=== PATIENT | female | born 1975 | race Caucasian/White ===

== ENCOUNTER → 2019-08-23 06:24 | Outpatient (CLI) | payer OTHER, SELFPAY ==
[2019-08-23 07:40] LABS: Absolute Lymphocyte Count 2.27 X10^3/uL (0.83-4.51); Absolute Neutrophil Count 2.3 X10^3/uL (2.0-7.7); Basophil# 0.04 X10^3/uL; Basophil% 0.8 % (0-1); Eosinophil# 0.09 X10^3/uL; Eosinophils% 1.7 % (0-5); Hemoglobin 12.7 g/dL (12.0-15.0); Lymphocyte # 2.27 X10^3/ul (4.0); Lymphocyte % 43.4 % (19-41); Mean Corp Hgb Conc 32.6 g/dL (32-36); Mean Corpuscular Hgb 30.3 pg (27.0-32.0); Mean Corpuscular Volume 93.1 fL (81-99); Mean Platelet Vol. 10.5 fl (6.2-12.0); Monocyte# 0.53 X10^3/uL; Monocyte% 10.1 % (0-10); NRBC Flagged by Analyzer 0 % (0-5); Neutrophil # 2.28 X10^3/uL (2.7-7.7); Neutrophil % 43.6 % (47-70); Platelet Count 190 K/mm3 (150-450); RBC Distribution Width CV 12.6 % (11.6-14.6); RBC Distribution Width SD 43.4 fl (35.1-43.9); Red Blood Count 4.19 M/mm3 (4.2-5.4); White Blood Count 5.2 K/mm3 (4.4-11.0)
[2019-08-23 08:24] LABS: AST(SGOT) 10 U/L (15-37); Alanine Aminotransfer ALT/SGPT 18 U/L (13-56); Albumin, Serum 3.3 g/dL (3.2-5.0); Alkaline Phosphatase 58 U/L (45-117); Anion Gap 8 (5-15); BUN 19 mg/dL (7-18); BUN/Creat Ratio 25.4 RATIO (10-20); Calcium,Total 8.8 mg/dL (8.5-10.1); Chloride 106 mmol/L (98-107); Cholesterol 151 mg/dL (200); Creatinine, Serum 0.75 mg/dL (0.55-1.02); EST Glomerular Filtration Rate 90 mL/min (>60); Est Glom Filt Rate - Afr Amer 109 mL/min (>60); Ferritin 16 ng/mL (8-252); Globulin 3.4 g/dL (2.2-4.2); Glucose 86 mg/dL (74-106); High Density Lipoprotein 84 mg/dL; Iron 132 ug/dL (50-170); Iron Binding Capacity,Total 439 ug/dL (250-450); Potassium 3.7 mmol/L (3.5-5.1); Protein, Total 6.7 g/dL (6.4-8.2); Sodium Level 142 mmol/L (136-145); Triglycerides 85 mg/dL; Very Low Density Lipoprotein 17 mg/dL (5-40)
[2019-08-23 09:26] LABS: Vitamin B12 548 pg/mL (211-911); Vitamin D,25 Hydroxy 17.7 ng/mL (29.95-100.01)
== END ==
DX: E55.9 Vitamin D deficiency, unspecified (principal); E53.8 Deficiency of other specified B group vitamins; E78.2 Mixed hyperlipidemia; Z98.84 Bariatric surgery status
CPT/HCPCS: 36415; 80053; 80061; 82306; 82607; 82728; 82746; 83540; 83550; 85025

== ENCOUNTER 2019-09-20 00:33 | Observation (INO) | payer OTHER, SELFPAY ==
[2019-09-20] VITALS (16 sets, daily range): BP systolic 118–149; BP diastolic 67–92; PULSE 54–71; RESP 16–18; TEMP 36.5–37; O2SAT 95–98; BMI 37.8
--- NOTE | 2019-09-20 00:42 | EKG12_ITS ---
Test Reason : Blood Pressure : / mmHG Vent. Rate : 057 BPM Atrial Rate : 057 BPM P-R Int : 170 ms QRS Dur : 094 ms QT Int : 414 ms P-R-T Axes : 038 009 006 degrees QTc Int : 402 ms Sinus bradycardia Otherwise normal ECG When compared with ECG of 28-SEP-2005 16:10, No significant change was found Confirmed by DORON CHARLTON, BILL ([id number]), loan expeditor THERON PARDO ([id number]) on 09/22/2019 10:24:19 AM Referred By: Ted Patton Confirmed By:DUSTY SAL MD
--- NOTE | 2019-09-20 00:43 | HP.PCM_ITS ---
History of Present Illness Date of Admission: 09/20/19 Chief Complaint: Chest pain The patient is a 44 year old F with a PMH as below who presents with chest pain. It started approximately an hour prior to presentation to the outside hospital, while she was sitting in crocheting. She denies any chest pain with exertion and nothing made it better until she got to the hospital was given a dose of nitroglycerin. She still has a little bit of substernal chest pain but continues to have left arm pain. EKG at the outside hospital was unremarkable and a repeat EKG here was also nonischemic. She denies any shortness of breath, lightheadedness or dizziness. Initial troponin at the outside hospital was nor mal but her blood pressure was a little bit elevated. She does talk about how she has a significant stress at home and at work and that it has worsened over the last month or so. Past Medical History Home Medications: Ambulatory Orders Medication Instructions Recorded Cyanocobalamin (Vitamin B-12) 1,000 mcg IJ QMONTH 09/20/19 [Cyanocobalamin Injection] Surgical History: gastric bypass Lives: Spouse/ Significant Other Smoking Status: Current every day smoker Tobacco Use: Cigarettes Alcohol: Occasional Drugs: None - *Family History Maternal History Items: Heart Disease Paternal History Items: Heart Disease Review of Systems Constitutional: Denies: Chills, Fever, Weight Change HEENT: Denies: Head Aches, Sinus Congestion, Sinus Drainage Cardiovascular: Reports: Chest Pain. Denies: Palpitations Respiratory: Denies: Cough, Shortness of breath at rest, Sputum production Gastrointestinal: Denies: Abdominal Pain, Nausea, Vomiting Genitourinary: Denies: Dysuria Musculoskeletal: Denies: Joint Pain, Joint Tenderness Skin: Denies: Rash, Wounds Neurological: Denies: Numbness, Tingling, Focal weakness Psychiatric: Denies: Anxiety, Depression Hematologic/ Lymphatic: Denies: Easy Bruising, Easy Bleeding VTE Information - Inpt Only VTE Present on Admission: No - Physical Exam Vitals/I&O's: Weight: 227 lb 6.4 oz Body Mass Index (BMI) 37.8 General: Alert, Oriented x3, Cooperative, No apparent distress HEENT: Atraumatic, PERRLA, EOMI, Normocephalic Oral: Moist Mucosa Neck: Supple, No JVD Lungs: Clear to auscultation, Normal air movement, No rhonchi, No wheeze, No rales, Diminished Cardiovascular: Regular rate, Regular Rhythm, Normal S1, Normal S2, No murmurs Abdomen: Soft, Non Tender, Non-Distended, No Hepato-splenomegaly Extremities: No edema, Capillary Refill Less than 3 Seconds Skin: No rashes, No breakdown Neurological: Neuro grossly intact, Sensory exam intact to light touch and pain Psych/Mental Status: Normal Affect, Appropriate Current Medications Sodium Chloride () 250 mls @ 15 mls/hr IV .[id number] PRN PRN Reason: Saline Flush Nitroglycerin (Nitrostat) 0.4 mg SUBLINGUAL Q5M PRN PRN Reason: CARDIAC/CHEST PAIN Sodium Chloride () 10 - 40 ml IV UD PRN PRN Reason: SALINE FLUSH Assessment/Plan 1. Chest pain/hypertension -She received a loading dose of aspirin as well as a dose of nitroglycerin at the outside hospital -Troponin was negative, will obtain serial troponins -She states that her blood pressure was high at the outside hospital and on initial presentation here her systolic blood pressure was in the 140s, will continue to monitor and treat if necessary -We will plan for exercise nuclear stress in the morning -We will also obtain a lipid panel -Continue with nitroglycerin as needed 2. Gastric bypass -She is on vitamin B12 which we will continue DVT: Ambulation Code Visit OBSV E&M: 89210 Initial observation care L2
[2019-09-20] MEDS: Ibuprofen 400 MG Tablet PO ×2 (04:03→18:38)
[2019-09-20 04:46] LABS: Absolute Lymphocyte Count 2.54 X10^3/uL (0.83-4.51); Absolute Neutrophil Count 4.2 X10^3/uL (2.0-7.7); Basophil# 0.03 X10^3/uL; Basophil% 0.4 % (0-1); Hematocrit 34.7 % (37-47); Hemoglobin 11.8 g/dL (12.0-15.0); Lymphocyte # 2.54 X10^3/ul (4.0); Lymphocyte % 34.4 % (19-41); Mean Corpuscular Hgb 30.9 pg (27.0-32.0); Mean Corpuscular Volume 90.8 fL (81-99); Mean Platelet Vol. 10.3 fl (6.2-12.0); Monocyte# 0.66 X10^3/uL; Monocyte% 8.9 % (0-10); NRBC Flagged by Analyzer 0 % (0-5); Neutrophil # 4.15 X10^3/uL (2.7-7.7); Neutrophil % 56.2 % (47-70); Platelet Count 161 K/mm3 (150-450); RBC Distribution Width SD 42.5 fl (35.1-43.9); Red Blood Count 3.82 M/mm3 (4.2-5.4); White Blood Count 7.4 K/mm3 (4.4-11.0)
[2019-09-20 05:08] LABS: Anion Gap 5 (5-15); BUN 20 mg/dL (7-18); BUN/Creat Ratio 28.8 RATIO (10-20); Calcium,Total 8.8 mg/dL (8.5-10.1); Chloride 110 mmol/L (98-107); Creatinine, Serum 0.69 mg/dL (0.55-1.02); EST Glomerular Filtration Rate 98 mL/min (>60); Est Glom Filt Rate - Afr Amer 118 mL/min (>60); Glucose 92 mg/dL (74-106); Potassium 3.5 mmol/L (3.5-5.1); Sodium Level 140 mmol/L (136-145)
[2019-09-20] MEDS: 0.9% Saline Lock 10 ML Syringe IV ×2 (05:59→14:15)
[2019-09-20] MEDS: Clopidogrel Bisulfate 300 MG Tablet 600 MG PO (05:59)
[2019-09-20] MEDS: Heparin Injection (Vial) 5,000 UNIT/ML VIAL 4000 UNIT IV (06:04)
[2019-09-20] MEDS: HEPARIN/D5w 25,000 UNITS 25,000 UNITS/250 ML IV.SOLN. 10 UNITS IV (06:05)
[2019-09-20 06:12] LABS: Cholesterol 147 mg/dL (200); High Density Lipoprotein 88 mg/dL; Triglycerides 54 mg/dL; Very Low Density Lipoprotein 11 mg/dL (5-40)
[2019-09-20 12:47] LABS: Partial Thromboplast Time 60.4 Seconds (24.1-36.2)
[2019-09-20 13:58] LABS: Internal QC Validated? YES +Cl - CLEAR BKGD; Pregnancy, Serum, hCG Quali. NEGATIVE Negative
--- NOTE | 2019-09-20 14:10 | NURSING ---
Called report to Zunilda ARGUELLES in paint laboratory technician
--- NOTE | 2019-09-20 15:06 | CON.PCM_ITS ---
Problem List (1) Non-STEMI (non-ST elevated myocardial infarction) Status: Acute Reason for Consult Date of Consultation: 09/20/19 History of Present Illness: The patient is a 44 year old F with a PMH as below who presents with chest pain. It started approximately an hour prior to presentation to the outside hospital, while she was sitting in crocheting. She denies any chest pain with exertion and nothing made it better until she got to the hospital was given a dose of nitroglycerin. Her chest pain got better significantly with nitroglycerin. However she had left arm pain for about 8 hours. EKG at the outside hospital was unremarkable and a repeat EKG here was also nonischemic. She denies any shortness of breath, lightheadedness or dizziness. Initial troponin at the outside hospital was normal but her blood pressure was a little bit elevated. She does talk about how she has a significant stress at home and at work and that it has worsened over the last month or so. Patient's troponin was elevated and cardiology consult was requested. Review of systems: All systems reviewed. All else is negative except that in the HPI. Past Medical History Allergies/Adverse Reactions: Allergies No Known Allergies Allergy (Verified 09/20/19 01:02) Home Medications: Ambulatory Orders Medication Instructions Recorded Cyanocobalamin (Vitamin B-12) 1,000 mcg IJ QMONTH 09/20/19 [Cyanocobalamin Injection] Surgical History: gastric bypass - *Family History Maternal History Items: Heart Disease Paternal History Items: Heart Disease Lives: Spouse/ Significant Other Smoking Status: Current every day smoker Tobacco Use: Cigarettes Alcohol: Occasional Drugs: None Objective: Vital Signs Temp Pulse Resp BP Pulse Ox 98.5 F 61 18 137/87 H 95 09/20/19 14:15 09/20/19 14:15 09/20/19 14:15 09/20/19 14:15 09/20/19 14:15 Oxygen Delivery Method Room Air Weight: 227 lb 6.4 oz Body Mass Index (BMI) 37.8 Intake and Output for Last 24 Hours 09/18/19 09/19/19 09/20/19 23:59 23:59 23:59 Intake Total 681.67 / 681.67 Balance 681.67 / 681.67 General: Awake, Alert, Oriented x 3 HEENT: PERRL, EOMI, Sclera Non Icteric Neck: Supple, Good ROM, No Lymph Node Enlargement Lungs: Clear to auscultation Cardiovascular: Regular Rhythm, Normal S1, Normal S2, No Murmurs, No Rubs, No Gallops Abdomen: Soft Extremities: No edema Skin: No Rashes Psych/Mental Status: Appropriate 09/20/19 01:26: Troponin I 0.181 H 09/20/19 04:26: WBC 7.4, RBC 3.82 L, Hgb 11.8 L, Hct 34.7 L, MCV 90.8, MCH 30.9, MCHC 34.0, Plt Count 161, MPV 10.3, Immature Gran % (Auto) 0.100, Neut % (Auto) 56.2, Lymph % (Auto) 34.4, [place] % (Auto) 8.9, Eos % (Auto) 0.0, Baso % (Auto) 0.4, Absolute Neuts (auto) 4.2, Nucleated RBC % 0 09/20/19 04:26: Sodium 140, Potassium 3.5, Chloride 110 H, Carbon Dioxide 25.0, Anion Gap 5, BUN 20 H, Creatinine 0.69, Est GFR (MDRD) Af Amer 118, Est GFR (MDRD) Non-Af 98, BUN/Creatinine Ratio 28.8 H, Glucose 92, Calcium 8.8, Troponin I 1.070 H* 09/20/19 04:26: Triglycerides 54, Cholesterol 147, LDL Cholesterol 48, VLDL Cholesterol 11, HDL Cholesterol 88 09/20/19 05:35: APTT 29.0 09/20/19 07:20: Troponin I 2.620 H* 09/20/19 12:10: APTT 60.4 H Rhythm: EKG: ECHO: Stress Test: Cardiac Cath: PCI: CT Surgery: Holter monitor: EPS: PPM: CXR: Chest CT Scan: Assessment/Plan 1. Non-STEMI: Patient's troponin went up to 2.6. We will proceed with coronary angiography. Risks and benefits explained to the patient and family.
--- NOTE | 2019-09-20 15:27 | ECHOD_ITS ---
Reason For Study: CHEST PAIN Procedure This was a 2D Doppler, Color Flow transthoracic echocardiogram. Exam performed portable in patient room. Left Ventricle Normal size and thickness. The estimated ejection fraction is 55 %. No evidence for diastolic dysfunction. No regional wall motion abnormalities noted. Right Ventricle Normal RV size. Normal systolic function. Atria The left atrium is mildly enlarged. Normal right atrium. Aneurysmal atrial septum. Bubble contrast study negative for right to left interatrial shunt. Mitral Valve There is no mitral valve stenosis. Trivial mitral valve insufficiency. Tricuspid Valve There is no tricuspid stenosis. Unable to estimate RV systolic pressure due to insufficient tricuspid regurgitant envelope. Trivial tricuspid valve insufficiency. Aortic Valve Trisinus/trileaflet aortic valve. There is no aortic stenosis. No aortic valve insufficiency. Pulmonic Valve There is no pulmonic valvular stenosis. Trivial pulmonic valve insufficiency. Great Vessels Normal aortic root. Pericardium/Pleural No pericardial effusion. Medication Performed a rapid injection of agitated mix of 9 cc saline and 1cc air to assess for atrial septal defect. MMode/2D Measurements & Calculations LVIDd: 5.4 cm IVSd: 1.0 cm Ao root diam: 3.2 cm LVIDs: 3.8 cm LVPWd: 1.0 cm RVDd: 3.9 cm FS: 30.3 % LAV(MOD-bp): 99.7 ml LA A4 area: 25.8 cm2 LA dimension(2D): 4.5 cm LAV(MOD-bp) Indexed: 47.8 ml/m2 LAV(MOD-sp2): 113.1 ml LAV(MOD-sp4): 83.4 ml RA A4 area: 19.7 cm2 Time Measurements MV dec time: 0.24 sec Doppler Measurements & Calculations MV E max jaren: 81.2 cm/sec Lat Peak E' Jaren: 14.3 cm/sec Med Peak E' Jaren: 11.4 cm/sec MV A max jaren: 74.4 cm/sec E/E' lat: 5.7 E/E' med: 7.1 MV E/A: 1.1 Ao V2 max: 184.6 cm/sec LV V1 max: 149.6 cm/sec PA V2 max: 129.1 cm/sec Ao max P.6 mmHg LV V1 max P.0 mmHg TR max jaren: 219.2 cm/sec TR max P.2 mmHg Interpretation Summary No evidence for diastolic dysfunction. The estimated ejection fraction is 55 %. Bubble contrast study negative for right to left interatrial shunt. The left atrium is mildly enlarged. Trivial mitral valve insufficiency. Ordering Physician: Jesus Anderson Performed By: Felicia Lo, SHAY, RVT
--- NOTE | 2019-09-20 16:19 | PN_ITS ---
Patient Problems: Active and Suspected Problems Non-STEMI (non-ST elevated myocardial infarction) (Acute) Subjective: Patient seen and examined. Underwent cardiac catheterization which showed normal coronary arteries. Denies further chest discomfort. Plan for echo in a.m. - Physical Exam Vitals/I&O's: Vital Signs Temp Pulse Resp BP Pulse Ox 98.3 F 55 L 18 123/81 H 98 09/20/19 15:15 09/20/19 15:45 09/20/19 15:45 09/20/19 15:45 09/20/19 15:45 Oxygen Delivery Method Room Air Weight: 227 lb 6.4 oz Body Mass Index (BMI) 37.8 Intake and Output for Last 24 Hours 09/18/19 09/19/19 09/20/19 23:59 23:59 23:59 Intake Total 681.67 / 681.67 Balance 681.67 / 681.67 General: Alert, Oriented x3, Cooperative HEENT: Atraumatic, PERRLA, EOMI, Normocephalic Neck: Supple, No JVD, Negative Carotid Bruits Lungs: Clear to auscultation, Normal air movement Cardiovascular: Regular rate, Regular Rhythm, Normal S1, Normal S2, No murmurs Abdomen: Bowel Sounds Present, Soft, Non Tender, Non-Distended Extremities: No clubbing, No cyanosis, No edema, Capillary Refill Less than 3 Seconds Skin: No rashes, No breakdown Musculoskeletal: No Tenderness to Palpation of Joints or Extremities Neurological: Cranial nerves II-XII grossly intact, Neuro grossly intact Psych/Mental Status: Normal Affect, Appropriate Laboratory Results 09/20/19 01:26: Troponin I 0.181 H 09/20/19 04:26: WBC 7.4, RBC 3.82 L, Hgb 11.8 L, Hct 34.7 L, MCV 90.8, MCH 30.9, MCHC 34.0, RDW Std Deviation 42.5, RDW Coeff of Jennifer 13.0, Plt Count 161, MPV 10.3, Immature Gran % (Auto) 0.100, Neut % (Auto) 56.2, Lymph % (Auto) 34.4, [place] % (Auto) 8.9, Eos % (Auto) 0.0, Baso % (Auto) 0.4, Absolute Neuts (auto) 4.2, Absolute Lymphs (auto) 2.54, Nucleated RBC % 0 09/20/19 04:26: Sodium 140, Potassium 3.5, Chloride 110 H, Carbon Dioxide 25.0, Anion Gap 5, BUN 20 H, Creatinine 0.69, Estim Creat Clear Calc 94.60, Est GFR (MDRD) Af Amer 118, Est GFR (MDRD) Non-Af 98, BUN/Creatinine Ratio 28.8 H, Glucose 92, Calcium 8.8, Troponin I 1.070 H* 09/20/19 04:26: Triglycerides 54, Cholesterol 147, LDL Cholesterol 48, VLDL Cholesterol 11, HDL Cholesterol 88 09/20/19 05:35: APTT 29.0 09/20/19 07:20: Troponin I 2.620 H* 09/20/19 12:10: APTT 60.4 H 09/20/19 13:35: Serum , Qual NEGATIVE Current Medications Heparin Sodium (Porcine) (Heparin Na) 0 unit IV UD PRN; Protocol Sodium Chloride () 250 mls @ 15 mls/hr IV .[id number] PRN PRN Reason: Saline Flush Ibuprofen (Motrin) 400 mg PO Q8H PRN PRN PRN Reason: Pain Score 1-10/10 Last Admin: 09/20/19 04:03 Dose: 400 mg Documented by: Nitroglycerin (Nitrostat) 0.4 mg SUBLINGUAL Q5M PRN PRN Reason: CARDIAC/CHEST PAIN Sodium Chloride () 10 - 40 ml IV UD PRN PRN Reason: SALINE FLUSH Last Admin: 09/20/19 14:15 Dose: 10 ml Documented by: Medical Necessity - Tobacco Use Smoking Status: Current every day smoker Tobacco Use: Cigarettes Assessment/Plan All Active Problems Non-STEMI (non-ST elevated myocardial infarction) (Acute) 1. NSTEMI-unclear etiology. Cardiology consulted. Underwent cardiac catheterization which demonstrated normal coronary arteries. Possible coronary vasospasm? Obtain echo in a.m. Chest pain has resolved. Check ESR, CRP. 2. History of gastric bypass-on vitamin B12 supplementation. DVT prophylaxis-low risk This patient was seen by [facility] under the supervision of Dr. Weiner.
[2019-09-20 17:07] LABS: CRP < 2.90 mg/L (0.0-3.0)
[2019-09-20 17:08] LABS: Erythrocyte Sedimentation Rate 4 mm/hr (0-20)
--- NOTE | 2019-09-20 18:20 | CL.D_ITS ---
Patient Name: SHERLY KINSEY Study Date: 09/20/2019 Performing: Melonie Anderson MD Ht: 65 inches 165 cm : 1975 Wt: 227.4 lbs 103 kg Age: 44 Gender: female BSA: 2.09 PROCEDURE(S) PERFORMED [id number]/LV CLINICAL PROFILE AND INDICATIONS Indications: ACS <= 24 hrs Heart Failure: None Stress/Imaging Stress/Image Study Performed: No CAD Presentations: Non-STEMI. Symptom onset Date/Time: 09/19/19 Time Not Available CONCLUSIONS Angiographically no significant CAD. Preserved EF. No significant or MR RECOMMENDATIONS DESCRIPTION OF PROCEDURE The patient arrived to the procedure lab. The risks and benefits of the procedure as well as a full d escription of our services here and current unavailability of surgical backup were fully explained to the patient and/or their significant other prior to the catheterization. The Timeout was completed, verifying the correct patient and procedure. The patient's procedural site was prepped and draped in the usual fashion. Local anesthetic was given subcutaneously to right radial region with Lidocaine 2% . Using a modified Seldinger technique, arterial access was obtained via the right radial artery, a 6 Fr sheath was inserted. Left Coronary Artery selective angiography was performed in multiple views u sing a 5 Fr. JL3.5 catheter. Left Ventriculography was performed in FERNANDEZ projection using a 5 Fr. JR4. LV to AO pullback pressures were then recorded. Right Coronary Artery selective angiography was then performed in multiple views using a 5 Fr. JR 4 catheter.The arterial sheath was pulled and a TR Band was applied for hemostasis CORONARY ANGIOGRAPHY DOMINANCE: Right Dominant LEFT HEART ASSESSMENT Left Ventricular Ejection Fraction: by LV Gram 55 % Normal Left Ventricular systolic function LEFT MAIN: Angiographically normal LEFT ANTERIOR DESCENDING ARTERY: Angiographically normal CIRCUMFLEX ARTERY: Angiographically normal RIGHT CORONARY ARTERY: Angiographically normal VALVE FINDINGS: No Aortic Valve Stenosis No Mitral Insufficency COMPLICATIONS No Complications PROCEDURE MEDICATIONS Versed 1 mg IV Fentanyl 50 mcg IV Oxygen: 2 L/min via nasal cannula Heparin given IA 09/20/2019 14:44:52 Verapamil 2.5mg, Ntg 100mcgs, 3000 units of Heparin given IA 09/20/2019 14:44:52 SUMMARY OF HEMODYNAMIC DATA Time AIR REST ECG 14:27:51 AO 95/53 (71) SA 14:46:43 LV 122/-4, 11 14:51:24 LV 124/-4, 11 14:51:30 LV 124/-1, 13 14:52:05 LV 123/-1, 13 14:52:12 LVp 127/-2, 15 14:52:20 AOp 120/73 (95) 14:52:25 Signed By Melonie Anderson MD On 09/20/2019 18:19:59 Melonie Anderson MD
[2019-09-20] MEDS: Zolpidem Tartrate 5 MG Tablet PO (21:24)
[2019-09-21 03:02] VITALS: PULSE 53
[2019-09-21 03:30] VITALS: BP 106/65; PULSE 57; RESP 16; TEMP 36.6; O2SAT 100
[2019-09-21 06:58] VITALS: PULSE 58
[2019-09-21 09:30] VITALS: BP 117/69; PULSE 75; RESP 16; TEMP 36.6; O2SAT 92
[2019-09-21] MEDS: Ibuprofen 400 MG Tablet PO (09:49)
--- NOTE | 2019-09-21 11:54 | DCINST_ITS ---
- Discharge Diagnoses Current Active Problems: Current Active and Chronic Problems Non-STEMI (non-ST elevated myocardial infarction) (Acute) You will use the following diet at home:: No restrictions Discharge Activity: Return to Normal Activity Call your doctor if you observe: Shortness of breath, Dizziness, Fainting spells, Chest pain Allergies/Adverse Reactions: Allergies No Known Allergies Allergy (Verified 09/20/19 01:02) Medications to take at Discharge Cyanocobalamin (Vitamin B-12) [Cyanocobalamin Injection] 1,000 mcg IJ QMONTH 09/20/19 Aspirin E.C. [Ecotrin] 81 mg PO DAILY@0800 #30 tab 09/21/19 The following prescriptions were given: Aspirin E.C. [Ecotrin] 81 mg PO DAILY@0800 #30 tab Transmission Status: Pending to [facility] Primary Care Physician: JAZMINE GARCIA [Other] Please follow up with your Primary Care Physician in: 1 Week Test Results: Test results from this visit will be discussed in further detail at your follow- up appointment, if applicable. Please Follow Up With: Jesus Anderson MD When: 2 Weeks, may see [employer] SUPERVISOR/PA Proposed Discharge Date: 09/21/19
--- NOTE | 2019-09-21 12:06 | CT_ITS ---
STUDY: CTA CHEST REASON FOR EXAM: Female, 44 years old. Chest pain history of heart catheter 1 day ago, history of bypass gastric bypass surgery history of smoking RADIATION DOSAGE (If Supplied By Facility): CTDIvol = ( 7.65 ) mGy, DLP = ( 500.67 ) mGycm TECHNIQUE: The examination was performed with the intravenous administration of 100CC [id number]. Post-processing of the angiographic images was performed, with multiplanar reformation and 3D reconstruction. Individualized dose optimization techniques were used for this CT. COMPARISON: None. FINDINGS: There is limited enhancement of the main pulmonary artery and right and left pulmonary arteries. There is limited enhancement of the bilateral peripheral pulmonary arteries. There is no demonstrated pulmonary embolism. Normal thoracic aorta and visualized great vessels. There is no demonstrated aortic dissection. Normal heart and pericardium. There is calcification in the left hilum compatible with old granulomatous disease measuring 2.1 x 1.4 cm per Normal hilar regions. Normal visualized trachea and bronchi. There is a calcified granuloma and the superior aspect of the left lower lobe measuring 2.1 x 2.7 cm. Normal pulmonary parenchyma. Normal pleura. Normal chest wall structures. There are bilateral breast implants. There are degenerative changes of thoracic spine. Partially visualized postoperative change in the stomach status post gastric bypass. CT/CTA Chest W/WO Contrast IMPRESSION: Limited contrast bolus. Normal CTA chest examination, without a demonstrated pulmonary embolism or arterial dissection. There is evidence of old granulomatous disease. Electronically Signed: Rachel Unger MD at 13:52 EST Tel , Service support ,
--- NOTE | 2019-09-21 14:03 | PCM.DC.SUM ---
<Maxine De La O - Last Filed: 09/21/19 14:14> Discharge Date and Diagnosis Date of Admission: 09/20/19 Date of Discharge: 09/21/19 - Primary Discharge Diagnosis Active and Suspected Problems 1. NSTEMI, suspect coronary vasospasm 2. History of gastric bypass Hospital Course and Treatment Imaging Results: Diagnostic Data Chest CTA 09/21/19 12:06 IMPRESSION: Limited contrast bolus. Normal CTA chest examination, without a demonstrated pulmonary embolism or arterial dissection. There is evidence of old granulomatous disease. Electronically Signed: Rachel Unger MD at 13:52 EST Tel , Service support , Dr. Anderson- Cardiology Operations: None Procedures: 2-D Echocardiogram, Cardiac catheterization Summary of Care Provided: The patient is a 44 year old F admitted 09/20/2019 due to chest pain. 1. NSTEMI-Cardiology consulted during admission. Underwent cardiac catheterization which demonstrated normal coronary arteries. Suspect possible coronary vasospasm? Echocardiogram demonstrated an EF of 55%. Chest pain has resolved. ESR, CRP normal. Initiated on aspirin 81 mg daily. Beta-silvio deferred given heart rate in the 50s and borderline BP. Hold off on calcium channel silvio for possible vasospasm. Follow-up with cardiology in 2 weeks. Follow-up with primary care physician in 1 week. 2. History of gastric bypass-on vitamin B12 supplementation. General: Alert, Oriented x3, Cooperative HEENT: Atraumatic, PERRLA, EOMI, Normocephalic Neck: Supple, No JVD, Negative Carotid Bruits Lungs: Clear to auscultation, Normal air movement Cardiovascular: Regular rate, Regular Rhythm, Normal S1, Normal S2, No murmurs Abdomen: Bowel Sounds Present, Soft, Non Tender, Non-Distended Extremities: No clubbing, No cyanosis, No edema, Capillary Refill Less than 3 Seconds Skin: No rashes, No breakdown Musculoskeletal: No Tenderness to Palpation of Joints or Extremities Neurological: Cranial nerves II-XII grossly intact, Neuro grossly intact Psych/Mental Status: Normal Affect, Appropriate Patient seen and examined prior to discharge. Physical assessment as noted above. Patient is stable for discharge with follow up recommendations as noted above. This patient was seen by [facility] Kelly under the supervision of Dr. Miller. - Physical Exam Vitals/I&O's: Vital Signs Temp Pulse Resp BP Pulse Ox 97.8 F 75 16 117/69 92 09/21/19 09:30 09/21/19 09:30 09/21/19 09:30 09/21/19 09:30 09/21/19 09:30 Oxygen Delivery Method Room Air Weight: 227 lb 6.4 oz Body Mass Index (BMI) 37.8 Intake and Output for Last 24 Hours 09/19/19 09/20/19 09/21/19 23:59 23:59 23:59 Intake Total 1161.67 / 1401.67 720 / 720 Balance 1161.67 / 1401.67 720 / 720 Laboratory Results 09/20/19 04:26: ESR 4 09/20/19 07:20: C-React Prot Ext Range < 2.90 Current Medications Heparin Sodium (Porcine) (Heparin Na) 0 unit IV UD PRN; Protocol Sodium Chloride () 250 mls @ 15 mls/hr IV .[id number] PRN PRN Reason: Saline Flush Ibuprofen (Motrin) 400 mg PO Q8H PRN PRN PRN Reason: Pain Score 1-10/10 Last Admin: 09/21/19 09:49 Dose: 400 mg Documented by: Nitroglycerin (Nitrostat) 0.4 mg SUBLINGUAL Q5M PRN PRN Reason: CARDIAC/CHEST PAIN Sodium Chloride () 10 - 40 ml IV UD PRN PRN Reason: SALINE FLUSH Last Admin: 09/20/19 14:15 Dose: 10 ml Documented by: Discharge Diet: No Restrictions Discharge Activity: Return to Normal Activity Call your doctor if you observe: Shortness of breath, Dizziness, Fainting spells, Chest pain Home Medications: Medications to take at Discharge Cyanocobalamin (Vitamin B-12) [Cyanocobalamin Injection] 1,000 mcg IJ QMONTH 09/20/19 Aspirin E.C. [Ecotrin] 81 mg PO DAILY@0800 #30 tab 09/21/19 Following Prescrptions Were Given to Patient: Aspirin E.C. 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 I have independently interviewed and examined the patient and reviewed pertinent history, examination findings, laboratory and plan of management. I have reviewed the note and agree with the documented findings with the few additional points. In brief, patient is admitted for chest pain with elevated troponins consistent with non-STEMI. Patient had cardiac cath which showed normal coronary arteries. Echo reported as EF 55%. It is unclear reason for non-STEMI but possible myocarditis/pericarditis but patient did not had any fever or chills and history is of just 1 day. Patient started on beta-silvio. Follow-up cardiology in 2 weeks. Rest history of gastric bypass as mentioned above. I have discussed my assessment with Maxine MURO and orders have been reviewed. [] Discharge medication reconciliation done. Discharge follow-up instructions completed. Discharge process discussed with the patient and all questions were answered to patient's satisfaction.. Total time spent, exact 35 minutes on discharge meds reconciliation, examination, review of imaging and blood test and discussion with the patient on follow-up instructions. Objective: Seen and examined. Patient does not have chest pain. Cardiac cath findings explained to the patient. - Physical Exam Vitals/I&O's: Vital Signs Temp Pulse Resp BP Pulse Ox 97.8 F 75 16 117/69 92 09/21/19 09:30 09/21/19 09:30 09/21/19 09:30 09/21/19 09:30 09/21/19 09:30 Oxygen Delivery Method Room Air Weight: 227 lb 6.4 oz Body Mass Index (BMI) 37.8 Intake and Output for Last 24 Hours 09/20/19 09/21/19 09/22/19 23:59 23:59 23:59 Intake Total 1161.67 / 1401.67 720 / 720 Balance 1161.67 / 1401.67 720 / 720 General: Alert, Oriented x3, Cooperative HEENT: Atraumatic, PERRLA, EOMI, Normocephalic Neck: Supple, No JVD, Negative Carotid Bruits Lungs: Clear to auscultation, Normal air movement, No rhonchi, No wheeze, No rales Cardiovascular: Regular rate, Regular Rhythm, Normal S1, Normal S2, No murmurs Abdomen: Bowel Sounds Present, Soft, Non Tender, Non-Distended Extremities: No edema, Capillary Refill Less than 3 Seconds Skin: No rashes, No breakdown Musculoskeletal: No Tenderness to Palpation of Joints or Extremities, Arthritic Changes Neurological: Cranial nerves II-XII grossly intact, Deep Tendon Reflexes 2+/4 and Symmetrical, Neuro grossly intact Psych/Mental Status: Normal Affect, Appropriate Code Visit Inpatient E&M: 67586 Disch Hosp
== END 2019-09-21 11:54 | disposition home or self-care (01) ==
PROVIDERS: Nurse Practitioner Family; Specialist; Admitting Provider Family Medicine; Referring Provider Family Medicine; Visit Provider Internal Medicine
DX: I21.4 Non-ST elevation (NSTEMI) myocardial infarction (principal); Z98.84 Bariatric surgery status; Z23 Encounter for immunization; F17.210 Nicotine dependence, cigarettes, uncomplicated; I10 Essential (primary) hypertension
CPT/HCPCS: 36415; 71275; 80048; 80061; 84484; 84703; 85025; 85652; 85730; 86140; 93005; 93306; 93458; 96365; 96366; 96376; 99152; 99218; 99406; J7040; Q9957; Q9967; 90686; A4216; C1769; C1894; G0378; G0379

== ENCOUNTER → 2024-03-12 | Outpatient (CLI) | payer OTHER, SELFPAY ==
[2024-03-12 12:34] LABS: Absolute Lymphocyte Count 2.39 X10^3/uL (0.83-4.51); Absolute Neutrophil Count 3.1 X10^3/uL (2.0-7.7); Basophil# 0.03 X10^3/uL; Basophil% 0.5 % (0-1); Eosinophil# 0.15 X10^3/uL; Eosinophils% 2.4 % (0-5); Hematocrit 40.6 % (37-47); Hemoglobin 13.8 g/dL (12.0-15.0); Lymphocyte # 2.39 X10^3/ul (0.83-4.51); Lymphocyte % 38.5 % (19-41); Mean Corpuscular Hgb 30.5 pg (27.0-32.0); Mean Corpuscular Volume 89.8 fL (81-99); Mean Platelet Vol. 10.4 fl (6.2-12.0); Monocyte# 0.52 X10^3/uL; Monocyte% 8.4 % (0-10); NRBC Flagged by Analyzer 0 % (0-5); Neutrophil % 49.9 % (47-70); Platelet Count 261 K/mm3 (150-450); RBC Distribution Width CV 12.6 % (11.6-14.6); RBC Distribution Width SD 41.1 fl (35.1-43.9); Red Blood Count 4.52 M/mm3 (4.2-5.4); White Blood Count 6.2 K/mm3 (4.4-11.0)
[2024-03-12 13:09] LABS: Hemoglobin A1c 4.8 % (3.8-5.6)
[2024-03-12 13:25] LABS: ALB/GLOB Ratio 1.1 RATIO (0.9-2.4); AST(SGOT) 15 U/L (15-37); Alanine Aminotransfer ALT/SGPT 25 U/L (13-56); Albumin, Serum 3.9 g/dL (3.2-5.0); Alkaline Phosphatase 75 U/L (45-117); Anion Gap 9 (5-15); BUN 11 mg/dL (7-18); BUN/Creat Ratio 18.6 RATIO (10-20); Calcium,Total 10.5 mg/dL (8.5-10.1); Chloride 105 mmol/L (98-107); Cholesterol 160 mg/dL (200); Creatinine, Serum 0.59 mg/dL (0.55-1.02); EST Glomerular Filtration Rate 115 mL/min (>60); Est Glom Filt Rate - Afr Amer 140 mL/min (>60); Globulin 3.4 g/dL (2.2-4.2); Glucose 70 mg/dL (74-106); High Density Lipoprotein 83 mg/dL; Protein, Total 7.3 g/dL (6.4-8.2); Sodium Level 138 mmol/L (136-145); Thyroid Stim Hormone (TSH) 0.88 uIU/mL (0.358-3.74); Triglycerides 83 mg/dL; Very Low Density Lipoprotein 17 mg/dL (5-40)
== END | disposition home or self-care (01) ==
LOC: BIMLAB 10:29
PROVIDERS: PCP Internal Medicine; Visit Provider Internal Medicine
DX: I10 Essential (primary) hypertension (principal); I25.2 Old myocardial infarction; E66.9 Obesity, unspecified
CPT/HCPCS: 36415; 80053; 80061; 83036; 84443; 85025

== ENCOUNTER → 2024-06-11 | Outpatient (CLI) | payer OTHER, SELFPAY ==
[2024-06-11 14:30] LABS: Anion Gap 5 (5-15); BUN 11 mg/dL (7-18); BUN/Creat Ratio 16.3 RATIO (10-20); Calcium,Total 10.7 mg/dL (8.5-10.1); Chloride 106 mmol/L (98-107); Creatinine, Serum 0.67 mg/dL (0.55-1.02); EST Glomerular Filtration Rate 99 mL/min (>60); Est Glom Filt Rate - Afr Amer 120 mL/min (>60); Glucose 80 mg/dL (74-106); Potassium 4.5 mmol/L (3.5-5.1); Sodium Level 141 mmol/L (136-145)
== END | disposition home or self-care (01) ==
PROVIDERS: PCP Internal Medicine; Referring Provider Nurse Practitioner; Visit Provider Nurse Practitioner
DX: E83.52 Hypercalcemia (principal)
CPT/HCPCS: 36415; 80048

== ENCOUNTER → 2024-06-13 | Outpatient (CLI) | payer OTHER, SELFPAY ==
[2024-06-13 15:50] LABS: PTHIN 68.3 pg/mL (18.4-80.1)
== END | disposition home or self-care (01) ==
LOC: BIMLAB 13:01
PROVIDERS: PCP Internal Medicine; Referring Provider Nurse Practitioner; Visit Provider Nurse Practitioner
DX: E83.52 Hypercalcemia (principal)
CPT/HCPCS: 36415; 82306; 83970

== ENCOUNTER → 2024-06-25 | Outpatient (CLI) | payer OTHER, SELFPAY ==
--- NOTE | 2024-06-25 11:49 | BI_ITS ---
MAMMOGRAPHY - BILATERAL SCREENING REASON FOR EXAM: Female, 49 years old. Routine annual screening examination. PERTINENT HISTORY: Aunt with breast cancer. Bilateral breast implants. TECHNIQUE: Digital bilateral breast shannon (3D mammographic acquisition) in the CC and MLO projections. 2-D mediolateral oblique (MLO) and craniocaudad (CC) views of both breasts were obtained. CAD: Full Field Digital Mammography with Computer Added Detection was performed. COMPARISON: Comparison is made with prior outside examination dated January 22, 2021. FINDINGS: Breast Composition: The breasts are heterogeneously dense, which may obscure small masses. There are no dominant masses or suspicious calcifications. Stable appearance of the bilateral breast implants. No other significant abnormalities are identified. There has been no significant change since the prior study. BI/SCRN MAMM (CAD)W/SHANNON BILAT IMPRESSION: Stable bilateral screening mammogram. Yearly follow-up mammogram recommended. (A) ASSESSMENT CATEGORY: BIRADS Category 2: Benign. A letter regarding these results will be sent to the patient by the facility within 30 days. Approximately 10% of breast cancers are not detected by mammography. A normal mammogram should not delay biopsy of a clinically suspicious abnormality. [id number] Electronically Signed: Amandeep Montana MD at 13:19 EDT ,
== END | disposition home or self-care (01) ==
PROVIDERS: PCP Internal Medicine; Referring Provider Nurse Practitioner; Visit Provider Nurse Practitioner
DX: Z12.31 Encounter for screening mammogram for malignant neoplasm of breast (principal); Z80.3 Family history of malignant neoplasm of breast
CPT/HCPCS: 77063; 77067

== ENCOUNTER → 2024-07-16 | Outpatient (CLI) | payer OTHER, SELFPAY ==
[2024-07-16 11:38] LABS: Ionized Calcium Order ORDER TUBE
[2024-07-16 13:14] LABS: ALB/GLOB Ratio 1.3 RATIO (0.9-2.4); AST(SGOT) 9 U/L (15-37); Alanine Aminotransfer ALT/SGPT 15 U/L (13-56); Albumin, Serum 3.8 g/dL (3.2-5.0); Alkaline Phosphatase 75 U/L (45-117); Anion Gap 6 (5-15); BUN 8 mg/dL (7-18); BUN/Creat Ratio 11.6 RATIO (10-20); Calcium,Total 10.6 mg/dL (8.5-10.1); Chloride 108 mmol/L (98-107); Creatinine, Serum 0.69 mg/dL (0.55-1.02); EST Glomerular Filtration Rate 97 mL/min (>60); Est Glom Filt Rate - Afr Amer 117 mL/min (>60); Glucose 75 mg/dL (74-106); Potassium 4.3 mmol/L (3.5-5.1); Protein, Total 6.8 g/dL (6.4-8.2); Sodium Level 141 mmol/L (136-145)
== END | disposition home or self-care (01) ==
LOC: BIMLAB 10:36
PROVIDERS: PCP Internal Medicine; Referring Provider Nurse Practitioner; Visit Provider Nurse Practitioner
DX: E83.52 Hypercalcemia (principal)
CPT/HCPCS: 36415; 80053; 82330

== ENCOUNTER → 2024-07-18 | Outpatient (CLI) | payer OTHER, SELFPAY | END | disposition home or self-care (01) | LOC: LABSPEC 09:18 | PROVIDERS: PCP Internal Medicine; Referring Provider Nurse Practitioner; Visit Provider Nurse Practitioner | DX: E83.52 Hypercalcemia (principal) ==

== ENCOUNTER → 2024-07-23 | Outpatient (CLI) | payer OTHER, SELFPAY ==
[2024-07-23 20:01] LABS: 24HR UR TOTAL VOLUME 1000 ml; Calcium Urine pH Range 2; Urine Calcium (Random) 18.4 mg/dL (Not Estab.)
== END | disposition home or self-care (01) ==
LOC: LABSPEC 10:02
PROVIDERS: PCP Internal Medicine; Referring Provider Nurse Practitioner; Visit Provider Nurse Practitioner
DX: E83.52 Hypercalcemia (principal)
CPT/HCPCS: 81050; 82340

== ENCOUNTER → 2025-04-08 | Outpatient (CLI) | payer OTHER, SELFPAY ==
[2025-04-08 12:32] LABS: Absolute Lymphocyte Count 2.51 X10^3/uL (0.83-4.51); Absolute Neutrophil Count 2.5 X10^3/uL (2.0-7.7); Basophil# 0.02 X10^3/uL; Basophil% 0.4 % (0-1); Hematocrit 40.2 % (37-47); Hemoglobin 13.4 g/dL (12.0-15.0); Lymphocyte # 2.51 X10^3/ul (0.83-4.51); Lymphocyte % 45.7 % (19-41); Mean Corp Hgb Conc 33.3 g/dL (32-36); Mean Corpuscular Hgb 30.8 pg (27.0-32.0); Mean Corpuscular Volume 92.4 fL (81-99); Mean Platelet Vol. 10.5 fl (6.2-12.0); Monocyte# 0.47 X10^3/uL; Monocyte% 8.6 % (0-10); NRBC Flagged by Analyzer 0 % (0-5); Neutrophil # 2.48 X10^3/uL (2.7-7.7); Neutrophil % 45.1 % (47-70); Platelet Count 219 K/mm3 (150-450); RBC Distribution Width CV 12.3 % (11.6-14.6); RBC Distribution Width SD 41.9 fl (35.1-43.9); Red Blood Count 4.35 M/mm3 (4.2-5.4); White Blood Count 5.5 K/mm3 (4.4-11.0)
[2025-04-08 13:26] LABS: ALB/GLOB Ratio 1.8 RATIO (0.9-2.4); AST(SGOT) 15 U/L (<=31); Alanine Aminotransfer ALT/SGPT 12 U/L (<=34); Albumin, Serum 4.5 g/dL (3.5-5.0); Alkaline Phosphatase 71 U/L (35-104); Anion Gap 13 (5-15); BUN 16 mg/dL (4-19); BUN/Creat Ratio 22.3 RATIO (10-20); Calcium,Total 11.1 mg/dL (7.6-11.0); Carbon Dioxide 24.9 mmol/L (21.0-32.0); Chloride 104 mmol/L (98-108); Cholesterol 177 mg/dL (<=200); EST Glomerular Filtration Rate 105 (>60); Globulin 2.5 g/dL (2.2-4.2); Glucose 80 mg/dL (70-99); High Density Lipoprotein 100 mg/dL; Low Density Lipoprotein Calc. 64 mg/dL; Potassium 3.6 mmol/L (3.3-5.1); Sodium Level 142 mmol/L (133-145); Total Bilirubin 0.61 mg/dL (0.00-1.30); Triglycerides 64 mg/dL; Very Low Density Lipoprotein 13 mg/dL (5-40); Vitamin B12 353 pg/mL (180-914); Vitamin D,25 Hydroxy 33.1 ng/mL (30-100); cholesterol:hdl ratio screen 1.78
[2025-04-09 09:35] LABS: PTHIN 84 pg/mL (11-61)
== END | disposition home or self-care (01) ==
LOC: BIMLAB 08:20
PROVIDERS: PCP Internal Medicine; Referring Provider Internal Medicine; Visit Provider Internal Medicine
DX: I10 Essential (primary) hypertension (principal); F32.1 Major depressive disorder, single episode, moderate; I25.2 Old myocardial infarction; E55.9 Vitamin D deficiency, unspecified; E53.8 Deficiency of other specified B group vitamins
CPT/HCPCS: 36415; 80053; 80061; 82306; 82607; 83970; 85025

== ENCOUNTER 2025-04-10 11:33 | Observation (INO) | payer OTHER, SELFPAY ==
[2025-04-10] VITALS (7 sets, daily range): BP systolic 122–146; BP diastolic 56–126; PULSE 59–71; RESP 12–18; TEMP 36.4–37.1; O2SAT 90–100; BMI 28.3
[2025-04-10] MEDS: 0.9% Normal Saline (1000mL) 1,000 ML 999 ML IV (12:06)
--- NOTE | 2025-04-10 12:29 | RAD_ITS ---
PROCEDURE: CHEST PA AND LATERAL 04/10/2025 REASON FOR EXAM: CHEST PAIN TECHNIQUE: CHEST PA AND LATERAL COMPARISON: None FINDINGS: Hardware: EKG electrodes are seen. Heart: The heart size is normal. Mediastinum: The mediastinal contour is unremarkable. Lungs: Scattered calcified granulomas. There is a 2.6 cm by 2.8 cm calcific granuloma in the left lower lobe. Bones: Unremarkable RAD/Chest PA and Lateral IMPRESSION: No acute abnormality is seen. Reading Location: [id number]
--- NOTE | 2025-04-10 12:34 | EX.ED.DYSGE1 ---
HPI History of Present Illness Chief Complaint: Abd Pain Narrative Narrative: Patient is a 50-year-old female with past medical history of hypertension, NSTEMI in 2019, asthma who presented to the emergency department chief complaint of epigastric discomfort. States that she was sitting down watching TV when she noted that she developed discomfort in her epigastric region. States that this lasted about 40 minutes and noted that after 20 minutes she tried to lay down and noted that she became very diaphoretic lightheaded and was not feeling well. Patient states that this lasted 20 minutes and became concerned therefore she came here to be further evaluated. Patient states that she was having a 24-hour urine test performed as her calcium level was noted to be high and her doctor is concerned that she has hyperparathyroidism. Patient has numerous travel history denies a history of blood clots. Patient in triage note stated that she was dizzy after further questioning about the dizziness she is not dizzy she was lightheaded. [facility] PFS Medical History Asthma Anemia History of non-ST elevation myocardial infarction (NSTEMI) (09/20/19) Essential (primary) hypertension Nicotine dependence Obesity Atherosclerosis of coronary artery of [place] heart without angina pectoris Home Medications ?Medication ?Instructions ?Recorded ?Last Taken ?Type cyanocobalamin (vitamin B-12) 1,000 mcg IM QMONTH 02/13/24 Unknown History 1,000 mcg/mL injection solution semaglutide 0.25 mg or 0.5 mg (2 0.25 mg subcut QWEEK 02/13/24 04/07/25 History mg/3 mL) subcutaneous pen injector bupropion HCl 150 mg 24 hr tablet, 150 mg PO QAM #90 tabs 04/08/25 04/10/25 Rx extended release (Wellbutrin XL) Allergy/AdvReac Type Severity Reaction Status Date / Time No Known Allergies Allergy Verified 04/08/25 07:21 Family History Mother Hyperlipidemia Father Alcoholism Grandfather Myocardial infarction Parkinson disease Grandmother COPD (chronic obstructive pulmonary disease) Uncle Cancer Aunt Brain aneurysm Aunt Brain aneurysm Aunt Brain aneurysm Other CVA (cerebral vascular accident) Hypertension Surgical History History of breast augmentation History of tonsillectomy History of gastric bypass History of left heart catheterization (09/20/19) Social History adopted: No household members: spouse number of children: 3 current occupational status: employed current occupation: [employer] - pets and animals: Yes (1) pets and animals: dog(s) Smoking Status: Former smoker quit date: 10/16/19 pack-years: 8 Tobacco: How many years used: 31 Electronic Cigarette Use: not used alcohol intake: current alcohol intake frequency: a few times a week Alcohol type: beer substance use type: does not use diet: ideal protein caffeine: Yes (5) Type: carbonated beverages frequency: 3-4 times per week seatbelt use: always do you feel safe at home: Yes ROS ROS ED ROS Narrative Constitutional: Complains of lightheadedness as noted above denies any fevers, chills, headaches denies dizziness Eyes: Denies change in vision double vision blurry vision Cardiovascular: Denies chest pain Respiratory: Denies cough wheezing shortness of breath Abdomen: Complaint of epigastric discomfort as noted above denies nausea vomit diarrhea : Denies urinary symptoms Neurological: Denies numbness, weakness, tingling Musculoskeletal: Denies back pain Skin: Denies rashes or lesions EXAM Physical Exam Narrative Exam Narrative: General: Patient is lying in bed rest comfortably did not appear to be in acute distress Head: Atraumatic, normocephalic Eyes: PERRL bilaterally, EOMI blood, no conjunctival injection noted Neck: Soft, supple, trachea midline Cardiovascular: Regular rate and rhythm no murmurs gallops rubs noted Respiratory: Clear to auscultation bilaterally no rales rhonchi or wheezes noted Abdomen: Soft, nondistended, no tenderness palpation Extremities: +5/5 strength noted in the bilateral upper and lower extremities, radial pulse +2/4 in the bilateral extremities, no pedal edema no exam Neurological: Patient follow commands knew that she was at [facility] year is 2024 Skin: Warm, dry, tact no rashes or lesions noted Const Vital Signs: 04/10/25 11:33 04/10/25 12:23 04/10/25 13:33 Temperature 97.6 F L Temperature Source Temporal Pulse Rate 71 67 Respiratory Rate 16 13 Blood Pressure 135/85 H 140/126 H Blood Pressure Mean 101 130 Pulse Ox 98 100 Oxygen Delivery Method Room Air Room Air Room Air 04/10/25 15:00 Temperature Temperature Source Pulse Rate 59 L Respiratory Rate 12 Blood Pressure 146/83 H Blood Pressure Mean 104 Pulse Ox 97 Oxygen Delivery Method Room Air MDM MDM MDM Narrative Medical decision making narrative: Patient is a 50-year-old female who presented to the emergency department the chief complaint of epigastric discomfort lightheadedness diaphoresis and not feeling well. On the differential diagnose includes but not limited to ACS, pneumonia, pneumothorax, cardiac arrhythmia, pancreatitis. Once workup is obtained and reviewed she will be reevaluated. Patient's CBC reviewed and showed no evidence leukocytosis white blood count normal at 6.3, he was 13.3, platelet count was 189. Patient sodium was 139, potassium normal 4.3, creatinine was 0.64. Patient's AST and ALT were 20 and 10 respectively, troponin was less than 6 with a delta troponin less than 6 as well. Patient's EKG reviewed and showed sinus bradycardia with rate of 57 bpm. Patient's lipase was 25. Patient's chest x-ray reviewed by myself by radiology showed no acute cardiopulmonary processes. Patient was having repeat episode of this severe of substernal pain therefore repeat EKG was performed which showed sinus bradycardia with a rate of 54 bpm. Patient was given a GI cocktail. Patient was reevaluated and states that the GI cocktail is not helping her symptoms therefore she was given morphine Zofran. Given the patient's symptoms we will add on further workup with CTA chest and a CT abdomen pelvis IV contrast. Patient CTA chest reviewed showed no evidence of pulmonary embolism no acute abnormalities noted. Patient CT ab pelvis with IV contrast reviewed and showed a slightly distended gallbladder with mild thickening of the gallbladder wall minimal intrahepatic biliary ductal dilation. Correlation with ultrasound recommended. She also had a 9.6 x 6.2 x 8.6 cm heterogeneous mass in the pelvis could represent a pedunculated uterine fibroid although she states that she has no history of this they are recommending ultrasound for further clinical correlation. I discussed the results with her I gave her a hard copy of these results and told her that she needs to follow-up with her FLASH WELDING MACHINE OPERATOR on this. Patient was reevaluated repeat abdominal exam was performed she has no right upper quadrant tenderness negative Vanegas sign. I reached out to on-call tourism radio presenter Dr. Salguero and he is recommending admission for stress test. Patient's case will be discussed with hospitalist for admission. Discussed case with hospitalist Dr. Miller who accept patient for admission. Discussed this with the patient and she is agreeable this plan. Patient given 325 mg aspirin. Lab Data Labs: Laboratory Results - last 24 hr 04/10/25 04/10/25 04/10/25 12:19 13:51 14:19 WBC 6.3 RBC 4.38 Hgb 13.3 Hct 40.8 MCV 93.2 MCH 30.4 MCHC 32.6 RDW Std Deviation 42.3 RDW Coeff of Jennifer 12.2 Plt Count 189 MPV 10.2 Immature Gran % (Auto) 0.200 Neut % (Auto) 62.1 Lymph % (Auto) 26.9 Banner % (Auto) 10.3 H Eos % (Auto) 0.0 Baso % (Auto) 0.5 Absolute Neuts (auto) 3.9 Absolute Lymphs (auto) 1.70 Nucleated RBC % 0 Sodium 139 Potassium 4.3 Chloride 107 Carbon Dioxide 20.9 L Anion Gap 10 BUN 16 Creatinine 0.64 L Estim Creat Clear Calc 109.37 Est GFR (MDRD) Non-Af 108 BUN/Creatinine Ratio 25.1 H Glucose 83 Calcium 10.3 Total Bilirubin 0.47 Direct Bilirubin 0.16 AST 20 ALT 10 Alkaline Phosphatase 70 Troponin T High Sens < 6 Troponin T Hi Sens 2 Hr < 6 Total Protein 6.5 Albumin 4.1 Globulin 2.4 Lipase 25 Urine pH Cancelled Urine Collection Time Cancelled Urine Total Volume Cancelled Urine Calcium Cancelled Ur Calcium 24 Hr Cancelled Radiography Diagnostic Testing: Clinical Impression(s) from Imaging Studies Chest X-Ray 04/10/25 12:29 IMPRESSION: No acute abnormality is seen. Reading Location: [id number] Abdomen/Pelvis CT 04/10/25 14:52 IMPRESSION: Slightly distended gallbladder with mild thickening of the gallbladder wall. Minimal intrahepatic biliary ductal dilatation. Correlation with ultrasound recommended. 9.6 cm 6.2 cm 8.6 cm heterogeneous mass in the pelvis as described. This may represent a pedunculated uterine fibroid although a suprapubic pelvic mass can not be excluded. Correlation with ultrasound recommended. Reading Location: [id number] Chest CTA 04/10/25 14:52 IMPRESSION: No evidence of pulmonary embolism. No acute abnormality is seen. Reading Location: [facility] Discharge Plan Triage Chief Complaint: Abd Pain ED Provider: Chele Bonner Dx/Rx/DC Orders Clinical Impression: Chest pain, Diaphoresis, Lightheaded, Uterine mass Prescriptions: No Action cyanocobalamin (vitamin B-12) 1,000 mcg/mL solution 1,000 mcg IM QMONTH semaglutide 0.25 mg or 0.5 mg (2 mg/3 mL) pen injector 0.25 mg subcut QWEEK Patient Comments: PT INJECTS 20 UNITS Rx Instructions: for 4 weeks bupropion HCl [Wellbutrin XL] 150 mg tablet extended release 24 hr 150 mg PO QAM Qty: 90 0RF Primary Care Provider: Yoana Alvarez Referrals: Yoana Alvarez MD [Primary Care Provider] - Print Language: Malay Disposition Disposition: Acute Care [facility]
[2025-04-10 12:42] LABS: Absolute Neutrophil Count 3.9 X10^3/uL (2.0-7.7); Basophil# 0.03 X10^3/uL; Basophil% 0.5 % (0-1); Hematocrit 40.8 % (37-47); Hemoglobin 13.3 g/dL (12.0-15.0); Lymphocyte % 26.9 % (19-41); Mean Corp Hgb Conc 32.6 g/dL (32-36); Mean Corpuscular Hgb 30.4 pg (27.0-32.0); Mean Corpuscular Volume 93.2 fL (81-99); Mean Platelet Vol. 10.2 fl (6.2-12.0); Monocyte# 0.65 X10^3/uL; Monocyte% 10.3 % (0-10); NRBC Flagged by Analyzer 0 % (0-5); Neutrophil # 3.93 X10^3/uL (2.7-7.7); Neutrophil % 62.1 % (47-70); Platelet Count 189 K/mm3 (150-450); RBC Distribution Width CV 12.2 % (11.6-14.6); RBC Distribution Width SD 42.3 fl (35.1-43.9); Red Blood Count 4.38 M/mm3 (4.2-5.4); White Blood Count 6.3 K/mm3 (4.4-11.0)
[2025-04-10 13:02] LABS: Lipase 25 U/L (13-75)
[2025-04-10 13:05] LABS: AST(SGOT) 20 U/L (<=31); Alanine Aminotransfer ALT/SGPT 10 U/L (<=34); Albumin, Serum 4.1 g/dL (3.5-5.0); Alkaline Phosphatase 70 U/L (35-104); Anion Gap 10 (5-15); BUN 16 mg/dL (4-19); BUN/Creat Ratio 25.1 RATIO (10-20); Bilirubin, Direct 0.16 mg/dL (0.00-0.30); Calcium,Total 10.3 mg/dL (7.6-11.0); Carbon Dioxide 20.9 mmol/L (21.0-32.0); Chloride 107 mmol/L (98-108); Creatinine, Serum 0.64 mg/dL (0.70-1.20); EST Glomerular Filtration Rate 108 (>60); Estimated Creatinine Clearance 109.37 ml/min (50-250); Globulin 2.4 g/dL (2.2-4.2); Glucose 83 mg/dL (70-99); Potassium 4.3 mmol/L (3.3-5.1); Protein, Total 6.5 g/dL (5.9-8.4); Sodium Level 139 mmol/L (133-145); Total Bilirubin 0.47 mg/dL (0.00-1.30)
[2025-04-10] MEDS: Mag Hydrox/Al Hydrox/Simeth 30 ML UDC PO (13:37)
[2025-04-10] MEDS: Lidocaine 2% Viscous15 ML UDC 15 ML PO (13:37)
[2025-04-10 14:37] LABS: Troponin T High Sensitivity < 6 ng/L (<=14)
--- NOTE | 2025-04-10 14:37 | ED.RN ---
1219: lab called for delay in initial troponin results
--- NOTE | 2025-04-10 14:52 | CT_ITS ---
PROCEDURE: CTA CHEST W/WO CONTRAST 04/10/2025 REASON FOR EXAM: CHEST PAIN, SOB TECHNIQUE: CTA CHEST W/WO CONTRAST Multiplanar Sagittal and Coronal images were obtained. One or more dose reduction techniques were used (e.g., Automated exposure control, adjustment of the mA and/or kV according to patient size, use of iterative reconstruction technique). CONTRAST: Isovue 370 VOLUME: 100 mL RADIATION DOSE SUMMARY: CTDlvol: 15 mGy DLP: 1588.85 mGycm COMPARISON: Prior study dated September 21, 2019. FINDINGS: Hardware: Bilateral breast implants. Lymph nodes: Calcified left hilar lymph nodes. Heart: Unremarkable RV/LV Diameter Ratio: Unremarkable Thoracic Aorta: Unremarkable Pulmonary Vessels: No evidence of pulmonary embolism. Lungs and Airways: There is a calcified 2.1 cm granuloma in the left lower lobe. Pleura: Unremarkable Upper Abdomen: Subtotal gastrectomy. Anastomosis in the proximal small bowel loops. Bones: Unremarkable CT/CTA Chest W/WO Contrast IMPRESSION: No evidence of pulmonary embolism. No acute abnormality is seen. Reading Location: [id number]
--- NOTE | 2025-04-10 14:52 | CT_ITS ---
PROCEDURE: ABDOMEN/PELVIS W IV CONT ONLY 04/10/2025 REASON FOR EXAM: EPIGASTRIC PAIN TECHNIQUE: ABDOMEN/PELVIS W IV CONT ONLY Coronal and Sagittal reconstruction series were provided. CONTRAST: Isovue-300 VOLUME: 100 mL One or more dose reduction techniques were used (e.g., Automated exposure control, adjustment of the mA and/or kV according to patient size, use of iterative reconstruction technique. RADIATION DOSE SUMMARY: CTDlvol: 15 mGy DLP: 1588.85 mGycm COMPARISON: None FINDINGS: Lung bases: Lung bases are clear. No coronary calcification. Bilateral breast implants. Liver: Minimal dilatation of the central intrahepatic biliary ducts. Gallbladder: Slightly distended. Mild thickening of the gallbladder wall. Correlation with ultrasound recommended. Spleen: Normal size. Pancreas: Normal size without evidence of mass surrounding inflammation or ductal dilation. Adrenals: Unremarkable Kidneys: Unremarkable Bladder: Unremarkable Reproductive Organs: There is a 9.6 cm by 6.2 cm by 8.6 cm heterogeneous mass in the pelvis. This may represent a large pedunculated uterine fibroid. Correlation with ultrasound recommended. Bowel: Prior subtotal gastrectomy. Surgical anastomosis seen in the proximal small bowel loops. Appendix: Unremarkable Lymph nodes: Unremarkable Vasculature: Unremarkable Peritoneum / Retroperitoneum: Unremarkable Bones: Unremarkable CT/Abdomen/Pelvis W IV Cont ONLY IMPRESSION: Slightly distended gallbladder with mild thickening of the gallbladder wall. M inimal intrahepatic biliary ductal dilatation. Correlation with ultrasound recommended. 9.6 cm 6.2 cm 8.6 cm heterogeneous mass in the pelvis as described. This may r epresent a pedunculated uterine fibroid although a suprapubic pelvic mass can not be excluded. Correlation with ultrasound recomm ended. Reading Location: [id number]
[2025-04-10] MEDS: Ondansetron 4 MG/2 ML Vial IV (15:03)
[2025-04-10] MEDS: Morphine 4 MG/ML Syringe IV (15:03)
[2025-04-10 15:06] LABS: Troponin T High Sens 2 HR < 6 ng/L (<=14)
--- NOTE | 2025-04-10 17:04 | PCM.HP.STD ---
[facility] - General General Date of Admission: 04/10/25 Date of Service: 04/10/25 Chief Complaint: Epigastric abdominal pain, 40 minutes experienced dizziness sweating and at times nausea. HPI Narrative SHERLY KINSEY, is a 50 F with history of PR with elevated troponin at the age of 44 came to ED with epigastric abdominal pain with nausea dizziness and sweating. She is not short of breath. She described her epigastric pain localized without radiation. Denies GERD like symptoms/regurg or heartburn. She further said she had non-STEMI in 2019 with elevated troponins with chest pain and at that time cardiac catheter showed normal coronary arteries and thought a possible coronary vasospasm. Echo showed EF 55%. ESR and CRP were normal patient was started on 81 mg aspirin daily. In ED, twelve-lead EKG was done which shows sinus bradycardia 57 bpm, no significant ST-T changes. 2 serial troponins are normal. ED physician talked to glass glazier and advised a stress test tomorrow. She has history of hypertension and overweight BMI 28.4 kg/m?. History of smoking at the age of 17 with 1 pack lasting 3 days quit at the age of 44. Her grandparent had bypass surgery but denies coronary artery disease in her parents. Her father had no hypertension. CRUZ risk score 1. Patient had CT abdomen and chest were discussed in assessment and plan. [facility] Medical History Asthma Anemia History of non-ST elevation myocardial infarction (NSTEMI) (09/20/19) Essential (primary) hypertension Nicotine dependence Obesity Atherosclerosis of coronary artery of [place] heart without angina pectoris Home Medications ?Medication ?Instructions ?Recorded ?Last Taken ?Type cyanocobalamin (vitamin B-12) 1,000 mcg IM QMONTH 02/13/24 Unknown History 1,000 mcg/mL injection solution semaglutide 0.25 mg or 0.5 mg (2 0.25 mg subcut QWEEK 02/13/24 04/07/25 History mg/3 mL) subcutaneous pen injector bupropion HCl 150 mg 24 hr tablet, 150 mg PO QAM #90 tabs 04/08/25 04/10/25 Rx extended release (Wellbutrin XL) Allergy/AdvReac Type Severity Reaction Status Date / Time No Known Allergies Allergy Verified 04/08/25 07:21 Family History Mother Hyperlipidemia Father Alcoholism Grandfather Myocardial infarction Parkinson disease Grandmother COPD (chronic obstructive pulmonary disease) Uncle Cancer Aunt Brain aneurysm Aunt Brain aneurysm Aunt Brain aneurysm Other CVA (cerebral vascular accident) Hypertension Surgical History History of breast augmentation History of tonsillectomy History of gastric bypass History of left heart catheterization (09/20/19) Social History adopted: No household members: spouse number of children: 3 current occupational status: employed current occupation: [employer] pets and animals: Yes (1) pets and animals: dog(s) Smoking Status: Former smoker quit date: 10/16/19 pack-years: 8 Tobacco: How many years used: 31 Electronic Cigarette Use: not used alcohol intake: current alcohol intake frequency: a few times a week Alcohol type: beer substance use type: does not use diet: ideal protein caffeine: Yes (5) Type: carbonated beverages frequency: 3-4 times per week seatbelt use: always do you feel safe at home: Yes ROS ROS Narrative Constitutional: Reports fatigue and weakness. No fever. HEENT: Reports systems reviewed and no addt'l complaints, except as documented Respiratory/Chest: No acute shortness of breath or respiratory distress or wheezing. CVS: Atypical epigastric/abdominal pain Gastrointestinal: Denies coffee ground emesis, hematemesis or vomiting. Mild nausea. Genitourinary: Denies burning urination or new urinary tract symptoms. Denies recent vaginal bleeding. Had endometrial ablation in 2000. Medicinal/chemical menopause since then Musculoskeletal: Denies acute joint pain or limited range of motion. No acute injury Neurologic: Denies seizure-like symptoms. No strokelike symptoms skin: No ulcer. No rash Endocrinology: Reports systems reviewed and no addt'l complaints, except as documented Hematologic/Lymphatic: Reports systems reviewed and no addt'l complaints, except as documented Rest 14 ROS are negative except as mentioned in HPI Vital Signs Vital Signs Vital Signs: 04/10/25 11:33 04/10/25 12:23 04/10/25 13:33 Temperature 97.6 F L Temperature Source Temporal Pulse Rate 71 67 Respiratory Rate 16 13 Blood Pressure 135/85 H 140/126 H Blood Pressure Mean 101 130 Pulse Ox 98 100 Oxygen Delivery Method Room Air Room Air Room Air 04/10/25 15:00 Temperature Temperature Source Pulse Rate 59 L Respiratory Rate 12 Blood Pressure 146/83 H Blood Pressure Mean 104 Pulse Ox 97 Oxygen Delivery Method Room Air Weight Weight: 170 lb 9.6 oz Body Mass Index (BMI) 28.3 Physical Exam Narrative General: Alert, Oriented x3, Cooperative. BMI 28.4 kg/m? HEENT: Atraumatic, PERRLA, EOMI, Normocephalic. Oral: No Gingival or Mucosal Lesions/ Ulcerations Neck: Supple, No JVD, Negative Carotid Bruits Chest wall/Lungs: Air entry equal in bilateral lung bases. No crepitation/rhonchi Cardiovascular: Regular rate and rhythm, Normal S1,S2, No M/G/R Abdomen: Bowel Sounds Present, Soft, Non Tender, Non-Distended : No dysuria. No renal angle tenderness. No suprapubic tenderness. Extremities: No edema, Capillary Refill Less than 3 Seconds Skin: No rashes, No breakdown Musculoskeletal: No Tenderness to Palpation of Joints or Extremities Neurological: Cranial nerves II-XII grossly intact, DTR 2+/4. No acute focal neurological deficit. Psych/Mental Status: Normal Affect, Appropriate. Results Lab / Micro Data 04/10/25 12:19 04/10/25 12:19 Labs: Laboratory Results - last 24 hr 04/10/25 12:19: WBC 6.3, RBC 4.38, Hgb 13.3, Hct 40.8, MCV 93.2, MCH 30.4, MCHC 32.6, RDW Std Deviation 42.3, RDW Coeff of Jennifer 12.2, Plt Count 189, MPV 10.2, Immature Gran % (Auto) 0.200, Neut % (Auto) 62.1, Lymph % (Auto) 26.9, [place] % (Auto) 10.3 H, Eos % (Auto) 0.0, Baso % (Auto) 0.5, Absolute Neuts (auto) 3.9, Absolute Lymphs (auto) 1.70, Nucleated RBC % 0, Sodium 139, Potassium 4.3, Chloride 107, Carbon Dioxide 20.9 L, Anion Gap 10, BUN 16, Creatinine 0.64 L, Estim Creat Clear Calc 109.37, Est GFR (MDRD) Non-Af 108, BUN/Creatinine Ratio 25.1 H, Glucose 83, Calcium 10.3, Total Bilirubin 0.47, Direct Bilirubin 0.16, AST 20, ALT 10, Alkaline Phosphatase 70, Troponin T High Sens < 6, Total Protein 6.5, Albumin 4.1, Globulin 2.4, Lipase 04/10/25 13:51: Urine pH Cancelled, Urine Collection Time Cancelled, Urine Total Volume Cancelled, Urine Calcium Cancelled, Ur Calcium 24 Hr Cancelled 04/10/25 14:19: Troponin T Hi Sens 2 Hr < 6 Imaging Radiology Impression Chest X-Ray 04/10/25 12:29 IMPRESSION: No acute abnormality is seen. Reading Location: [facility] Abdomen/Pelvis CT 04/10/25 14:52 IMPRESSION: Slightly distended gallbladder with mild thickening of the gallbladder wall. Minimal intrahepatic biliary ductal dilatation. Correlation with ultrasound recommended. 9.6 cm 6.2 cm 8.6 cm heterogeneous mass in the pelvis as described. This may represent a pedunculated uterine fibroid although a suprapubic pelvic mass can not be excluded. Correlation with ultrasound recommended. Reading Location: [id number] Chest CTA 04/10/25 14:52 IMPRESSION: No evidence of pulmonary embolism. No acute abnormality is seen. Reading Location: [facility] Assessment & Plan Assessment/Plan (1) Chest pain: PLAN: Plan This 50-year-old female came to ED with epigastric pain lasting for about 40 minutes mild nausea and sweating. 1. Epigastric pain/atypical angina equivalent: Patient is being admitted in PCU. 2 serial troponins are negative. EKG shows nonspecific ST-T changes, sinus bradycardia 57 beats minute. Exercise nuclear stress test tomorrow morning. CTPA was negative for PE. No acute abnormality. CRUZ risk score 1. Right upper quadrant sonogram also ordered. 2. Abnormal CT abdomen pelvis: CT shows slightly distended GB with mild wall thickening. Minimal intrahepatic biliary ductal dilatation. Spleen normal pancreas normal. It also shows 9.6 x 6.2 x 8.6 heterogeneous mass in the pelvis may represent large pedunculated uterine fibroid. Images reviewed and agreed with the findings I advised her to follow up with her established [employer]IAN in about [address] findings. This is not her primary complaint what she came to ED but needs to be taken care of as an outpatient soon. This was explained to the patient. 3. Hypertension: Blood pressure is controlled. Continue home medication 4. History of gastric bypass surgery: Patient on B12 monthly injection. DVT prophylaxis: Lovenox 40 mL subcu daily. Living will/advanced directive/end of life care: Patient does not have living will or advanced directive. Her is next of kin. After discussion of benefits/risks procedures involved with full code, DNR CC arrest and DNR CC, the patient opted for full code. Patient does want artificial life support including intubation, tube feed, ventilator and/chest compression, central venous catheter, vasopressor and DC shock if needed Total time spent in [id number] encounter in discussion of advanced directive 17 minutes. Laboratory Results 04/10/25 12:19: WBC 6.3, RBC 4.38, Hgb 13.3, Hct 40.8, MCV 93.2, MCH 30.4, MCHC 32.6, RDW Std Deviation 42.3, RDW Coeff of Jennifer 12.2, Plt Count 189, MPV 10.2, Immature Gran % (Auto) 0.200, Neut % (Auto) 62.1, Lymph % (Auto) 26.9, [place] % (Auto) 10.3 H, Eos % (Auto) 0.0, Baso % (Auto) 0.5, Absolute Neuts (auto) 3.9, Absolute Lymphs (auto) 1.70, Nucleated RBC % 0, Sodium 139, Potassium 4.3, Chloride 107, Carbon Dioxide 20.9 L, Anion Gap 10, BUN 16, Creatinine 0.64 L, Estim Creat Clear Calc 109.37, Est GFR (MDRD) Non-Af 108, BUN/Creatinine Ratio 25.1 H, Glucose 83, Calcium 10.3, Total Bilirubin 0.47, Direct Bilirubin 0.16, AST 20, ALT 10, Alkaline Phosphatase 70, Troponin T High Sens < 6, Total Protein 6.5, Albumin 4.1, Globulin 2.4, Lipase 25 04/10/25 13:51: Urine pH Cancelled, Urine Collection Time Cancelled, Urine Total Volume Cancelled, Urine Calcium Cancelled, Ur Calcium 24 Hr Cancelled 04/10/25 14:19: Troponin T Hi Sens 2 Hr < 6 04/10/25 : Ur Random Calcium Pending Clinical Impression(s) from Imaging Studies Chest X-Ray 04/10/25 12:29 IMPRESSION: No acute abnormality is seen. Abdomen/Pelvis CT 04/10/25 14:52 IMPRESSION: Slightly distended gallbladder with mild thickening of the gallbladder wall. Minimal intrahepatic biliary ductal dilatation. Correlation with ultrasound recommended. 9.6 cm 6.2 cm 8.6 cm heterogeneous mass in the pelvis as described. This may represent a pedunculated uterine fibroid although a suprapubic pelvic mass can not be excluded. Correlation with ultrasound recommended. Reading Location: [facility] Chest CTA 04/10/25 14:52 IMPRESSION: No evidence of pulmonary embolism. No acute abnormality is seen. Reading Location: [facility] Charges/Coding Visit Charges Inpatient E&M: 43379 Init Hosp L3 Procedures Hospitalists Procedures: 82574 Advncd Care Plan 30 Min
[2025-04-10 18:07] LABS: Magnesium 1.9 mg/dL (1.5-2.2)
[2025-04-10] MEDS: Acetaminophen 325 MG Tablet 650 MG PO (18:43)
[2025-04-10] MEDS: Pantoprazole Sodium 40 MG Tablet PO (18:44)
[2025-04-10] MEDS: Aspirin E.C. 81 MG Tablet PO (18:44)
[2025-04-10] MEDS: Enoxaparin 40 MG/0.4 ML Syringe SC (18:44)
[2025-04-10] MEDS: Lactated Ringers 1,000 ML 100 ML IV (18:53)
[2025-04-10 19:39] LABS: Troponin T High Sens 4 HR < 6 ng/L (<=14)
[2025-04-10] MEDS: oxyCODONE 5 MG Tablet PO (20:19)
--- OUTSIDE RECORDS SUMMARY | 2025-04-10 22:09 | XMS RPT_ITS | CCD ---
Author Organization [facility] Care Team Providers [place]ing Support Specialist Name Role Phone PROVIDER, UNKNOWN Unavailable Unavailable PROVIDER, UNKNOWN Unavailable Unavailable No, PCP Unavailable Unavailable MIMI DAVIS Attending Unavailable RADHA CHARLTON, JAZMINE Primary Care Unavailable NAMRATA HENRY CNP Attending Unavailable RADHA CHARLTON, JAZMINE Primary Care Unavailable Kim CHARLTON, Dr. Lees Primary Care Provider [phone] Kim CHARLTON, Dr. Lees Attending Provider Kim CHARLTON, Dr. Lees Referring Provider Bianca Duran Attending Unavailable Ferullo, Bianca Referring Unavailable [place], Yoana Primary Care Unavailable [place], Yoana Referring Unavailable Kim, Yoana Primary Care Unavailable [place], Yoana Attending Unavailable Kim, Yoana Referring Unavailable [place], Yoana Attending Unavailable Kim, Yoana Primary Care Unavailable Chele Bonner Attending Unavailable [place], Yoana Primary Care Unavailable FerulloMarlenyBianca Attending Unavailable Ferullo, Bianca Referring Unavailable [place], Yoana Primary Care Unavailable [place], Yoana Referring Unavailable Kim, Yoana Primary Care Unavailable [place], Yoana Attending Unavailable Ferullo Bianca Attending Unavailable [place], Yoana Primary Care Unavailable [place], Yoana Referring Unavailable [place], Yoana Referring Unavailable Ferullo, Bianca Attending Unavailable [place], Yoana Primary Care Unavailable [place], Yoana Referring Unavailable [place], Yoana Primary Care Unavailable Rashaun Godoy Attending Unavailable Kim, Yoana Referring Unavailable [place], Yoana Primary Care Unavailable Kim, Yoana Attending Unavailable Srinivasaullellie Bianca Attending Unavailable Ferullo, Bianca Referring Unavailable [place], Yoana Primary Care Unavailable Bianca Duran Attending Unavailable SuzetteoMarlenyBianca Referring Unavailable Kim, Yoana Primary Care Unavailable Bianca Duran Attending Unavailable SuzetteoMarlenyBianca Referring Unavailable [place], Yoana Primary Care Unavailable Bianca Duran Attending Unavailable Marleny Duranily Referring Unavailable Kim, Yoana Primary Care Unavailable Dr. Chele Bonner DO Referring Provider [phone] [address]. Chele Bonner DO Emergency Provider Paul CHARLTON, Dr. Khalil Admit Provider Paul CHARLTON, Dr. Khalil Attending Provider Medications Current Medications Medication Drug Class(es) Dates Sig (Normalized) Sig (Original) 24 hr buPROPion hydrochloride 150 mg extended release oral tablet (12 sources) Aminoketone Start: 04-08-2025 take 1 tablet by mouth once daily in the morning Bupropion Hcl (Wellbutrin Xl) 150 mg tablet extended release 24 hr Active 150 mg PO EVERY MORNING April 08, 2025 8:15am Start: 06-11-2024 End: 12-03-2024 take 1 tablet by mouth once daily in the morning Bupropion Hcl (Wellbutrin Xl) 150 mg tablet extended release 24 hr Discontinued 150 mg PO EVERY MORNING September 03, 2024 12:33pm December 03, 2024 2:54pm Start: 02-13-2024 End: 07-16-2024 take 1 tablet by mouth once daily Bupropion Hcl 300 mg tablet extended release 24 hr Discontinued 300 mg PO DAILY February 13, 2024 2:51pm July 16, 2024 9:55am Start: 10-18-2023 End: 02-13-2024 take 1 tablet by mouth every twenty-four hours Bupropion Hcl 300 mg tablet extended release 24 hr Discontinued mg PO October 18, 2023 1:00am February 13, 2024 2:51pm Cyanocobalamin (Vitamin B-12) 1,000 mcg/mL solution (1 source) Start: 02-13-2024 Cyanocobalamin (Vitamin B-12) 1,000 mcg/mL solution Active ug IM February 13, 2024 12:00am Semaglutide (2 sources) Start: 02-13-2024 Semaglutide 0.25 mg or 0.5 mg (2 mg/3 mL) pen injector Active 0.25 mg SC EVERY WEEK February 13, 2024 12:00am for 4 weeks vitamin b12 1 mg/ml injectable solution (3 sources) Vitamin B12 Start: 02-13-2024 inject 1000 ug by intramuscular injection every month Cyanocobalamin (Vitamin B-12) 1,000 mcg/mL solution Active 1000 ug IM EVERY MONTH February 13, 2024 12:00am Start: 09-20-2019 End: 10-23-2019 Cyanocobalamin (Vitamin B-12 ) 1,000 MCG/ML solution Discontinued 1000 ug IJ EVERY MONTH September 20, 2019 1:00am October 23, 2019 2:58pm Completed/Discontinued Medications Medication Drug Class(es) Dates Sig (Normalized) Sig (Original) amLODIPine 5 mg oral tablet (10 sources) Dihydropyridine Calcium Channel Rohith Start: 10-23-2019 End: 07-16-2024 take 1 tablet by mouth once daily Amlodipine 5 mg tablet Discontinued 5 mg PO DAILY July 12, 2024 4:21pm July 16, 2024 9:55am aspirin 81 mg delayed release oral tablet (2 sources) Platelet Aggregation Inhibitor, Nonsteroidal Anti-inflammatory Drug Start: 09-21-2019 End: 05-29-2020 take 1 tablet by mouth once daily Aspirin 81 MG tablet Discontinued 81 mg PO DAILY@0800 30 September 21, 2019 1:00am May 29, 2020 1:35pm benzonatate 200 mg oral capsule (4 sources) Non-narcotic Antitussive Start: 10-21-2024 End: 12-03-2024 take 1 capsule by mouth three times daily as needed for cough Benzonatate 200 mg capsule Discontinued 200 mg PO THREE TIMES A DAY as needed for cough October 21, 2024 1:00am December 03, 2024 2:54pm Start: 10-18-2023 End: 02-13-2024 take 1 capsule by mouth three times daily as needed for cough Benzonatate 200 mg capsule Discontinued 200 mg PO THREE TIMES A DAY as needed for cough October 18, 2023 1:00am February 13, 2024 1:56pm dexamethasone 6 mg oral tablet (2 sources) Corticosteroid Start: 10-21-2024 End: 12-03-2024 take 1 tablet by mouth once daily Dexamethasone 6 mg tablet Discontinued 6 mg PO DAILY October 21, 2024 1:00am December 03, 2024 2:55pm hydroCHLOROthiazide 25 mg oral tablet (8 sources) Thiazide Diuretic Start: 05-29-2020 End: 07-16-2024 take 1 tablet by mouth once daily Hydrochlorothiazide 25 mg tablet Discontinued 25 mg PO DAILY July 12, 2024 4:20pm July 16, 2024 9:55am methylPREDNISolone 4 mg oral tablet (2 sources) Corticosteroid Start: 10-18-2023 End: 02-13-2024 take 1 tablet by mouth once Methylprednisolone (Medrol (Glen)) 4 mg tablets,dose pack Discontinued 0 PO per package directions October 18, 2023 1:00am February 13, 2024 1:55pm PO PER PKG DIR nitroglycerin 0.4 mg sublingual tablet (2 sources) Nitrate Vasodilator Start: 10-23-2019 End: 12-03-2024 Nitroglycerin 0.4 mg tablet, sublingual Discontinued mg SL every 5 to 15 minutes October 23, 2019 1:00am December 03, 2024 2:55pm phentermine hydrochloride 37.5 mg oral tablet (2 sources) Sympathomimetic Amine Anorectic Start: 02-13-2024 End: 02-13-2024 take 1 tablet by mouth once daily Phentermine 37.5 mg tablet Discontinued 37.5 mg PO daily February 13, 2024 12:00am February 13, 2024 2:51pm 24 hr verapamil hydrochloride 120 mg extended release oral capsule (2 sources) Calcium Channel Rohith Start: 10-23-2019 End: 10-23-2019 take 1 capsule by mouth once daily Verapamil 120 mg capsule,ext rel. pellets 24 hr Discontinued 120 mg PO DAILY October 23, 2019 1:00am October 23, 2019 3:24pm Problems Active Problems Problem Classification Problem Date Documented Da te Episodic/Chronic Anxiety disorders (3 sources) Anxiety; Translations: [Anxiety disorder, unspecified] 06-11-2024 Chronic Asthma (4 sources) Unspecified asthma, uncomplicated; Translations: [Asthma] Onset: 04-02-2018 10-18-2023 Chronic Conditions associated with dizziness or vertigo (2 sources) Lightheadedness; Translations: [Dizziness and giddiness] 04-10-2025 Episodic Coronary atherosclerosis and other heart disease (6 sources) History of non-ST segment elevation myocardial infarction; Translations: [Old myocardial infarction] Onset: 09-20-2019 06-03-2021 Chronic Deficiency and other anemia (2 sources) Anemia; Translations: [Anemia, unspecified] 10-18-2023 Episodic Essential hypertension (6 sources) Essential hypertension; Translations: [Essential (primary) hypertension] Onset: 04-08-2025 10-19-2019 Chronic External Injury - Cut / [place] (2 sources) Contact with contaminated hypodermic needle, initial encounter; Translations: [Contact with contaminated hypodermic needle, init encntr] Onset: 04-02-2018 Mood disorders (3 sources) Major depressive disorder, single episode, moderate; Translations: [Moderate major depression ] Onset: 04-08-2025 04-08-2025 Chronic Nonspecific chest pain (2 sources) Chest pain; Translations: [Chest pain, unspecified] 04-10-2025 Episodic Nutritional deficiencies (4 sources) Vitamin D deficiency; Translations: [Vitamin D deficiency, unspecified] Onset: 04-08-2025 04-08-2025 Chronic Nutritional deficiencies (4 sources) Cobalamin deficiency; Translations: [Deficiency of other specified B group vitamins] Onset: 04-08-2025 04-08-2025 Episodic Open wounds of extremities (2 sources) Puncture wound without foreign body of left index finger without damage to nail, initial encounter; Translations: [Pnctr w/o fb of l idx fngr w/o damage to nail, init] Onset: 04-02-2018 Episodic Other endocrine disorders (1 source) Hyperparathyroidism, unspecified; Translations: [Hyperparathyroidism, unspecified] Onset: 04-09-2025 Chronic Other female genital disorders (2 sources) Mass of uterus; Translations: [Other specified noninflammatory disorders of uterus] 04-10-2025 Episodic Other gastrointestinal disorders (2 sources) Bariatric surgery status; Translations: [Bariatric surgery status] Onset: 04-02-2018 Episodic Other nutritional; endocrine; and metabolic disorders (2 sources) Obesity; Translations: [Obesity, unspecified] 06-11-2024 Chronic Other nutritional; endocrine; and metabolic disorders (2 sources) Hypercalcemia; Translations: [Hypercalcemia] 06-11-2024 Chronic Other nutritional; endocrine; and metabolic disorders (2 sources) Body mass index 30+ - obesity; Translations: [Obesity, unspecified] 04-08-2025 Chronic Other nutritional; endocrine; and metabolic disorders (1 source) Hypercalcemia; Translations: [Hypercalcemia] Onset: 08-13-2024 Chronic Other screening for suspected conditions (not mental disorders or infectious disease) (3 sources) Patient encounter status; Translations: [Encounter for other screening for malignant neoplasm of breast] Onset: 07-15-2024 04-08-2025 Episodic Other skin disorders (2 sources) Excessive sweating; Translations: [Generalized hyperhidrosis] 04-10-2025 Episodic Substance-related disorders (4 sources) Nicotine dependence, cigarettes, uncomplicated; Translations: [Nicotine dependence] Onset: 04-02-2018 09-27-2019 Chronic Unclassified (2 sources) Contact with and (suspected) exposure to potentially hazardous body fluids; Translations: [Contact w and exposure to potentially hazardous body fluids] Onset: 04-02-2018 Episodic Unclassified (1 source) Cough, unspecified; Translations: [Cough, unspecified] Onset: 10-21-2024 Past or Other Problems Problem Classification Problem Date Documented Da te Episodic/Chronic Immunizations and screening for infectious disease (1 source) Encounter for immunization; Translations: [Encounter for immunization] Onset: 12-03-2024 Episodic Results Test Name Value Interpretation Reference Range Facility Absolute lymphocyte countOrd ered By: Chele Bonner on 04-10-2025 Lymphocytes Auto (Unsp spec) [#/Vol] 1.70 10*3/uL 0.83-4.51 [facility] Absolute neutrophil countOrd ered By: Chele Bonner on 04-10-2025 Neutrophils (Bld) [#/Vol] 3.9 10*3/uL 2.0-7.7 [facility] Anion gap in Serum or Plasma Ordered By: Chele Bonner on 04-10-2025 Anion gap [Moles/Vol] 10 mmol/L 5-15 [facility] Automated lymphocyte count a s percentage of total leukocytesOrdered By: Chele Bonner on 04-10-2025 Lymphocytes/100 WBC Auto (Unsp spec) 26.9 % 19-41 [facility] BUN/creatinine ratioOrdered By: Chele Bonner on 04-10-2025 Urea nitrogen/Creatinine [Mass ratio] 25.1 mg/mg High 10-20 [facility] Basophil percentageOrdered B y: Chele Bonner on 04-10-2025 Basophils/100 WBC (Bld) 0.5 % 0-1 [facility] Bilirubin directOrdered By: Chele Bonner on 04-10-2025 Bilirubin.direct [Mass/Vol] 0.16 mg/dL 0.00-0.30 [facility] Comment on above: Hemolysis present, R esults could be affected. Bilirubin, totalOrdered By: Chele Bonner on 04-10-2025 Bilirubin [Mass/Vol] 0.47 mg/dL 0.00-1.30 [facility] Carbon dioxide, total [Moles /volume] in Central venous bloodOrdered By: Chele Bonner on 04-10-2025 CO2 [Moles/Vol] 20.9 mmol/L Low 21.0-32.0 [facility] Chloride assayOrdered By: Joey Bonner on 04-10-2025 Chloride [Moles/Vol] 107 mmol/L 98-108 [facility] Eosinophil percentageOrdered By: Chele Bonner on 04-10-2025 Eosinophils/100 WBC (Bld) 0.0 % 0-5 [facility] Erythrocyte distribution wid th ratioOrdered By: Chele Bonner on 04-10-2025 Erythrocyte distribution width (RBC) [Ratio] 12.2 % 11.6-14.6 [facility] Erythrocyte distribution wid th standard deviationOrdered By: Chele Bonner on 04-10-2025 Erythrocyte distribution width (RBC) [Ratio] 42.3 fl 35.1-43.9 [facility] Glomerular filtration rate ( GFR) estimation/1.73 sq m using serum, plasma, or whole bOrdered By: Chele Bonner on 04-10-2025 GFR/1.73 sq M.predicted among non-blacks MDRD (S/P/Bld) [Vol rate/Area] 108 mL/min/{1.73_m2} >60 [facility] Comment on above: mL/min/1.73m2 CKD-EP I Creatinine Equation (2020) Hematocrit Auto (Bld) [Volum e fraction]Ordered By: Chele Bonner on 04-10-2025 Hematocrit (Bld) [Volume fraction] 40.8 % 37-47 [facility] Hemoglobin measurementOrdere d By: Chele Bonner on 04-10-2025 Hemoglobin (Bld) [Mass/Vol] 13.3 g/dL 12.0-15.0 [facility] Immature granulocytes/100 WB C Auto (Bld)Ordered By: Chele Bonner on 04-10-2025 Immature granulocytes/100 WBC (Bld) 0.200 % 0.0-0.9 [facility] Comment on above: IG% - Immature Granu locytes (promyelocytes, myelocytes and metamyelocytes) > 1% indicates that a LEFT SHIFT is Present. Laboratory - Chemistry and C hemistry - challengeOrdered By: Chele Bonner on 04-10-2025 AST [Catalytic activity/Vol] 20 U/L <32 [facility] Comment on above: Hemolysis present, R esults could be affected. Lipase measurementOrdered By : Chele Bonner on 04-10-2025 Lipase [Catalytic activity/Vol] 25 U/L 13-75 [facility] Comment on above: Please note:LIPASE r evised reference range effective 23. New Lipase methodology. Expected to produce lower values than the previous assay method. NEW Reference Range: 13 - 75 U/L MCV (mean corpuscular volume ) determinationOrdered By: Chele Bonner on 04-10-2025 MCV (RBC) [Entitic vol] 93.2 fL 81-99 [facility] Mean corpuscular hemoglobin (MCH) determinationOrdered By: Chele Bonner on 04-10-2025 MCH (RBC) [Entitic mass] 30.4 pg 27.0-32.0 [facility] Mean corpuscular hemoglobin concentration (MCHC) determinationOrdered By: Chele Bonner on 04-10-2025 MCHC (RBC) [Mass/Vol] 32.6 g/dL 32-36 [facility] Mean platelet volume determi nationOrdered By: Chele Bonner on 04-10-2025 Platelet mean volume (Bld) [Entitic vol] 10.2 fL 6.2-12.0 [facility] Monocyte percentageOrdered B y: Chele Bonner on 04-10-2025 Monocytes/100 WBC (Bld) 10.3 % High 0-10 [facility] Neutrophil percentageOrdered By: Chele Bonner on 04-10-2025 Neutrophils/100 WBC (Bld) 62.1 % 47-70 [facility] Nucleated red blood cell per centageOrdered By: Chele Bonner on 04-10-2025 Nucleated RBC/100 WBC (Bld) [Ratio] 0 % 0-5 [facility] Platelet countOrdered By: Joey Bonner on 04-10-2025 Platelets (Bld) [#/Vol] 189 10*3/uL 150-450 [facility] Potassium measurement (mass/ volume)Ordered By: Chele Bonner on 04-10-2025 Potassium (Unsp spec) [Mass/Vol] 4.3 mmol/L 3.3-5.1 [facility] Comment on above: Hemolysis present, R esults could be affected. RBC Auto (Bld) [#/Vol]Ordere d By: Chele Bonner on 04-10-2025 RBC (Bld) [#/Vol] 4.38 10*6/uL 4.2-5.4 [facility] Serum creatinine measurement (mass/volume)Ordered By: Chele Bonner on 04-10-2025 Creatinine [Mass/Vol] 0.64 mg/dL Low 0.70-1.20 [facility] Serum globulin measurementOr dered By: Chele Bonner on 04-10-2025 Globulin (S) [Mass/Vol] 2.4 g/dL 2.2-4.2 [facility] Serum glucose measurement (m ass/volume)Ordered By: Chele Bonner on 04-10-2025 Glucose [Mass/Vol] 83 mg/dL 70-99 [facility] Serum or plasma alanine roy otransferase (ALT) measurementOrdered By: Chele Bonner on 04-10-2025 ALT [Catalytic activity/Vol] 10 U/L <35 [facility] Serum or plasma albumin erick urement (mass/volume)Ordered By: Chele Bonner on 04-10-2025 Albumin [Mass/Vol] 4.1 g/dL 3.5-5.0 [facility] Serum or plasma alkaline yolie sphatase measurementOrdered By: Chele Bonner on 04-10-2025 ALP [Catalytic activity/Vol] 70 U/L 35-104 [facility] Serum or plasma calcium erick urement (mass/volume)Ordered By: Chele Bonner on 04-10-2025 Calcium [Mass/Vol] 10.3 mg/dL 7.6-11.0 [facility] Serum or plasma urea nitroge n measurement (mass/volume)Ordered By: Chele Bonner on 04-10-2025 Urea nitrogen [Mass/Vol] 16 mg/dL 4-19 [facility] Sodium levelOrdered By: Hortencia Bonner on 04-10-2025 Sodium [Moles/Vol] 139 mmol/L 133-145 [facility] Total proteinOrdered By: Daisy Bonner on 04-10-2025 Protein [Mass/Vol] 6.5 g/dL 5.9-8.4 [facility] Troponin T.cardiac [Mass/vol ume] in Serum or Plasma by High sensitivity methodOrdered By: Chele Bonner on 04-10-2025 Troponin T.cardiac High sensitivity method [Mass/Vol] < 6 ng/L <14 [facility] Troponin T.cardiac High sensitivity method [Mass/Vol] < 6 ng/L <14 [facility] White blood cell (WBC) count Ordered By: Chele Bonner on 04-10-2025 WBC (Bld) [#/Vol] 6.3 10*3/uL 4.4-11.0 [facility] PTHINon 04-09-2025 PTH 84 pg/mL High 11-61 [facility] Comment on above: Order Comment: CAM Epperson ADD PTH TO H129 FROM 04-08-25 Performed By: #### L [id number], [id number], [id number], L509.1000, L100.0100, [id number] #### [facility] [address] [place], [address] Absolute lymphocyte countOrd ered By: Yoana Alvarez on 04-08-2025 Lymphocytes Auto (Unsp spec) [#/Vol] 2.51 10*3/uL 0.83-4.51 [facility] Absolute neutrophil countOrd ered By: Yoana Alvarez on 04-08-2025 Neutrophils (Bld) [#/Vol] 2.5 10*3/uL 2.0-7.7 [facility] Anion gap in Serum or Plasma Ordered By: Yoana Alvarez on 04-08-2025 Anion gap [Moles/Vol] 13 mmol/L 5-15 [facility] Automated lymphocyte count a s percentage of total leukocytesOrdered By: Yoana Alvarez on 04-08-2025 Lymphocytes/100 WBC Auto (Unsp spec) 45.7 % High 19-41 [facility] BUN/creatinine ratioOrdered By: Yoana Alvarez on 04-08-2025 Urea nitrogen/Creatinine [Mass ratio] 22.3 mg/mg High 10-20 [facility] Basophil percentageOrdered B y: Yoana Alvarez on 04-08-2025 Basophils/100 WBC (Bld) 0.4 % 0-1 [facility] Bilirubin, totalOrdered By: Yoana Alvarez on 04-08-2025 Bilirubin [Mass/Vol] 0.61 mg/dL 0.00-1.30 [facility] CBC W/Diff, Automatedon 03-17 Absolute Lymph 2.51 X10 3/uL Normal 0.83-4.51 [facility] Comment on above: Performed By: #### L [id number], [id number], [id number], L509.1000, L100.0100, [id number] #### [facility] [address] [place], [address] Absolute Neut 2.5 X10 3/uL Normal 2.0-7.7 [facility] Comment on above: Performed By: #### L [id number], [id number], [id number], L509.1000, L100.0100, [id number] #### [facility] [address] [place], [address] Basophils/100 WBC (Bld) 0.4 % Normal 0-1 [facility] Comment on above: Performed By: #### L [id number], [id number], [id number], L509.1000, L100.0100, [id number] #### [facility] [address] [place], [address] Eosinophils/100 WBC (Bld) 0.0 % Normal 0-5 [facility] Comment on above: Performed By: #### L [id number], [id number], [id number], L509.1000, L100.0100, [id number] #### [facility] [address] [place], [address] Erythrocyte distribution width (RBC) [Ratio] 12.3 % Normal 11.6-14.6 [facility] Comment on above: Performed By: #### L [id number], [id number], [id number], L509.1000, L100.0100, [id number] #### [facility] [address] [place], [address] Hematocrit (Bld) [Volume fraction] 40.2 % Normal 37-47 [facility] Comment on above: Performed By: #### L [id number], [id number], [id number], L509.1000, L100.0100, [id number] #### [facility] [address] [place], [address] Hemoglobin (Bld) [Mass/Vol] 13.4 g/dL Normal 12.0-15.0 [facility] Comment on above: Performed By: #### L [id number], [id number], [id number], L509.1000, L100.0100, [id number] #### [facility] [address] [place], [address] IG% 0.200 Normal 0.0-0.9 [facility] Comment on above: Result Comment: IG% - Immature Granulocytes (promyelocytes, myelocytes and metamyelocytes) > 1% indicates that a LEFT SHIFT is Present. Performed By: #### L [id number], [id number], [id number], L509.1000, L100.0100, [id number] #### [facility] [address] [place], [address] Lymphocytes/100 WBC (Bld) 45.7 % High 19-41 [facility] Comment on above: Performed By: #### L [id number], [id number], [id number], L509.1000, L100.0100, [id number] #### [facility] [address] [place], [address] MCH (RBC) [Entitic mass] 30.8 pg Normal 27.0-32.0 [facility] Comment on above: Performed By: #### L [id number], [id number], [id number], L509.1000, L100.0100, [id number] #### [facility] [address] [place], [address] MCHC (RBC) [Mass/Vol] 33.3 g/dL Normal 32-36 [facility] Comment on above: Performed By: #### L [id number], [id number], [id number], L509.1000, L100.0100, [id number] #### [facility] [address] [place], [address] MCV (RBC) [Entitic vol] 92.4 fL Normal 81-99 [facility] Comment on above: Performed By: #### L [id number], [id number], [id number], L509.1000, L100.0100, [id number] #### [facility] [address] [place], [address] Monocytes/100 WBC (Bld) 8.6 % Normal 0-10 [facility] Comment on above: Performed By: #### L [id number], [id number], [id number], L509.1000, L100.0100, [id number] #### [facility] [address] [place], [address] Neutrophils/100 WBC (Bld) 45.1 % Low 47-70 [facility] Comment on above: Performed By: #### L [id number], [id number], [id number], L509.1000, L100.0100, L503.0106 #### [facility] [address] [place], [address] Nucleated RBC (Bld) [#/Vol] 0 10*3/uL Normal 0-5 [facility] Comment on above: Performed By: #### L 500.4100, L506.1001, L500.4050, L509.1000, L100.0100, L503.0106 #### [facility] [address] [place], [address] Platelet mean volume (Bld) [Entitic vol] 10.5 fL Normal 6.2-12.0 [facility] Comment on above: Performed By: #### L 500.4100, L506.1001, L500.4050, L509.1000, L100.0100, L503.0106 #### [facility] [address] [place], [address] Platelets (Bld) [#/Vol] 219 10*3/uL Normal 150-450 [facility] Comment on above: Performed By: #### L 500.4100, L506.1001, L500.4050, L509.1000, L100.0100, L503.0106 #### [facility] [address] [place], [address] RBC (Bld) [#/Vol] 4.35 10*6/uL Normal 4.2-5.4 [facility] Comment on above: Performed By: #### L 500.4100, L506.1001, L500.4050, L509.1000, L100.0100, L503.0106 #### [facility] [address] [place], [place], [phone] (648) RDW SD 41.9 fl Normal 35.1-43.9 [facility] Comment on above: Performed By: #### L 500.4100, L506.1001, L500.4050, L509.1000, L100.0100, L503.0106 #### [facility] [address] [place], [address] WBC (Bld) [#/Vol] 5.5 10*3/uL Normal 4.4-11.0 [facility] Comment on above: Performed By: #### L 500.4100, L506.1001, L500.4050, L509.1000, L100.0100, L503.0106 #### [facility] [address] [facility] [place], [place], [id number] Calculated very low density lipoprotein (VLDL) cholesterol measurementOrdered By: Yoana Alvarez on 04-08-2025 Calculated very low density lipoprotein (VLDL) cholesterol measurement 13 mg/dL 5-40 [facility] Carbon dioxide, total [Moles /volume] in Central venous bloodOrdered By: Yoana Alvarez on 04-08-2025 CO2 [Moles/Vol] 24.9 mmol/L 21.0-32.0 [facility] Chloride assayOrdered By: Connor yclove Alvarez on 04-08-2025 Chloride [Moles/Vol] 104 mmol/L 98-108 [facility] Metabolic Prof ilon 04-08-2025 Albumin [Mass/Vol] 4.5 g/dL Normal 3.5-5.0 [facility] Comment on above: Performed By: #### L 500.4100, L506.1001, L500.4050, L509.1000, L100.0100, L503.0106 #### [facility] [address] [place], [address] Albumin/Globulin [Mass ratio] 1.8 {ratio} Normal 0.9-2.4 [facility] Comment on above: Performed By: #### L 500.4100, L506.1001, L500.4050, L509.1000, L100.0100, L503.0106 #### [facility] [address] [place], [address] ALK PHOS 71 U/L Normal 35-104 [facility] Comment on above: Performed By: #### L 500.4100, L506.1001, L500.4050, L509.1000, L100.0100, L503.0106 #### [facility] [address] [place], [address] ALT [Catalytic activity/Vol] 12 U/L Normal <=34 [facility] Comment on above: Performed By: #### L 500.4100, L506.1001, L500.4050, L509.1000, L100.0100, L503.0106 #### [facility] [address] [place], [address] AST [Catalytic activity/Vol] 15 U/L Normal <=31 [facility] Comment on above: Performed By: #### L 500.4100, L506.1001, L500.4050, L509.1000, L100.0100, L503.0106 #### [facility] [address] [place], [address] Bilirubin [Mass/Vol] 0.61 mg/dL Normal 0.00-1.30 [facility] Comment on above: Performed By: #### L 500.4100, L506.1001, L500.4050, L509.1000, L100.0100, L503.0106 #### [facility] [address] [place], [address] BUN/CRE 22.3 RATIO High 10-20 [facility] Comment on above: Performed By: #### L 500.4100, L506.1001, L500.4050, L509.1000, L100.0100, L503.0106 #### [facility] [address] [place], [address] Calcium [Mass/Vol] 11.1 mg/dL High 7.6-11.0 [facility] Comment on above: Performed By: #### L 500.4100, L506.1001, L500.4050, L509.1000, L100.0100, L503.0106 #### [facility] [address] [place], [address] Chloride [Moles/Vol] 104 mmol/L Normal 98-108 [facility] Comment on above: Performed By: #### L 500.4100, L506.1001, L500.4050, L509.1000, L100.0100, L503.0106 #### [facility] [address] [place], [address] CO2 [Moles/Vol] 24.9 mmol/L Normal 21.0-32.0 [facility] Comment on above: Performed By: #### L 500.4100, L506.1001, L500.4050, L509.1000, L100.0100, L503.0106 #### [facility] [address] [place], [address] Creatinine [Mass/Vol] 0.70 mg/dL Normal 0.70-1.20 [facility] Comment on above: Performed By: #### L 500.4100, L506.1001, L500.4050, L509.1000, L100.0100, L503.0106 #### [facility] [address] [place], [address] GAP 13 Normal 5-15 [facility] Comment on above: Performed By: #### L 500.4100, L506.1001, L500.4050, L509.1000, L100.0100, L503.0106 #### [facility] [address] [place], [address] GFR/1.73 sq M.predicted among non-blacks MDRD (S/P/Bld) [Vol rate/Area] 105 mL/min/{1.73_m2} Normal >60 [facility] Comment on above: Result Comment: mL/m in/1.73m2 CKD-EPI Creatinine Equation (2020) Performed By: #### L 500.4100, L506.1001, L500.4050, L509.1000, L100.0100, L503.0106 #### [facility] [address] [place], [address] Globulin (S) [Mass/Vol] 2.5 g/dL Normal 2.2-4.2 [facility] Comment on above: Performed By: #### L 500.4100, L506.1001, L500.4050, L509.1000, L100.0100, L503.0106 #### [facility] [address] [place], [address] Glucose [Mass/Vol] 80 mg/dL Normal 70-99 [facility] Comment on above: Performed By: #### L 500.4100, L506.1001, L500.4050, L509.1000, L100.0100, L503.0106 #### [facility] [address] [place], [address] Potassium [Moles/Vol] 3.6 mmol/L Normal 3.3-5.1 [facility] Comment on above: Performed By: #### L 500.4100, L506.1001, L500.4050, L509.1000, L100.0100, L503.0106 #### [facility] [address] [place], [address] Sodium [Moles/Vol] 142 mmol/L Normal 133-145 [facility] Comment on above: Performed By: #### L 500.4100, L506.1001, L500.4050, L509.1000, L100.0100, L503.0106 #### [facility] [address] [place], [address] T PROT 7.0 g/dL Normal 5.9-8.4 [facility] Comment on above: Performed By: #### L 500.4100, L506.1001, L500.4050, L509.1000, L100.0100, L503.0106 #### [facility] [address] [place], [address] Urea nitrogen [Mass/Vol] 16 mg/dL Normal 4-19 [facility] Comment on above: Performed By: #### L 500.4100, L506.1001, L500.4050, L509.1000, L100.0100, L503.0106 #### [facility] [address] [place], [address] Eosinophil percentageOrdered By: Yoana Alvarez on 04-08-2025 Eosinophils/100 WBC (Bld) 0.0 % 0-5 [facility] Erythrocyte distribution wid th ratioOrdered By: Yoana Alvarez on 04-08-2025 Erythrocyte distribution width (RBC) [Ratio] 12.3 % 11.6-14.6 [facility] Erythrocyte distribution wid th standard deviationOrdered By: Yoana Alvarez on 04-08-2025 Erythrocyte distribution width (RBC) [Ratio] 41.9 fl 35.1-43.9 [facility] Glomerular filtration rate ( GFR) estimation/1.73 sq m using serum, plasma, or whole bOrdered By: Yoana Alvarez on 04-08-2025 GFR/1.73 sq M.predicted among non-blacks MDRD (S/P/Bld) [Vol rate/Area] 105 mL/min/{1.73_m2} >60 [facility] Comment on above: mL/min/1.73m2 CKD-EP I Creatinine Equation (2020) Hematocrit Auto (Bld) [Volum e fraction]Ordered By: Yoana Alvarez on 04-08-2025 Hematocrit (Bld) [Volume fraction] 40.2 % 37-47 [facility] Hemoglobin measurementOrdere d By: Yoana Alvarez on 04-08-2025 Hemoglobin (Bld) [Mass/Vol] 13.4 g/dL 12.0-15.0 [facility] Immature granulocytes/100 WB C Auto (Bld)Ordered By: Yoana Alvarez on 04-08-2025 Immature granulocytes/100 WBC (Bld) 0.200 % 0.0-0.9 [facility] Comment on above: IG% - Immature Granu locytes (promyelocytes, myelocytes and metamyelocytes) > 1% indicates that a LEFT SHIFT is Present. LDL calc ser/plasOrdered By: Yoana Alvarez on 04-08-2025 Cholesterol in LDL [Mass/Vol] 64 mg/dL [facility] Comment on above: Lptthengxu=992-606 m g/dL & Higher Xzoe=504 mg/dL or greater Laboratory - Chemistry and C hemistry - challengeOrdered By: Yoana Alvarez on 04-08-2025 AST [Catalytic activity/Vol] 15 U/L <32 [facility] Lipid Profileon 04-08-2025 CHOL:HDL 1.78 Normal [facility] Comment on above: Performed By: #### L 500.4100, L506.1001, L500.4050, L509.1000, L100.0100, L503.0106 #### [facility] [address] [place], [place], [id number] Cholesterol [Mass/Vol] 177 mg/dL Normal <=200 [facility] Comment on above: Result Comment: Chol esterol level, Desirable <200 mg/dL Borderline high cholesterol 200-239 mg/dL High cholesterol >=240 mg/dL Recommendations of the NCEP Adult Treatment Panel for the following risk-cutoff thresholds for the [place] population. Performed By: #### L 500.4100, L506.1001, L500.4050, L509.1000, L100.0100, L503.0106 #### [facility] [address] [place], [address] Cholesterol in HDL [Mass/Vol] 100 mg/dL Normal [facility] Comment on above: Result Comment: Myrna onal Cholesterol Education Program (NCEP) guidelines: <40 mg/dL: Low HDL-cholesterol (major risk factor for CHD) >= 60 mg/dL: High HDL-cholesterol (negative risk factor for CHD) HDL-cholesterol is affected by a number of factors, e.g. smoking, exercise, hormones, sex and age. Performed By: #### L 500.4100, L506.1001, L500.4050, L509.1000, L100.0100, L503.0106 #### [facility] [address] [place], [address] Cholesterol in LDL [Mass/Vol] 64 mg/dL Normal [facility] Comment on above: Result Comment: Bord acozep=810-675 mg/dL Higher Guyz=734 mg/dL or greater Performed By: #### L 500.4100, L506.1001, L500.4050, L509.1000, L100.0100, L503.0106 #### [facility] [address] [place], [address] Cholesterol in VLDL [Mass/Vol] 13 mg/dL Normal 5-40 [facility] Comment on above: Performed By: #### L 500.4100, L506.1001, L500.4050, L509.1000, L100.0100, L503.0106 #### [facility] [address] [place], [address] Triglyceride [Mass/Vol] 64 mg/dL Normal [facility] Comment on above: Result Comment: The drugs N-Acetylcysteine and Metamizole may falsely depress this assay. Normal range: <150 mg/dL Borderline High: 150-199 mg/dL High: 200-499 mg/dL Very High: >500 mg/dL Performed By: #### L 500.4100, L506.1001, L500.4050, L509.1000, L100.0100, L503.0106 #### [facility] [address] [place], [address] MCV (mean corpuscular volume ) determinationOrdered By: Yoana Alvarez on 04-08-2025 MCV (RBC) [Entitic vol] 92.4 fL 81-99 [facility] Mean corpuscular hemoglobin (MCH) determinationOrdered By: Yoana [place] on 04-08-2025 MCH (RBC) [Entitic mass] 30.8 pg 27.0-32.0 [facility] Mean corpuscular hemoglobin concentration (MCHC) determinationOrdered By: Yoanamari Alvarez on 04-08-2025 MCHC (RBC) [Mass/Vol] 33.3 g/dL 32-36 [facility] Mean platelet volume determi nationOrdered By: Yoana Kim on 04-08-2025 Platelet mean volume (Bld) [Entitic vol] 10.5 fL 6.2-12.0 [facility] Monocyte percentageOrdered B y: Yoana Kim on 04-08-2025 Monocytes/100 WBC (Bld) 8.6 % 0-10 [facility] Neutrophil percentageOrdered By: Yoana Kim on 04-08-2025 Neutrophils/100 WBC (Bld) 45.1 % Low 47-70 [facility] Nucleated red blood cell per centageOrdered By: Yoana Kim on 04-08-2025 Nucleated RBC/100 WBC (Bld) [Ratio] 0 % 0-5 [facility] Platelet countOrdered By: Al yclove Alvarez on 04-08-2025 Platelets (Bld) [#/Vol] 219 10*3/uL 150-450 [facility] Potassium measurement (mass/ volume)Ordered By: Yoana Alvarez on 04-08-2025 Potassium (Unsp spec) [Mass/Vol] 3.6 mmol/L 3.3-5.1 [facility] RBC Auto (Bld) [#/Vol]Ordere d By: Yoana Alvarez on 04-08-2025 RBC (Bld) [#/Vol] 4.35 10*6/uL 4.2-5.4 [facility] Screening total cholesterol/ high density lipoprotein (HDL) cholesterol ratioOrdered By: Yoana Alvarez on 04-08-2025 Cholesterol.total/Shazia sterol in HDL [Mass ratio] 1.78 {ratio} [facility] Serum creatinine measurement (mass/volume)Ordered By: Yoana Alvarez on 04-08-2025 Creatinine [Mass/Vol] 0.70 mg/dL 0.70-1.20 [facility] Serum globulin measurementOr dered By: Yoana Alvarez on 04-08-2025 Globulin (S) [Mass/Vol] 2.5 g/dL 2.2-4.2 [facility] Serum glucose measurement (m ass/volume)Ordered By: Yoana Alvarez on 04-08-2025 Glucose [Mass/Vol] 80 mg/dL 70-99 [facility] Serum or plasma alanine roy otransferase (ALT) measurementOrdered By: Yoana Alvarez on 04-08-2025 ALT [Catalytic activity/Vol] 12 U/L <35 [facility] Serum or plasma albumin erick urement (mass/volume)Ordered By: Yoana Alvarez on 04-08-2025 Albumin [Mass/Vol] 4.5 g/dL 3.5-5.0 [facility] Serum or plasma albumin/glob ulin mass ratioOrdered By: Yoana Alvarez on 04-08-2025 Albumin/Globulin [Mass ratio] 1.8 {ratio} 0.9-2.4 [facility] Serum or plasma alkaline yolie sphatase measurementOrdered By: Yoana Alvarez on 04-08-2025 ALP [Catalytic activity/Vol] 71 U/L 35-104 [facility] Serum or plasma calcium erick urement (mass/volume)Ordered By: Yoana Alvarez on 04-08-2025 Calcium [Mass/Vol] 11.1 mg/dL High 7.6-11.0 [facility] Serum or plasma cholesterol in HDL measurement (mass/volume)Ordered By: Yoana Alvarez on 04-08-2025 Cholesterol in HDL [Mass/Vol] 100 mg/dL >40 [facility] Comment on above: National Cholesterol Education Program (NCEP) guidelines:<40 mg/dL: Low HDL-cholesterol (major risk factor for CHD)>= 60 mg/dL: High HDL-cholesterol (negative risk factor for CHD)HDL-cholesterol is affected by a number of factors, e.g. smoking, exercise, hormones, sex and age. Serum or plasma cholesterol measurement (mass/volume)Ordered By: Yoana Alvarez on 04-08-2025 Cholesterol [Mass/Vol] 177 mg/dL <201 [facility] Comment on above: Cholesterol level, D esirable <200 mg/dLBorderline high cholesterol 200-239 mg/dLHigh cholesterol >=240 mg/dLRecommendations of the NCEP Adult Treatment Panel for the following risk-cutoff thresholds for the [place] population. Serum or plasma urea nitroge n measurement (mass/volume)Ordered By: Yoana Alvarez on 04-08-2025 Urea nitrogen [Mass/Vol] 16 mg/dL 4-19 [facility] Sodium levelOrdered By: Linwood Alvarez on 04-08-2025 Sodium [Moles/Vol] 142 mmol/L 133-145 [facility] Total proteinOrdered By: Sherman Alvarez on 04-08-2025 Protein [Mass/Vol] 7.0 g/dL 5.9-8.4 [facility] Triglycerides measurementOrd ered By: Yoana Alvarez on 04-08-2025 Triglyceride [Mass/Vol] 64 mg/dL <199 [facility] Comment on above: The drugs N-Acetylcy steine and Metamizole may falsely depress this assay. Normal range: <150 mg/dLBorderline High: 150-199 mg/dLHigh: 200-499 mg/dLVery High: >500 mg/dL Vitamin B12on 06-24-2025 Cobalamin (Vitamin B12) [Mass/Vol] 353 pg/mL Normal 180-914 [facility] Comment on above: Performed By: #### L 500.4100, L506.1001, L500.4050, L509.1000, L100.0100, L503.0106 #### [facility] [address] [place], [place], [id number] Vitamin B12 ser/plasOrdered By: Yoana Alvarez on 04-08-2025 Cobalamin (Vitamin B12) [Mass/Vol] 353 pg/mL 180-914 [facility] Vitamin D,25 Hydroxyon 04-08 Vitamin D 25-OH 33.1 ng/mL Normal 30-100 [facility] Comment on above: Result Comment: Stephanie min D Status Deficiency: <20 ng/mL (50nmol/L) Insufficiency: 20-30 ng/mL (50-75 nmol/L) Sufficiency: 30-100 ng/mL (75-250 nmol/L) Toxicity: >100 ng/mL (>250 nmol/L) Performed By: #### L 500.4100, L506.1001, L500.4050, L509.1000, L100.0100, L503.0106 #### [facility] [address] [place], [place], [id number] White blood cell (WBC) count Ordered By: Yoana Alvarez on 04-08-2025 WBC (Bld) [#/Vol] 5.5 10*3/uL 4.4-11.0 [facility] Office Vis iton 04-07-2025 Internal Medicine Office Visit [facility] [address] [place], [place] [address] OFFICE VISIT Date of Service: 04/08/25 MR#: [id number] Acct: [id number] Name: MAHNAZ KINSEY Rep #: [id number] : 1975 Provider: Dr. Yoana brady MD Age/Sex: 50/F Location: [facility] Status: Signed Intake Vital Signs 12/03/24 13:51 04/08/25 07:34 Height 5 ft 5 in 5 ft 5 in Weight: 181 lb BMI 30.1 BP 124/80 H Blood Pressure Location Lt brachial Position Sitting Respiration 16 Pulse 70 Pulse Source Monitor Temp 97.9 F Temp Source Temporal Pulse Oximetry (%) 98 Oxygen Delivery Method room air Intake Visit Reasons: 4 M FU Wildlife Photographer Required: No Is patient in pain?: No Allergies No Known Allergies Allergy (Verified 04/08/25 07:21) Medications ???Medication ???Instructions ???Recorded ???Confirmed ???Type cyanocobalamin (vitamin B-12) mcg IM 02/13/24 04/08/25 History 1,000 mcg/mL injection solution semaglutide 0.25 mg or 0.5 mg (2 0.25 mg subcut QWEEK 02/13/2403/17 History mg/3 mL) subcutaneous pen injector bupropion HCl 150 mg 24 hr tablet, 150 mg PO QAM #90 tabs 04/08/25 04/08/25 Rx extended release (Wellbutrin XL) Nurse's Note: Pt has, physical form for insurance that needs filled out. Pt is fasting for labs. Pt states she has been feeling very sluggish which is ongoing, Pt states she works nights 2x a week and doesn't get off until 8am on S,SUN. She states throughout the week she feels like she's trying to play catch up and not sleep during the day. Pt states she gets to bed about 2-3am then doesn't get up until 11am she does lay down at 9pm but doesn't sleep. Pt states she sleeps through the night. Pt states she feels not very rested weak and blah upon awakening. She sits on couch and lays around during the day she doesn't have enough oomph unless she has to. [facility] Medical History Asthma Anemia History of non-ST elevation myocardial infarction (NSTEMI) (09/20/19) Essential (primary) hypertension Nicotine dependence Obesity Atherosclerosis of coronary artery of [place] heart without angina pectoris Surgical History History of breast augmentation History of tonsillectomy History of gastric bypass History of left heart catheterization (09/20/19) Family History Mother Hyperlipidemia Father Alcoholism Grandfather Myocardial infarction Parkinson disease Grandmother COPD (chronic obstructive pulmonary disease) Uncle Cancer Aunt Brain aneurysm Aunt Brain aneurysm Aunt Brain aneurysm Other CVA (cerebral vascular accident) Hypertension Social History adopted: No household members: spouse number of children: 3 current occupational status: employed current occupation: [employer] pets and animals: Yes (1) pets and animals: dog(s) Smoking Status: Former smoker quit date: 10/16/19 pack-years: 8 Tobacco: How many years used: 31 Electronic Cigarette Use: not used alcohol intake: current alcohol intake frequency: a few times a week Alcohol type: beer substance use type: does not use diet: ideal protein caffeine: Yes (5) Type: carbonated beverages frequency: 3-4 times per week seatbelt use: always do you feel safe at home: Yes Questionnaire [facility] Over the last 2 weeks, how often have you been bothered by any of the following problems? 1. Little interest or pleasure in doing things: nearly every day 2. Feeling down, depressed, or hopeless: more than half the days 3. Trouble falling or staying asleep, or sleeping too much: not at all 4. Feeling tired or having little energy: more than half the days 5. Poor appetite or overeating: more than half the days 6. Feeling bad about yourself - or that you are a failure or have let yourself and your family down: not at all 7. Trouble concentrating on things, such as reading the newspaper or watching television: more than half the days 8. Moving or speaking so slowly that other people could have noticed? - Or the opposite - being so fidgety or restless that you have been moving around a lot more than usual: not at all 9. Thoughts that you would be better off or of hurting yourself in some way: not at all Total score: 11 If you checked off any problems, how difficult have these problems made it for you to do your work, take care of things at home, or get along with other people?: somewhat difficult Source: Developed by Drs. Mingo Houston, Chanel Nair, Naga English and colleagues, with an educational kori from [employer]. DONALD-7 BMS DONALD-7 Feeling nerv (more content not included)... Normal [facility] Internal Medicine Office Vis iton 12-02-2024 Internal Medicine Office Visit [facility] [address] [place] [address] [place] [address] OFFICE VISIT Date of Service: 12/03/24 MR#: [id number] Acct: [id number] Name: MAHNAZ KINSEY Rep #: [id number] : 1975 Provider: Dr. Yoana brady MD Age/Sex: 49/F Location: [facility] Status: Signed Intake Vital Signs 10/20/24 13:25 12/03/24 13:51 Height 5 ft 5 in 5 ft 5 in Weight: 187 lb 2 oz BMI 31.1 BP 122/72 H Blood Pressure Location Lt brachial Position Sitting Respiration 16 Pulse 79 Pulse Source Monitor Temp 97.1 F L Temp Source Temporal Pulse Oximetry (%) 99 Oxygen Delivery Method room air Intake Visit Reasons: FU ON SEMAGLUTIDE Chief Complaint: fu on semaglutide Wildlife Photographer Required: No Accompanied by: Self Is patient in pain?: No Allergies No Known Allergies Allergy (Verified 12/03/24 13:52) Medications ???Medication ???Instructions ???Recorded ???Confirmed ???Type cyanocobalamin (vitamin B-12) mcg IM 02/13/24 12/03/24 History 1,000 mcg/mL injection solution semaglutide 0.25 mg or 0.5 mg (2 0.25 mg subcut QWEEK 02/13/2411/16 History mg/3 mL) subcutaneous pen injector Have you fallen in the past year?: No (needs refill on b-12) PFSH Medical History Asthma Anemia History of non-ST elevation myocardial infarction (NSTEMI) (09/20/19) Essential (primary) hypertension Nicotine dependence Obesity Atherosclerosis of coronary artery of [place] heart without angina pectoris Surgical History History of breast augmentation History of tonsillectomy History of gastric bypass History of left heart catheterization (09/20/19) Family History (Updated 12/03/24 @ 14:[address] Yoana Alvarez MD) Mother Hyperlipidemia Father Alcoholism Grandfather Myocardial infarction Parkinson disease Grandmother COPD (chronic obstructive pulmonary disease) Uncle Cancer Aunt Brain aneurysm Aunt Brain aneurysm Aunt Brain aneurysm Other CVA (cerebral vascular accident) Hypertension Social History (Updated 12/03/24 @ 14:[address] Yoana Alvarez MD) adopted: No household members: spouse number of children: 3 current occupational status: employed current occupation: [employer] pets and animals: Yes (1) pets and animals: dog(s) Smoking Status: Former smoker quit date: 10/16/19 pack-years: 8 Tobacco: How many years used: 31 Electronic Cigarette Use: not used alcohol intake: current alcohol intake frequency: a few times a week Alcohol type: beer substance use type: does not use diet: ideal protein caffeine: Yes (5) Type: carbonated beverages frequency: 3-4 times per week seatbelt use: always do you feel safe at home: Yes HPI HPI Chief Complaint: fu on semaglutide Details: MAHNAZ KINSEY, is a 49 F who presents to the office today for a follow up. She is up to date on her routine blood work and is due for a pap smear. She sees OBGYN and will call and schedule. She would like her flu shot. She doesn't smoke and does need refills. She reports she is eating healthy and staying active. She does check her blood pressure at home and reports it has been well controlled. She is no longer taking any medications. She does try to monitor her salt intake. The patient has a history of CAD. She is no longer seeing cardiology. She is taking her medication as prescribed without problems. She denies any current symptoms of chest pain, palpitations or shortness of breath. The patient stopped taking her wellbutrin about 4-5 months ago. She states she weaned herself off of it. She denies any current concerns about her mental health. She denies any thoughts of suicide. The patient reports her weight loss has been slowing down. She is doing her injections on Mondays and had her last injection yesterday. She is interested in increasing her dose since she hasn't noticed any significant changes. She reports she is still eating healthy. She continues to use her treadmill for exercise. She is down 4 pounds since being seen last. She has no other questions or concerns at this time. ROS Const Constitutional: No fever(s), frequent falls, headache(s), weakness or weight change Eyes Eyes: No blurry vision, change in vision or visual disturbances ENT ENT: No abnormal hearing, hearing loss, nasal congestion, headache(s) or sore throat Resp Respiratory: No cough or shortness of breath Cardio Cardiology: No chest pain at rest, chest pain with exertion, shortness of breath, lightheadedness or palpitations Gastro GI: No abdominal pain, change in bowel habits, constipation, diarrhea, nausea/dyspepsia or vomiting Genitourinary-Female: No difficulty urinating, burning urination or pa (more content not included)... Normal [facility] Urgent Care Visit Reporton 0 10-21-2024 Urgent Care Visit Report [facility] [address], [address] [place] [address] OFFICE VISIT Date of Service: 10/21/24 MR#: [id number] Acct: [id number] Name: MAHNAZ KINSEY Rep #: [id number] : 1975 Provider: OSBALDO Huntley Age/Sex: 49/F Location: [facility] Status: Signed Intake Vital Signs 07/16/24 09:53 10/20/24 13:25 Height 5 ft 5 in 5 ft 5 in Weight: 190 lb 2 oz BMI 31.6 BP 118/72 120/70 Blood Pressure Location Lt brachial Lt brachial Position Sitting Sitting Respiration 16 12 Pulse 82 84 Pulse Source Monitor NIBP Temp 98.9 F 99.0 F Temp Source Temporal Oral Pulse Oximetry (%) 98 98 Oxygen Delivery Method room air room air Intake Visit Reasons: SORE THROAT/SINUS/COUGH/FEV ER/CHILLS Chief Complaint: sore throat/sinus/cough/fev er/chills Wildlife Photographer Required: No Is patient in pain?: No Allergies No Known Allergies Allergy (Verified 10/21/24 07:10) Medications ???Medication ???Instructions ???Recorded ???Confirmed ???Type nitroglycerin 0.4 mg sublingual mg sublingual Q5-15M 10/23/19 10/21/24 History tablet cyanocobalamin (vitamin B-12) mcg IM 02/13/24 10/21/24 History 1,000 mcg/mL injection solution semaglutide 0.25 mg or 0.5 mg (2 0.25 mg subcut QWEEK 02/13/24 10/21/24 History mg/3 mL) subcutaneous pen injector bupropion HCl 150 mg 24 hr tablet, 150 mg PO QAM #90 tabs 09/03/24 10/21/24 Rx extended release (Wellbutrin XL) benzonatate 200 mg capsule 200 mg PO TID PRN cough #20 caps 10/21/24 10/21/24 Rx dexamethasone 6 mg tablet 6 mg PO DAILY #5 tabs 10/21/24 10/21/24 Rx Is last menstrual period known: No Post menopausal: No Patient : No Have you fallen in the past year?: No Nurse's Note: patient here for sore throat, sinus, cough, fever, chills x3 days. Ran mally covid/flu test. [facility] Medical History Asthma Anemia History of non-ST elevation myocardial infarction (NSTEMI) (09/20/19) Essential (primary) hypertension Nicotine dependence Obesity Atherosclerosis of coronary artery of [place] heart without angina pectoris Surgical History History of breast augmentation History of tonsillectomy History of gastric bypass History of left heart catheterization (09/20/19) Family History Mother Hyperlipidemia Father Alcoholism Grandfather Myocardial infarction Parkinson disease Grandmother COPD (chronic obstructive pulmonary disease) Uncle Cancer Other CVA (cerebral vascular accident) Hypertension Social History adopted: No household members: spouse number of children: 3 current occupational status: employed current occupation: [employer] - pets and animals: Yes (1) pets and animals: dog(s) Smoking Status: Former smoker quit date: 10/16/19 pack-years: 8 Tobacco: How many years used: 31 Electronic Cigarette Use: not used alcohol intake: current alcohol intake frequency: a few times a week Alcohol type: beer substance use type: does not use diet: ideal protein caffeine: Yes (5) Type: carbonated beverages frequency: 3-4 times per week seatbelt use: always do you feel safe at home: Yes HPI HPI Chief Complaint: sore throat/sinus/cough/fev er/chills Details: MAHNAZ KINSEY, is a 49 F who presents to the office today for [facility] evaluation at [facility] for approximately 72-hour history of fever (Tmax 107.0 Fahrenheit 3 days ago), sore throat, sinus, cough, chills. No complaints of chest pain or shortness of breath or dyspnea on exertion. Tlzk-mrn-puvpdmd Mucinex and Tylenol taken to assist. Several close contacts with similar URI complaints, including had similar symptoms beginning approximately a week ago as well as recently returned home from cruise with several passengers were known to be sick on there as well. No other associated symptoms and no alleviating/aggravatin g factors. ROS Const Constitutional: No other (as above) Exam Const General: cooperative, healthy appearing and no acute distress Nutritional Appearance: average body habitus Orientation: alert, awake and oriented x3 HENMT Head: normal to inspection Ears: hearing grossly normal bilaterally, external ears normal, TM's normal bilaterally and EAC's normal Nose: external nose normal, nares normal, septum normal and nasal discharge clear Face and sinus: normal facial exam, sinuses nontender and face symmetric Mouth: oral mucosae normal, lip normal, tongue normal and oropharynx normal Throat: posterior oropharynx normal, tonsils normal, uvula midline and no postnasal drainage Eyes General: appearance normal, both ey (more content not included)... Normal [facility] Calcium, Urine 24HRon 2023 24HR UR Calcium 184.0 mg/24 HR Normal 42.0-353.0 [facility] Comment on above: Performed By: #### L 500.7000 ####[facility] [address] [place], [address] Calcium UR pH 2 Normal [facility] Comment on above: Performed By: #### L 500.7000 ####[facility] [address] [place], [address] UR Collect Time 24.0 HR Normal 24.0-24.0 [facility] Comment on above: Performed By: #### L 500.7000 ####[facility] [address] [place], [address] UR Total Volume 1000 ml Normal [facility] Comment on above: Performed By: #### L 500.7000 ####[facility] [address] [place], [address] Urine Calcium 18.4 mg/dL Normal Not Estab. [facility] Comment on above: Performed By: #### L 500.0 ####[facility] [address] [place], [address] Calcium, Urine 24HRon 2023 24HR UR Calcium Normal 42.0-353.0 [facility] Comment on above: Order Comment: 1700 ML TOTAL VOLUME FOR 24HOURS-SWRIGHT Result Comment: BOBY LLECTED. DROPPED OFF ON 07-23-24 Performed By: #### L 500.7000 ####[facility] [address] [place], [address] Calcium UR pH Normal [facility] Comment on above: Order Comment: 1700 ML TOTAL VOLUME FOR 24HOURS-SWRIGHT Result Comment: BOBY LLECTED. DROPPED OFF ON 07-23-24 Performed By: #### L 500.7000 ####[facility] [address] [place], [address] UR Collect Time Normal 24.0-24.0 [facility] Comment on above: Order Comment: 1700 ML TOTAL VOLUME FOR 24HOURS-SWRIGHT Result Comment: BOBY LLECTED. DROPPED OFF ON 07-23-24 Performed By: #### L 500.7000 ####[facility] [address] [place], [address] UR Total Volume Normal [facility] Comment on above: Order Comment: 1700 ML TOTAL VOLUME FOR 24HOURS-SWRIGHT Result Comment: BOBY LLECTED. DROPPED OFF ON 07-23-24 Performed By: #### L 500.7000 ####[facility] [address] [place], [address] Urine Calcium Normal Not Estab. [facility] Comment on above: Order Comment: 1700 ML TOTAL VOLUME FOR 24HOURS-SWRIGHT Result Comment: BOBY LLECTED. DROPPED OFF ON 07-23-24 Performed By: #### L 500.7000 ####[facility] [address] [place], [address] Comprehensive Metabolic Prof [facility] 07-16-2024 Albumin [Mass/Vol] 3.8 g/dL Normal 3.2-5.0 [facility] Comment on above: Performed By: #### L 500.4050 ####[facility] [address] [place], [address] Albumin/Globulin [Mass ratio] 1.3 {ratio} Normal 0.9-2.4 [facility] Comment on above: Performed By: #### L 500.4050 ####[facility] [address] [place], [address] ALK P 75 U/L Normal 45-117 [facility] Comment on above: Performed By: #### L 500.4050 ####[facility] [address] [place], [address] ALT [Catalytic activity/Vol] 15 U/L Normal 13-56 [facility] Comment on above: Performed By: #### L 500.4050 ####[facility] [address] [place], [address] AST [Catalytic activity/Vol] 9 U/L Low 15-37 [facility] Comment on above: Performed By: #### L 500.4050 ####[facility] [address] [place], [address] Bilirubin [Mass/Vol] 0.40 mg/dL Normal 0.20-1.00 [facility] Comment on above: Result Comment: For patients on eltrombopag therapy, use of Dimension [place] TBIL is not recommended. Performed By: #### L 500.4050 ####[facility] [address] [place], [address] BUN/CRE 11.6 RATIO Normal 10-20 [facility] Comment on above: Performed By: #### L 500.4050 ####[facility] [address] [place], [address] CA,Total 10.6 mg/dL High 8.5-10.1 [facility] Comment on above: Performed By: #### L 500.4050 ####[facility] [address] [place], [address] Chloride [Moles/Vol] 108 mmol/L High 98-107 [facility] Comment on above: Performed By: #### L 500.4050 ####[facility] [address] [place], [address] CO2 [Moles/Vol] 26.0 mmol/L Normal 21.0-32.0 [facility] Comment on above: Performed By: #### L 500.4050 ####[facility] [address] [place], [address] Creatinine [Mass/Vol] 0.69 mg/dL Normal 0.55-1.02 [facility] Comment on above: Result Comment: The validity of the calculated GFR GFRAA in patients over 70 years has not been determined. Clinical correlation is essential. Performed By: #### L 500.4050 ####[facility] [address] [place], [address] EST GFR - AA 117 mL/min Normal >60 [facility] Comment on above: Result Comment: Afri can [place] GFR Calc Performed By: #### L 500.4050 ####[facility] [address] [place], [address] GAP 6 Normal 5-15 [facility] Comment on above: Performed By: #### L 500.4050 ####[facility] [address] [place], [address] GFR/1.73 sq M.predicted among non-blacks MDRD (S/P/Bld) [Vol rate/Area] 97 mL/min/{1.73_m2} Normal >60 [facility] Comment on above: Result Comment: Non- GFR Calc Performed By: #### L 500.4050 ####[facility] [address] [place], [address] Globulin (S) [Mass/Vol] 3.0 g/dL Normal 2.2-4.2 [facility] Comment on above: Performed By: #### L 500.4050 ####[facility] [address] [place], [address] Glucose [Mass/Vol] 75 mg/dL Normal 74-106 [facility] Comment on above: Performed By: #### L 500.4050 ####[facility] [address] [place], [address] Potassium [Moles/Vol] 4.3 mmol/L Normal 3.5-5.1 [facility] Comment on above: Performed By: #### L 500.4050 ####[facility] [address] [place], [address] Sodium [Moles/Vol] 141 mmol/L Normal 136-145 [facility] Comment on above: Performed By: #### L 500.4050 ####[facility] [address] [place], [address] T PROT 6.8 g/dL Normal 6.4-8.2 [facility] Comment on above: Performed By: #### L 500.4050 ####[facility] [address] [place], [place], [address] Urea nitrogen [Mass/Vol] 8 mg/dL Normal 7-18 [facility] Comment on above: Performed By: #### L 500.4050 ####[facility] [address] [place], [place], [address] Internal Medicine Office Vis jose 07-16-2024 Internal Medicine Office Visit [facility] [address] [place], [place] [address] OFFICE VISIT Date of Service: 07/16/24 MR#: [id number] Acct: [id number] Name: MAHNAZ KINSEY Rep #: [id number] : 1975 Provider: UMU sexton Age/Sex: 49/F Location: [facility] Status: Signed Intake Vital Signs 06/11/24 09:50 07/16/24 09:53 Height 5 ft 5 in 5 ft 5 in Weight: 190 lb 2 oz BMI 31.6 BP 118/72 Blood Pressure Location Lt brachial Position Sitting Respiration 16 Pulse 82 Pulse Source Monitor Temp 98.9 F Temp Source Temporal Pulse Oximetry (%) 98 Oxygen Delivery Method room air Intake Visit Reasons: ACUTE FU FROM LABS Chief Complaint: follow up Wildlife Photographer Required: No Accompanied by: Self Is patient in pain?: No Allergies No Known Allergies Allergy (Verified 07/16/24 09:49) Medications ???Medication ???Instructions ???Recorded ???Confirmed ???Type nitroglycerin 0.4 mg sublingual mg sublingual Q5-15M 10/23/19 07/16/24 History tablet cyanocobalamin (vitamin B-12) mcg IM 02/13/24 07/16/24 History 1,000 mcg/mL injection solution semaglutide 0.25 mg or 0.5 mg (2 0.25 mg subcut QWEEK 02/13/24 07/16/24 History mg/3 mL) subcutaneous pen injector bupropion HCl 150 mg 24 hr tablet, 150 mg PO QAM #60 tabs 07/12/24 07/16/24 Rx extended release (Wellbutrin XL) [facility] Medical History Asthma Anemia History of non-ST elevation myocardial infarction (NSTEMI) (09/20/19) Essential (primary) hypertension Nicotine dependence Obesity Atherosclerosis of coronary artery of [place] heart without angina pectoris Surgical History History of breast augmentation History of tonsillectomy History of gastric bypass History of left heart catheterization (09/20/19) Family History Mother Hyperlipidemia Father Alcoholism Grandfather Myocardial infarction Parkinson disease Grandmother COPD (chronic obstructive pulmonary disease) Uncle Cancer Other CVA (cerebral vascular accident) Hypertension Social History adopted: No household members: spouse number of children: 3 current occupational status: employed current occupation: [employer] pets and animals: Yes (1) pets and animals: dog(s) Smoking Status: Former smoker quit date: 10/16/19 pack-years: 8 Tobacco: How many years used: 31 Electronic Cigarette Use: not used alcohol intake: current alcohol intake frequency: a few times a week Alcohol type: beer substance use type: does not use diet: ideal protein caffeine: Yes (5) Type: carbonated beverages frequency: 3-4 times per week seatbelt use: always do you feel safe at home: Yes HPI HPI Chief Complaint: follow up Details: MAHNAZ KINSEY, is a 49 F who presents to the office today for a follow-up appointment to discuss recent labs. Patient has had 2 serum elevations of calcium since February 2024. Second lab was performed while patient was off of HCTZ and remained elevated (10.7). She is concerned of the etiology of this. PTH and vitamin D levels were stable. She does not take any gant-akj-sqwdxhy calcium or vitamin D supplements. She denies muscle cramping or spasming. She remains off of amlodipine and hydrochlorothiazide and reports blood pressure has been stable averaging 120s over 80s. She continues to utilize semaglutide for weight management. At her last visit on 06/11/2024, semaglutide was increased to 1.7 mg dosing the patient has lost 5 pounds. She remains active through her work. She feels the medication is working well for her at this current dose as she continues to lose weight. She is tolerating the medication well without adverse effects. She continues to tolerate Wellbutrin and has decreased dose to 150 mg daily. No additional concerns. ROS Const Constitutional: No body ache, chills, excessive sweating, fatigue, fever(s), frequent falls, headache(s), snoring, weakness or change in appetite Eyes Eyes: No blurry vision, change in vision, eye pain or Light sensitivity ENT ENT: No abnormal hearing, ear or mastoid pain, tinnitus, nasal congestion, headache(s), neck pain or sore throat Resp Respiratory: No cough, shortness of breath, snoring or wheezing Cardio Cardiology: No chest pain at rest, chest pain with exertion, excessive sweating, dyspnea on exertion, lightheadedness, orthopnea or palpitations Gastro GI: No abdominal pain, change in bowel habits, constipation, cramping, diarrhea, nausea/dyspepsia or vomiting Genitourinary-Female: No burning urination, painful urination, urinary incontinence or urinary frequency Musc Musculoskeletal (more content not included)... Normal [facility] L501.2276on 07-16-2024 Ionized Calcium 5.50 mg/dL High 4.36-5.20 [facility] Comment on above: Performed By: #### L 501.2276 ####[facility] [address] [place], [place], [id number] SCRN MAMM (CAD)W/SHANNON Natanael n 06-25-2024 SCRN MAMM (CAD)W/SHANNON BILAT [facility] Imaging Services [address] [place], [place] [id number] SCRN MAMM (CAD)W/SHANNON BILAT MR#: [id number] Acct: [id number] Name: MAHNAZ KINSEY Rep #: [id number] : 1975 F 49 From: Amandeep morris MD PCP: Dr. Yoana Alvarez MD Status: [facility] Study: SCRN MAMM (CAD)W/SHANNON BILAT Date of Exam: 06/16 Exam# [id number] Ordering Dr: Bianca Duran [facility] FLOOR-C [id number] MAMMOGRAPHY - BILATERAL SCREENING REASON FOR EXAM: Female, 49 years old. Routine annual screening examination. PERTINENT HISTORY: Aunt with breast cancer. Bilateral breast implants. TECHNIQUE: Digital bilateral breast shannon (3D mammographic acquisition) in the CC and MLO projections. 2-D mediolateral oblique (MLO) and craniocaudad (CC) views of both breasts were obtained. CAD: Full Field Digital Mammography with Computer Added Detection was performed. COMPARISON: Comparison is made with prior outside examination dated January 22, 2021. FINDINGS: Breast Composition: The breasts are heterogeneously dense, which may obscure small masses. There are no dominant masses or suspicious calcifications. Stable appearance of the bilateral breast implants. No other significant abnormalities are identified. There has been no significant change since the prior study. BI/SCRN MAMM (CAD)W/SHANNON BILAT IMPRESSION: Stable bilateral screening mammogram. Yearly follow-up mammogram recommended. (A) ASSESSMENT CATEGORY: BIRADS Category 2: Benign. A letter regarding these results will be sent to the patient by the facility within 30 days. Approximately 10% of breast cancers are not detected by mammography. A normal mammogram should not delay biopsy of a clinically suspicious abnormality. [id number] Electronically Signed: Amandeep Montana MD at 13:19 EDT , CC: [facility] Duran; Dr. Yoana Alvarez MD Retail Interior Designer: Signed Normal [facility] PTHINon 06-13-2024 PTH 68.3 pg/mL Normal 18.4-80.1 [facility] Comment on above: Performed By: #### L 509.1000, L506.1000 #### [facility] [address] [place], [address] Vitamin D,25 Hydroxyon 06-13 Vitamin D 25-OH 32.0 ng/mL Normal [facility] Comment on above: Result Comment: Stephanie min D 25(OH) Status Range Deficiency <20 ng/mL (50nmol/L) Insufficiency 20 - 30 ng/mL (50 - 75 nmol/L) Sufficiency 30 - 100 ng/mL (75 - 250 nmol/L) Toxicity >100 ng/mL (>250 nmol/L) Performed By: #### L 509.1000, L506.1000 ####[facility] [address] [place], [address] Basic Metabolic Profile (BMP )on 06-11-2024 BUN/CRE 16.3 RATIO Normal 10-20 [facility] Comment on above: Performed By: #### L 500.2500 #### [facility] [address] [place], [address] CA,Total 10.7 mg/dL High 8.5-10.1 [facility] Comment on above: Performed By: #### L 500.2500 #### [facility] [address] [place], [address] Chloride [Moles/Vol] 106 mmol/L Normal 98-107 [facility] Comment on above: Performed By: #### L 500.2500 #### [facility] [address] [place], [address] CO2 [Moles/Vol] 30.0 mmol/L Normal 21.0-32.0 [facility] Comment on above: Performed By: #### L 500.2500 #### [facility] [address] [place], [address] Creatinine [Mass/Vol] 0.67 mg/dL Normal 0.55-1.02 [facility] Comment on above: Result Comment: The validity of the calculated GFR GFRAA in patients over 70 years has not been determined. Clinical correlation is essential. Performed By: #### L 500.2500 #### [facility] [address] [place], [address] EST GFR - AA 120 mL/min Normal >60 [facility] Comment on above: Result Comment: Afri can [place] GFR Calc Performed By: #### L 500.2500 #### [facility] [address] [place], [address] GAP 5 Normal 5-15 [facility] Comment on above: Performed By: #### L 500.2500 #### [facility] [address] [place], [address] GFR/1.73 sq M.predicted among non-blacks MDRD (S/P/Bld) [Vol rate/Area] 99 mL/min/{1.73_m2} Normal >60 [facility] Comment on above: Result Comment: Non- GFR Calc Performed By: #### L 500.2500 #### [facility] [address] [place], [address] Glucose [Mass/Vol] 80 mg/dL Normal 74-106 [facility] Comment on above: Performed By: #### L 500.2500 #### [facility] [address] [place], [address] Potassium [Moles/Vol] 4.5 mmol/L Normal 3.5-5.1 [facility] Comment on above: Performed By: #### L 500.2500 #### [facility] [address] [place], [address] Sodium [Moles/Vol] 141 mmol/L Normal 136-145 [facility] Comment on above: Performed By: #### L 500.2500 #### [facility] [address] [place], [place], [address] Urea nitrogen [Mass/Vol] 11 mg/dL Normal 7-18 [facility] Comment on above: Performed By: #### L 500.2500 #### [facility] [address] [place], [place], [address] Internal Medicine Office Vis ito 06-11-2024 Internal Medicine Office Visit [facility] [address] [place], [place] [address] OFFICE VISIT Date of Service: 06/11/24 MR#: [id number] Acct: [id number] Name: MAHNAZ KINSEY Rep #: [id number] : 1975 Provider: UMU sexton Age/Sex: 49/F Location: [facility] Status: Signed Intake Vital Signs 03/12/24 09:57 06/11/24 09:50 Height 5 ft 5 in 5 ft 5 in Weight: 207 lb 195 lb 6 oz BMI 34.4 32.5 BP 120/80 118/82 H Blood Pressure Location Lt brachial Lt brachial Position Sitting Sitting Respiration 16 16 Pulse 76 64 Pulse Source Monitor Monitor Temp 97.3 F L 98.2 F Temp Source Temporal Temporal Pulse Oximetry (%) 97 99 Oxygen Delivery Method room air room air Intake Visit Reasons: 3 M FU Chief Complaint: follow up Wildlife Photographer Required: No Accompanied by: Self Is patient in pain?: No Allergies No Known Allergies Allergy (Verified 06/11/24 09:45) Medications ???Medication ???Instructions ???Recorded ???Confirmed ???Type nitroglycerin 0.4 mg sublingual mg sublingual Q5-15M 10/23/19 06/11/24 History tablet amlodipine 5 mg tablet (Norvasc) 5 mg PO DAILY #90 tabs 02/13/24 06/11/24 Rx bupropion HCl 300 mg 24 hr tablet, 300 mg PO DAILY #90 tabs 02/13/24 06/11/24 Rx extended release cyanocobalamin (vitamin B-12) mcg IM 02/13/24 06/11/24 History 1,000 mcg/mL injection solution hydrochlorothiazide 25 mg tablet 25 mg PO DAILY #90 tabs 02/13/24 06/11/24 Rx semaglutide 0.25 mg or 0.5 mg (2 0.25 mg subcut QWEEK 02/13/24 06/11/24 History mg/3 mL) subcutaneous pen injector bupropion HCl 150 mg 24 hr tablet, 150 mg PO QAM #60 tabs 06/11/24 06/11/24 Rx extended release (Wellbutrin XL) [facility] Medical History (Updated 06/11/24 @ 16:27 by Bianca Duran NP-C) Asthma Anemia History of non-ST elevation myocardial infarction (NSTEMI) (09/20/19) Essential (primary) hypertension Nicotine dependence Obesity Atherosclerosis of coronary artery of [place] heart without angina pectoris Surgical History History of breast augmentation History of tonsillectomy History of gastric bypass History of left heart catheterization (09/20/19) Family History Mother Hyperlipidemia Father Alcoholism Grandfather Myocardial infarction Parkinson disease Grandmother COPD (chronic obstructive pulmonary disease) Uncle Cancer Other CVA (cerebral vascular accident) Hypertension Social History adopted: No household members: spouse number of children: 3 current occupational status: employed current occupation: [employer] pets and animals: Yes (1) pets and animals: dog(s) Smoking Status: Former smoker quit date: 10/16/19 pack-years: 8 Tobacco: How many years used: 31 Electronic Cigarette Use: not used alcohol intake: current alcohol intake frequency: a few times a week Alcohol type: beer substance use type: does not use diet: ideal protein caffeine: Yes (5) Type: carbonated beverages frequency: 3-4 times per week seatbelt use: always do you feel safe at home: Yes HPI HPI Chief Complaint: follow up Details: MAHNAZ KINSEY, is a 49 F who presents to the office today for follow-up appointment. She is a patient of Dr. De Guzman. She was last evaluated in office on 03/12/2024. She is up-to-date on routine blood work. She is due for mammogram, reports that she did not schedule previous mammogram. She believes she is up-to-date on immunizations. She is a former smoker. She reports she is eating healthy and prioritizing protein. 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 She has a history of hypertension. She reports that since losing weight she was monitoring her blood pressure and it has been well-controlled with systolic less than 120 and diastolic less than 70s therefore she stopped her medications. She has been off of her medications for several weeks and her blood pressure has remained stable. She has a history of anxiety. She is currently on Wellbutrin. She is not sure if Wellbutrin is helping or not but feels that she is doing well in regards to her mental health. She is interested in titrating/tapering Wellbutrin. She denies any thoughts of suicide. Patient remains on semaglutide for weight management. She has a history of bariatric surgery. As noted above she does walk multiple times per week and is active at her job as a nurse. She is currently on 1 mg of semaglutide. She reports initially 1 mg dosing which was changed at her last appointment was helpful however her weight has now plateaued. Her weight is (more content not included)... Normal [facility] Basic Panelon 09-20-2019 Calcium [Mass/Vol] 9.0 mg/dL Normal 8.5-10.1 [facility] Comment on above: Performed By: #### L P8 #### [place] [address] CO2 Blood 22 mEq/L Normal 21-32 [facility] Comment on above: Performed By: #### L P8 #### [facility] [address] [place], [place] [address] Creatinine [Mass/Vol] 0.83 mg/dL Normal 0.51-0.95 [facility] Comment on above: Performed By: #### L P8 #### [facility] [address] [place], [place] [address] Glucose [Mass/Vol] 97 mg/dL Normal 70-99 [facility] Comment on above: Performed By: #### L P8 #### [facility] [address] [place], [place] [address] Urea nitrogen [Mass/Vol] 27 mg/dL High 7-18 [facility] Comment on above: Performed By: #### L P8 #### [facility] [address] [place], [place] [address] Chloride [Moles/Vol] 109 mmol/L Normal 98-109 [facility] Comment on above: Result Comment: Test ing performed on an Matute i-STAT. Performed By: #### L P8 #### [facility] [address] [place], [place] [address] Potassium [Moles/Vol] 4.1 mmol/L Normal 3.5-4.9 [facility] Comment on above: Result Comment: Test ing performed on an Matute i-STAT. Performed By: #### L P8 #### [address] [address] Sodium [Moles/Vol] 140 mmol/L Normal 138-146 [facility] Comment on above: Result Comment: Test ing performed on an Matute i-STAT. Performed By: #### L P8 #### [address] [address] ECG COMPLETEon 09-20-2019 ECG COMPLETE NAME : OSMAN KINSEY PID : [id number] : 1975 Gender : Female Race : ORD : [id number] Procedure Date : Sep 19 2019 22:53:28 Edit Date : Sep 21 2019 17:15:50 Diagnosis:NORMAL SINUS RHYTHM NORMAL ECG WHEN COMPARED WITH ECG OF 19-SEP-2019 21:55, NO SIGNIFICANT CHANGE WAS FOUND Confirmed by MD DASHA, CADEN ([id number]) on 09/21/2019 5:15:46 PM Ventricular Rate : 64 BPM Atrial Rate : 64 BPM P-R Interval : 158 ms QRS Duration : 94 ms Q-T Interval : 396 ms QTC Calculation(Bazett) : 408 ms P Minot : 34 degrees R Minot : 5 degrees T Minot : 9 degrees Test Reason : Other - Specify Location : 150 : [place] Overread By : MD LOU VINAYAK Edited By : MD LOU VINAYAK Referred By : , Acquired by : Kel Chavira [facility] ED NOTEon 09-20-2019 ED NOTE HNO ID: [id number] Author: Skuh Lyle RN Service: Emergency Medicine Author Type: Registered Nurse Type: ED Notes Filed: 09/19/2019 11:49 PM Note Text: [facility] present at bedside for patient transfer. [facility] ED NOTE HNO ID: [id number] Author: Sukh Lyle RN Service: Emergency Medicine Author Type: Registered Nurse Type: ED Notes Filed: 09/19/2019 11:48 PM Note Text: Clean catch urine specimen obtained and sent. [facility] ED NOTE HNO ID: [id number] Author: Sukh Lyle RN Service: Emergency Medicine Author Type: Registered Nurse Type: ED Notes Filed: 09/19/2019 11:19 PM Note Text: Physician in at bedside at this time with patient. [facility] ED NOTE HNO ID: [id number] Author: Sukh Lyle RN Service: Emergency Medicine Author Type: Registered Nurse Type: ED Notes Filed: 09/19/2019 10:51 PM Note Text: Talked to [facility] Document Specialist, Nuvia @ phone number [phone]. Nuvia stated she will be contacting the hospitalist and give us a call back. [facility] ED NOTE HNO ID: [id number] Author: Sukh Lyle RN Service: Emergency Medicine Author Type: Registered Nurse Type: ED Notes Filed: 09/19/2019 10:58 PM Note Text: Respiratory in at bedside at this time performing an EKG. [facility] ED NOTE HNO ID: [id number] Author: Sukh Lyle RN Service: Emergency Medicine Author Type: Registered Nurse Type: ED Notes Filed: 09/19/2019 10:21 PM Note Text: Radiology at bedside for xray. Normal [facility] ED NOTE HNO ID: [id number] Author: Sukh (Rn) KINDRA Lyle Service: Emergency Medicine Author Type: Registered Nurse Type: ED Notes Filed: 09/19/2019 10:11 PM Note Text: Patient informed about the name of the medication(s), what the medication(s) is(are) for, and what to expect with/from med administration. Patient given opportunity to ask questions. If patient is a minor, parent/guardian informed about medication name, use, and what to expect from administration. If patient is a minor, parent/guardian was given opportunity to ask questions. Medication(s) include: Aspirin, Nitroquick. Normal [facility] Hemogramon 09-20-2019 Erythrocyte distribution width (RBC) [Ratio] 13.1 % Normal 11.5-15.9 [facility] Comment on above: Performed By: #### L CBC #### [place] [address] Hematocrit (Bld) [Volume fraction] 39.1 % Normal 37.0-47.0 [facility] Comment on above: Performed By: #### L CBC #### [place] [address] Hemoglobin (Bld) [Mass/Vol] 12.7 g/dL Normal 12.0-16.0 [facility] Comment on above: Performed By: #### L CBC #### [address] [address] MCH (RBC) [Entitic mass] 29.7 pg Normal 27.0-31.0 [facility] Comment on above: Performed By: #### L CBC #### [place] [address] MCHC (RBC) [Mass/Vol] 32.5 % Normal 32.0-36.0 [facility] Comment on above: Performed By: #### L CBC #### [place] [address] MCV (RBC) [Entitic vol] 91.4 fL Normal 81.0-99.0 [facility] Comment on above: Performed By: #### L CBC #### [facility] [address] [place] [address] Platelet mean volume (Bld) [Entitic vol] 9.9 fL Normal 7.1-10.5 [facility] Comment on above: Performed By: #### L CBC #### [facility] [address] [place] [address] Platelets (Bld) [#/Vol] 192 thou/cmm Normal 150-400 [facility] Comment on above: Performed By: #### L CBC #### [place] [address] RBC (Bld) [#/Vol] 4.28 mil/cmm Normal 4.20-5.40 [facility] Comment on above: Performed By: #### L CBC #### [place] [address] WBC (Bld) [#/Vol] 8.6 thou/cmm Normal 4.8-10.5 [facility] Comment on above: Performed By: #### L CBC #### [place] [address] MDRD eGFRon 09-20-2019 GFR/1.73 sq M predicted among non-blacks MDRD (S/P/Bld) [Vol rate/Area] mL/min/{1.73_m2} Normal >60mL/min/1.[address] [facility] Comment on above: Result Comment: If t he patient is , multiply the result by 1.210. Performed By: #### L GFR #### [facility] [address] [place] [address] N-terminal Pro-BNPon 019 Natriuretic peptide B (Bld) [Mass/Vol] 56.9 pg/mL Normal [facility] Comment on above: Result Comment: Norm al Reference Range: Patients <75 yrs old <125pg/ml Patients >=75 yrs old <450 pg/ml Performed By: #### L PBNP #### [facility] [address] [place], [place] [address] Troponin Ion 09-20-2019 Troponin I.cardiac [Mass/Vol] ng/mL Normal <=0.07 [facility] Comment on above: Performed By: #### L TRP #### [facility] [address] [place], [place] [address] Urine HCG, Qual.on 9 Beta HCG ( test) Ql (U) Negative Normal Negative [facility] Comment on above: Performed By: #### L HCG2 #### [facility] [address] [place], [place] [address] Specific [place], Ur 1.020 Normal 1.005-1.030 [facility] Comment on above: Performed By: #### L HCG2 #### [facility] [address] [place], [place] [address] XR CHEST 1V FRONTALon 2018 XR CHEST 1V FRONTAL * * *Final Report* * * DATE OF EXAM: Sep 19 2019 10:27PM LDX 5290 - XR CHEST 1V FRONTAL / PROCEDURE REASON: Chest pain * * * * Physician Interpretation * * * * EXAMINATION: CHEST RADIOGRAPH (SINGLE VIEW AP OR PA) CLINICAL HISTORY: Chest pain MQ: XC1_5 Comparison: None RESULT: Lines, tubes, and devices: None. Lungs and pleura: 2.9 x 2.7 cm pulmonary nodule in the left lung. No focal consolidation. No pleural effusion. No pneumothorax. Cardiomediastinal silhouette: Normal cardiomediastinal silhouette. Other: No acute osseous abnormality. IMPRESSION: 1. No focal consolidation. 2. 2.9 cm left pulmonary nodule. Incidental Finding: Follow-up for this incidentally detected nodular lung density with a chest CT exam is recommended within 4 weeks, suspicious appearance. Retail Interior Designer: PSCB Transcribe Date/Time: Sep 19 2019 10:29P Dictated by : ANGELA JOHNS MD This examination was interpreted and the report reviewed and electronically signed by: ANGELA JOHNS MD on Sep 19 2019 10:30PM EST ACTIONABLE Normal [facility] ECG COMPLETEon 09-19-2019 ECG COMPLETE NAME : OSMAN KINSEY PID : [id number] : 1975 Gender : Female Race : ORD : [id number] Procedure Date : Sep 19 2019 21:55:58 Edit Date : Sep 21 2019 17:15:44 Diagnosis:NORMAL SINUS RHYTHM NONSPECIFIC ST-T WAVE CHANGES CANNOT RULE OUT ANTERIOR INFARCT , AGE UNDETERMINED ABNORMAL ECG WHEN COMPARED WITH ECG OF 13-MAR-2018 23:15, INVERTED T WAVES HAVE REPLACED NONSPECIFIC T WAVE ABNORMALITY IN INFERIOR LEADS Confirmed by MD LOU VINAYAK ([id number]) on 09/21/2019 5:15:43 PM Ventricular Rate : 66 BPM Atrial Rate : 66 BPM P-R Interval : 144 ms QRS Duration : 92 ms Q-T Interval : 396 ms QTC Calculation(Bazett) : 415 ms P Minot : 23 degrees R Minot : -1 degrees T Minot : 6 degrees Test Reason : Chest Pain Location : 150 : [place] Overread By : MD LOU VINAYAK Edited By : MD LOU VINAYAK Referred By : , Acquired by : Kel Chavira Normal [facility] ED NOTEon 09-19-2019 ED NOTE HNO ID: [id number] Author: Madeleine (Rn) KINDRA Singh Service: Emergency Medicine Author Type: Registered Nurse Type: ED Notes Filed: 09/19/2019 9:45 PM Note Text: Left side chest burning, left arm aching sensation onset approx 1 hour prior to arrival while watching TV. Pt reports feeling hot and sweaty at onset of symptoms. some intermittent nausea. Normal [facility] ED PROV NOTEon 09-19-2019 ED PROV NOTE HNO ID: [id number] Author: Maxine Silverio DO Service: Emergency Medicine Author Type: Physician Type: ED Provider Notes Filed: 09/19/2019 11:34 PM Note Text: ED Provider Note Patient Name: Mahnaz Kinsey SERVICE DATE: 09/19/19 History Patient presents with: Arm Pain Chest Pain Mahnaz Kinsey is a 44 year old female with history of gastric bypass who presents with left sided chest pain. - Symptoms began 1 hours prior to arrival. Onset was gradual and symptoms are constant. - Severity: moderate - Timing: constant - Quality: burning - Pain is exacerbated by nothing. - Pain is not exacerbated by anything. - Symptoms are associated with left arm pain and feeling hot/sweaty, nausea. - Symptoms are not associated with abdominal pain, jaw pain, right arm pain, numbness, paresthesia, vomiting, back pain, neck pain, headache, weakness, numbness, hemoptysis, syncope, palpitations. - Improved by nothing. - Not improved by anything. Patient presents with left sided chest burning pain with aching in her left arm that started one hour ago while watching tv. She feels diaphoretic, nausea. She does not feel short of breath. She denies any recent URI symptoms or fever. No abdominal pain. No back pain, no neck pain. No weakness, numbness. She denies any family history of CAD. She states she does smoke. PAST MEDICAL HISTORY Diagnosis Date - Gastric bypass status for obesity PAST SURGICAL HISTORY Procedure Laterality Date - GASTRIC BYPASS 2003 No family history on file. Social History Tobacco Use - Smoking status: Current Every Day Smoker Packs/day: 0.50 Years: 15.00 Pack years: 7.50 Types: Cigarettes - Smokeless tobacco: Never Used Substance and Sexual Activity - Alcohol use: Yes Alcohol/week: 3.0 standard drinks Types: 3 Cans of beer per week - Drug use: No - Sexual activity: Yes Partners: Male control/protection: Vasectomy ALLERGIES No Known Allergies Review of Systems Constitutional: Positive for diaphoresis. Negative for chills and fever. HENT: Negative for sore throat and trouble swallowing. Eyes: Negative for photophobia and visual disturbance. Respiratory: Negative for cough and shortness of breath. Cardiovascular: Positive for chest pain. Negative for palpitations and leg swelling. Gastrointestinal: Positive for nausea. Negative for abdominal pain and vomiting. Genitourinary: Negative for flank pain. Musculoskeletal: Positive for arthralgias (achy in left arm). Negative for neck pain and neck stiffness. Skin: Negative for rash. Neurological: Negative for dizziness, syncope, weakness, numbness and headaches. Psychiatric/Behavioral : Negative for agitation and confusion. Physical Exam BP 130/79 Pulse 66 Temp (Src) 98.6 (Temporal) Resp 16 Ht 5' 5 (1.65m) Wt 215 lb (97.5kg) SpO2 98% BMI 35.78 kg/(m2). O2 Therapy: Room Air Physical Exam Vitals signs and nursing note reviewed. Constitutional: General: She is not in acute distress. Appearance: She is well-developed. She is diaphoretic. She is not ill-appearing or toxic-appearing. HENT: Head: Normocephalic and atraumatic. Mouth/Throat: Mouth: Mucous membranes are moist. Pharynx: Oropharynx is clear. Eyes: General: No scleral icterus. Conjunctiva/sclera: Conjunctivae normal. Neck: Musculoskeletal: Normal range of motion and neck supple. Vascular: No JVD. Cardiovascular: Rate and Rhythm: Normal rate. Pulses: Normal pulses. Heart sounds: Normal heart sounds. Pulmonary: Effort: Pulmonary effort is normal. No tachypnea, accessory muscle usage or respiratory distress. Breath sounds: No stridor. Abdominal: General: Bowel sounds are normal. Palpations: Abdomen is soft. Tenderness: There is no tenderness. There is no guarding or rebound. Musculoskeletal: Right lower leg: She exhibits no tenderness. No edema. Left lower leg: She exhibits no tenderness. No edema. Skin: General: Skin is warm. Capillary Refill: Capillary refill takes less than 2 seconds. Coloration: Skin is not cyanotic or pale. Findings: No ecchymosis, erythema or rash. Neurological: General: No focal deficit present. Mental Status: She is alert and oriented to person, place, and time. GCS: GCS eye subscore is 4. GCS verbal subscore is 5. GCS motor subscore is 6. Cranial Nerves: Cranial nerves are intact. Sensory: Sensation is intact. Motor: Motor function is intact. Psychiatric: Mood and Affect: Mood normal. Behavior: Behavior normal. Diagnostic Testing ED Labs Ordered and Reviewed BASIC METABOLIC PANEL (AK,AV,EU,FV,HL,JOSE,MM, SP) - Abnormal; Notable for the following components: Result Value Ref Range BUN 27 (*) 7 - 18 mg/dL All other components within normal limits CBC + PLT (AK,AV,EU,FV,HL,JOSE,MM, SP) TROPONIN I (AK) PROBNP N-TERMINAL (AK,AV,EU,FV,HL,JOSE,MM, SP) MDRD GFR Procedures ED Course / Clinical Impression Clinical Impressions as of Sep 192 Chest pain, unspecified type Pulmonary nodule, 2.9 cm left lung MDM / Disposition / Plan Labs, EKG, imaging ordered. EKG shows non-specific changes. HEART score = 2 Aspirin and nitro ordered. 1042 pm Re-evaluation: Patient states chest pain is gone after aspirin, nitro. Still has an achy feeling in her left arm. She is resting comfortably in bed, no distress. I discussed all results including incidental pulmonary nodule that needs followed up as outpatient. With her symptoms, non-specific EKG changes, I discussed observation in the hospital for chest pain. Patient is agreeable and she is requesting [place] hospital. Repeat EKG ordered showing NSR at rate of 64 stable from initial EKG, non-specific ST changes, no ST elevation. Time: 1115 pm I spoke with Dr. Patton, hospitalist at [place], I discussed case and results. He is accepting for observation. I discussed observation status and acceptance to [place] with the patient. I again discussed her pulmonary nodule and the need to have that followed up as outpatient closely. She will follow up with her doctor for this as she had something in her chest when she was 31 years old that was found to be scar tissue. I discussed I can not say that is the same thing and to make sure she gets the pulmonary nodule checked further. Additional Tests or Interventions: ECG EKG INTERPRETATION: Ordered and Reviewed Rhythm: Normal sinus rhythm Rate: Minot: Normal axis Intervals: Normal RI interval QRS Complex: Normal ST Segment: Nonspecific ST-T changes QT Interval: Normal Compared with Prior: Changed (comment) (nonspecific changes leads III, avF, V3 compared to EKG from March 13, 2018) Interpretation performed by Maxine Silverio DO Disposition The patient was transferred. Transferred to [place]. Condition at disposition is stable. SIGNATURE: DO Maxine Power DO 09/19/19 2334 Normal [facility] [facility] HIV 1,2 Ab; p24 Agon 018 HIV 1,2 Ab; p24 Ag NONREACTIVE Normal Nonreactive [facility] Comment on above: Result Comment: Resu lts obtained using the FDA cleared 4th generation HIVtest. This test detects antibodies to HIV1, HIV2, HIV Group O,and the presence of the HIV-1 p24 antigen. A Non-Reactive re-sult indicates the patient is negative for both HIV antibodyand HIV p24 antigen. All reactive results will undergo reflexconfirmation testing at an additional charge. Performed By: #### H IV4, HEPC, HBSAG, HBSA ####[facility] [place] [address] Hep B Surface Abon 8 Hep B Surface Ab 89.0 m[IU]/mL Normal [facility] Comment on above: Result Comment: Inte rpretation:<8.0 Non-Reactive8.0-11.9 Equivocal>= 12.0 Ab Detected Performed By: #### H IV4, HEPC, HBSAG, HBSA ####[facility] [place] [address] Hep B Surface Agon 8 Hep B Surface Ag NOT DETECTED Normal Not-Detected [facility] Comment on above: Performed By: #### H IV4, HEPC, HBSAG, HBSA ####[facility] [employer] [place] [address] Hep C Antibodyon 04-03-2018 Hep C Antibody NOT DETECTED Normal Not-Detected [facility] Comment on above: Result Comment: Ronel ents with DETECTED Hepatitis C Ab results should have a new specimensubmitted for supplemental testing with a Hepatitis C Quantitative RNA assay(viral load), if clinically indicated. Performed By: #### H IV4, HEPC, HBSAG, HBSA ####[facility] [employer] [place] [address] Vital Signs Date Time Vital Sign Value Performing Clinician Anne holden 04-10-2025 18:00-0400 Diastolic blood pressure 56 mm[Hg] Dr. Yoana Alvarez MD Work Phone: [facility] 04-10-2025 18:00-0400 Heart rate 61 /min Dr. Yoana Alvarez MD Work Phone: [facility] 04-10-2025 18:00-0400 Respiratory rate 12 /min Dr. Yoana Alvarez MD Work Phone: [facility] 04-10-2025 18:00-0400 SaO2% (BldA) [Mass fraction] 98 % Dr. Yoana Alvarez MD Work Phone: [facility] 04-10-2025 18:00-0400 Systolic blood pressure 122 mm[Hg] Dr. Yoana Alvarez MD Work Phone: [facility] 04-10-2025 17:00-0400 Body temperature 98.8 [degF] Dr. Yoana Alvarez MD Work Phone: [facility] 04-10-2025 11:33-0400 Body height 165.[address] Yoana Alvarez MD Work Phone: [facility] 04-10-2025 11:33-0400 Body mass index (BMI) [Ratio] 28.3 kg/m2 Dr. Yoana Alvarez MD Work Phone: [facility] 04-10-2025 11:33-0400 Body weight 77.[address] Yoana Alvarez MD Work Phone: [facility] 04-08-2025 07:34-0400 Body height 165.[address] Yoana Alvarez MD Work Phone: [facility] 04-08-2025 07:34-0400 Body mass index (BMI) [Ratio] 30.1 kg/m2 Dr. Yoana Alvarez MD Work Phone: [facility] 04-08-2025 07:34-0400 Body temperature 97.9 [degF] Dr. Yoana Alvarez MD Work Phone: [facility] 04-08-2025 07:34-0400 Body weight 82.[address] Yoana Alvarez MD Work Phone: [facility] 04-08-2025 07:34-0400 Diastolic blood pressure 80 mm[Hg] Dr. Yoana Alvarez MD Work Phone: [facility] 04-08-2025 07:34-0400 Heart rate 70 /min Dr. Yoana Alvarez MD Work Phone: [facility] 04-08-2025 07:34-0400 Respiratory rate 16 /min Dr. Yoana Alvarez MD Work Phone: [facility] 04-08-2025 07:34-0400 SaO2% (BldA) [Mass fraction] 98 % Dr. Yoana Alvarez MD Work Phone: [facility] 04-08-2025 07:34-0400 Systolic blood pressure 124 mm[Hg] Dr. Yoana Alvarez MD Work Phone: [facility] Encounters Encounter Date Encounter Type Care Provider Facility Start: 04-29-2025 ambulatory Yoana Lulay Facility :[facility] Start: 04-10-2025 Evaluation and management of inpatient Dr. Remi Miller MD -Pro[facility] Care Unit Work Phone: Start: 04-10-[address] Linwood Alvarez MD Work Phone: [facility] Work Phone: Start: 04-10-2025 ambulatory [facility] Facility:[facility] Start: 04-08-2025 End: 04-08-[address] Yoana Alvarez MD -[facility] Work Phone: Start: 04-08-2025 End: 04-08-[address] Yoana Alvarez MD Work Phone: [facility] Work Phone: Start: 03-14-2025 ambulatory JAZMINE GARCIA MD [facility] ity:[facility] Start: 12-03-2024 End: 12-03-2024 ambulatory Yoana Alvarez Facility:[facility] Start: 10-21-2024 End: 10-21-2024 ambulatory Yoana Alvarez Facility:[facility] Start: 07-23-2024 End: 07-23-2024 ambulatory [facility] Facility:[facility] Start: 07-18-2024 End: 07-18-2024 [facility] Facility[facility] Start: 07-16-2024 End: 07-16-2024 ambulatory Yoana Alvarez Facility:[facility] Start: 07-16-2024 End: 07-16-2024 ambulatory Bianca Ferullo Facility:[facility] Start: 06-25-2024 End: 06-25-2024 ambulatory [facility] Facility:[facility] Start: 06-13-2024 End: 06-13-2024 [facility] Start: 06-11-2024 End: 06-11-2024 [facility] Start: 06-11-2024 End: 06-11[facility] Start: 04-11-2024 End: 04-11-2024 ambulatory JAZMINE GARCIA MD Facility:[facility] Start: 01-28-2019 Patient encounter procedure MIMI DAVIS Facility:[facility] Start: 04-02-2018 Emergency department patient visit UNKNOWN PROVIDER [facility] Procedures Date Procedure Procedure Detail Performing Clinician Start: 04-10-2025 Computed tomography of abdomen and pelvis with intravenous contrast Dr. Yoana Alvarez MD Work Phone: Start: 04-10-2025 CT angiography of ch est with contrast Dr. Yoana Alvarez MD Work Phone: Start: 04-10-2025 X-ray of chest, PA a nd lateral views Dr. Yoana Alvarez MD Work Phone: Start: 04-10-[address] Yoana Alvarez MD Work Phone: Start: 04-08-[address] Yoana Alvarez MD Work Phone: Start: 04-08-2025 Vitamin D, 25-hydrox y measurement Dr. Yoana Alvarez MD Work Phone: Comment on above: Vitamin D StatusDefi ciency: <20 ng/mL (50nmol/L)Insufficiency: 20-30 ng/mL (50-75 nmol/L)Sufficiency: 30-100 ng/mL (75-250 nmol/L)Toxicity: >100 ng/mL (>250 nmol/L) Plan of Treatment Date Care Activity Detail Author Start: 04-10-2025 [facility] Start: 04-10-2025 Verification routine [facility] Start: 04-10-2025 Admission procedure [facility] Start: 04-10-2025 Hospital admission, emergency, from emergency room, medical nature [facility] Start: 04-10-2025 [facility] Start: 04-10-2025 [facility] Start: 04-10-2025 [facility] Start: 04-08-2025 CBC W Auto Different ial panel - Blood [facility] Start: 04-08-2025 Cobalamin (Vitamin B 12) [Mass/volume] in Serum [facility] Start: 04-08-2025 Comprehensive metabo lic 2000 panel - Serum or Plasma [facility] Start: 04-08-2025 Lipid 1996 panel - Serum or Plasma [facility] Start: 04-08-2025 Vitamin D, 25-hydroxy measurement [facility] Alanine aminotransfe rase [Enzymatic activity/volume] in Serum or Plasma [facility] Albumin [Mass/volume ] in Serum or Plasma [facility] Alkaline phosphatase [Enzymatic activity/volume] in Serum or Plasma [facility] Anion gap in Serum or Plasma [facility] Bilirubin, total measurement [facility] BUN/Creatinine ratio [facility] Calcium [Mass/volume ] in 24 hour Urine [facility] Calcium [Mass/volume ] in Serum or Plasma [facility] Carbon dioxide, tota l [Moles/volume] in Central venous blood [facility] Cholesterol [Mass/vo lume] in Serum or Plasma [facility] Cholesterol in HDL [ Mass/volume] in Serum or Plasma [facility] Creatinine [Mass/vol ume] in Serum or Plasma [facility] Erythrocyte mean cor puscular volume determination [facility] Glucose [Mass/volume ] in Serum or Plasma [facility] Hematocrit [Volume F raction] of Blood [facility] Hemoglobin [Mass/volume] in Blood [facility] Leukocytes [#/volume] in Blood [facility] Low density lipoprot ein cholesterol measurement [facility] Magnesium measurement [facility] Mean corpuscular hem oglobin concentration determination [facility] Mean corpuscular hem oglobin determination [facility] Measurement of renal function [facility] Neutrophil count [facility] Neutrophil percent d ifferential count [facility] Patient referral [facility] Work Phone: Platelets [#/volume] in Blood [facility] Potassium measurement [facility] Red blood cell count [facility] Red cell distributio n width determination [facility] Serum chloride measurement [facility] Sodium measurement [facility] Total cholesterol:HD L ratio measurement [facility] Total protein measurement [facility] Triglycerides measurement [facility] Urea nitrogen [Mass/ volume] in Serum or Plasma [facility] VLDL cholesterol measurement [facility] Immunizations Immunization Date Immunization Notes [facility] Provider [facility] influenza, injectabl e, madin lani canine kidney, preservative free Dr. Yoana Alvarez MD Work Phone: [facility] 06-30-2021 Covid (Pfizer) Dr. Yoana saunders MD Work Phone: [facility] 06-08-2021 Covid (Pfizer) Dr. Yoana saunders MD Work Phone: [facility] 09-20-2019 influenza, injectabl e, quadrivalent, preservative free Dr. Yoana Alvarez MD Work Phone: [facility] 09-20-2019 Seasonal, quadrivale nt, recombinant, injectable influenza vaccine, preservative free Dr. Yoana Alvarez MD Work Phone: [facility] 09-15-2019 influenza, injectabl e, quadrivalent, preservative free Dr. Yoana Alvarez MD Work Phone: [facility] 07-16-2017 influenza, injectabl e, quadrivalent, preservative free Dr. Yoana Alvarez MD Work Phone: [facility] 02-23-2017 measles, mumps and rubella virus vaccine Dr. Yoana Alvarez MD Work Phone: [facility] 10-01-2014 influenza, injectabl e, quadrivalent, preservative free Dr. Yoana Alvarez MD Work Phone: [facility] 04-10-2013 measles, mumps and rubella virus vaccine Dr. Yoana Alvarez MD Work Phone: [facility] 04-03-2013 tetanus toxoid, redu earl diphtheria toxoid, and acellular pertussis vaccine, adsorbed Dr. Yoana Alvarez MD Work Phone: [facility] Payers Date Payer Category Payer Unknown [id number] 2024 Private Health Insurance [id number] 2008 Self-pay 1975 Unknown [id number] 59 1976 Unknown [id number] 59 1976 Unknown [id number] 59 Private Health Insurance [id number] Unknown Unknown BENEFIT SERV [facility] [id number] Unknown [id number] 62 Unknown [id number] 62 Unknown [id number] [id number] 62 Unknown [id number] [id number] 62 Unknown [id number] [id number] 62 Unknown [id number] 2.840.1.844929.3.579.2.4 62 Unknown [id number] 2.16.840.1.001031.3.579.2.4 62 Unknown [id number] 2.16.840.1.960246.3.579.2.4 62 Unknown [id number] 2.16.840.1.914131.3.579.2.4 62 Unknown [id number] 2.16.840.1.279821.3.579.2.4 62 Unknown [id number] 2.16.840.1.479682.3.579.2.4 62 Unknown [id number] 2.16.840.1.873881.3.579.2.4 62 Unknown [id number] 2.16.840.1.918976.3.579.2.4 62 Unknown [id number] 62 Worker's Compensation Social History Date Type Detail Facility Start: 12-03-2024 Tobacco smoking status NHIS Ex-smoker (finding) [facility] Start: 09-20-2019 Alcohol Alcohol [facility] Start: 09-20-2019 Drugs Drugs [facility] Start: 09-20-2019 Lives Lives [facility] Start: 09-20-2019 Tobacco Use Tobacco Use [facility] Start: 1975 Sex Assigned At Female [facility] Start: 04-10-2025 Tobacco smoking status WAIS Tobacco smoking consumption unknown (finding) [facility] History and physical note 04-10-2025 Note Date & Type Note Facility 04-10-2025 History and physi thais note [facility] Discharge summary 04-10-2025 Note Date & Type Note Facility 04-10-2025 Discharge summary [facility] Radiology Diagnostic study note 04-10-2025 Note Date & Type Note Facility 04-10-2025 Radiology Diagnostic study note [facility] Imaging Services [address] [place], [place] [address] Abdomen/Pelvis W IV Cont ONLY MR#: [id number] Acct: [id number] Name: TIOMAHNAZ Rep #: [id number] : 1975 F 50 From: Irvin Montana MD PCP: Dr. Yoana Alvarez MD Status: REG ER Study:Abdomen/Pelvis W IV Cont ONLY Date of E xam: 04/10/25 Exam# [id number] Ordering Dr: Johnnie Bonner DO PROCEDURE: ABDOMEN/PELVIS W IV CONT ONLY 04/10/2025 REASON FOR EXAM: EPIGASTRIC PAIN TECHNIQUE: ABDOMEN/PELVIS W IV CONT ONLY Coronal and Sagittal reconstruction series were provided. CONTRAST: Isovue-300 VOLUME: 100 mL One or more dose reduction techniques were used (e.g., Automated exposure control, adjustment of the mA and/or kV according to patient size, use of iterative reconstruction technique. RADIATION DOSE SUMMARY: CTDlvol: 15 mGy DLP: 1588.85 mGycm COMPARISON: None FINDINGS: Lung bases: Lung bases are clear. No coronary calcification. Bilateral breast implants. Liver: Minimal dilatation of the central intrahepatic biliary ducts. Gallbladder: Slightly distended. Mild thickening of the gallbladder wall. Correlation with ultrasound recommended. Spleen: Normal size. Pancreas: Normal size without evidence of mass surrounding inflammation or ductal dilation. Adrenals: Unremarkable Kidneys: Unremarkable Bladder: Unremarkable Reproductive Organs: There is a 9.6 cm by 6.2 cm by 8.6 cm heterogeneous mass inthe pelvis. This may represent a large pedunculated uterine fibroid. Correlation with ultrasound recommended. Bowel: Prior subtotal gastrectomy. Surgical anastomosis seen in the proximal small bowel loops. Appendix: Unremarkable Lymph nodes: Unremarkable Vasculature: Unremarkable Peritoneum / Retroperitoneum: Unremarkable Bones: Unremarkable CT/Abdomen/Pelvis W IV Cont ONLY IMPRESSION: Slightly distended gallbladder with mild thickening of the gallbladder wall. Minimal intrahepatic biliary ductal dilatation. Correlation with ultrasound recommended. 9.6 cm 6.2 cm 8.6 cm heterogeneous mass in the pelvis as described. This may represent a pedunculated uterine fibroid although a suprapubic pelvic mass can not be excluded. Correlation with ultrasound recommended. Reading Location: [facility] CC: Dr. Yoana Alvarez MD; Dr. Chele Bonner DO ~ Retail Interior Designer: Signed [facility] Radiology Diagnostic study note 04-10-2025 Note Date & Type Note Facility 04-10-2025 Radiology Diagnostic study note [facility] Imaging Services [address] [place], [place] [address] CTA Chest W/WO Contrast MR#: [id number] Acct: [id number] Name: MAHNAZ KINSEY Rep #: [id number] : 1975 F 50 From: Irvin Montana MD PCP: Dr. Yoana Alvarez MD Status: REG ER Study:CTA Chest W/WO Contrast Date of Exam: 04/10/25 Exam# [id number] Ordering Dr: Johnnie Bonner DO PROCEDURE: CTA CHEST W/WO CONTRAST 04/10/2025 REASON FOR EXAM: CHEST PAIN, SOB TECHNIQUE: CTA CHEST W/WO CONTRAST Multiplanar Sagittal and Coronal images were obtained. One or more dose reduction techniques were used (e.g., Automated exposure control, adjustment of the mA and/or kV according to patient size, use of iterative reconstruction technique). CONTRAST: Isovue 370 VOLUME: 100 mL RADIATION DOSE SUMMARY: CTDlvol: 15 mGy DLP: 1588.85 mGycm COMPARISON: Prior study dated September 21, 2019. FINDINGS: Hardware: Bilateral breast implants. Lymph nodes: Calcified left hilar lymph nodes. Heart: Unremarkable RV/LV Diameter Ratio: Unremarkable Thoracic Aorta: Unremarkable Pulmonary Vessels: No evidence of pulmonary embolism. Lungs and Airways: There is a calcified 2.1 cm granuloma in the left lower lobe. Pleura: Unremarkable Upper Abdomen: Subtotal gastrectomy. Anastomosis in the proximal small bowel loops. Bones: Unremarkable CT/CTA Chest W/WO Contrast IMPRESSION: No evidence of pulmonary embolism. No acute abnormality is seen. Reading Location: [id number] CC: Dr. Yoana Alvarez MD; Dr. Chele Bonner DO ~ Retail Interior Designer: Signed [facility] Discharge summary 04-10-2025 Note Date & Type Note Facility 04-10-2025 Discharge summary Note Date/Time April 10, 2025 4:54pm [facility] Medical Records Department [address] [place] [address] Emergency Department Summary 04/10/25 MR#: [id number] Acct: [id number] Name: MAHNAZ KINSEY Rep #:[id number] : 1975 50 From: Chele Bonner DO PCP: Dr. Yoana Alvarez MD Status:REG ER Location: ED HPI History of Present Illness Chief Complaint: Abd Pain Narrative Narrative: Patient is a 50-year-old female with past medical history of hypertension, NSTEMI in 2019, asthma who presented to the emergency department chief complaintof epigastric discomfort. States that she was sitting down watching TV when shenoted that she developed discomfort in her epigastric region. States that this lasted about 40 minutes and noted that after 20 minutes she tried to lay down and noted that she became very diaphoretic lightheaded and was not feeling well. Patient states that this lasted 20 minutes and became concerned therefore she came here to be further evaluated. Patient states that she was having a 24-hoururine test performed as her calcium level was noted to be high and her doctor isconcerned that she has hyperparathyroidism. Patient has numerous travel historydenies a history of blood clots. Patient in triage note stated that she was dizzy after further questioning about the dizziness she is not dizzy she was lightheaded. [facility] Medical History Asthma Anemia History of non-ST elevation myocardial infarction (NSTEMI) (09/20/19) Essential (primary) hypertension Nicotine dependence Obesity Atherosclerosis of coronary artery of [place] heart without angina pectoris Home Medications ?Medication ?Instructions ?Recorded ?Last Taken ?Type cyanocobalamin (vitamin B-12) 1,000 mcg IM QMONTH 01/16 0 Unknown History 1,000 mcg/mL injection solution semaglutide 0.25 mg or 0.5 mg (2 0.25 mg subcut QWEEK 02/13/24 04/07/25 History mg/3 mL) subcutaneous pen injector bupropion HCl 150 mg 24 hr tablet, 150 mg PO QAM #90 t abs 04/08/25 04/10/25 Rx extended release (Wellbutrin XL) Allergy/AdvReac Type Severity Reaction Status Date / Time No Known Allergies Allergy Verified 04/08/25 07:21 Family History Mother Hyperlipidemia Father Alcoholism Grandfather Myocardial infarction Parkinson disease Grandmother COPD (chronic obstructive pulmonary disease) Uncle Cancer Aunt Brain aneurysm Aunt Brain aneurysm Aunt Brain aneurysm Other CVA (cerebral vascular accident) Hypertension Surgical History History of breast augmentation History of tonsillectomy History of gastric bypass History of left heart catheterization (09/20/19) Social History adopted: No household members: spouse number of children: 3 current occupational status: employed current occupation: [employer] - pets and animals: Yes (1) pets and animals: dog(s) Smoking Status: Former smoker quit date: 10/16/19 pack-years: 8 Tobacco: How many years used: 31 Electronic Cigarette Use: not used alcohol intake: current alcohol intake frequency: a few times a week Alcohol type: beer substance use type: does not use diet: ideal protein caffeine: Yes (5) Type: carbonated beverages frequency: 3-4 times per week seatbelt use: always do you feel safe at home: Yes ROS ROS ED ROS Narrative Constitutional: Complains of lightheadedness as noted above denies any fevers, chills, headaches denies dizziness Eyes: Denies change in vision double vision blurry vision Cardiovascular: Denies chest pain Respiratory: Denies cough wheezing shortness of breath Abdomen: Complaint of epigastric discomfort as noted above denies nausea vomit diarrhea : Denies urinary symptoms Neurological: Denies numbness, weakness, tingling Musculoskeletal: Denies back pain Skin: Denies rashes or lesions EXAM Physical Exam Narrative Exam Narrative: General: Patient is lying in bed rest comfortably did not appear to be in acute distress Head: Atraumatic, normocephalic Eyes: PERRL bilaterally, EOMI blood, no conjunctival injection noted Neck: Soft, supple, trachea midline Cardiovascular: Regular rate and rhythm no murmurs gallops rubs noted Respiratory: Clear to auscultation bilaterally no rales rhonchi or wheezes noted Abdomen: Soft, nondistended, no tenderness palpation Extremities: +5/5 strength noted in the bilateral upper and lower extremities, radial pulse +2/4 in the bilateral extremities, no pedal edema no exam Neurological: Patient follow commands knew that she was at [facility] 2024 Skin: Warm, dry, tact no rashes or lesions noted Const Vital Signs: 04/10/25 11:33 04/10/25 12:23 04/10/25 13:33 Temperature 97.6 F L Temperature Source Temporal Pulse Rate 71 67 Respiratory Rate 16 13 Blood Pressure 135/85 H 140/126 H Blood Pressure Mean 101 130 Pulse Ox 98 100 Oxygen Delivery Method Room Air Room Air Room Air 04/10/25 15:00 Temperature Temperature Source Pulse Rate 59 L Respiratory Rate 12 Blood Pressure 146/83 H Blood Pressure Mean 104 Pulse Ox 97 Oxygen Delivery Method Room Air MDM MDM MDM Narrative Medical decision making narrative: Patient is a 50-year-old female who presented to the emergency department the chief complaint of epigastric discomfort lightheadedness diaphoresis and not feeling well. On the differential diagnose includes but not limited to ACS, pneumonia, pneumothorax, cardiac arrhythmia, pancreatitis. Once workup is obtained and reviewed she will be reevaluated. Patient's CBC reviewed and showed no evidence leukocytosis white blood count normal at 6.3, he was 13.3, platelet count was 189. Patient sodium was 139, potassium normal 4.3, creatinine was 0.64. Patient's AST and ALT were 20 and 10respectively, troponin was less than 6 with a delta troponin less than 6 as well. Patient's EKG reviewed and showed sinus bradycardia with rate of 57 bpm. Patient's lipase was 25. Patient's chest x-ray reviewed by myself by radiology showed no acute cardiopulmonary processes. Patient was having repeat episode of this severe of substernal pain therefore repeat EKG was performed which showed sinus bradycardia with a rate of 54 bpm. Patient was given a GI cocktail. Patient was reevaluated and states that the GI cocktail is not helping her symptoms therefore she was given morphine Zofran. Given the patient's symptoms we will add on further workup with CTA chest and a CT abdomen pelvis IV contrast. Patient CTA chest reviewed showed no evidence ofpulmonary embolism no acute abnormalities noted. Patient CT ab pelvis with IV contrast reviewed and showed a slightly distended gallbladder with mild thickening of the gallbladder wall minimal intrahepatic biliary ductal dilation. Correlation with ultrasound recommended. She also had a 9.6 x 6.2 x 8.6 cm heterogeneous mass in the pelvis could represent a pedunculated uterine fibroid although she states that she has no history of this they are recommending ultrasound for further clinical correlation. I discussed the results with her Igave her a hard copy of these results and told her that she needs to follow-up with her BULKER on this. Patient was reevaluated repeat abdominal exam was performed she has no right upper quadrant tenderness negative Vanegas sign. I reached out to on-call skip tender Dr. Salguero and he is recommending admissionfor stress test. Patient's case will be discussed with hospitalist for admission. Discussed case with hospitalist Dr. Miller who accept patient for admission. Discussed this with the patient and she is agreeable this plan. Patient given 325 mg aspirin. Lab Data Labs: Laboratory Results - last 24 hr 04/10/25 04/10/25 04/10/25 12:19 13:51 14:19 WBC 6.3 RBC 4.38 Hgb 13.3 Hct 40.8 MCV 93.2 MCH 30.4 MCHC 32.6 RDW Std Deviation 42.3 RDW Coeff of Jennifer 12.2 Plt Count 189 MPV 10.2 Immature Gran % (Auto) 0.200 Neut % (Auto) 62.1 Lymph % (Auto) 26.9 Cowley % (Auto) 10.3 H Eos % (Auto) 0.0 Baso % (Auto) 0.5 Absolute Neuts (auto) 3.9 Absolute Lymphs (auto) 1.70 Nucleated RBC % 0 Sodium 139 Potassium 4.3 Chloride 107 Carbon Dioxide 20.9 L Anion Gap 10 BUN 16 Creatinine 0.64 L Estim Creat Clear Calc 109.37 Est GFR (MDRD) Non-Af 108 BUN/Creatinine Ratio 25.1 H Glucose 83 Calcium 10.3 Total Bilirubin 0.47 Direct Bilirubin 0.16 AST 20 ALT 10 Alkaline Phosphatase 70 Troponin T High Sens < 6 Troponin T Hi Sens 2 Hr < 6 Total Protein 6.5 Albumin 4.1 Globulin 2.4 Lipase 25 Urine pH Cancelled Urine Collection Time Cancelled Urine Total Volume Cancelled Urine Calcium Cancelled Ur Calcium 24 Hr Cancelled Radiography Diagnostic Testing: Clinical Impression(s) from Imaging Studies Chest X-Ray 04/10/25 12:29 IMPRESSION: No acute abnormality is seen. Reading Location: [id number] Abdomen/Pelvis CT 04/10/25 14:52 IMPRESSION: Slightly distended gallbladder with mild thickening of the gallbladder wall. Minimal intrahepatic biliary ductal dilatation. Correlation with ultrasound recommended. 9.6 cm 6.2 cm 8.6 cm heterogeneous mass in the pelvis as described. This may represent a pedunculated uterine fibroid although a suprapubic pelvic mass can not be excluded. Correlation with ultrasound recommended. Reading Location: [id number] Chest CTA 04/10/25 14:52 IMPRESSION: No evidence of pulmonary embolism. No acute abnormality is seen. Reading Location: [id number] Discharge Plan Triage Chief Complaint: Abd Pain ED Provider: Chele Bonner Dx/Rx/DC Orders Clinical Impression: Chest pain, Diaphoresis, Lightheaded, Uterine mass Prescriptions: No Action cyanocobalamin (vitamin B-12) 1,000 mcg/mL solution 1,000 mcg IM QMONTH semaglutide 0.25 mg or 0.5 mg (2 mg/3 mL) pen injector 0.25 mg subcut QWEEK Patient Comments: PT INJECTS 20 UNITS Rx Instructions: for 4 weeks bupropion HCl [Wellbutrin XL] 150 mg tablet extended release 24 hr 150 mg PO QAM Qty: 90 0RF Primary Care Provider: Yoana Alvarez Referrals: Yoana Alvarez MD [Primary Care Provider] - Print Language: Brazilian Disposition Disposition: Acute Care Hospital [facility] What to do if you have Problems For any increased pain, shortness of breath, bleeding, nausea or vomiting, chestpain, or any unexpected problems, contact your Primary Care Provider. Call [employer] ([phone]) or report to the closest Emergency Room. Call 911 if necessary. 04/10/25 5156 <Electronically signed by Chele Bonner DO> Cosigner Signature (if applicable): CC: Dr. Yoana Alvarez MD ~ Signed [facility] Work Phone: Radiology Diagnostic study note 04-10-2025 Note Date & Type Note Facility 04-10-2025 Radiology Diagnostic study note [facility] Imaging Services [address] [place] [address] Chest PA and Lateral MR#: [id number] Acct: [id number] Name: MAHNAZ KINSEY Rep #: [id number] : 1975 F 50 From: Irvin Montana MD PCP: Dr. Yoana Alvarez MD Status: REG ER Study:Chest PA and Lateral Date of Exam: 04/10/25 Exam# [id number] Ordering Dr: Johnnie Bonner DO PROCEDURE: CHEST PA AND LATERAL 04/10/2025 REASON FOR EXAM: CHEST PAIN TECHNIQUE: CHEST PA AND LATERAL COMPARISON: None FINDINGS: Hardware: EKG electrodes are seen. Heart: The heart size is normal. Mediastinum: The mediastinal contour is unremarkable. Lungs: Scattered calcified granulomas. There is a 2.6 cm by 2.8 cm calcific granuloma in the left lower lobe. Bones: Unremarkable RAD/Chest PA and Lateral IMPRESSION: No acute abnormality is seen. Reading Location: [id number] CC: Dr. Yoana Alvarez MD; Dr. Chele Bonner DO ~ Retail Interior Designer: Signed [facility] Evaluation note 04-08-2025 Note Date & Type Note Facility 04-08-2025 Evaluation note Diagnosis Onset Date Resolution Essential (primary) hypertension chronic April 08, 2025 7:21am History of non-ST elevation myocardial infarction (NSTEMI) September 20, 2019 resolved April 08, 2025 7:21am Moderate major depression noneactive April 08, 2025 7:21am Cobalamin deficiency noneactive April 08, 2025 7:21am Vitamin d deficiency noneactive April 08, 2025 7:21am Obesity (BMI 30-39.9) noneactive April 08, 2025 7:21am Chest pain acute April 10 5:20pm Diaphoresis acute April 10 5:20pm Lightheaded acute April 10 5:20pm Uterine mass acute April 10 025 5:20pm [facility] Work Phone: Evaluation note 09-20-2019 Note Date & Type Note Facility 09-20-2019 Evaluation note Diagnosis Onset Date Resolution Essential (primary) hypertension chronic April 08, 2025 7:21am History of non-ST elevation myocardial infarction (NSTEMI) September 20, 2019 resolved April 08, 2025 7:21am Cobalamin deficiency noneactive April 08, 2025 7:21am Anxiety noneactive April 08 7:21am Vitamin d deficiency noneactive April 08, 2025 7:21am Obesity (BMI 30-39.9) noneactive April 08, 2025 7:21am [facility] Work Phone: History and physical note Note Date & Type Note Facility History and physical note Note Date/Time April 10, 2025 5:29pm [facility] Medical Records Department [address] [place] [address] H&P Exam - Hospitalist 04/10/25 1704 MR#: [id number] Acct: [id number] Name: MAHNAZ KINSEY Rep #:[id number] : 1975 50 From: Remi Sun PCP: Dr. Yoana Alvarez MD Status:ADM VALERIE Location: [place] [address] HPI - General General Date of Admission: 04/10/25 Date of Service: 04/10/25 Chief Complaint: Epigastric abdominal pain, 40 minutes experienced dizziness sweating and at times nausea. HPI Narrative MAHNAZ KINSEY, is a 50 F with history of SC with elevated troponin at the age of 44 came to ED with epigastric abdominal pain with nausea dizziness and sweating. She is not short of breath. She described her epigastric pain localized without radiation. Denies GERD like symptoms/regurg or heartburn. She further said she had non-STEMI in 2019 with elevated troponins with chest pain and at that time cardiac catheter showed normal coronary arteries and thought a possible coronary vasospasm. Echo showed EF 55%. ESR and CRP were normal patient was started on 81 mg aspirin daily. In ED, twelve-lead EKG was done which shows sinus bradycardia 57 bpm, no significant ST-T changes. 2 serial troponins are normal. ED physician talked to skip tender and advised a stress test tomorrow. She has history of hypertension and overweight BMI 28.4 kg/m?. History of smoking at the age of 17 with 1 pack lasting 3 days quit at the age of 44. Her grandparent had bypass surgery but denies coronary artery disease in her parents. Her father had no hypertension. CRUZ risk score 1. Patient had CT abdomen and chest were discussed in assessment and plan. [facility] Medical History Asthma Anemia History of non-ST elevation myocardial infarction (NSTEMI) (09/20/19) Essential (primary) hypertension Nicotine dependence Obesity Atherosclerosis of coronary artery of [place] heart without angina pectoris Home Medications ?Medication ?Instructions ?Recorded ?Last Taken ?Type cyanocobalamin (vitamin B-12) 1,000 mcg IM QMONTH 01/16 Unknown History 1,000 mcg/mL injection solution semaglutide 0.25 mg or 0.5 mg (2 0.25 mg subcut QWEEK 02/13/24 04/07/25 History mg/3 mL) subcutaneous pen injector bupropion HCl 150 mg 24 hr tablet, 150 mg PO QAM #90 t abs 04/08/25 04/10/25 Rx extended release (Wellbutrin XL) Allergy/AdvReac Type Severity Reaction Status Date / Time No Known Allergies Allergy Verified 04/08/25 07:21 Family History Mother Hyperlipidemia Father Alcoholism Grandfather Myocardial infarction Parkinson disease Grandmother COPD (chronic obstructive pulmonary disease) Uncle Cancer Aunt Brain aneurysm Aunt Brain aneurysm Aunt Brain aneurysm Other CVA (cerebral vascular accident) Hypertension Surgical History History of breast augmentation History of tonsillectomy History of gastric bypass History of left heart catheterization (09/20/19) Social History adopted: No household members: spouse number of children: 3 current occupational status: employed 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 No fever. HEENT: Reports systems reviewed and no addt'l complaints, except as documented Respiratory/Chest: No acute shortness of breath or respiratory distress or wheezing. CVS: Atypical epigastric/abdominal pain Gastrointestinal: Denies coffee ground emesis, hematemesis or vomiting. Mild nausea. Genitourinary: Denies burning urination or new urinary tract symptoms. Denies recent vaginal bleeding. Had endometrial ablation in 2000. Medicinal/chemical menopause since then Musculoskeletal: Denies acute joint pain or limited range of motion. No acute injury Neurologic: Denies seizure-like symptoms. No strokelike symptoms skin: No ulcer. No rash Endocrinology: Reports systems reviewed and no addt'l complaints, except as documented Hematologic/Lymphatic: Reports systems reviewed and no addt'l complaints, exceptas documented Rest 14 ROS are negative except as mentioned in HPI Vital Signs Vital Signs Vital Signs: 04/10/25 11:33 04/10/25 12:23 04/10/25 13:33 Temperature 97.6 F L Temperature Source Temporal Pulse Rate 71 67 Respiratory Rate 16 13 Blood Pressure 135/85 H 140/126 H Blood Pressure Mean 101 130 Pulse Ox 98 100 Oxygen Delivery Method Room Air Room Air Room Air 04/10/25 15:00 Temperature Temperature Source Pulse Rate 59 L Respiratory Rate 12 Blood Pressure 146/83 H Blood Pressure Mean 104 Pulse Ox 97 Oxygen Delivery Method Room Air Weight Weight: 170 lb 9.6 oz Body Mass Index (BMI) 28.3 Physical Exam Narrative General: Alert, Oriented x3, Cooperative. BMI 28.4 kg/m? HEENT: Atraumatic, PERRLA, EOMI, Normocephalic. Oral: No Gingival or Mucosal Lesions/ Ulcerations Neck: Supple, No JVD, Negative Carotid Bruits Chest wall/Lungs: Air entry equal in bilateral lung bases. No crepitation/rhonchi Cardiovascular: Regular rate and rhythm, Normal S1,S2, No M/G/R Abdomen: Bowel Sounds Present, Soft, Non Tender, Non-Distended : No dysuria. No renal angle tenderness. No suprapubic tenderness. Extremities: No edema, Capillary Refill Less than 3 Seconds Skin: No rashes, No breakdown Musculoskeletal: No Tenderness to Palpation of Joints or Extremities Neurological: Cranial nerves II-XII grossly intact, DTR 2+/4. No acute focal neurological deficit. Psych/Mental Status: Normal Affect, Appropriate. Results Lab / Micro Data 04/10/25 12:19 04/10/25 12:19 Labs: Laboratory Results - last 24 hr 04/10/25 12:19: WBC 6.3, RBC 4.38, Hgb 13.3, Hct 40.8, MCV 93.2, MCH 30.4, MCHC 32.6, RDW Std Deviation 42.3, RDW Coeff of Jennifer 12.2, Plt Count 189, MPV 10.2, Immature Gran % (Auto) 0.200, Neut % (Auto) 62.1, Lymph % (Auto) 26.9, Cowley % (Auto) 10.3 H, Eos % (Auto) 0.0, Baso % (Auto) 0.5, Absolute Neuts (auto) 3.9, Absolute Lymphs (auto) 1.70, Nucleated RBC % 0, Sodium 139, Potassium 4.3, Chloride 107, Carbon Dioxide 20.9 L, Anion Gap 10, BUN 16, Creatinine 0.64 L, Estim Creat Clear Calc 109.37, Est GFR (MDRD) Non-Af 108, BUN/Creatinine Ratio 25.1 H, Glucose 83, Calcium 10.3, Total Bilirubin 0.47, Direct Bilirubin 0.16, AST 20, ALT 10, Alkaline Phosphatase 70, Troponin T High Sens < 6, Total Protein6.5, Albumin 4.1, Globulin 2.4, Lipase 04/10/25 13:51: Urine pH Cancelled, Urine Collection Time Cancelled, Urine TotalVolume Cancelled, Urine Calcium Cancelled, Ur Calcium 24 Hr Cancelled 04/10/25 14:19: Troponin T Hi Sens 2 Hr < 6 Imaging Radiology Impression Chest X-Ray 04/10/25 12:29 IMPRESSION: No acute abnormality is seen. Reading Location: [id number] Abdomen/Pelvis CT 04/10/25 14:52 IMPRESSION: Slightly distended gallbladder with mild thickening of the gallbladder wall. Minimal intrahepatic biliary ductal dilatation. Correlation with ultrasound recommended. 9.6 cm 6.2 cm 8.6 cm heterogeneous mass in the pelvis as described. This may represent a pedunculated uterine fibroid although a suprapubic pelvic mass can not be excluded. Correlation with ultrasound recommended. Reading Location: [id number] Chest CTA 04/10/25 14:52 IMPRESSION: No evidence of pulmonary embolism. No acute abnormality is seen. Reading Location: [id number] Assessment & Plan Assessment/Plan (1) Chest pain: PLAN: Plan This 50-year-old female came to ED with epigastric pain lasting for about 40 minutes mild nausea and sweating. 1. Epigastric pain/atypical angina equivalent: Patient is being admitted in PCU. 2 serial troponins are negative. EKG shows nonspecific ST-T changes, sinus bradycardia 57 beats minute. Exercise nuclear stress test tomorrow morning. CTPA was negative for PE. No acute abnormality. CRUZ risk score 1. Right upper quadrant sonogram also ordered. 2. Abnormal CT abdomen pelvis: CT shows slightly distended GB with mild wall thickening. Minimal intrahepatic biliary ductal dilatation. Spleen normal pancreas normal. It also shows 9.6 x 6.2 x 8.6 heterogeneous mass in the pelvismay represent large pedunculated uterine fibroid. Images reviewed and agreed with the findings I advised her to follow up with her established BULKER in about [address] findings. This is not her primary complaint whatshe came to ED but needs to be taken care of as an outpatient soon. This was explained to the patient. 3. Hypertension: Blood pressure is controlled. Continue home medication 4. History of gastric bypass surgery: Patient on B12 monthly injection. DVT prophylaxis: Lovenox 40 mL subcu daily. Living will/advanced directive/end of life care: Patient does not have living will or advanced directive. Her is next of kin. After discussion of benefits/risks procedures involved with full code, DNR CC arrest and DNR CC, the patient opted for full code. Patient does want artificial life support including intubation, tube feed, ventilator and/chest compression, central venous catheter, vasopressor and DC shock if needed Total time spent in [id number] encounter in discussion of advanced directive 17 minutes. Laboratory Results 04/10/25 12:19: WBC 6.3, RBC 4.38, Hgb 13.3, Hct 40.8, MCV 93.2, MCH 30.4, MCHC 32.6, RDW Std Deviation 42.3, RDW Coeff of Jennifer 12.2, Plt Count 189, MPV 10.2, Immature Gran % (Auto) 0.200, Neut % (Auto) 62.1, Lymph % (Auto) 26.9, Cowley % (Auto) 10.3 H, Eos % (Auto) 0.0, Baso % (Auto) 0.5, Absolute Neuts (auto) 3.9, Absolute Lymphs (auto) 1.70, Nucleated RBC % 0, Sodium 139, Potassium 4.3, Chloride 107, Carbon Dioxide 20.9 L, Anion Gap 10, BUN 16, Creatinine 0.64 L, Estim Creat Clear Calc 109.37, Est GFR (MDRD) Non-Af 108, BUN/Creatinine Ratio 25.1 H, Glucose 83, Calcium 10.3, Total Bilirubin 0.47, Direct Bilirubin 0.16, AST 20, ALT 10, Alkaline Phosphatase 70, Troponin THigh Sens < 6, Total Protein 6.5, Albumin 4.1, Globulin 2.4, Lipase 25 04/10/25 13:51: Urine pH Cancelled, Urine Collection Time Cancelled, Urine TotalVolume Cancelled, Urine Calcium Cancelled, Ur Calcium 24 Hr Cancelled 04/10/25 14:19: Troponin T Hi Sens 2 Hr < 6 04/10/25 : Ur Random Calcium Pending Clinical Impression(s) from Imaging Studies Chest X-Ray 04/10/25 12:29 IMPRESSION: No acute abnormality is seen. Abdomen/Pelvis CT 04/10/25 14:52 IMPRESSION: Slightly distended gallbladder with mild thickening of the gallbladder wall. Minimal intrahepatic biliary ductal dilatation. Correlation with ultrasound recommended. 9.6 cm 6.2 cm 8.6 cm heterogeneous mass in the pelvis as described. This may represent a pedunculated uterine fibroid although a suprapubic pelvic mass can not be excluded. Correlation with ultrasound recommended. Reading Location: ROB Chest CTA 04/10/25 14:52 IMPRESSION: No evidence of pulmonary embolism. No acute abnormality is seen. Reading Location: ROB Charges/Coding Visit Charges Inpatient E&M: 87812 Init Hosp L3 Procedures Hospitalists Procedures: 42349 Advncd Care Plan 30 Min 04/10/25 1729 <Electronically signed by Remi Miller MD> Cosigner Signature (if applicable): CC: Dr. Yoana Alvarez MD; Dr. Remi Miller MD~ Signed [facility] Work Phone: Reason for referral (narrative) Note Date & Type Note Facility Reason for referral (narrative) No reason for referral information available [facility] Work Phone: Summary Purpose Family History Relationship Condition Age at Onset Recorded Date/T nancy Not Specified Hypertension Unknown Cerebrovascular accident (CVA) Unknown mother Hyperlipidemia Unknown father Alcoholism Unknown grandfather Myocardial infarction Unknown Parkinson's disease Unknown grandmother Chronic obstructive pulmonary disease Unk nown uncle Malignant neoplasm Unknown aunt Cerebral aneurysm Unknown Advance Directives Advance Directive Response Recorded Date/ Time 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 April 10, 2025 1:00pm Chief Complaint and Reason for Visit Chief Complaint Admit Date 4 M FU April 08, 2025 7:21 am Reason for Visit Admit Date Essential (primary) hypertension April 082024 7:21am History of non-ST elevation myocardial i nfarction (NSTEMI) April 08, 2025 7:21am Cobalamin deficiency April 08, 2025 7:2 1am Anxiety April 08, 2025 7:21 am Vitamin d deficiency April 08, 2025 7:2 1am Obesity (BMI 30-39.9) April 08, 2025 7: 21am Chief Complaint Admit Date 4 M FU April 08, 2025 7:21 am CHEST PAIN, DIAPHORESIS, LIGHTHEADED Ronan e 2024 5:20pm Reason for Visit Admit Date Essential (primary) hypertension April 082024 7:21am History of non-ST elevation myocardial i nfarction (NSTEMI) April 08, 2025 7:21am Moderate major depression April 08 7:21am Cobalamin deficiency April 08, 2025 7:2 1am Vitamin d deficiency April 08, 2025 7:2 1am Obesity (BMI 30-39.9) April 08, 2025 7: 21am Chest pain April 10, 2025 5:20 pm Diaphoresis April 10, 2025 5:20 pm Lightheaded April 10, 2025 5:20 pm Uterine mass April 10, 2025 5:20 pm Additional Source Comments INFORMATION SOURCE (unrecogn ized section and content) DATE CREATED AUTHOR 04/05/2018 [facility] DATE CREATED AUTHOR AUTHOR'S ORGANIZ ATION 01/28/2019 [facility] DATE CREATED AUTHOR AUTHOR'S ORGANIZ ATION 09/20/2019 [facility] DATE CREATED AUTHOR AUTHOR'S ORGANIZ ATION 09/20/2019 [facility] DATE CREATED AUTHOR AUTHOR'S ORGANIZ ATION 09/21/2019 [facility] DATE CREATED AUTHOR AUTHOR'S ORGANIZ ATION 03/16/2025 [facility] DATE CREATED AUTHOR AUTHOR'S ORGANIZ ATION [facility] Care Teams (unrecognized sec tion and content) Team Status: Active Member Role Status Dates Dr. Yoana Alvarez MD Primary Care Provider Active Team Status: Inactive Member Role Status Dates Dr. Yoana Alvarez MD Primary Care Provider Active Start: April 08, 2025 End: April 08, 2025 Dr. Yoana Alvarez MD Attending Provider Active Start: April 08, 2025 End: April 08, 2025 Dr. Yoana Alvarez MD Referring Provider Active Start: April 08, 2025 End: April 08, 2025 Team Status: Active Member Role Status Dates Dr. Yoana Alvarez MD Primary Care Provider Active Start: April 08, 2025 Dr. Yoana Alvarez MD Attending Provider Active Start: April 08, 2025 Dr. Yoana Alvarez MD Referring Provider Active Start: April 08, 2025 Team Status: Active Member Role Status Dates Dr. Yoana Alvarez MD Primary Care Provider Active Start: April 10, 2025 Dr. Chele Bonner DO Referring Provider Active Start: April 10, 2025 Dr. Chele Bonner DO Emergency Provider Active Start: April 10, 2025 Dr. Remi Miller MD Admit Provider Active Sta rt: April 10, 2025 Dr. Remi Miller MD Attending Provider Active Start: April 10, 2025 Dr. Remi Miller MD Other Provider Active Sta rt: April 10, 2025 Team Status: Active Member Role Status Dates JAZMINE GARCIA Family Provider Active Dr. Yoana Alvarez MD Primary Care Provider Active Team Status: Inactive Member Role Status Dates Dr. Yoana Alvarez MD Primary Care Provider Active Start: April 08, 2025 End: April 08, 2025 Dr. Yoana Alvarez MD Attending Provider Active Start: April 08, 2025 End: April 08, 2025 Dr. Yoana Alvarez MD Referring Provider Active Start: April 08, 2025 End: April 08, 2025 Team Status: Active Member Role Status Dates Dr. Yoana Alvarez MD Primary Care Provider Active Start: April 08, 2025 Dr. Yoana Alvarez MD Attending Provider Active Start: April 08, 2025 Dr. Yoana Alvarez MD Referring Provider Active Start: April 08, 2025 Team Status: Active Member Role Status Dates Dr. Yoana Alvarez MD Primary Care Provider Active Team Status: Active Member Role Status Dates Dr. Yoana Alvarez MD Primary Care Provider Active Start: April 10, 2025 Dr. Chele Bonner DO Referring Provider Active Start: April 10, 2025 Dr. Chele Bonner DO Emergency Provider Active Start: April 10, 2025 Dr. Remi Miller MD Admit Provider Active Sta rt: April 10, 2025 Dr. Remi Miller MD Attending Provider Active Start: April 10, 2025 Dr. Remi Miller MD Other Provider Active Sta rt: April 10, 2025 Goals (unrecognized section and content) Goals may be documented in a n alternate sectionGoals may be documented in an alternate section FOR RECORDS PERTAINING TO PATIENTS WHO ARE OR HAVE BEEN ENROLLED IN A CHEMICAL DEPENDENCY/SUBSTANCEABUSE PROGRAM, SOME INFORMATION MAY BE OMITTED. This clinical summary was aggregated from multiple sources. Caution should be exercised in using it in the provision of clinical care. This summary normalizes information from multiple sources, and as a consequence, information in this document may materially change the coding, format and clinical context of patient data. In addition, data may be omitted in some cases. CLINICAL DECISIONS SHOULD BE BASED ON THE PRIMARY CLINICAL RECORDS. [employer] [facility]. provides no warranty or guarantee of the accuracy or completeness of information in this document.
[2025-04-11 02:30] VITALS: BP 130/76; PULSE 60; RESP 18; TEMP 36.8; O2SAT 99
[2025-04-11] MEDS: Lactated Ringers 1,000 ML 100 ML IV (04:32)
[2025-04-11 05:28] LABS: Hematocrit 33.7 % (37-47); Hemoglobin 11.2 g/dL (12.0-15.0); Mean Corp Hgb Conc 33.2 g/dL (32-36); Mean Corpuscular Hgb 30.1 pg (27.0-32.0); Mean Corpuscular Volume 90.6 fL (81-99); Mean Platelet Vol. 10.4 fl (6.2-12.0); Platelet Count 154 K/mm3 (150-450); RBC Distribution Width CV 12.3 % (11.6-14.6); RBC Distribution Width SD 40.5 fl (35.1-43.9); Red Blood Count 3.72 M/mm3 (4.2-5.4); White Blood Count 4.7 K/mm3 (4.4-11.0)
[2025-04-11 05:39] LABS: Scan Indicated on CBC? Y/N NO
--- NOTE | 2025-04-11 05:55 | US_ITS ---
PROCEDURE: ABDOMEN LIMITED 04/11/2025 REASON FOR EXAM: EPIGASTRIC PAIN. COMPARISON: CT scan done earlier in the day. FINDINGS: Liver: Diffusely echogenic suggesting fatty infiltration. The liver measures 15.2 cm. Gallbladder: Sludge is seen within the gallbladder lumen. Irregular mixed hypoechoic soft tissue density within the gallbladder. This may represent tumefactive sludge. Common bile duct: Dilated measuring up to 8.5 mm. . Pancreas: Other: Visualized portions of the right kidney are unremarkable. No right upper quadrant ascites. US/Abdomen Limited IMPRESSION: Fatty infiltration of the liver. Soft tissue density seen within the gallbladder lumen as described. This may r epresent tumefactive sludge. Follow-up recommended. Reading Location: [facility]
[2025-04-11 06:08] LABS: Anion Gap 8 (5-15); BUN 11 mg/dL (4-19); BUN/Creat Ratio 17.4 RATIO (10-20); Calcium,Total 9.9 mg/dL (7.6-11.0); Carbon Dioxide 24.2 mmol/L (21.0-32.0); Chloride 108 mmol/L (98-108); Creatinine, Serum 0.62 mg/dL (0.70-1.20); EST Glomerular Filtration Rate 109 (>60); Estimated Creatinine Clearance 116.09 ml/min (50-250); Glucose 82 mg/dL (70-99); Potassium 3.9 mmol/L (3.3-5.1); Sodium Level 140 mmol/L (133-145)
[2025-04-11 06:31] VITALS: BP 130/66; PULSE 55; RESP 16; TEMP 36.7; O2SAT 99
[2025-04-11] MEDS: Aspirin E.C. 81 MG Tablet PO (06:35)
[2025-04-11 07:45] LABS: Cholesterol 131 mg/dL (<=200); High Density Lipoprotein 76 mg/dL; Low Density Lipoprotein Calc. 44 mg/dL; Triglycerides 57 mg/dL; Very Low Density Lipoprotein 11 mg/dL (5-40); cholesterol:hdl ratio screen 1.73
[2025-04-11 10:48] VITALS: BP 114/75; PULSE 92; RESP 16; TEMP 36.9; O2SAT 95
[2025-04-11] MEDS: Pantoprazole Sodium 40 MG Tablet PO (10:50)
[2025-04-11] MEDS: 0.9% Saline Lock 10 ML Syringe IV (10:50)
[2025-04-11] MEDS: buPROPion (XL) 150 MG TABLET.XL PO (10:50)
--- NOTE | 2025-04-11 13:04 | STRESSREP ---
Stress Test Report Date: 04/11/2025 Procedure: Exercise tolerance test/imaging study Indications: Chest pain Consent: Per the patient Procedure: The patient exercised on a Bernardo protocol for 8 minutes achieving a peak heart rate of 169 bpm (98% predicted maximal heart rate) with a peak blood pressure 170/68 mmHg and a peak MET capacity of 10.1 METs. The baseline ECG demonstrated sinus rhythm with nonspecific ST changes. The peak exercise ECG was nondiagnostic secondary to baseline abnormality. There were no cardiac dysrhythmias pretest, during exercise, or recovery. The functional capacity was considered very good. There was no complaint of chest discomfort during exercise or recovery. The examination was discontinued secondary to target heart rate being achieved. The patient was injected with 11.3 mCi of technetium 99m Cardiolite and subsequently rest SPECT Cardiolite nuclear imaging was obtained in the horizontal long, vertical long, and short axis views. Post-exercise, the patient was injected with 32.9 mCi of technetium 99m Cardiolite and subsequently stress SPECT Cardiolite nuclear imaging was obtained in the horizontal long, vertical long, and short axis views. A gated Cardiolite study at peak stress was obtained. Rest and stress SPECT Cardiolite nuclear imaging status post realignment, normalization, and attenuation correction, demonstrates the appearance of relative uniform tracer uptake and myocardial perfusion appearing within normal limits. There is end systolic thickening and brightening. The gated Cardiolite study demonstrates myocardial thickening and inward wall motion. The reported LVEF is 59%. Impression: 1. Technically adequate (percent predicted maximal heart rate greater than 85%) exercise tolerance test 2. Peak exercise ECG nondiagnostic secondary to baseline abnormality. No chest pain reported. Negative exercise stress for angina. 3. There were no cardiac dysrhythmias pretest, during exercise, or recovery 4. Rest and stress SPECT Cardiolite nuclear imaging demonstrate relative uniform tracer uptake and myocardial perfusion appearing within normal limits. 5. The gated Cardiolite study reports an LVEF of 59%. This note was generated with [employer] software. It may contain incorrect words, spelling, and punctuation that were not noted in checking the note before signing.
--- NOTE | 2025-04-11 15:11 | PCM.DC ---
Discharge Instructions DC O2, CPAP, BIPAP needs Home O2 Discharge instructions: No Follow Up Care Test Results: Test results from this visit will be discussed in further detail at your follow-up appointment, if applicable. Discharge Plan Admission Admit Date/Time: 04/10/25 17:20 Primary Reason for Your Visit: Atypical epigastric pain Attending Provider: Remi Miller Primary Care Provider: Yoana Alvarez Instructions Additional Instructions / Restrictions: Appointment with Dr. Claire [facility] On April 17 for uterine mass Discharge Orders/Prescriptions Prescriptions: Continued cyanocobalamin (vitamin B-12) 1,000 mcg/mL solution 1,000 mcg IM QMONTH semaglutide 0.25 mg or 0.5 mg (2 mg/3 mL) pen injector 0.25 mg subcut QWEEK Patient Comments: PT INJECTS 20 UNITS Rx Instructions: for 4 weeks bupropion HCl [Wellbutrin XL] 150 mg tablet extended release 24 hr 150 mg PO QAM Qty: 90 0RF Referrals / Follow Up: Jed Nuñez MD [Med Staff - Active Staff] - Within 1 Month (abnormal US RUQ, GB slude, soft tissue density. CBD 8.5MM) Yoana Alvarez MD [Primary Care Provider] - Disposition Disposition (needs filled in before D/C Order can be placed): Home, Self Care
--- NOTE | 2025-04-11 15:16 | PCM.DC.SUM ---
Providers Date of Admission: 04/10/25 Date of Discharge: 04/11/25 Primary Care Physician: Dr. Yoana Alvarez MD Reason For Visit: CHEST PAIN, DIAPHORESIS, LIGHTHEADED Diagnosis Discharge Diagnosis (1) Chest pain: Status: Acute Code(s): R07.9 - Chest pain, unspecified Plan This 50-year-old female came to ED with epigastric pain lasting for about 40 minutes mild nausea and sweating. 1. Epigastric pain/atypical angina equivalent: Patient is being admitted in PCU. 2 serial troponins are negative. EKG shows nonspecific ST-T changes, sinus bradycardia 57 beats minute. Exercise nuclear stress test tomorrow morning. CTPA was negative for PE. No acute abnormality. CRUZ risk score 1. Right upper quadrant sonogram also ordered. 04/11: She had treadmill nuclear stress test done which was negative for ischemia. Serial troponins are normal. Right upper quadrant shows fatty liver. Irregular mixed hypoechoic soft tissue density within the gallbladder, radiologist impression possible tumefactive sludge. CBD measuring 8.5 mm. She does not have right upper quadrant tenderness or referred pain to right shoulder. Liver chemistry normal limit, TB 0.47, DB 0.16. Transaminases normal. ALP normal. One explanation might be epigastric pain dyspepsia as she is on semaglutide which slows down gastric emptying and absorption. I advised to follow with [place] surgical associate, Dr. Nuñez for further opinion regarding the abnormal soft tissue mass in the gallbladder CBD dilatation. Lipid profile in normal limit. TSH normal 2. Abnormal CT abdomen pelvis: CT shows slightly distended GB with mild wall thickening. Minimal intrahepatic biliary ductal dilatation. Spleen normal pancreas normal. It also shows 9.6 x 6.2 x 8.6 heterogeneous mass in the pelvis may represent large pedunculated uterine fibroid. Images reviewed and agreed with the findings I advised her to follow up with her established [facility] in about [address] findings. This is not her primary complaint what she came to ED but needs to be taken care of as an outpatient soon. This was explained to the patient. 04/11: Patient made an appointment with Dr. Camarena [facility] on 05/05 for abnormal heterogeneous mass in the uterus. 3. Hypertension: Blood pressure is controlled. Continue home medication 4. History of gastric bypass surgery: Patient on B12 monthly injection. DVT prophylaxis: Lovenox 40 mL subcu daily. Living will/advanced directive/end of life care: Patient does not have living will or advanced directive. Her is next of kin. After discussion of benefits/risks procedures involved with full code, DNR CC arrest and DNR CC, the patient opted for full code. Patient does want artificial life support including intubation, tube feed, ventilator and/chest compression, central venous catheter, vasopressor and DC shock if needed Discharge medication reconciliation done. Discharge follow-up instructions completed. Discharge process discussed with the patient and all questions were answered to patient's satisfaction. Follow with PCP in 1 to 2 weeks Total time spent, exact 35 minutes on discharge meds reconciliation, examination, coordination of care with nurses and ancillary staff, review of imaging and blood test and discussion with the patient on follow-up instructions. Laboratory Results 04/10/25 12:19: WBC 6.3, RBC 4.38, Hgb 13.3, Hct 40.8, MCV 93.2, MCH 30.4, MCHC 32.6, RDW Std Deviation 42.3, RDW Coeff of Jennifer 12.2, Plt Count 189, MPV 10.2, Immature Gran % (Auto) 0.200, Neut % (Auto) 62.1, Lymph % (Auto) 26.9, [place] % (Auto) 10.3 H, Eos % (Auto) 0.0, Baso % (Auto) 0.5, Absolute Neuts (auto) 3.9, Absolute Lymphs (auto) 1.70, Nucleated RBC % 0, Sodium 139, Potassium 4.3, Chloride 107, Carbon Dioxide 20.9 L, Anion Gap 10, BUN 16, Creatinine 0.64 L, Estim Creat Clear Calc 109.37, Est GFR (MDRD) Non-Af 108, BUN/Creatinine Ratio 25.1 H, Glucose 83, Calcium 10.3, Total Bilirubin 0.47, Direct Bilirubin 0.16, AST 20, ALT 10, Alkaline Phosphatase 70, Troponin T High Sens < 6, Total Protein 6.5, Albumin 4.1, Globulin 2.4, Lipase 04/10/25 13:51: Urine pH Cancelled, Urine Collection Time Cancelled, Urine Total Volume Cancelled, Urine Calcium Cancelled, Ur Calcium 24 Hr Cancelled 04/10/25 14:19: Troponin T Hi Sens 2 Hr < 6 04/10/25 : Ur Random Calcium Pending Clinical Impression(s) from Imaging Studies Chest X-Ray 04/10/25 12:29 IMPRESSION: No acute abnormality is seen. Abdomen/Pelvis CT 04/10/25 14:52 IMPRESSION: Slightly distended gallbladder with mild thickening of the gallbladder wall. Minimal intrahepatic biliary ductal dilatation. Correlation with ultrasound recommended. 9.6 cm 6.2 cm 8.6 cm heterogeneous mass in the pelvis as described. This may represent a pedunculated uterine fibroid although a suprapubic pelvic mass can not be excluded. Correlation with ultrasound recommended. Reading Location: [id number] Chest CTA 04/10/25 14:52 IMPRESSION: No evidence of pulmonary embolism. No acute abnormality is seen. Reading Location: [facility] Medications at Discharge Home Medications cyanocobalamin (vitamin B-12) 1,000 mcg/mL injection solution 1,000 mcg IM QMONTH 02/13/24 semaglutide 0.25 mg or 0.5 mg (2 mg/3 mL) subcutaneous pen injector 0.25 mg subcut QWEEK 02/13/24 bupropion HCl 150 mg 24 hr tablet, extended release (Wellbutrin XL) 150 mg PO QAM #90 tabs 04/08/25 Physical Exam Narrative Seen and examined. Abdominal/epigastric pain has resolved. No acute issues. General: Alert, Oriented x3, Cooperative. BMI 28.4 kg/m? HEENT: Atraumatic, PERRLA, EOMI, Normocephalic. Oral: No Gingival or Mucosal Lesions/ Ulcerations Neck: Supple, No JVD, Negative Carotid Bruits Chest wall/Lungs: Air entry equal in bilateral lung bases. No crepitation/rhonchi Cardiovascular: Regular rate and rhythm, Normal S1,S2, No M/G/R Abdomen: Bowel Sounds Present, Soft, Non Tender, Non-Distended : No dysuria. No renal angle tenderness. No suprapubic tenderness. Extremities: No edema, Capillary Refill Less than 3 Seconds Skin: No rashes, No breakdown Musculoskeletal: No Tenderness to Palpation of Joints or Extremities Neurological: Cranial nerves II-XII grossly intact, DTR 2+/4. No acute focal neurological deficit. Psych/Mental Status: Normal Affect, Appropriate. Weight / BMI Weight Weight: 180 lb 12.465 oz Body Mass Index (BMI) 30.0 ABG / Lab / Microbiology Data 04/11/25 04:17 04/11/25 04:17 Laboratory: Laboratory Results - last 24 hr 04/10/25 13:51: Urine pH Cancelled, Urine Collection Time Cancelled, Urine Total Volume Cancelled, Urine Calcium Cancelled, Ur Calcium 24 Hr Cancelled 04/10/25 14:19: Magnesium 1.9 04/10/25 18:54: Troponin T Hi Sens 4Hr < 6 04/11/25 04:17: WBC 4.7, RBC 3.72 L, Hgb 11.2 L, Hct 33.7 L, MCV 90.6, MCH 30.1, MCHC 33.2, RDW Std Deviation 40.5, RDW Coeff of Jennifer 12.3, Plt Count 154, MPV 10.4, Sodium 140, Potassium 3.9, Chloride 108, Carbon Dioxide 24.2, Anion Gap 8, BUN 11, Creatinine 0.62 L, Estim Creat Clear Calc 116.09, Est GFR (MDRD) Non-Af 109, BUN/Creatinine Ratio 17.4, Glucose 82, Calcium 9.9, Triglycerides 57, Cholesterol 131, LDL Cholesterol, Calc 44, VLDL Cholesterol 11, HDL Cholesterol 76, Cholesterol/HDL Ratio 1.73, TSH 3.140 Radiography Diagnostic Testing: Radiology Impression Abdomen/Pelvis CT 04/10/25 14:52 IMPRESSION: Slightly distended gallbladder with mild thickening of the gallbladder wall. Minimal intrahepatic biliary ductal dilatation. Correlation with ultrasound recommended. 9.6 cm 6.2 cm 8.6 cm heterogeneous mass in the pelvis as described. This may represent a pedunculated uterine fibroid although a suprapubic pelvic mass can not be excluded. Correlation with ultrasound recommended. Reading Location: [id number] Chest CTA 04/10/25 14:52 IMPRESSION: No evidence of pulmonary embolism. No acute abnormality is seen. Reading Location: [id number] Abdomen Ultrasound 04/11/25 05:55 IMPRESSION: Fatty infiltration of the liver. Soft tissue density seen within the gallbladder lumen as described. This may represent tumefactive sludge. Follow-up recommended. Reading Location: [id number] D/C Instructions DC O2, CPAP, BIPAP Needs Home O2 Discharge instructions: No Meaningful Use Info Meaningful Use Meaningful Use Diagnoses (Choose all that apply): None applicable Ischemic Stroke Statin Dosing Therapy Reference: STATIN DOSE THERAPY REFERENCE: * Patients > 75 years receive moderate or high dose statin therapy. * Patients 75 years or YOUNGER should receive HIGH intensity statin dose unless contraindicated. You will be required to document reason for non-treatment if statin daily dose does not meet guidelines. HIGH DOSE STATIN THERAPY DAILY Atorvastatin > than or = to 40 mg Rosuvastatin > than or = to 20 mg Amlodipine + Atorvastatin > than or = to 2.5/40 mg Ezetimibe + Simvastatin 10/80 mg Simvastatin 80mg Discharge Plan Admission Admit Date/Time: 04/10/25 17:20 Primary Reason for Your Visit: Atypical epigastric pain Attending Provider: Remi Miller Primary Care Provider: Yoana Alvarez Instructions Additional Instructions / Restrictions: Appointment with Dr. Claire [facility] On April 17 for uterine mass Discharge Orders/Prescriptions Prescriptions: Continued cyanocobalamin (vitamin B-12) 1,000 mcg/mL solution 1,000 mcg IM QMONTH semaglutide 0.25 mg or 0.5 mg (2 mg/3 mL) pen injector 0.25 mg subcut QWEEK Patient Comments: PT INJECTS 20 UNITS Rx Instructions: for 4 weeks bupropion HCl [Wellbutrin XL] 150 mg tablet extended release 24 hr 150 mg PO QAM Qty: 90 0RF Referrals / Follow Up: Jed Nuñez MD [Med Staff - Active Staff] - Within 1 Month (abnormal US RUQ, GB slude, soft tissue density. CBD 8.5MM) Yoana Alvarez MD [Primary Care Provider] - Disposition Disposition (needs filled in before D/C Order can be placed): Home, Self Care Charges/Coding Visit Charges Inpatient E&M: 81944 Disch Hosp >30min
--- NOTE | 2025-04-11 16:12 | CASEMGMT ---
Patient has order for discharge. RN CM in to discuss needs at discharge. Patient denies needs or help at discharge. Patient had no further questions or concerns.
[2025-04-12 04:07] LABS: Calcium, Urine 16.3 mg/dL (Not Estab.)
== END 2025-04-11 15:16 | disposition home or self-care (01) ==
LOC: ED 16:54 → PCU 17:30
PROVIDERS: Admitting Provider Internal Medicine; Emergency Provider Emergency Medicine; PCP Internal Medicine; Referring Provider Emergency Medicine; Visit Provider Internal Medicine
DX: R07.89 Other chest pain (principal); R19.00 Intra-abdominal and pelvic swelling, mass and lump, unspecified site; R00.1 Bradycardia, unspecified; R42 Dizziness and giddiness; Z82.49 Family history of ischemic heart disease and other diseases of the circulatory system; Z87.891 Personal history of nicotine dependence; I10 Essential (primary) hypertension; I25.10 Atherosclerotic heart disease of native coronary artery without angina pectoris; I25.2 Old myocardial infarction; J45.909 Unspecified asthma, uncomplicated; Z79.899 Other long term (current) drug therapy; Z98.84 Bariatric surgery status
CPT/HCPCS: 36415; 71046; 71275; 74177; 76705; 78452; 80048; 80061; 80076; 82340; 83690; 83735; 84443; 84484; 85025; 85027; 93005; 93017; 96361; 96372; 96374; 96375; 99221; 99285; A9500; Q9967; A4216; G0378; J2405

== ENCOUNTER → 2025-04-29 | Outpatient (CLI) | payer OTHER, SELFPAY ==
--- NOTE | 2025-04-29 09:30 | BD_ITS ---
PROCEDURE: DEXA BONE DENSITY STUDY 04/29/2025 REASON FOR EXAM: HYPERPARATHYROIDISM F, age 50 y/o . Postmenopausal. TECHNIQUE: DEXA BONE DENSITY STUDY COMPARISON: None FINDINGS: BMD and T-SCORES Lumbar spine: 0.939 g/cm2, T-score -1.0 Levels: L1 through L4 Left femoral neck: 0.823 g/cm2, T-score -0.2 Femoral neck comparison data not recommended for monitoring change. Left total hip: 0.849 g/cm2, T-score Right femoral neck: 0.781 g/cm2, T-score -0.6 Femoral neck comparison data not recommended for monitoring change. Right total hip: 0.821 g/cm2, T-score -1.0 . The World Health Organization has defined the following categories based on bone density: Normal bone density: T-score equal to or greater than -1.0 Osteopenia: T-score between -1.0 and -2.5 Osteoporosis: T-score equal to or less than -2.5 The patient does meet the pharmacological treatment recommendations for prevention of osteoporosis. BD/Dexa Bone Density Study IMPRESSION: NORMAL T-SCORES. Recommend follow-up as clinically warranted. Reading Location: [facility]
--- NOTE | 2025-04-29 09:30 | BD_ITS ---
PROCEDURE: DEXA BONE DENSITY STUDY 04/29/2025 REASON FOR EXAM: HYPERPARATHYROIDISM F, age 50 y/o . Postmenopausal. TECHNIQUE: DEXA BONE DENSITY STUDY COMPARISON: None FINDINGS: BMD and T-SCORES Lumbar spine: 0.939 g/cm2, T-score -1.0 Levels: L1 through L4 Left femoral neck: 0.823 g/cm2, T-score -0.2 Femoral neck comparison data not recommended for monitoring change. Left total hip: 0.849 g/cm2, T-score Right femoral neck: 0.781 g/cm2, T-score -0.6 Femoral neck comparison data not recommended for monitoring change. Right total hip: 0.821 g/cm2, T-score -1.0 . The World Health Organization has defined the following categories based on bone density: Normal bone density: T-score equal to or greater than -1.0 Osteopenia: T-score between -1.0 and -2.5 Osteoporosis: T-score equal to or less than -2.5 The patient does meet the pharmacological treatment recommendations for prevention of osteoporosis. BD/Dexa Bone Density Study IMPRESSION: NORMAL T-SCORES. Recommend follow-up as clinically warranted. Reading Location: [facility]
--- OUTSIDE RECORDS SUMMARY | 2025-04-29 13:05 | XMS RPT_ITS | CCD ---
Author Organization [facility] Care Team Providers Care Appeals Court Associate Justice Name Role Phone PROVIDER, UNKNOWN Unavailable Unavailable PROVIDER, UNKNOWN Unavailable Unavailable No, PCP Unavailable Unavailable MIMI DAVIS Attending Unavailable Kim CHARLTON, Dr. Lees Primary Care Provider Kim CHARLTON, Dr. Lees Attending Provider Kim CHARLTON, Dr. Lees Referring Provider Dr. Chele Bonner DO Referring Provider [phone] Chele Bonner DO Emergency Provider Paul CHARLTON, Dr. Khalil Admit Provider Paul CHARLTON, Dr. Khalil Attending Provider Paul CHARLTON, Dr. Khalil Other Provider Jose M CHARLTON, Dr. Murray Attending Provider KIM, MANFRED Primary Care Unavailable KIM, MANFRED Primary Care Unavailable KIM, MANFRED Primary Care Unavailable MIMI DAVIS MD Referring Unavailable RADHA CHARLTON, [facility] Primary Care Unavailable Ferullo, Bianca Referring Unavailable Kim, Manfred Primary Care Unavailable Marleny Duranily Attending Unavailable Greenbush, Manfred Primary Care Unavailable Remi Miller Consulting Unavailable Chele Bonner Referring Unavailable Remi Miller Admitting Unavailable Remi Miller Attending Unavailable Greenbush, Manfred Attending Unavailable Greenbush, Manfred Primary Care Unavailable Greenbush, Manfred Referring Unavailable Greenbush, Manfred Attending Unavailable Greenbush, Manfred Primary Care Unavailable Kim, Manfred Referring Unavailable Greenbush, Manfred Primary Care Unavailable Kim, Manfred Referring Unavailable Rashaun Godoy Attending Unavailable FerulloBianca Attending Unavailable Kim, Manfred Primary Care Unavailable Kim, Manfred Referring Unavailable Greenbush, Manfred Primary Care Unavailable Greenbush, Manfred Referring Unavailable SuzetteoBianca Attending Unavailable Trevor Salguero Attending Unavailable Ferullo, Bianca Referring Unavailable Greenbush, Manfred Primary Care Unavailable SuzetteoBianca Attending Unavailable SrinivasaulloBianca Attending Unavailable Ferullo, Bianca Referring Unavailable Greenbush, Manfred Primary Care Unavailable Ferullo, Bianca Referring Unavailable Kim, Manfred Primary Care Unavailable SuzetteoBianca Attending Unavailable Ferullo, Bianca Referring Unavailable Greenbush, Manfred Primary Care Unavailable Bianca Duran Attending Unavailable Remi Miller Admitting Unavailable Chele Bonner Referring Unavailable Kim, Manfred Primary Care Unavailable Remi Miller Attending Unavailable Greenbush, Manfred Attending Unavailable Kim, Manfred Primary Care Unavailable Greenbush, Manfred Referring Unavailable Ferullo, Bianca Referring Unavailable Greenbush, Manfred Primary Care Unavailable SuzetteoMarlenyBianca Attending Unavailable Greenbush, Manfred Attending Unavailable Kim, Manfred Primary Care Unavailable Kim, Manfred Referring Unavailable Medications Current Medications Medication Drug Class(es) Dates Sig (Normalized) Sig (Original) 24 hr buPROPion hydrochloride 150 mg extended release oral tablet (20 sources) Aminoketone Start: 04-08-2025 take 1 tablet by mouth once daily in the morning Bupropion Hcl (Wellbutrin Xl) 150 mg tablet extended release 24 hr Active 150 mg PO EVERY MORNING 90 0 April 08, 2025 8:15am Start: 06-11-2024 End: 12-03-2024 take 1 tablet by mouth once daily in the morning Bupropion Hcl (Wellbutrin Xl) 150 mg tablet extended release 24 hr Discontinued 150 mg PO EVERY MORNING 90 0 September 03, 2024 12:33pm December 03, 2024 2:54pm Start: 02-13-2024 End: 07-16-2024 take 1 tablet by mouth once daily Bupropion Hcl 300 mg tablet extended release 24 hr Discontinued 300 mg PO DAILY 90 0 February 13, 2024 2:51pm July 16, 2024 [...] ug IM February 13, 2024 12:00am Semaglutide (4 sources) Start: 02-13-2024 Semaglutide 0.25 mg or 0.5 mg (2 mg/3 mL) pen injector Active 0.25 mg SC EVERY WEEK February 13, 2024 12:00am for 4 weeks vitamin b12 1 mg/ml injectable solution (7 sources) Vitamin B12 Start: 02-13-2024 inject 1000 ug by intramuscular injection every month Cyanocobalamin (Vitamin B-12) 1,000 mcg/mL solution Active 1000 ug IM EVERY MONTH February 13, 2024 12:00am Start: 09-20-2019 End: 10-23-2019 Cyanocobalamin (Vitamin B-12 ) 1,000 MCG/ML solution Discontinued 1000 ug IJ EVERY MONTH September 20, 2019 1:00am October 23, 2019 2:58pm vitamin Completed/Discontinued Medications Medication Drug Class(es) Dates Sig (Normalized) Sig (Original) amLODIPine 5 mg oral tablet (20 sources) Dihydropyridine Calcium Channel Rohith Start: 10-23-2019 End: 07-16-2024 take 1 tablet by mouth once daily Amlodipine 5 mg tablet Discontinued 5 mg PO DAILY 90 1 July 12, 2024 4:21pm July 16, 2024 9:55am aspirin 81 mg delayed release oral tablet (4 sources) Platelet Aggregation Inhibitor, Nonsteroidal Anti-inflammatory Drug Start: 09-21-2019 End: 05-29-2020 take 1 tablet by mouth once daily Aspirin 81 MG tablet Discontinued 81 mg PO DAILY@0800 30 0 September 21, 2019 1:00am May 29, 2020 1:35pm benzonatate 200 mg oral capsule (8 sources) Non-narcotic Antitussive Start: 10-21-2024 End: 12-03-2024 take 1 capsule by mouth three times daily as needed for cough Benzonatate 200 mg capsule Discontinued 200 mg PO THREE TIMES A DAY as needed for cough 20 0 October 21, 2024 1:00am December 03, 2024 2:54pm Start: 10-18-2023 End: 02-13-2024 take 1 capsule by mouth three times daily as needed for cough Benzonatate 200 mg capsule Discontinued 200 mg PO THREE TIMES A DAY as needed for cough 20 0 October 18, 2023 1:00am February 13, 2024 1:56pm dexamethasone 6 mg oral tablet (4 sources) Corticosteroid Start: 10-21-2024 End: 12-03-2024 take 1 tablet by mouth once daily Dexamethasone 6 mg tablet Discontinued 6 mg PO DAILY 5 October 21, 2024 1:00am December 03, 2024 2:55pm hydroCHLOROthiazide 25 mg oral tablet (16 sources) Thiazide Diuretic Start: 05-29-2020 End: 07-16-2024 take 1 tablet by mouth once daily Hydrochlorothiazide 25 mg tablet Discontinued 25 mg PO DAILY 90 1 July 12, 2024 4:20pm July 16, 2024 9:55am methylPREDNISolone 4 mg oral tablet (4 sources) Corticosteroid Start: 10-18-2023 End: 02-13-2024 take 1 tablet by mouth once Methylprednisolone (Medrol (Glen)) 4 mg tablets,dose pack Discontinued 0 PO per package directions 21 October 18, 2023 1:00am February 13, 2024 1:55pm PO PER PKG DIR nitroglycerin 0.4 mg sublingual tablet (4 sources) Nitrate Vasodilator Start: 10-23-2019 End: 12-03-2024 Nitroglycerin 0.4 mg tablet, sublingual Discontinued mg SL every 5 to 15 minutes October 23, 2019 1:00am December 03, 2024 2:55pm phentermine hydrochloride 37.5 mg oral tablet (4 sources) Sympathomimetic Amine Anorectic Start: 02-13-2024 End: 02-13-2024 take 1 tablet by mouth once daily Phentermine 37.5 mg tablet Discontinued 37.5 mg PO daily February 13, 2024 12:00am February 13, 2024 2:51pm 24 hr verapamil hydrochloride 120 mg extended release oral capsule (4 sources) Calcium Channel Rohith Start: 10-23-2019 End: 10-23-2019 take 1 capsule by mouth once daily Verapamil 120 mg capsule,ext rel. pellets 24 hr Discontinued 120 mg PO DAILY October 23, 2019 1:00am October 23, 2019 3:24pm Problems Active Problems Problem Classification Problem Date Documented Da te Episodic/Chronic Anxiety disorders (5 sources) Anxiety; Translations: [Anxiety disorder, unspecified] 06-11-2024 Chronic Asthma (6 sources) Unspecified asthma, uncomplicated; Translations: [Asthma] Onset: 04-02-2018 10-18-2023 Chronic Conditions associated with dizziness or vertigo (6 sources) Lightheadedness; Translations: [Dizziness and giddiness] 04-10-2025 Episodic Coronary atherosclerosis and other heart disease (9 sources) History of non-ST segment elevation myocardial infarction; Translations: [Old myocardial infarction] Onset: 09-20-2019 06-03-2021 Chronic Deficiency and other anemia (4 sources) Anemia; Translations: [Anemia, unspecified] 10-18-2023 Episodic Essential hypertension (9 sources) Essential hypertension; Translations: [Essential (primary) hypertension] Onset: 04-13-2025 10-19-2019 Chronic External Injury - Cut / Dimas (2 sources) Contact with contaminated hypodermic needle, initial encounter; Translations: [Contact with contaminated hypodermic needle, init encntr] Onset: 04-02-2018 Mood disorders (4 sources) Moderate major depression ; Translations: [Major depressive disorder, single episode, moderate] Onset: 04-08-2025 04-08-2025 Chronic Nonspecific chest pain (8 sources) Chest pain; Translations: [Chest pain, unspecified] Onset: 04-11-2025 04-10-2025 Episodic Nutritional deficiencies (5 sources) Vitamin D deficiency; Translations: [Vitamin D deficiency, unspecified] Onset: 04-08-2025 04-08-2025 Chronic Nutritional deficiencies (5 sources) Cobalamin deficiency; Translations: [Deficiency of other specified B group vitamins] Onset: 04-08-2025 04-08-2025 Episodic Open wounds of extremities (2 sources) Puncture wound without foreign body of left index finger without damage to nail, initial encounter; Translations: [Pnctr w/o fb of l idx fngr w/o damage to nail, init] Onset: 04-02-2018 Episodic Other endocrine disorders (1 source) Hyperparathyroidism, unspecified; Translations: [Hyperparathyroidism, unspecified] Onset: 04-15-2025 Chronic Other female genital disorders (6 sources) Mass of uterus; Translations: [Other specified noninflammatory disorders of uterus] 04-10-2025 Episodic Other gastrointestinal disorders (2 sources) Bariatric surgery status; Translations: [Bariatric surgery status] Onset: 04-02-2018 Episodic Other nutritional; endocrine; and metabolic disorders (4 sources) Obesity; Translations: [Obesity, unspecified] 06-11-2024 Chronic Other nutritional; endocrine; and metabolic disorders (4 sources) Hypercalcemia; Translations: [Hypercalcemia] 06-11-2024 Chronic Other nutritional; endocrine; and metabolic disorders (4 sources) Body mass index 30+ - obesity; Translations: [Obesity, unspecified] 04-08-2025 Chronic Other nutritional; endocrine; and metabolic disorders (1 source) Hypercalcemia; Translations: [Hypercalcemia] Onset: 08-13-2024 Chronic Other skin disorders (6 sources) Excessive sweating; Translations: [Generalized hyperhidrosis] 04-10-2025 Episodic Substance-related disorders (6 sources) Nicotine dependence, cigarettes, uncomplicated; Translations: [Nicotine dependence] Onset: 04-02-2018 09-27-2019 Chronic Unclassified (2 sources) Contact with and (suspected) exposure to potentially hazardous body fluids; Translations: [Contact w and exposure to potentially hazardous body fluids] Onset: 04-02-2018 Episodic Unclassified (2 sources) abnormal US RUQ, GB slude, soft tissue density. CBD 8.5MM Unclassified (1 source) Cough, unspecified; Translations: [Cough, unspecified] Onset: 10-21-2024 Past or Other Problems Problem Classification Problem Date Documented Da te Episodic/Chronic Immunizations and screening for infectious disease (1 source) Encounter for immunization; Translations: [Encounter for immunization] Onset: 12-03-2024 Episodic Other screening for suspected conditions (not mental disorders or infectious disease) (5 sources) Patient encounter status; Translations: [Encounter for other screening for malignant neoplasm of breast] Onset: 07-15-2024 04-08-2025 Episodic Results Test Name Value Interpretation Reference Range Facility THIN PREP IMAGE SEND OUTon 0 04-23-2025 THINPREP TIS PAP SEE COMMENT [facility] Comment on above: Order Comment: Pap c ollected at tiem of pelvic exam Ordered on Fin# [id number] Result Comment: THIN PREP TIS PAP Lab: [id number] CLINICAL INFORMATION: None given LMP: None given prev. Pap: None given prev. Bx: None given SOURCE: None given STATEMENT OF ADEQUACY: Satisfactory for evaluation. Endocervical/transformation zone component absent. INTERPRETATION/RESULT: Cytology Results: Negative for intraepithelial lesion or malignancy. COMMENT: This Pap test has been evaluated with computer assisted technology. GREENSKEEPER: NATANAEL MILLS(ASCP) CT Screening Location: [place] [address]. CLIA: [id number] For questions contact Anatomic Pathology Client Services at [phone] EXPLANATORY NOTE: The Pap is a screening test for cervical cancer. It is not a diagnostic test and is subject to false negative and false positive results. It is most reliable when a satisfactory sample, regularly obtained, is submitted with relevant clinical findings and history, and when the Pap result is evaluated along with historic and current clinical information. PERFORMING SITE: [facility] [address] [address] Cytologist: UMESH FLORES MD, CLIA: [id number] Performed By: #### [id number] #### [facility] [address] [place] [address] Rounder And Backer: Prieto Silverman MD GP HPVon 04-22-2025 GP HPV Negative [facility] Comment on above: Order Comment: Order ed on Fin# [id number] Result Comment: This HPV assay is being performed via a second generation NAAT that utilizes target capture, ornamental metal erector apprentice mediated amplification and dual kenetic assay technologies. Performed By: #### 1 [id number] #### [facility] [address] [place] [id number] Rounder And Backer: Prieto Silverman MD [facility] Physician Progress No jamie 04-17-2025 [facility] Physician Progress Note MAHNAZ KINSEY :1975 Registration Date:04/17/2025 Assessment/Plan This Visit Diagnosis 1. Leiomyoma D21.9 Plan ultrasound for better delineation of fibroid offered patient myomectomy versus definitive hysterectomy versus conservative management discussed with plan and definitive treatment with robotic hysterectomy bilateral salpingectomy possible morcellation. Discussed with patient risk and benefits of procedure which include bleeding, infection, injury to bowel bladder, chance of abdominal incision prolonged hospital stay. Risk of anesthesia also discussed. Recovery discussed with limited activity for 2 weeks no intercourse for 6 weeks. After risk benefits and alternatives were discussed and consent was obtained, the patient elected proceed with procedure conservative option of following fibroid ultrasound was discussed patient elects to proceed with surgery. Patient education given decision for surgery made today over 60 minutes spent with the patient and collecting data reviewing films history and physical setting up surgery informed consent and reviewing laboratory studies that were performed outside our facility Ordered: AMB Office/Outpt New Pt High MDM / 60 min [id number], 04/17/2025 10:27:00 EDT, Leiomyoma AMB Schedule Surgery, 04/17/2025 10:27:00 EDT GP HPV, ROUTINE, 04/17/2025, Specimen type: Cervical, Dx: Leiomyoma THIN PREP IMAGE SEND OUT, ROUTINE, 04/17/2025, Specimen type: EMBEDDED SOFTWARE PROGRAMMER Spec, collected by Dr Davis, Cervix, [id number], Dx: Leiomyoma US PELVIS TV ECHO, 04/28/2025, Routine, ENLARGED UTERUS, Ambulatory, Leiomyoma, [id number] 2. Asthma J45.909 3. Hypertension I10 4. Cervical cancer screening Z12.4 5. Screening for HPV (human papillomavirus) Z11.51 Medication Reconciliation What How Much When Why Instructions Unchanged amLODIPine (amLODIPine 5 mg oral tablet) Unchanged buPROPion (Wellbutrin XL 300 mg/ 24 hours oral tablet, extended release) 1 Tabs Oral DAILY Unchanged cholecalciferol (Vitamin D3 25 mcg (1000 intl units) oral tablet) 1 Tabs Oral DAILY Unchanged cyanocobalamin (cyanocobalamin 1000 mcg/ mL injectable solution) Unchanged hydrochlorothiazide = HydroDIURIL (hydroCHLOROthiazide 25 mg oral tablet) Unchanged Non-Formulary Med (Semaglutide 2mg/ 0.2mL- B12 1mg/ mL Injection) INJECT 20 UNITS SUBCUTANEOUSLY ONCE WEEKLY Unchanged phentermine (phentermine 37.5 mg oral tablet) 1 Tabs Oral DAILY BMI 36.0-36.9,adult Duration: 30 Days BMI 36.77 Chief Complaint Returning pt- Went to ER for upper GI pain and incidental finding of large fibroid uterus. No pain, no bleeding, no urinary issues. History of Present Illness 50-year-old status post uterine ablation presents today with a outside CT scan which I reviewed which revealed a 9 cm fibroid bilateral normal adnexa uterus is normal in size patient feels pressure more with the fibroid since it was diagnosed and has no abnormal bleeding Physical Exam Vitals & Measurements BP: 118/74 Depression Screening Scores Initial Depression Screen Score: 0 (04/17/25 10:07:00) Fall Risk Assessment Is the patient ambulatory (mobile): Yes (04/17/25 10:07:00) Have you had a fall within the past: No (04/17/25 10:07:00) Have you had 2 or more falls in the past: No (04/17/25 10:07:00) Pelvic normal digitated no vagina normal cervix uterus midplane not large right sided mobile nontender mass noted consistent with 9 cm fibroid EMBEDDED SOFTWARE PROGRAMMER Additional Details Menstrual History Menstrual StatusMenarcheal Regular Menstrual CyclesNo Menstrual Cycle Lengthh/o endometrial ablation EMBEDDED SOFTWARE PROGRAMMER Screening Date of Last Pap Smear05/10/2021 Last Pap Result, Pt StatedNegative Last Pap Result Commenthpv neg Date of Last Mammogram, Pt Weofur9206/25/2024 Last Mammography Result, Pt StatedBenign Contraception Contraception MethodSterilization for contraception Previous Contraceptive Method IssuesUterine ablation Sterilization TypePartner vasectomy OB History History (0,0,0,0) No previous pregnancies history have been recorded Problem List/Past Medical History Ongoing Anxiety Asthma Atherosclerosis of coronary artery of ute heart without angina pectoris BMI 36.0-36.9,adult Hx of non-ST elevation myocardial infarction (NSTEMI) Hypertension Obesity Procedure/Surgical History COLONOSCOPY: 11/20/23: JUSTIN CHARLTON, [facility] Left Heart Catheterization, left ventriculogram.: 09/20/19 Breast augmentation: 2016 In Office [facility]: 09/22/09 Gastric Bypass: 10/16/03 [facility] Uterine Ablation Tonsillectomy Medications amLODIPine(amLODIPine 5 mg oral tablet) buPROPion(Wellbutrin XL 300 mg/24 hours oral tablet, extended release), 300 mg= 1 tabs, ORAL, DAILY cholecalciferol(Vitami n D3 25 mcg (1000 intl units) oral tablet), 25 mcg= 1 tabs, ORAL, DAILY cyanocobalamin(cyanoco balamin 1000 mcg/mL injectable solution) hydrochlorothiazide = HydroDIURIL(hydroCHLOR Othiazide 25 mg oral t (more content not included)... [facility] Discharge Educationon 2024 Discharge Education associate professor of psychology Learning About Hysterectomy Surgery What is a hysterectomy? A hysterectomy is surgery to take out the uterus. Sometimes the ovaries and fallopian tubes also are removed at the same time. How is this surgery done? There are many ways to do the surgery. The type you have may depend on your medical condition and the size and position of your uterus. It also depends on your overall health. Talk with your doctor about which type is right for you. Abdominal surgery This is done through a cut that the doctor makes in the lower belly. The cut is called an incision. The doctor takes out the uterus through this cut in the belly. Vaginal surgery This is done through the vagina. The doctor makes a small cut in the vagina instead of the belly. The uterus is removed through this cut in the vagina. Laparoscopic surgery The doctor puts a lighted tube (laparoscope) through small cuts in the belly. The doctor can see your organs with the scope. The doctor can insert surgical tools to cut the tissue that holds your uterus in place. Then the uterus is removed. It may be removed through small cuts in the belly. (This is called laparoscopic abdominal hysterectomy.) Or it may be removed through the vagina. (This is called laparoscopically assisted vaginal hysterectomy.) What can you expect after your surgery? You might go home the day of your hysterectomy or stay in the hospital for several days. Recovery can take 4 to 6 weeks. It depends on which type of surgery you have and your overall health. You won't be able to do any heavy lifting. And you will have to take it easy for a few weeks. It's common to feel more tired than usual. After surgery, you will no longer have periods. You won't be able to get . If there's a chance that you will want to get in the future, talk to your doctor about other treatment options. Most people can have sex without problems after they recover from surgery. But if you have your ovaries removed, you may have vaginal dryness after the surgery. It can make sex less comfortable. A vaginal lubricant, such as Astroglide or K-Y Jelly, can help. You may need to take hormones after your surgery if your ovaries are removed and you haven't gone through menopause. Taking out the ovaries before menopause causes a sudden drop in the hormone estrogen. Talk with your doctor about the pros and cons of taking hormones if you have your ovaries removed. Follow-up care is a renae part of your treatment and safety. Be sure to make and go to all appointments, and call your doctor if you are having problems. It is also a good idea to know your test results and keep a list of the medicines you take. Where can you learn more? Go to https://www.[employer] .net/patientEd Enter H610 in the search box to learn more about Learning About Hysterectomy Surgery. Current as of: September 06, 2021 Content Version: 13.3 ? [employer]. Care instructions adapted under license by your healthcare professional. If you have questions about a medical condition or this instruction, always ask your healthcare professional. [employer] disclaims any warranty or liability for your use of this information. Laparoscopic Hysterectomy: Before Your Surgery What is a laparoscopic hysterectomy? A hysterectomy is surgery to take out the uterus. In some cases, the ovaries and fallopian tubes also are taken out at the same time. The doctor makes one or more small cuts in the belly. These cuts are called incisions. They let the doctor insert tools to do the surgery. One of these tools is a tube with a light on it. It's called a laparoscope, or scope. The scope and the other tools allow the doctor to free the uterus. The doctor then removes the uterus through the small cuts. You may go home the day of surgery or stay in the hospital 1 to 2 days after surgery. And you may need about 4 to 6 weeks to fully recover. The recovery time may be shorter for some people. After the surgery, you will not have periods or be able to get . Most people can have sex without problems after they recover. How do you prepare for surgery? Surgery can be stressful. This information will help you understand what you can expect. And it will help you safely prepare for surgery. Preparing for surgery ? Be sure you have someone to take you home. Anesthesia and pain medicine will make it unsafe for you to drive or get home on your own. ? Understand exactly what surgery is planned, along with the risks, benefits, and other options. ? If you take aspirin or some other blood thinner, ask your doctor if you should stop taking it before your surgery. Make sure that you understand exactly what your doctor wants you to do. These medicines increase the risk of bleeding. ? Tell your doctor ALL the medicines, vitamins, supplements, and herbal remedies you take. Some may increase the risk of problems during your surgery. Your doctor will tell you if you ryder (more content not included)... [facility] [id number] 04-12-2025 Calcium [Mass/Vol] 16.3 mg/dL Normal Not Estab. [facility] Comment on above: Result Comment: Perf ormed at: CB - [facility] [address] [id number] [employer]bearer Sewer Pipe: Juan Sanchez PhD, Phone: [phone] Performed By: #### L [id number], [id number] #### [facility] [address] [facility] [place], [address] Abdomen Limitedon 04-11-2025 Abdomen Limited [facility] Imaging Services [address] [place] [address] Abdomen Limited MR#: [id number] Acct: [id number] Name: MAHNAZ KINSEY Rep #: [id number] : 1975 F 50 From: Amandeep morris MD PCP: Dr. Manfred Alvarez MD Status: ADM VALERIE Study: Abdomen Limited Date of Exam: 04/11/25 Exam# [id number] Ordering Dr: Remi Miller MD PROCEDURE: ABDOMEN LIMITED 04/11/2025 REASON FOR EXAM: EPIGASTRIC PAIN. COMPARISON: CT scan done earlier in the day. FINDINGS: Liver: Diffusely echogenic suggesting fatty infiltration. The liver measures 15.2 cm. Gallbladder: Sludge is seen within the gallbladder lumen. Irregular mixed hypoechoic soft tissue density within the gallbladder. This may represent tumefactive sludge. Common bile duct: Dilated measuring up to 8.5 mm. . Pancreas: Other: Visualized portions of the right kidney are unremarkable. No right upper quadrant ascites. US/Abdomen Limited IMPRESSION: Fatty infiltration of the liver. Soft tissue density seen within the gallbladder lumen as described. This may represent tumefactive sludge. Follow-up recommended. Reading Location: [id number] CC: Dr. Manfred Alvarez MD; Dr. Remi Miller MD Maid Supervisor: Signed Normal [facility] Anion gap in Serum or Plasma Ordered By: Remi Miller on 04-11-2025 Anion gap [Moles/Vol] 8 mmol/L 5-15 [facility] BUN/creatinine ratioOrdered By: Remi Miller on 04-11-2025 Urea nitrogen/Creatinine [Mass ratio] 17.4 mg/mg - [facility] Basic Metabolic Profile (BMP )on 04-11-2025 BUN/CRE 17.4 RATIO Normal - [facility] Comment on above: Performed By: #### L 501.2276 #### [facility] Laboratory [address] [place], [address] Calcium [Mass/Vol] 9.9 mg/dL Normal 7.6-11.0 [facility] Comment on above: Performed By: #### L 501.2276 #### [facility] Laboratory [address] [place], [address] Chloride [Moles/Vol] 108 mmol/L Normal 98-108 [facility] Comment on above: Performed By: #### L 501.2276 #### [facility] [address] [place], [address] CO2 [Moles/Vol] 24.2 mmol/L Normal 21.0-32.0 [facility] Comment on above: Performed By: #### L 501.2276 #### [facility] [address] [place], [address] Creatinine [Mass/Vol] 0.62 mg/dL Low 0.70-1.20 [facility] Comment on above: Performed By: #### L 501.2276 #### [facility] Laboratory [address] [place], [address] ECRCL 116.09 ml/min Normal 50-250 [facility] Comment on above: Performed By: #### L 501.2276 #### [facility] Laboratory [address] [place], [address] GAP 8 Normal 5-15 [facility] Comment on above: Performed By: #### L 501.2276 #### [facility] [address] [place], [address] GFR/1.73 sq M.predicted among non-blacks MDRD (S/P/Bld) [Vol rate/Area] 109 mL/min/{1.73_m2} Normal >60 [facility] Comment on above: Result Comment: mL/m in/1.73m2 CKD-EPI Creatinine Equation (2020) Performed By: #### L 501.2276 #### [facility] [address] [place], [address] Glucose [Mass/Vol] 82 mg/dL Normal 70-99 [facility] Comment on above: Performed By: #### L 501.2276 #### [facility] [address] [place], [address] Potassium [Moles/Vol] 3.9 mmol/L Normal 3.3-5.1 [facility] Comment on above: Performed By: #### L 501.2276 #### [facility] [address] [place], [address] Sodium [Moles/Vol] 140 mmol/L Normal 133-145 [facility] Comment on above: Performed By: #### L 501.2276 #### [facility] [address] [place], [address] Urea nitrogen [Mass/Vol] 11 mg/dL Normal 4-19 [facility] Comment on above: Performed By: #### L 501.2276 #### [facility] [address] [place], [address] CBC-Complete Blood Cnt No Di ffon 04-11-2025 Erythrocyte distribution width (RBC) [Ratio] 12.3 % Normal 11.6-14.6 [facility] Comment on above: Performed By: #### L 100.0500 #### [facility] [address] [place], [address] Hematocrit (Bld) [Volume fraction] 33.7 % Low 37-47 [facility] Comment on above: Performed By: #### L 100.0500 #### [facility] [address] [place], [address] Hemoglobin (Bld) [Mass/Vol] 11.2 g/dL Low 12.0-15.0 [facility] Comment on above: Performed By: #### L 100.0500 #### [facility] [address] [place], [address] MCH (RBC) [Entitic mass] 30.1 pg Normal 27.0-32.0 [facility] Comment on above: Performed By: #### L 100.0500 #### [facility] [address] [place], [address] MCHC (RBC) [Mass/Vol] 33.2 g/dL Normal 32-36 [facility] Comment on above: Performed By: #### L 100.0500 #### [facility] [address] [place], [address] MCV (RBC) [Entitic vol] 90.6 fL Normal 81-99 [facility] Comment on above: Performed By: #### L 100.0500 #### [facility] [address] [place], [address] Platelet mean volume (Bld) [Entitic vol] 10.4 fL Normal 6.2-12.0 [facility] Comment on above: Performed By: #### L 100.0500 #### [facility] [address] [place], [address] Platelets (Bld) [#/Vol] 154 10*3/uL Normal 150-450 [facility] Comment on above: Performed By: #### L 100.0500 #### [facility] [address] [place], [address] RBC (Bld) [#/Vol] 3.72 10*6/uL Low 4.2-5.4 [facility] Comment on above: Performed By: #### L 100.0500 #### [facility] [address] [place], [address] RDW SD 40.5 fl Normal 35.1-43.9 [facility] Comment on above: Performed By: #### L 100.0500 #### [facility] [address] [place], [address] WBC (Bld) [#/Vol] 4.7 10*3/uL Normal 4.4-11.0 [facility] Comment on above: Performed By: #### L 100.0500 #### [facility] [address] [place], [address] Calculated very low density lipoprotein (VLDL) cholesterol measurementOrdered By: Remi Miller on 04-11-2025 Calculated very low density lipoprotein (VLDL) cholesterol measurement 11 mg/dL 5-40 [facility] Carbon dioxide, total [Moles /volume] in Central venous bloodOrdered By: Remi Miller on 04-11-2025 CO2 [Moles/Vol] 24.2 mmol/L 21.0-32.0 [facility] Cardiovascular stress test r eportOrdered By: Trevor Salguero on 04-11-2025 Study report [facility] [address] [place] [address] MR#: [id number] Acct: [id number] Name: MAHNAZ KINSEY Rep #: [id number] : 1975 50 From: Trevor Salguero MD Primary Care: Dr. Manfred Alvarez MD Stat us: ADM VALERIE Referring Dr: Chele Bonner DO Sex: F C Stress Test Report Date: 04/11/2025 Procedure: Exercise tolerance test/imaging study Indications: Chest pain Consent: Per the patient Procedure: The patient exercised on a Bernardo protocol for 8 minutes achieving a peak heart rate of 169 bpm (98% predicted maximal heart rate) with a peak blood pressure 170/68 mmHg and a peak MET capacity of 10.1 METs. The baseline ECG demonstrated sinus rhythm with nonspecific ST changes. The peak exercise ECG was nondiagnostic secondary to baseline abnormality. There were no cardiac dysrhythmias pretest, during exercise, or recovery. The functional capacity was considered very good. There was no complaint of chest discomfort during exercise or recovery. The examination was discontinued secondary to target heart rate being achieved. The patient was injected with 11.3 mCi of technetium 99m Cardiolite and subsequently rest SPECT Cardiolite nuclear imaging was obtained in the horizontal long, vertical long, and short axis views. Post-exercise, the patient was injected with 32.9 mCi of technetium 99m Cardiolite and subsequently stress SPECT Cardiolite nuclear imaging was obtained in the horizontal long, vertical long, and short axis views. A gated Cardiolite study at peak stress was obtained. Rest and stress SPECT Cardiolite nuclear imaging status post realignment, normalization, and attenuation correction, demonstrates the appearance of relative uniform tracer uptake and myocardial perfusion appearing within normal limits. There is end systolic thickening and brightening. The gated Cardiolite study demonstrates myocardial thickening and inward wall motion. The reported LVEF is59%. Impression: 1. Technically adequate (percent predicted maximal heart rate greater than 85%)exercise tolerance test 2. Peak exercise ECG nondiagnostic secondary to baseline abnormality. No chestpain reported. Negative exercise stress for angina. 3. There were no cardiac dysrhythmias pretest, during exercise, or recovery 4. Rest and stress SPECT Cardiolite nuclear imaging demonstrate relative uniform tracer uptake and myocardial perfusion appearing within normal limits. 5. The gated Cardiolite study reports an LVEF of 59%. This note was generated with ZangZingation software. It may contain incorrectwords, spelling, and punctuation that were not noted in checking the note beforesigning. 04/11/25 1306 Date _ Trevor Salguero MD CC: Dr. Manfred Alvarez MD; Dr. Remi Miller MD; Dr. Chele Bonner, DO ~ Date Dictated: 04/11/25 1304 Date Transcribed: 04/11/25 130 Maid Supervisor: RAYMOND Martinez [facility] Work Phone: Chloride assayOrdered By: Pooja Miller on 04-11-2025 Chloride [Moles/Vol] 108 mmol/L 98-108 [facility] Discharge Instructionon 03-17 Discharge Instruction [facility] Medical Records Department [address] [place] [address] Instructions for Home/Discharge Instructions 04/11/25 1511 MR#: [id number] Acct: [id number] Name: MAHNAZ KINSEY Rep #: [id number] : 1975 50 From: Remi Miller MD PCP: Dr. Manfred Alvarez MD Status:ADM VALERIE Discharge Instructions DC O2, CPAP, BIPAP needs Home O2 Discharge instructions: No Follow Up Care Test Results: Test results from this visit will be discussed in further detail at your follow-up appointment, if applicable. Discharge Plan Admission Admit Date/Time: 04/10/25 17:20 Primary Reason for Your Visit: Atypical epigastric pain Attending Provider: Remi Miller Primary Care Provider: Manfred Alvarez Instructions Additional Instructions / Restrictions: Appointment with Dr. Davis [facility] On April 17 for uterine mass Discharge Orders/Prescriptions Prescriptions: Continued cyanocobalamin (vitamin B-12) 1,000 mcg/mL solution 1,000 mcg IM QMONTH semaglutide 0.25 mg or 0.5 mg (2 mg/3 mL) pen injector 0.25 mg subcut QWEEK Patient Comments: PT INJECTS 20 UNITS Rx Instructions: for 4 weeks bupropion HCl [Wellbutrin XL] 150 mg tablet extended release 24 hr 150 mg PO QAM Qty: 90 0RF Referrals / Follow Up: Jed Nuñez MD [Med Staff - Active Staff] - Within 1 Month (abnormal US RUQ, GB slude, soft tissue density. CBD 8.5MM) aMnfred Alvarez MD [Primary Care Provider] - Disposition Disposition (needs filled in before D/C Order can be placed): Home, Self Care 04/11/25 1516 Remi Miller MD CC: Dr. Manfred Alvarez MD Signed Normal [facility] Erythrocyte distribution wid th ratioOrdered By: Remi Miller on 04-11-2025 Erythrocyte distribution width (RBC) [Ratio] 12.3 % 11.6-14.6 [facility] Erythrocyte distribution wid th standard deviationOrdered By: Remi Miller on 04-11-2025 Erythrocyte distribution width (RBC) [Ratio] 40.5 fl 35.1-43.9 [facility] Glomerular filtration rate ( GFR) estimation/1.73 sq m using serum, plasma, or whole bOrdered By: Remi Miller on 04-11-2025 GFR/1.73 sq M.predicted among non-blacks MDRD (S/P/Bld) [Vol rate/Area] 109 mL/min/{1.73_m2} >60 [facility] Comment on above: mL/min/1.73m2 CKD-EP I Creatinine Equation (2020) Hematocrit Auto (Bld) [Volum e fraction]Ordered By: Remi Miller on 04-11-2025 Hematocrit (Bld) [Volume fraction] 33.7 % Low 37-47 [facility] Hemoglobin measurementOrdere d By: Remi Miller on 04-11-2025 Hemoglobin (Bld) [Mass/Vol] 11.2 g/dL Low 12.0-15.0 [facility] LDL calc ser/plasOrdered By: Remi Miller on 04-11-2025 Cholesterol in LDL [Mass/Vol] 44 mg/dL [facility] Comment on above: Ezydxshzci=540-492 m g/dL & Higher Hnkc=670 mg/dL or greater Lipid Profileon 04-11-2025 CHOL:HDL 1.[address] [facility] Comment on above: Performed By: #### L 501.2276 #### [facility] Laboratory [address] [place], [place], [id number] (862) Cholesterol [Mass/Vol] 131 mg/dL Normal <=200 [facility] Comment on above: Result Comment: Chol esterol level, Desirable <200 mg/dL Borderline high cholesterol 200-239 mg/dL High cholesterol >=240 mg/dL Recommendations of the NCEP Adult Treatment Panel for the following risk-cutoff thresholds for the [place] population. Performed By: #### L 501.2276 #### [facility] Laboratory [address] [place], [place], [id number] (560) Cholesterol in HDL [Mass/Vol] 76 mg/dL Normal [facility] Comment on above: Result Comment: Myrna onal Cholesterol Education Program (NCEP) guidelines: <40 mg/dL: Low HDL-cholesterol (major risk factor for CHD) >= 60 mg/dL: High HDL-cholesterol (negative risk factor for CHD) HDL-cholesterol is affected by a number of factors, e.g. smoking, exercise, hormones, sex and age. Performed By: #### L 501.2276 #### [facility] Laboratory [address] [place], [address] Cholesterol in LDL [Mass/Vol] 44 mg/dL Normal [facility] Comment on above: Result Comment: Bord wjjfgp=598-006 mg/dL Higher Ghfs=216 mg/dL or greater Performed By: #### L 501.2276 #### [facility] Laboratory [address] [place], [address] Cholesterol in VLDL [Mass/Vol] 11 mg/dL Normal 5-40 [facility] Comment on above: Performed By: #### L 501.2276 #### [facility] Laboratory [address] [place], [place], [address] Triglyceride [Mass/Vol] 57 mg/dL Normal [facility] Comment on above: Result Comment: The drugs N-Acetylcysteine and Metamizole may falsely depress this assay. Normal range: <150 mg/dL Borderline High: 150-199 mg/dL High: 200-499 mg/dL Very High: >500 mg/dL Performed By: #### L 501.2276 #### [facility] Laboratory [address] [facility] [address] [place], [place], [address] MCV (mean corpuscular volume ) determinationOrdered By: Remi Miller on 04-11-2025 MCV (RBC) [Entitic vol] 90.6 fL 81-99 [facility] Mean corpuscular hemoglobin (MCH) determinationOrdered By: Remi Miller on 04-11-2025 MCH (RBC) [Entitic mass] 30.1 pg 27.0-32.0 [facility] Mean corpuscular hemoglobin concentration (MCHC) determinationOrdered By: Remi Miller on 04-11-2025 MCHC (RBC) [Mass/Vol] 33.2 g/dL 32-36 [facility] Mean platelet volume determi nationOrdered By: Remi Miller on 04-11-2025 Platelet mean volume (Bld) [Entitic vol] 10.4 fL 6.2-12.0 [facility] Platelet countOrdered By: Pooja Miller on 04-11-2025 Platelets (Bld) [#/Vol] 154 10*3/uL 150-450 [facility] Potassium measurement (mass/ volume)Ordered By: Remi Miller on 04-11-2025 Potassium (Unsp spec) [Mass/Vol] 3.9 mmol/L 3.3-5.1 [facility] RBC Auto (Bld) [#/Vol]Ordere d By: Remi Miller on 04-11-2025 RBC (Bld) [#/Vol] 3.72 10*6/uL Low 4.2-5.4 [facility] Screening total cholesterol/ high density lipoprotein (HDL) cholesterol ratioOrdered By: Remi Miller on 04-11-2025 Cholesterol.total/Shazia sterol in HDL [Mass ratio] 1.73 {ratio} [facility] Serum creatinine measurement (mass/volume)Ordered By: Remi Miller on 04-11-2025 Creatinine [Mass/Vol] 0.62 mg/dL Low 0.70-1.20 [facility] Serum glucose measurement (m ass/volume)Ordered By: Remi Miller on 04-11-2025 Glucose [Mass/Vol] 82 mg/dL 70-99 [facility] Serum or plasma calcium erick urement (mass/volume)Ordered By: Remi Miller on 04-11-2025 Calcium [Mass/Vol] 9.9 mg/dL 7.6-11.0 [facility] Serum or plasma cholesterol in HDL measurement (mass/volume)Ordered By: Remi Miller on 04-11-2025 Cholesterol in HDL [Mass/Vol] 76 mg/dL >40 [facility] Comment on above: National Cholesterol Education Program (NCEP) guidelines:<40 mg/dL: Low HDL-cholesterol (major risk factor for CHD)>= 60 mg/dL: High HDL-cholesterol (negative risk factor for CHD)HDL-cholesterol is affected by a number of factors, e.g. smoking, exercise, hormones, sex and age. Serum or plasma cholesterol measurement (mass/volume)Ordered By: Remi Miller on 04-11-2025 Cholesterol [Mass/Vol] 131 mg/dL <201 [facility] Comment on above: Cholesterol level, D esirable <200 mg/dLBorderline high cholesterol 200-239 mg/dLHigh cholesterol >=240 mg/dLRecommendations of the NCEP Adult Treatment Panel for the following risk-cutoff thresholds for the [place] population. Serum or plasma urea nitroge n measurement (mass/volume)Ordered By: Remi Miller on 04-11-2025 Urea nitrogen [Mass/Vol] 11 mg/dL 4-19 [facility] Sodium levelOrdered By: Neena Miller on 04-11-2025 Sodium [Moles/Vol] 140 mmol/L 133-145 [facility] Stress Reporton 04-11-2025 Stress Report [facility] [address] [place] [address] MR#: [id number] Acct: [id number] Name: MAHNAZ KINSEY Rep #: [id number] : 1975 50 From: Trevor Salguero MD Primary Care: Dr. Manfred Alvarez MD Status: ADM VALERIE Referring Dr: Chele Bonner DO Sex: F C Stress Test Report Date: 04/11/2025 Procedure: Exercise tolerance test/imaging study Indications: Chest pain Consent: Per the patient Procedure: The patient exercised on a Bernardo protocol for 8 minutes achieving a peak heart rate of 169 bpm (98% predicted maximal heart rate) with a peak blood pressure 170/68 mmHg and a peak MET capacity of 10.1 METs. The baseline ECG demonstrated sinus rhythm with nonspecific ST changes. The peak exercise ECG was nondiagnostic secondary to baseline abnormality. There were no cardiac dysrhythmias pretest, during exercise, or recovery. The functional capacity was considered very good. There was no complaint of chest discomfort during exercise or recovery. The examination was discontinued secondary to target heart rate being achieved. The patient was injected with 11.3 mCi of technetium 99m Cardiolite and subsequently rest SPECT Cardiolite nuclear imaging was obtained in the horizontal long, vertical long, and short axis views. Post-exercise, the patient was injected with 32.9 mCi of technetium 99m Cardiolite and subsequently stress SPECT Cardiolite nuclear imaging was obtained in the horizontal long, vertical long, and short axis views. A gated Cardiolite study at peak stress was obtained. Rest and stress SPECT Cardiolite nuclear imaging status post realignment, normalization, and attenuation correction, demonstrates the appearance of relative uniform tracer uptake and myocardial perfusion appearing within normal limits. There is end systolic thickening and brightening. The gated Cardiolite study demonstrates myocardial thickening and inward wall motion. The reported LVEF is 59%. Impression: 1. Technically adequate (percent predicted maximal heart rate greater than 85%) exercise tolerance test 2. Peak exercise ECG nondiagnostic secondary to baseline abnormality. No chest pain reported. Negative exercise stress for angina. 3. There were no cardiac dysrhythmias pretest, during exercise, or recovery 4. Rest and stress SPECT Cardiolite nuclear imaging demonstrate relative uniform tracer uptake and myocardial perfusion appearing within normal limits. 5. The gated Cardiolite study reports an LVEF of 59%. This note was generated with DigitalVision dictation software. It may contain incorrect words, spelling, and punctuation that were not noted in checking the note before signing. 04/11/251305 Date Trevor Salguero MD CC: Dr. Manfred Alvarez MD; Dr. Remi Miller MD; Dr. Chele Bonner, Date Dictated: 04/11/251303 Date Transcribed: 04/11/251303 Maid Supervisor: RAYMOND Signed Normal [facility] TSH DL <= 0.005 mIU/L QnOrde red By: Remi Miller on 04-11-2025 TSH Qn 3.140 uIU/mL 0.300-4.200 [facility] Thyroid Stim Hormone (TSH)on 04-11-2025 TSH 3.140 uIU/mL Normal 0.300-4.200 [facility] Comment on above: Performed By: #### L 501.2276 #### [facility] Laboratory [address] [place], [place] [address], [address] Triglycerides measurementOrd ered By: Remi Miller on 04-11-2025 Triglyceride [Mass/Vol] 57 mg/dL <199 [facility] Comment on above: The drugs N-Acetylcy steine and Metamizole may falsely depress this assay. Normal range: <150 mg/dLBorderline High: 150-199 mg/dLHigh: 200-499 mg/dLVery High: >500 mg/dL White blood cell (WBC) count Ordered By: Remi Miller on 04-11-2025 WBC (Bld) [#/Vol] 4.7 10*3/uL 4.4-11.0 [facility] 24 hour urine calcium measur ement (mass/volume)Ordered By: Manfred Alvarez on 04-10-2025 Calcium (24H U) [Mass/Vol] 16.3 mg/dL Not Estab. [facility] Comment on above: Performed at: - [facility] [address] [id number] Director: Juan Sanchez PhD, Phone: [phone] Abdomen/Pelvis W IV Cont ONL Yon 04-10-2025 Abdomen/Pelvis W IV Cont ONLY [facility] Imaging Services [address] [place] [address] Abdomen/Pelvis W IV Cont ONLY MR#: [id number] Acct: [id number] Name: MAHNAZ KINSEY Rep #: [id number] : 1975 F 50 From: Amandeep morris MD PCP: Dr. Manfred Alvarez MD Status: REG ER Study: Abdomen/Pelvis W IV Cont ONLY Date of Exam: Exam# [id number] Ordering Dr: Chele Bonner DO PROCEDURE: ABDOMEN/PELVIS W IV CONT [...] 6.2 cm by 8.6 cm heterogeneous mass in the pelvis. This may represent a large pedunculated [...] excluded. Correlation with ultrasound recommended. Reading Location: [id number] CC: Dr. Manfred Alvarez MD; Dr. Chele Bonner DO Maid Supervisor: Signed Normal [facility] Absolute lymphocyte countOrd ered By: Chele Bonner on 04-10-2025 Lymphocytes Auto (Unsp spec) [#/Vol] 1.70 10*3/uL 0.83-4.51 [facility] Absolute neutrophil countOrd ered By: Chele Bonner on 04-10-2025 Neutrophils (Bld) [#/Vol] 3.9 10*3/uL 2.0-7.7 [facility] Anion gap in Serum or Plasma Ordered By: Chele Bonner on 04-10-2025 Anion gap [Moles/Vol] 10 mmol/L 5-15 [facility] Automated lymphocyte count a s percentage of total leukocytesOrdered By: Chele Bonner on 04-10-2025 Lymphocytes/100 WBC Auto (Unsp spec) 26.9 % 19-41 [facility] BUN/creatinine ratioOrdered By: Chele Bonner on 04-10-2025 Urea nitrogen/Creatinine [Mass ratio] 25.1 mg/mg High 10-20 [facility] Basic Metabolic Profile (BMP )on 04-10-2025 BUN/CRE 25.1 RATIO High 10- [facility] Comment on above: Performed By: #### L 500.2500, L500.3400, L501.2450 #### [facility] [address] [place], [place], [address] Calcium [Mass/Vol] 10.3 mg/dL Normal 7.6-11.0 [facility] Comment on above: Performed By: #### L 500.2500, L500.3400, L501.2450 #### [facility] [address], [address] Chloride [Moles/Vol] 107 mmol/L Normal 98-108 [facility] Comment on above: Performed By: #### L 500.2500, L500.3400, L501.2450 #### [facility] [address] [place], [address] CO2 [Moles/Vol] 20.9 mmol/L Low 21.0-32.0 [facility] Comment on above: Performed By: #### L 500.2500, L500.3400, L501.2450 #### [facility] [address] [place], [address] Creatinine [Mass/Vol] 0.64 mg/dL Low 0.70-1.20 [facility] Comment on above: Performed By: #### L 500.2500, L500.3400, L501.2450 #### [facility] [address] [place], [address] ECRCL 109.37 ml/min Normal 50-250 [facility] Comment on above: Performed By: #### L 500.2500, L500.3400, L501.2450 #### [facility] [address] [place], [address] GAP 10 Normal 5-15 [facility] Comment on above: Performed By: #### L 500.2500, L500.3400, L501.2450 #### [facility] [address] [place], [address] GFR/1.73 sq M.predicted among non-blacks MDRD (S/P/Bld) [Vol rate/Area] 108 mL/min/{1.73_m2} Normal >60 [facility] Comment on above: Result Comment: mL/m in/1.73m2 CKD-EPI Creatinine Equation (2020) Performed By: #### L 500.2500, L500.3400, L501.2450 #### [facility] [address] [place], [address] Glucose [Mass/Vol] 83 mg/dL Normal 70-99 [facility] Comment on above: Performed By: #### L 500.2500, L500.3400, L501.2450 #### [facility] [address] [place], [address] Potassium [Moles/Vol] 4.3 mmol/L Normal 3.3-5.1 [facility] Comment on above: Result Comment: Hemo lysis present, Results??could be affected. ?? Performed By: #### L 500.2500, L500.3400, L501.2450 #### [facility] [address] [place], [address] Sodium [Moles/Vol] 139 mmol/L Normal 133-145 [facility] Comment on above: Performed By: #### L 500.2500, L500.3400, L501.2450 #### [facility] [address] [place], [address] Urea nitrogen [Mass/Vol] 16 mg/dL Normal 4-19 [facility] Comment on above: Performed By: #### L 500.2500, L500.3400, L501.2450 #### [facility] [address] [place], [address] Basophil percentageOrdered B y: Chele Bonner on 04-10-2025 Basophils/100 WBC (Bld) 0.5 % 0-1 [facility] Bilirubin directOrdered By: Chele Bonner on 04-10-2025 Bilirubin.direct [Mass/Vol] 0.16 mg/dL 0.00-0.30 [facility] Comment on above: Hemolysis present, R esults could be affected. Bilirubin, totalOrdered By: Chele Bonner on 04-10-2025 Bilirubin [Mass/Vol] 0.47 mg/dL 0.00-1.30 [facility] CBC W/Diff, Automatedon 06-2 -2024 Absolute Lymph 1.70 X10 3/uL Normal 0.83-4.51 [facility] Comment on above: Performed By: #### L 509.1000, L506.1000 #### [facility] [address] [place], [address] Absolute Neut 3.9 X10 3/uL Normal 2.0-7.7 [facility] Comment on above: Performed By: #### L 509.1000, L506.1000 #### [facility] [address] [place], [address] Basophils/100 WBC (Bld) 0.5 % Normal 0-1 [facility] Comment on above: Performed By: #### L 509.1000, L506.1000 #### [facility] [address] [place], [address] Eosinophils/100 WBC (Bld) 0.0 % Normal 0-5 [facility] Comment on above: Performed By: #### L 509.1000, L506.1000 #### [facility] [address] [place], [address] Erythrocyte distribution width (RBC) [Ratio] 12.2 % Normal 11.6-14.6 [facility] Comment on above: Performed By: #### L 509.1000, L506.1000 #### [facility] [address] [place], [address] Hematocrit (Bld) [Volume fraction] 40.8 % Normal 37-47 [facility] Comment on above: Performed By: #### L 509.1000, L506.1000 #### [facility] [address] [place], [address] Hemoglobin (Bld) [Mass/Vol] 13.3 g/dL Normal 12.0-15.0 [facility] Comment on above: Performed By: #### L 509.1000, L506.1000 #### [facility] [address] [place], [address] IG% 0.200 Normal 0.0-0.9 [facility] Comment on above: Result Comment: IG% - Immature Granulocytes (promyelocytes, myelocytes and metamyelocytes) > 1% indicates that a LEFT SHIFT is Present. Performed By: #### L 509.1000, L506.1000 #### [facility] [address] [place], [address] Lymphocytes/100 WBC (Bld) 26.9 % Normal 19-41 [facility] Comment on above: Performed By: #### L 509.1000, L506.1000 #### [facility] [address] [place], [address] MCH (RBC) [Entitic mass] 30.4 pg Normal 27.0-32.0 [facility] Comment on above: Performed By: #### L 509.1000, L506.1000 #### [facility] [address] [place], [address] MCHC (RBC) [Mass/Vol] 32.6 g/dL Normal 32-36 [facility] Comment on above: Performed By: #### L 509.1000, L506.1000 #### [facility] [address] [place], [address] MCV (RBC) [Entitic vol] 93.2 fL Normal 81-99 [facility] Comment on above: Performed By: #### L 509.1000, L506.1000 #### [facility] [address] [place], [address] Monocytes/100 WBC (Bld) 10.3 % High 0-10 [facility] Comment on above: Performed By: #### L 509.1000, L506.1000 #### [facility] [address] [place], [address] Neutrophils/100 WBC (Bld) 62.1 % Normal 47-70 [facility] Comment on above: Performed By: #### L 509.1000, L506.1000 #### [facility] [address] [place], [address] Nucleated RBC (Bld) [#/Vol] 0 10*3/uL Normal 0-5 [facility] Comment on above: Performed By: #### L 509.1000, L506.1000 #### [facility] [address] [place], [address] Platelet mean volume (Bld) [Entitic vol] 10.2 fL Normal 6.2-12.0 [facility] Comment on above: Performed By: #### L 509.1000, L506.1000 #### [facility] [address] [place], [address] Platelets (Bld) [#/Vol] 189 10*3/uL Normal 150-450 [facility] Comment on above: Performed By: #### L 509.1000, L506.1000 #### [facility] [address] [place], [address] RBC (Bld) [#/Vol] 4.38 10*6/uL Normal 4.2-5.4 [facility] Comment on above: Performed By: #### L 509.1000, L506.1000 #### [facility] [address] [place], [address] RDW SD 42.3 fl Normal 35.1-43.9 [facility] Comment on above: Performed By: #### L 509.1000, L506.1000 #### [facility] [address] [place], [address] WBC (Bld) [#/Vol] 6.3 10*3/uL Normal 4.4-11.0 [facility] Comment on above: Performed By: #### L 509.1000, L506.1000 #### [facility] [address] [place], [address] CTA Chest W/WO Contraston CTA Chest W/WO Contrast [facility] Imaging Services [address] [place] [address] CTA Chest W/WO Contrast MR#: [id number] Acct: [id number] Name: MAHNAZ KINSEY Rep #: [id number] : 1975 F 50 From: Amandeep morris MD PCP: Dr. Manfred Alvarez MD Status: REG ER Study: CTA Chest W/WO Contrast Date of Exam: 04/10/25 Exam# [id number] Ordering Dr: Chele Bonner DO PROCEDURE: CTA CHEST W/WO CONTRAST [...] No acute abnormality is seen. Reading Location: [id number] CC: Dr. Manfred Alvarez MD; Dr. Chele Bonner DO Maid Supervisor: Signed Normal [facility] Calcium, Urine 24HRon 2024 24HR UR Calcium Normal 42.0-353.0 [facility] Comment on above: Result Comment: ORDE RED 24 HOUR URINE. NO 24 HOUR URINE COLLECTED. CHANGED TO RANDOM URINE CA TEST Performed By: #### L 509.1000, L506.1000 #### [facility] [address] [place], [address] Calcium UR pH Normal [facility] Comment on above: Result Comment: ORDE RED 24 HOUR URINE. NO 24 HOUR URINE COLLECTED. CHANGED TO RANDOM URINE CA TEST Performed By: #### L 509.1000, L506.1000 #### [facility] [address] [place], [address] UR Collect Time Normal 24.0-24.0 [facility] Comment on above: Result Comment: ORDE RED 24 HOUR URINE. NO 24 HOUR URINE COLLECTED. CHANGED TO RANDOM URINE CA TEST Performed By: #### L 509.1000, L506.1000 #### [facility] [address] [place], [address] UR Total Volume Normal [facility] Comment on above: Result Comment: ORDE RED 24 HOUR URINE. NO 24 HOUR URINE COLLECTED. CHANGED TO RANDOM URINE CA TEST Performed By: #### L 509.1000, L506.1000 #### [facility] [address] [place], [address] Urine Calcium Normal Not Estab. [facility] Comment on above: Result Comment: ORDE RED 24 HOUR URINE. NO 24 HOUR URINE COLLECTED. CHANGED TO RANDOM URINE CA TEST Performed By: #### L 509.1000, L506.1000 #### [facility] [address] [place], [address] Carbon dioxide, total [Moles /volume] in Central venous bloodOrdered By: Chele Bonner on 04-10-2025 CO2 [Moles/Vol] 20.9 mmol/L Low 21.0-32.0 [facility] Chest PA and Lateralon 04-10 Chest PA and Lateral [facility] Imaging Services [address] [place] [address] Chest PA and Lateral MR#: [id number] Acct: [id number] Name: MAHNAZ KINSEY Rep #: [id number] : 1975 F 50 From: Amandeep morris MD PCP: Dr. Manfred lAvarez MD Status: REG ER Study: Chest PA and Lateral Date of Exam: 04/10/25 Exam# [id number] Ordering Dr: Chele Bonenr DO PROCEDURE: CHEST PA AND LATERAL 04/10/2025 [...] No acute abnormality is seen. Reading Location: [facility] CC: Dr. Manfred Alvarez MD; Dr. Chele Bonner DO Maid Supervisor: Signed Normal [facility] Chloride assayOrdered By: Joey Bonner on 04-10-2025 Chloride [Moles/Vol] 107 mmol/L 98-108 [facility] Emergency Department Summary on 04-10-2025 Emergency Department Summary [facility] Medical Records Department [address] [place] [address] Emergency Department Summary 04/10/25 MR#: [id number] Acct: [id number] Name: MAHNAZ KINSEY Rep #: [id number] : 1975 50 From: Chele Bonner DO PCP: Dr. Manfred Alvarez MD Status:REG ER Location: ED HPI History of Present Illness Chief Complaint: Abd Pain Narrative Narrative: Patient is a 50-year-old female with past medical history of hypertension, NSTEMI in 2019, asthma who presented to the emergency department chief complaint of epigastric discomfort. States that she was sitting down watching TV when she noted that she developed discomfort in her epigastric [...] Patient states that she was having a 24-hour urine test performed as her calcium level was noted to be high and her doctor is concerned that she has hyperparathyroidism. Patient has numerous travel history denies a history of blood clots. Patient in triage note stated that she was dizzy after further questioning about the dizziness she is not dizzy she was lightheaded. [facility] Medical History Asthma Anemia History of non-ST elevation myocardial infarction (NSTEMI) (09/20/19) Essential (primary) hypertension Nicotine dependence Obesity Atherosclerosis of coronary artery of ute heart without angina pectoris Home Medications ???Medication ???Instructions ???Recorded ???Last Taken ???Type cyanocobalamin (vitamin B-12) 1,000 mcg IM QMONTH 02/13/24 Unkno wn History 1,000 mcg/mL injection solution semaglutide 0.25 mg or 0.5 mg (2 0.25 mg subcut QWEEK 02/13/2403/17 History mg/3 mL) subcutaneous pen injector bupropion HCl 150 mg 24 hr tablet, 150 mg PO QAM #90 tabs 04/08/25 04/10/25 Rx extended release (Wellbutrin XL) [...] 3 current occupational status: employed 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 Normal [facility] Eosinophil percentageOrdered By: Chele Bonner on 04-10-2025 Eosinophils/100 WBC (Bld) 0.0 % 0-5 [facility] Erythrocyte distribution wid th ratioOrdered By: Chele Bonner on 04-10-2025 Erythrocyte distribution width (RBC) [Ratio] 12.2 % 11.6-14.6 [facility] Erythrocyte distribution wid th standard deviationOrdered By: Chele Bonner on 04-10-2025 Erythrocyte distribution width (RBC) [Ratio] 42.3 fl 35.1-43.9 [facility] Glomerular filtration rate ( GFR) estimation/1.73 sq m using serum, plasma, or whole bOrdered By: Chele Bonner on 04-10-2025 GFR/1.73 sq M.predicted among non-blacks MDRD (S/P/Bld) [Vol rate/Area] 108 mL/min/{1.73_m2} >60 [facility] Comment on above: mL/min/1.73m2 CKD-EP I Creatinine Equation (2020) H AND P Exam - [facility] 04-10-2025 H&P Exam - Hospitalist [facility] Medical Records Department [address] [place] [address] H P Exam - Hospitalist 04/10/25 1704 MR#: [id number] Acct: [id number] Name: MAHNAZ KINSEY Rep #: [id number] : 1975 50 From: Remi Miller MD PCP: Dr. Manfred Alvarez MD Status:ADM VALERIE Location: [address] - General General Date of Admission: 04/10/25 Date of Service: 04/10/25 Chief Complaint: Epigastric abdominal pain, 40 minutes experienced dizziness sweating and at times nausea. HPI Narrative MAHNAZ KINSEY, is a 50 F with history of MD with elevated troponin at the age of [...] troponins are normal. ED physician talked to nurses educator and advised a stress test tomorrow. She has history of hypertension and overweight BMI 28.4 kg/m???. History of smoking at the age of 17 with 1 pack lasting 3 days quit at the age of 44. Her grandparent had bypass surgery but denies coronary artery disease in her parents. Her father had no hypertension. CRUZ risk score 1. Patient had CT abdomen and chest were discussed in assessment and plan. [facility] Medical History Asthma Anemia History of non-ST elevation myocardial infarction (NSTEMI) (09/20/19) Essential (primary) hypertension Nicotine dependence Obesity Atherosclerosis of coronary artery of ute heart without angina pectoris Home Medications ???Medication ???Instructions ???Recorded ???Last Taken ???Type cyanocobalamin (vitamin B-12) 1,000 mcg IM QMONTH 02/13/24 Unkno wn History 1,000 mcg/mL injection solution semaglutide 0.25 mg or 0.5 mg (2 0.25 mg subcut QWEEK 02/13/24 0601/07 History mg/3 mL) subcutaneous pen injector bupropion HCl 150 mg 24 hr tablet, 150 mg PO QAM #90 tabs 04/08/25 04/10/25 Rx extended release (Wellbutrin XL) [...] 3 current occupational status: employed current occupation: [employer] pets and animals: Yes (1) pets and [...] and no addt'l complaints, except as documented Rest 14 ROS are negative except as mentioned in HPI Vital Signs Vital Signs Vital Signs: (more content not included)... Normal [facility] Hematocrit Auto (Bld) [Volum e fraction]Ordered By: Chele Bonner on 04-10-2025 Hematocrit (Bld) [Volume fraction] 40.8 % 37-47 [facility] Hemoglobin measurementOrdere d By: Chele Bonner on 04-10-2025 Hemoglobin (Bld) [Mass/Vol] 13.3 g/dL 12.0-15.0 [facility] Immature granulocytes/100 WB C Auto (Bld)Ordered By: Chele Bonner on 04-10-2025 Immature granulocytes/100 WBC (Bld) 0.200 % 0.0-0.9 [facility] Comment on above: IG% - Immature Granu locytes (promyelocytes, myelocytes and metamyelocytes) > 1% indicates that a LEFT SHIFT is Present. L499.0042on 04-10-2025 Trop T High Sen < 6 Normal <=14 [facility] Comment on above: Performed By: #### L 509.1000, L506.1000 #### [facility] Laboratory [address], [address] L499.0043on 04-10-2025 Trop T High Sen < 6 Normal <=14 [facility] Comment on above: Performed By: #### L 501.2276 #### [facility] [address] [place], [address] Trop T High Sen Normal <=14 [facility] Comment on above: Result Comment: Canjeff elluday via OM: Ordered Performed By: #### L 501.2276 #### [facility] [address] [place], [address] L501.4021on 04-10-2025 Trop T High Sen < 6 Normal <=14 [facility] Comment on above: Performed By: #### L 509.1000, L506.1000 #### [facility] [address] [place], [address] Laboratory - Chemistry and C hemistry - challengeOrdered By: Chele Bonner on 04-10-2025 AST [Catalytic activity/Vol] 20 U/L <32 [facility] Comment on above: Hemolysis present, R esults could be affected. Lipaseon 04-10-2025 Lipase [Catalytic activity/Vol] 25 U/L Normal 13-75 [facility] Comment on above: Result Comment: George vieyra note: LIPASE revised reference range effective 23. New Lipase methodology. Expected to produce lower values than the previous assay method. NEW Reference Range: 13 - 75 U/L Performed By: #### L 500.2500, L500.3400, L501.2450 #### [facility] [address] [place], [address] Lipase measurementOrdered By : Chele Bonner on 04-10-2025 Lipase [Catalytic activity/Vol] 25 U/L 13-75 [facility] Comment on above: Please note:LIPASE r evised reference range effective 23. New Lipase methodology. Expected to produce lower values than the previous assay method. NEW Reference Range: 13 - 75 U/L Liver Profileon 04-10-2025 Albumin [Mass/Vol] 4.1 g/dL Normal 3.5-5.0 [facility] Comment on above: Performed By: #### L 500.2500, L500.3400, L501.2450 #### [facility] [address] [place], [address] ALK PHOS 70 U/L Normal 35-104 [facility] Comment on above: Performed By: #### L 500.2500, L500.3400, L501.2450 #### [facility] [address] [place], [address] ALT [Catalytic activity/Vol] 10 U/L Normal <=34 [facility] Comment on above: Performed By: #### L 500.2500, L500.3400, L501.2450 #### [facility] [address] [place], [address] AST [Catalytic activity/Vol] 20 U/L Normal <=31 [facility] Comment on above: Result Comment: Hemo lysis present, Results??could be affected. ?? Performed By: #### L 500.2500, L500.3400, L501.2450 #### [facility] [address] [place], [address] Bilirubin [Mass/Vol] 0.47 mg/dL Normal 0.00-1.30 [facility] Comment on above: Performed By: #### L 500.2500, L500.3400, L501.2450 #### [facility] [address] [place], [address] Bilirubin.direct [Mass/Vol] 0.16 mg/dL Normal 0.00-0.30 [facility] Comment on above: Result Comment: Hemo lysis present, Results??could be affected. ?? Performed By: #### L 500.2500, L500.3400, L501.2450 #### [facility] [address] [place], [address] Globulin (S) [Mass/Vol] 2.4 g/dL Normal 2.2-4.2 [facility] Comment on above: Performed By: #### L 500.2500, L500.3400, L501.2450 #### [facility] [address] [place], [address] T PROT 6.5 g/dL Normal 5.9-8.4 [facility] Comment on above: Performed By: #### L 500.2500, L500.3400, L501.2450 #### [facility] [address] [place], [address] MCV (mean corpuscular volume ) determinationOrdered By: Chele Bonner on 04-10-2025 MCV (RBC) [Entitic vol] 93.2 fL 81-99 [facility] Magnesiumon 04-10-2025 Magnesium [Mass/Vol] 1.9 mg/dL Normal 1.5-2.2 [facility] Comment on above: Performed By: #### L 501.2276 #### [facility] [address] [place], [address] Magnesium measurement (mass/ volume)Ordered By: Remi Miller on 04-10-2025 Magnesium (Unsp spec) [Mass/Vol] 1.9 mg/dL 1.5-2.2 [facility] Mean corpuscular hemoglobin (MCH) determinationOrdered By: Chele Bonner on 04-10-2025 MCH (RBC) [Entitic mass] 30.4 pg 27.0-32.0 [facility] Mean corpuscular hemoglobin concentration (MCHC) determinationOrdered By: Chele Bonner on 04-10-2025 MCHC (RBC) [Mass/Vol] 32.6 g/dL 32-36 [facility] Mean platelet volume determi nationOrdered By: Chele Bonner on 04-10-2025 Platelet mean volume (Bld) [Entitic vol] 10.2 fL 6.2-12.0 [facility] Monocyte percentageOrdered B y: Chele Bonner on 04-10-2025 Monocytes/100 WBC (Bld) 10.3 % High 0-10 [facility] Neutrophil percentageOrdered By: Chele Bonner on 04-10-2025 Neutrophils/100 WBC (Bld) 62.1 % 47-70 [facility] Nucleated red blood cell per centageOrdered By: Chele Bonner on 04-10-2025 Nucleated RBC/100 WBC (Bld) [Ratio] 0 % 0-5 [facility] Platelet countOrdered By: Joey Bonner on 04-10-2025 Platelets (Bld) [#/Vol] 189 10*3/uL 150-450 [facility] Potassium measurement (mass/ volume)Ordered By: Chele Bonner on 04-10-2025 Potassium (Unsp spec) [Mass/Vol] 4.3 mmol/L 3.3-5.1 [facility] Comment on above: Hemolysis present, R esults could be affected. RBC Auto (Bld) [#/Vol]Ordere d By: Chele Bonner on 04-10-2025 RBC (Bld) [#/Vol] 4.38 10*6/uL 4.2-5.4 [facility] Serum creatinine measurement (mass/volume)Ordered By: Chele Bonner on 04-10-2025 Creatinine [Mass/Vol] 0.64 mg/dL Low 0.70-1.20 [facility] Serum globulin measurementOr dered By: Chele Bonner on 04-10-2025 Globulin (S) [Mass/Vol] 2.4 g/dL 2.2-4.2 [facility] Serum glucose measurement (m ass/volume)Ordered By: Chele Bonner on 04-10-2025 Glucose [Mass/Vol] 83 mg/dL 70-99 [facility] Serum or plasma alanine roy otransferase (ALT) measurementOrdered By: Chele Bonner on 04-10-2025 ALT [Catalytic activity/Vol] 10 U/L <35 [facility] Serum or plasma albumin erick urement (mass/volume)Ordered By: Chele Bonner on 04-10-2025 Albumin [Mass/Vol] 4.1 g/dL 3.5-5.0 [facility] Serum or plasma alkaline yolie sphatase measurementOrdered By: Chele Bonner on 04-10-2025 ALP [Catalytic activity/Vol] 70 U/L 35-104 [facility] Serum or plasma calcium erick urement (mass/volume)Ordered By: Chele Bonner on 04-10-2025 Calcium [Mass/Vol] 10.3 mg/dL 7.6-11.0 [facility] Serum or plasma urea nitroge n measurement (mass/volume)Ordered By: Chele Bonner on 04-10-2025 Urea nitrogen [Mass/Vol] 16 mg/dL 4-19 [facility] Sodium levelOrdered By: Hortencia Bonner on 04-10-2025 Sodium [Moles/Vol] 139 mmol/L 133-145 [facility] Total proteinOrdered By: Daisy Bonner on 04-10-2025 Protein [Mass/Vol] 6.5 g/dL 5.9-8.4 [facility] Troponin T.cardiac [Mass/vol ume] in Serum or Plasma by High sensitivity methodOrdered By: Remi Miller on 04-10-2025 Troponin T.cardiac High sensitivity method [Mass/Vol] < 6 ng/L <14 [facility] Troponin T.cardiac [Mass/vol ume] in Serum or Plasma by High sensitivity methodOrdered By: Chele Bonner on 04-10-2025 Troponin T.cardiac High sensitivity method [Mass/Vol] < 6 ng/L <14 [facility] Troponin T.cardiac High sensitivity method [Mass/Vol] < 6 ng/L <14 [facility] White blood cell (WBC) count Ordered By: Chele Bonner on 04-10-2025 WBC (Bld) [#/Vol] 6.3 10*3/uL 4.4-11.0 [facility] PTHINon 04-09-2025 PTH 84 pg/mL High 11-61 [facility] Comment on above: Order Comment: CAM Epperson ADD PTH TO H129 FROM 04-08-25 Performed By: #### L 500.2500 #### [facility] [address] [place], [address] Absolute lymphocyte countOrd ered By: Manfred Alvarez on 04-08-2025 Lymphocytes Auto (Unsp spec) [#/Vol] 2.51 10*3/uL 0.83-4.51 [facility] Absolute neutrophil countOrd ered By: Manfred Alvarez on 04-08-2025 Neutrophils (Bld) [#/Vol] 2.5 10*3/uL 2.0-7.7 [facility] Anion gap in Serum or Plasma Ordered By: Manfred Alvarez on 04-08-2025 Anion gap [Moles/Vol] 13 mmol/L 5-15 [facility] Automated lymphocyte count a s percentage of total leukocytesOrdered By: Manfred Alvarez on 04-08-2025 Lymphocytes/100 WBC Auto (Unsp spec) 45.7 % High 19-41 [facility] BUN/creatinine ratioOrdered By: Manfred Alvarez on 04-08-2025 Urea nitrogen/Creatinine [Mass ratio] 22.3 mg/mg High 10-20 [facility] Basophil percentageOrdered B y: Manfred Alvarez on 04-08-2025 Basophils/100 WBC (Bld) 0.4 % 0-1 [facility] Bilirubin, totalOrdered By: Manfred Alvarez on 04-08-2025 Bilirubin [Mass/Vol] 0.61 mg/dL 0.00-1.30 [facility] CBC W/Diff, Automatedon 03-17 Absolute Lymph 2.51 X10 3/uL Normal 0.83-4.51 [facility] Comment on above: Performed By: #### L 509.1000, L506.1000 #### [facility] [address] [place], [address] Absolute Neut 2.5 X10 3/uL Normal 2.0-7.7 [facility] Comment on above: Performed By: #### L 509.1000, L506.1000 #### [facility] [address] [place], [address] Basophils/100 WBC (Bld) 0.4 % Normal 0-1 [facility] Comment on above: Performed By: #### L 509.1000, L506.1000 #### [facility] [address] [place], [address] Eosinophils/100 WBC (Bld) 0.0 % Normal 0-5 [facility] Comment on above: Performed By: #### L 509.1000, L506.1000 #### [facility] [address] [place], [address] Erythrocyte distribution width (RBC) [Ratio] 12.3 % Normal 11.6-14.6 [facility] Comment on above: Performed By: #### L 509.1000, L506.1000 #### [facility] [address] [place], [address] Hematocrit (Bld) [Volume fraction] 40.2 % Normal 37-47 [facility] Comment on above: Performed By: #### L 509.1000, L506.1000 #### [facility] [address] [place], [address] Hemoglobin (Bld) [Mass/Vol] 13.4 g/dL Normal 12.0-15.0 [facility] Comment on above: Performed By: #### L 509.1000, L506.1000 #### [facility] [address] [place], [address] IG% 0.200 Normal 0.0-0.9 [facility] Comment on above: Result Comment: IG% - Immature Granulocytes (promyelocytes, myelocytes and metamyelocytes) > 1% indicates that a LEFT SHIFT is Present. Performed By: #### L 509.1000, L506.1000 #### [facility] [address] [place], [address] Lymphocytes/100 WBC (Bld) 45.7 % High 19-41 [facility] Comment on above: Performed By: #### L 509.1000, L506.1000 #### [facility] [address] [place], [address] MCH (RBC) [Entitic mass] 30.8 pg Normal 27.0-32.0 [facility] Comment on above: Performed By: #### L 509.1000, L506.1000 #### [facility] [address] [place], [address] MCHC (RBC) [Mass/Vol] 33.3 g/dL Normal 32-36 [facility] Comment on above: Performed By: #### L 509.1000, L506.1000 #### [facility] [address] [place], [address] MCV (RBC) [Entitic vol] 92.4 fL Normal 81-99 [facility] Comment on above: Performed By: #### L 509.1000, L506.1000 #### [facility] [address] [place], [address] Monocytes/100 WBC (Bld) 8.6 % Normal 0-10 [facility] Comment on above: Performed By: #### L 509.1000, L506.1000 #### [facility] [address] [place], [address] Neutrophils/100 WBC (Bld) 45.1 % Low 47-70 [facility] Comment on above: Performed By: #### L 509.1000, L506.1000 #### [facility] [address] [place], [address] Nucleated RBC (Bld) [#/Vol] 0 10*3/uL Normal 0-5 [facility] Comment on above: Performed By: #### L 509.1000, L506.1000 #### [facility] [address] [place], [address] Platelet mean volume (Bld) [Entitic vol] 10.5 fL Normal 6.2-12.0 [facility] Comment on above: Performed By: #### L 509.1000, L506.1000 #### [facility] [address] [place], [address] Platelets (Bld) [#/Vol] 219 10*3/uL Normal 150-450 [facility] Comment on above: Performed By: #### L 509.1000, L506.1000 #### [facility] [address] [place], [address] RBC (Bld) [#/Vol] 4.35 10*6/uL Normal 4.2-5.4 [facility] Comment on above: Performed By: #### L 509.1000, L506.1000 #### [facility] [address] [place], [address] RDW SD 41.9 fl Normal 35.1-43.9 [facility] Comment on above: Performed By: #### L 509.1000, L506.1000 #### [facility] [address] [place], [address] WBC (Bld) [#/Vol] 5.5 10*3/uL Normal 4.4-11.0 [facility] Comment on above: Performed By: #### L 509.1000, L506.1000 #### [facility] [address] [place], [address] Calculated very low density lipoprotein (VLDL) cholesterol measurementOrdered By: Manfred Alvarez on 04-08-2025 Calculated very low density lipoprotein (VLDL) cholesterol measurement 13 mg/dL 5-40 [facility] Carbon dioxide, total [Moles /volume] in Central venous bloodOrdered By: Manfred Alvarez on 04-08-2025 CO2 [Moles/Vol] 24.9 mmol/L 21.0-32.0 [facility] Chloride assayOrdered By: Connor Alvarez on 04-08-2025 Chloride [Moles/Vol] 104 mmol/L 98-108 [facility] Comprehensive Metabolic Prof ilon 04-08-2025 Albumin [Mass/Vol] 4.5 g/dL Normal 3.5-5.0 [facility] Comment on above: Performed By: #### L 509.1000, L506.1000 #### [facility] [address] [place], [address] Albumin/Globulin [Mass ratio] 1.8 {ratio} Normal 0.9-2.4 [facility] Comment on above: Performed By: #### L 509.1000, L506.1000 #### [facility] [address] [place], [address] ALK PHOS 71 U/L Normal 35-104 [facility] Comment on above: Performed By: #### L 509.1000, L506.1000 #### [facility] [address] [place], [address] ALT [Catalytic activity/Vol] 12 U/L Normal <=34 [facility] Comment on above: Performed By: #### L 509.1000, L506.1000 #### [facility] [address] [place], [address] AST [Catalytic activity/Vol] 15 U/L Normal <=31 [facility] Comment on above: Performed By: #### L 509.1000, L506.1000 #### [facility] [address] [place], [address] Bilirubin [Mass/Vol] 0.61 mg/dL Normal 0.00-1.30 [facility] Comment on above: Performed By: #### L 509.1000, L506.1000 #### [facility] [address] [place], [address] BUN/CRE 22.3 RATIO High 10-20 [facility] Comment on above: Performed By: #### L 509.1000, L506.1000 #### [facility] [address] [place], [address] Calcium [Mass/Vol] 11.1 mg/dL High 7.6-11.0 [facility] Comment on above: Performed By: #### L 509.1000, L506.1000 #### [facility] [address] [place], [address] Chloride [Moles/Vol] 104 mmol/L Normal 98-108 [facility] Comment on above: Performed By: #### L 509.1000, L506.1000 #### [facility] [address] [place], [address] CO2 [Moles/Vol] 24.9 mmol/L Normal 21.0-32.0 [facility] Comment on above: Performed By: #### L 509.1000, L506.1000 #### [facility] [address] [place], [address] Creatinine [Mass/Vol] 0.70 mg/dL Normal 0.70-1.20 [facility] Comment on above: Performed By: #### L 509.1000, L506.1000 #### [facility] [address] [place], [address] GAP 13 Normal 5-15 [facility] Comment on above: Performed By: #### L 509.1000, L506.1000 #### [facility] [address] [place], [address] GFR/1.73 sq M.predicted among non-blacks MDRD (S/P/Bld) [Vol rate/Area] 105 mL/min/{1.73_m2} Normal >60 [facility] Comment on above: Result Comment: mL/m in/1.73m2 CKD-EPI Creatinine Equation (2020) Performed By: #### L 509.1000, L506.1000 #### [facility] [address] [place], [address] Globulin (S) [Mass/Vol] 2.5 g/dL Normal 2.2-4.2 [facility] Comment on above: Performed By: #### L 509.1000, L506.1000 #### [facility] [address] [place], [address] Glucose [Mass/Vol] 80 mg/dL Normal 70-99 [facility] Comment on above: Performed By: #### L 509.1000, L506.1000 #### [facility] [address] [place], [address] Potassium [Moles/Vol] 3.6 mmol/L Normal 3.3-5.1 [facility] Comment on above: Performed By: #### L 509.1000, L506.1000 #### [facility] [address] [place], [address] Sodium [Moles/Vol] 142 mmol/L Normal 133-145 [facility] Comment on above: Performed By: #### L 509.1000, L506.1000 #### [facility] [address] [place], [address] T PROT 7.0 g/dL Normal 5.9-8.4 [facility] Comment on above: Performed By: #### L 509.1000, L506.1000 #### [facility] [address] [place], [address] Urea nitrogen [Mass/Vol] 16 mg/dL Normal 4-19 [facility] Comment on above: Performed By: #### L 509.1000, L506.1000 #### [facility] [address] [place], [address] Eosinophil percentageOrdered By: Manfred Alvarez on 04-08-2025 Eosinophils/100 WBC (Bld) 0.0 % 0-5 [facility] Erythrocyte distribution wid th ratioOrdered By: Manfred Alvarez on 04-08-2025 Erythrocyte distribution width (RBC) [Ratio] 12.3 % 11.6-14.6 [facility] Erythrocyte distribution wid th standard deviationOrdered By: Manfred Alvarez on 04-08-2025 Erythrocyte distribution width (RBC) [Ratio] 41.9 fl 35.1-43.9 [facility] Glomerular filtration rate ( GFR) estimation/1.73 sq m using serum, plasma, or whole bOrdered By: Manfred Alvarez on 04-08-2025 GFR/1.73 sq M.predicted among non-blacks MDRD (S/P/Bld) [Vol rate/Area] 105 mL/min/{1.73_m2} >60 [facility] Comment on above: mL/min/1.73m2 CKD-EP I Creatinine Equation (2020) Hematocrit Auto (Bld) [Volum e fraction]Ordered By: Manfred Alvarez on 04-08-2025 Hematocrit (Bld) [Volume fraction] 40.2 % 37-47 [facility] Hemoglobin measurementOrdere d By: Manfred Alvarez on 04-08-2025 Hemoglobin (Bld) [Mass/Vol] 13.4 g/dL 12.0-15.0 [facility] Immature granulocytes/100 WB C Auto (Bld)Ordered By: Manfred Alvarez on 04-08-2025 Immature granulocytes/100 WBC (Bld) 0.200 % 0.0-0.9 [facility] Comment on above: IG% - Immature Granu locytes (promyelocytes, myelocytes and metamyelocytes) > 1% indicates that a LEFT SHIFT is Present. LDL calc ser/plasOrdered By: Manfred Alvarez on 04-08-2025 Cholesterol in LDL [Mass/Vol] 64 mg/dL [facility] Comment on above: Jqqflhjtnk=044-006 m g/dL & Higher Lbep=756 mg/dL or greater Laboratory - Chemistry and C hemistry - challengeOrdered By: Manfred Alvarez on 04-08-2025 AST [Catalytic activity/Vol] 15 U/L <32 [facility] Lipid Profileon 04-08-2025 CHOL:HDL 1.[address] [facility] Comment on above: Performed By: #### L 509.1000, L506.1000 #### [facility] [address] [place], [address] Cholesterol [Mass/Vol] 177 mg/dL Normal <=200 [facility] Comment on above: Result Comment: Chol esterol level, Desirable <200 mg/dL Borderline high cholesterol 200-239 mg/dL High cholesterol >=240 mg/dL Recommendations of the NCEP Adult Treatment Panel for the following risk-cutoff thresholds for the [place] population. Performed By: #### L 509.1000, L506.1000 #### [facility] [address] [place], [address] Cholesterol in HDL [Mass/Vol] 100 mg/dL Normal [facility] Comment on above: Result Comment: Myrna onal Cholesterol Education Program (NCEP) guidelines: <40 mg/dL: Low HDL-cholesterol (major risk factor for CHD) >= 60 mg/dL: High HDL-cholesterol (negative risk factor for CHD) HDL-cholesterol is affected by a number of factors, e.g. smoking, exercise, hormones, sex and age. Performed By: #### L 509.1000, L506.1000 #### [facility] [address] [place], [address] Cholesterol in LDL [Mass/Vol] 64 mg/dL Normal [facility] Comment on above: Result Comment: Bord johgiv=408-021 mg/dL Higher Cuyx=209 mg/dL or greater Performed By: #### L 509.1000, L506.1000 #### [facility] [address] [place], [address] Cholesterol in VLDL [Mass/Vol] 13 mg/dL Normal 5-40 [facility] Comment on above: Performed By: #### L 509.1000, L506.1000 #### [facility] [address] [place], [address] Triglyceride [Mass/Vol] 64 mg/dL Normal [facility] Comment on above: Result Comment: The drugs N-Acetylcysteine and Metamizole may falsely depress this assay. Normal range: <150 mg/dL Borderline High: 150-199 mg/dL High: 200-499 mg/dL Very High: >500 mg/dL Performed By: #### L 509.1000, L506.1000 #### [facility] [address] [place], [address] MCV (mean corpuscular volume ) determinationOrdered By: Manfred Alvarez on 04-08-2025 MCV (RBC) [Entitic vol] 92.4 fL 81-99 [facility] Mean corpuscular hemoglobin (MCH) determinationOrdered By: Mafnred Alvarez on 04-08-2025 MCH (RBC) [Entitic mass] 30.8 pg 27.0-32.0 [facility] Mean corpuscular hemoglobin concentration (MCHC) determinationOrdered By: Manfred Alvarez on 04-08-2025 MCHC (RBC) [Mass/Vol] 33.3 g/dL 32-36 [facility] Mean platelet volume determi nationOrdered By: Manfred Alvarez on 04-08-2025 Platelet mean volume (Bld) [Entitic vol] 10.5 fL 6.2-12.0 [facility] Monocyte percentageOrdered B y: Manfred Alvarez on 04-08-2025 Monocytes/100 WBC (Bld) 8.6 % 0-10 [facility] Neutrophil percentageOrdered By: Manfred Alvarez on 04-08-2025 Neutrophils/100 WBC (Bld) 45.1 % Low 47-70 [facility] Nucleated red blood cell per centageOrdered By: Manfred Alvarez on 04-08-2025 Nucleated RBC/100 WBC (Bld) [Ratio] 0 % 0-5 [facility] Platelet countOrdered By: Connor Alvarez on 04-08-2025 Platelets (Bld) [#/Vol] 219 10*3/uL 150-450 [facility] Potassium measurement (mass/ volume)Ordered By: Manfred Alvarez on 04-08-2025 Potassium (Unsp spec) [Mass/Vol] 3.6 mmol/L 3.3-5.1 [facility] RBC Auto (Bld) [#/Vol]Ordere d By: Manfred Alvarez on 04-08-2025 RBC (Bld) [#/Vol] 4.35 10*6/uL 4.2-5.4 [facility] Screening total cholesterol/ high density lipoprotein (HDL) cholesterol ratioOrdered By: Manfred Alvarez on 04-08-2025 Cholesterol.total/Shazia sterol in HDL [Mass ratio] 1.78 {ratio} [facility] Serum creatinine measurement (mass/volume)Ordered By: Manfred Alvarez on 04-08-2025 Creatinine [Mass/Vol] 0.70 mg/dL 0.70-1.20 [facility] Serum globulin measurementOr dered By: Manfred Alvarez on 04-08-2025 Globulin (S) [Mass/Vol] 2.5 g/dL 2.2-4.2 [facility] Serum glucose measurement (m ass/volume)Ordered By: Manfred Alvarez on 04-08-2025 Glucose [Mass/Vol] 80 mg/dL 70-99 [facility] Serum or plasma alanine roy otransferase (ALT) measurementOrdered By: Manfred Alvarez on 04-08-2025 ALT [Catalytic activity/Vol] 12 U/L <35 [facility] Serum or plasma albumin erick urement (mass/volume)Ordered By: Manfred Alvarez on 04-08-2025 Albumin [Mass/Vol] 4.5 g/dL 3.5-5.0 [facility] Serum or plasma albumin/glob ulin mass ratioOrdered By: Manfred Alvarez on 04-08-2025 Albumin/Globulin [Mass ratio] 1.8 {ratio} 0.9-2.4 [facility] Serum or plasma alkaline yolie sphatase measurementOrdered By: Manfred Alvarez on 04-08-2025 ALP [Catalytic activity/Vol] 71 U/L 35-104 [facility] Serum or plasma calcium erick urement (mass/volume)Ordered By: Manfred Alvarez on 04-08-2025 Calcium [Mass/Vol] 11.1 mg/dL High 7.6-11.0 [facility] Serum or plasma cholesterol in HDL measurement (mass/volume)Ordered By: Manfred Alvarez on 04-08-2025 Cholesterol in HDL [Mass/Vol] 100 mg/dL >40 [facility] Comment on above: National Cholesterol Education Program (NCEP) guidelines:<40 mg/dL: Low HDL-cholesterol (major risk factor for CHD)>= 60 mg/dL: High HDL-cholesterol (negative risk factor for CHD)HDL-cholesterol is affected by a number of factors, e.g. smoking, exercise, hormones, sex and age. Serum or plasma cholesterol measurement (mass/volume)Ordered By: Manfred Alvarez on 04-08-2025 Cholesterol [Mass/Vol] 177 mg/dL <201 [facility] Comment on above: Cholesterol level, D esirable <200 mg/dLBorderline high cholesterol 200-239 mg/dLHigh cholesterol >=240 mg/dLRecommendations of the NCEP Adult Treatment Panel for the following risk-cutoff thresholds for the [place] population. Serum or plasma urea nitroge n measurement (mass/volume)Ordered By: Manfred Alvarez on 04-08-2025 Urea nitrogen [Mass/Vol] 16 mg/dL 4-19 [facility] Sodium levelOrdered By: Linwood Alvarez on 04-08-2025 Sodium [Moles/Vol] 142 mmol/L 133-145 [facility] Total proteinOrdered By: Sherman Alvarez on 04-08-2025 Protein [Mass/Vol] 7.0 g/dL 5.9-8.4 [facility] Triglycerides measurementOrd ered By: Manfred Alvarez on 04-08-2025 Triglyceride [Mass/Vol] 64 mg/dL <199 [facility] Comment on above: The drugs N-Acetylcy steine and Metamizole may falsely depress this assay. Normal range: <150 mg/dLBorderline High: 150-199 mg/dLHigh: 200-499 mg/dLVery High: >500 mg/dL Vitamin B12on 04-08-2025 Cobalamin (Vitamin B12) [Mass/Vol] 353 pg/mL Normal 180-914 [facility] Comment on above: Performed By: #### L 500.2500 #### [facility] [address] [place], [place], [address] Vitamin B12 ser/plasOrdered By: Manfred Alvarez on 04-08-2025 Cobalamin (Vitamin B12) [Mass/Vol] 353 pg/mL 180-914 [facility] Vitamin D,25 Hydroxyon 04-08 Vitamin D 25-OH 33.1 ng/mL Normal 30-100 [facility] Comment on above: Result Comment: Stephanie min D Status Deficiency: <20 ng/mL (50nmol/L) Insufficiency: 20-30 ng/mL (50-75 nmol/L) Sufficiency: 30-100 ng/mL (75-250 nmol/L) Toxicity: >100 ng/mL (>250 nmol/L) Performed By: #### L 500.2500 #### [facility] [address] [place], [place], [address] White blood cell (WBC) count Ordered By: Manfred Alvarez on 04-08-2025 WBC (Bld) [#/Vol] 5.5 10*3/uL 4.4-11.0 [facility] Internal Medicine Office Vis iton 04-07-2025 Internal Medicine Office Visit [facility] [address] [place], [place] [address] OFFICE VISIT Date of Service: 04/08/25 MR#: [id number] Acct: [id number] Name: MAHNAZ KINSEY Rep #: [id number] : 1975 Provider: Dr. Manfred brady MD Age/Sex: 50/F Location: [facility] Status: Signed Intake Vital Signs 12/03/24 13:51 04/08/25 07:34 Height 5 ft 5 in 5 ft 5 in Weight: 181 lb BMI 30.1 BP 124/80 H Blood Pressure Location Lt brachial Position Sitting Respiration 16 Pulse 70 Pulse Source Monitor Temp 97.9 F Temp Source Temporal Pulse Oximetry (%) 98 Oxygen Delivery Method room air Intake Visit Reasons: 4 M FU Workday Director Required: No Is patient in pain?: No [...] have enough oomph unless she has to. [facility] Medical History Asthma Anemia History of non-ST elevation myocardial infarction (NSTEMI) (09/20/19) Essential (primary) hypertension Nicotine dependence Obesity Atherosclerosis of coronary artery of ute heart without angina pectoris Surgical History History [...] 3 current occupational status: employed current occupation: [employer] - pets and animals: Yes (1) pets [...] you feel safe at home: Yes Questionnaire PQH-9 BMS Over the last 2 weeks, how [...] and colleagues, with an educational kori from [employer]. DONALD-7 BMS DONALD-7 Feeling nerv (more content not included)... Normal [facility] Internal Medicine Office Vis iton 12-02-2024 Internal Medicine Office Visit [facility] [address] [place] [address] [place] [address] OFFICE VISIT Date of Service: 12/03/24 MR#: [id number] Acct: [id number] Name: MAHNAZ KINSEY Rep #: [id number] : 1975 Provider: Dr. Manfred brady MD Age/Sex: 49/F Location: [facility] Status: Signed Intake Vital Signs 10/20/24 13:25 [...] ON SEMAGLUTIDE Chief Complaint: fu on semaglutide Workday Director Required: No Accompanied by: Self Is patient [...] past year?: No (needs refill on b-12) [facility] Medical History Asthma Anemia History of non-ST elevation myocardial infarction (NSTEMI) (09/20/19) Essential (primary) hypertension Nicotine dependence Obesity Atherosclerosis of coronary artery of ute heart without angina pectoris Surgical History History of breast augmentation History of tonsillectomy History of gastric bypass History of left heart catheterization (09/20/19) Family History (Updated 12/03/24 @ 14:[address] Manfred Alvarez MD) Mother Hyperlipidemia Father Alcoholism Grandfather Myocardial infarction Parkinson disease Grandmother COPD (chronic obstructive pulmonary disease) Uncle Cancer Aunt Brain aneurysm Aunt Brain aneurysm Aunt Brain aneurysm Other CVA (cerebral vascular accident) Hypertension Social History (Updated 12/03/24 @ 14:[address] Manfred Alvarez MD) adopted: No household members: spouse number of children: 3 current occupational status: employed current occupation: [employer] pets and animals: Yes (1) pets and [...] HPI Chief Complaint: fu on semaglutide Details: MHANAZ KINSEY, is a 49 F who presents [...] or pa (more content not included)... Normal [facility] Urgent Care Visit Reporton 0 10-21-2024 Urgent Care Visit Report [facility] [address], [address] [place] [address] OFFICE VISIT Date of Service: 10/21/24 MR#: [id number] Acct: [id number] Name: MAHNAZ KINSEY Rep #: [id number] : 1975 Provider: OSBALDO Huntley Age/Sex: 49/F Location: [facility] Status: Signed Intake Vital Signs 07/16/24 09:53 [...] THROAT/SINUS/COUGH/FEV ER/CHILLS Chief Complaint: sore throat/sinus/cough/fev er/chills Workday Director Required: No Is patient in pain?: No [...] chills x3 days. Ran mally covid/flu test. [facility] Medical History Asthma Anemia History of non-ST elevation myocardial infarction (NSTEMI) (09/20/19) Essential (primary) hypertension Nicotine dependence Obesity Atherosclerosis of coronary artery of ute heart without angina pectoris Surgical History History [...] 3 current occupational status: employed current occupation: [employer] - pets and animals: Yes (1) pets [...] shortness of breath or dyspnea on exertion. Biii-bdm-mrpwqys Mucinex and Tylenol taken to assist. Several [...] both ey (more content not included)... Normal [facility] Calcium, Urine 24HRon 2023 24HR UR Calcium 184.0 mg/24 HR Normal 42.0-353.0 [facility] Comment on above: Performed By: #### L 501.2276 #### [facility] Laboratory [address] [place], [place], [address] Calcium UR pH [address] [facility] Comment on above: Performed By: #### L 501.2276 #### [facility] [address] [place], [address] UR Collect Time 24.0 HR Normal 24.0-24.0 [facility] Comment on above: Performed By: #### L 501.2276 #### [facility] [address] [place], [address] UR Total Volume [address] [facility] Comment on above: Performed By: #### L 501.2276 #### [facility] [address] [place], [address] Urine Calcium 18.4 mg/dL Normal Not Estab. [facility] Comment on above: Performed By: #### L 501.2276 #### [facility] [address] [place], [address] Calcium, Urine 24HRon 2023 24HR UR Calcium Normal 42.0-353.0 [facility] Comment on above: Order Comment: 1700 ML TOTAL VOLUME FOR 24HOURS-SWRIGHT Result Comment: BOBY LLECTED. DROPPED OFF ON 07-23-24 Performed By: #### L 500.7000 #### [facility] [address] [place], [address] Calcium UR pH Normal [facility] Comment on above: Order Comment: 1700 ML TOTAL VOLUME FOR 24HOURS-SWRIGHT Result Comment: BOBY LLECTED. DROPPED OFF ON 07-23-24 Performed By: #### L 500.7000 #### [facility] [address] [place], [address] UR Collect Time Normal 24.0-24.0 [facility] Comment on above: Order Comment: 1700 ML TOTAL VOLUME FOR 24HOURS-SWRIGHT Result Comment: BOBY LLECTED. DROPPED OFF ON 07-23-24 Performed By: #### L 500.7000 #### [facility] [address] [place], [address] UR Total Volume Normal [facility] Comment on above: Order Comment: 1700 ML TOTAL VOLUME FOR 24HOURS-SWRIGHT Result Comment: BOBY LLECTED. DROPPED OFF ON 07-23-24 Performed By: #### L 500.7000 #### [facility] [address] [place], [address] Urine Calcium Normal Not Estab. [facility] Comment on above: Order Comment: 1700 ML TOTAL VOLUME FOR 24HOURS-SWRIGHT Result Comment: BOBY LLECTED. DROPPED OFF ON 07-23-24 Performed By: #### L 500.7000 #### [facility] [address] [place], [address] Comprehensive Metabolic Prof ilon 07-16-2024 Albumin [Mass/Vol] 3.8 g/dL Normal 3.2-5.0 [facility] Comment on above: Performed By: #### L 500.4050 #### [facility] [address] [place], [address] Albumin/Globulin [Mass ratio] 1.3 {ratio} Normal 0.9-2.4 [facility] Comment on above: Performed By: #### L 500.4050 #### [facility] [address] [place], [address] ALK P 75 U/L Normal 45-117 [facility] Comment on above: Performed By: #### L 500.4050 #### [facility] [address] [place], [address] ALT [Catalytic activity/Vol] 15 U/L Normal 13-56 [facility] Comment on above: Performed By: #### L 500.4050 #### [facility] [address] [place], [address] AST [Catalytic activity/Vol] 9 U/L Low 15-37 [facility] Comment on above: Performed By: #### L 500.4050 #### [facility] [address] [place], [address] Bilirubin [Mass/Vol] 0.40 mg/dL Normal 0.20-1.00 [facility] Comment on above: Result Comment: For patients on eltrombopag therapy, use of Dimension [place] TBIL is not recommended. Performed By: #### L 500.4050 #### [facility] [address] [place], [address] BUN/CRE 11.6 RATIO Normal 10-20 [facility] Comment on above: Performed By: #### L 500.4050 #### [facility] [address] [place], [address] CA,Total 10.6 mg/dL High 8.5-10.1 [facility] Comment on above: Performed By: #### L 500.4050 #### [facility] [address] [place], [address] Chloride [Moles/Vol] 108 mmol/L High 98-107 [facility] Comment on above: Performed By: #### L 500.4050 #### [facility] [address] [place], [address] CO2 [Moles/Vol] 26.0 mmol/L Normal 21.0-32.0 [facility] Comment on above: Performed By: #### L 500.4050 #### [facility] [address] [place], [address] Creatinine [Mass/Vol] 0.69 mg/dL Normal 0.55-1.02 [facility] Comment on above: Result Comment: The validity of the calculated GFR GFRAA in patients over 70 years has not been determined. Clinical correlation is essential. Performed By: #### L 500.4050 #### [facility] [address] [place], [address] EST GFR - AA 117 mL/min Normal >60 [facility] Comment on above: Result Comment: Afri can Ghanaian GFR Calc Performed By: #### L 500.4050 #### [facility] [address] [place], [address] GAP 6 Normal 5-15 [facility] Comment on above: Performed By: #### L 500.4050 #### [facility] [address] [place], [address] GFR/1.73 sq M.predicted among non-blacks MDRD (S/P/Bld) [Vol rate/Area] 97 mL/min/{1.73_m2} Normal >60 [facility] Comment on above: Result Comment: Non- GFR Calc Performed By: #### L 500.4050 #### [facility] [address] [place], [address] Globulin (S) [Mass/Vol] 3.0 g/dL Normal 2.2-4.2 [facility] Comment on above: Performed By: #### L 500.4050 #### [facility] [address] [place], [address] Glucose [Mass/Vol] 75 mg/dL Normal 74-106 [facility] Comment on above: Performed By: #### L 500.4050 #### [facility] [address] [place], [address] Potassium [Moles/Vol] 4.3 mmol/L Normal 3.5-5.1 [facility] Comment on above: Performed By: #### L 500.4050 #### [facility] [address] [place], [address] Sodium [Moles/Vol] 141 mmol/L Normal 136-145 [facility] Comment on above: Performed By: #### L 500.4050 #### [facility] [address] [place], [address] T PROT 6.8 g/dL Normal 6.4-8.2 [facility] Comment on above: Performed By: #### L 500.4050 #### [facility] [address] [place], [address] Urea nitrogen [Mass/Vol] 8 mg/dL Normal 7-18 [facility] Comment on above: Performed By: #### L 500.4050 #### [facility] [address] [place], [address] Internal Medicine Office Vis iton 07-16-2024 Internal Medicine Office Visit [facility] [address] [place] [address] [place] [address] OFFICE VISIT Date of Service: 07/16/24 MR#: [id number] Acct: [id number] Name: MAHNAZ KINSEY Rep #: [id number] : 1975 Provider: [facility]MU sexton Age/Sex: 49/F Location: [facility] Status: Signed Intake Vital Signs 06/11/24 09:50 [...] FU FROM LABS Chief Complaint: follow up Workday Director Required: No Accompanied by: Self Is patient [...] 07/12/24 07/16/24 Rx extended release (Wellbutrin XL) PFSH Medical History Asthma Anemia History of non-ST elevation myocardial infarction (NSTEMI) (09/20/19) Essential (primary) hypertension Nicotine dependence Obesity Atherosclerosis of coronary artery of ute heart without angina pectoris Surgical History History [...] 3 current occupational status: employed current occupation: [employer] pets and animals: Yes (1) pets and [...] were stable. She does not take any urmr-zpm-zaywuos calcium or vitamin D supplements. She denies [...] Musc Musculoskeletal (more content not included)... Normal [facility] L501.2276on 07-16-2024 Ionized Calcium 5.50 mg/dL High 4.36-5.20 [facility] Comment on above: Performed By: #### L 501.2276 #### [facility] [address] [place], [place], [address] SCRN MAMM (CAD)W/SHANNON BILATo n 06-25-2024 SCRN MAMM (CAD)W/SHANNON BILAT [facility] Imaging Services [address] [place] [address] SCRN MAMM (CAD)W/SHANNON BILAT MR#: [id number] Acct: [id number] Name: MAHNAZ KINSEY Rep #: [id number] : 1975 F 49 From: Amandeep morris MD PCP: Dr. Manfred Alvarez MD Status: REG CL Study: SCRN MAMM (CAD)W/SHANNON BILAT Date of Exam: 06/16 Exam# [id number] Ordering Dr: Bianca Duran [id number] MAMMOGRAPHY - BILATERAL SCREENING REASON FOR EXAM: [...] delay biopsy of a clinically suspicious abnormality. [id number] Electronically Signed: Amandeep Montana MD at 13:19 EDT , CC: [facility] Duran; Dr. Manfred Alvarez MD Maid Supervisor: Signed Normal [facility] PTHINon 06-13-2024 PTH 68.3 pg/mL Normal 18.4-80.1 [facility] Comment on above: Performed By: #### L 509.1000, L506.1000 #### [facility] [address] [place], [address] Vitamin D,25 Hydroxyon 06-13 Vitamin D 25-OH 32.0 ng/mL Normal [facility] Comment on above: Result Comment: Stephanie min D 25(OH) Status Range Deficiency <20 ng/mL (50nmol/L) Insufficiency 20 - 30 ng/mL (50 - 75 nmol/L) Sufficiency 30 - 100 ng/mL (75 - 250 nmol/L) Toxicity >100 ng/mL (>250 nmol/L) Performed By: #### L 509.1000, L506.1000 #### [facility] [address] [place], [address] Basic Metabolic Profile (BMP )on 06-11-2024 BUN/CRE 16.3 RATIO Normal 10-20 [facility] Comment on above: Performed By: #### L 500.2500 #### [facility] [address] [place], [address] CA,Total 10.7 mg/dL High 8.5-10.1 [facility] Comment on above: Performed By: #### L 500.2500 #### [facility] [address] [place], [address] Chloride [Moles/Vol] 106 mmol/L Normal 98-107 [facility] Comment on above: Performed By: #### L 500.2500 #### [facility] [address] [place], [address] CO2 [Moles/Vol] 30.0 mmol/L Normal 21.0-32.0 [facility] Comment on above: Performed By: #### L 500.2500 #### [facility] [address] [place], [address] Creatinine [Mass/Vol] 0.67 mg/dL Normal 0.55-1.02 [facility] Comment on above: Result Comment: The validity of the calculated GFR GFRAA in patients over 70 years has not been determined. Clinical correlation is essential. Performed By: #### L 500.2500 #### [facility] [address] [place], [address] EST GFR - AA 120 mL/min Normal >60 [facility] Comment on above: Result Comment: Afri can Ghanaian GFR Calc Performed By: #### L 500.2500 #### [facility] [address] [place], [address] GAP 5 Normal 5-15 [facility] Comment on above: Performed By: #### L 500.2500 #### [facility] [address] [place], [address] GFR/1.73 sq M.predicted among non-blacks MDRD (S/P/Bld) [Vol rate/Area] 99 mL/min/{1.73_m2} Normal >60 [facility] Comment on above: Result Comment: Non- GFR Calc Performed By: #### L 500.2500 #### [facility] [address] [place], [address] Glucose [Mass/Vol] 80 mg/dL Normal 74-106 [facility] Comment on above: Performed By: #### L 500.2500 #### [facility] [address] [place], [address] Potassium [Moles/Vol] 4.5 mmol/L Normal 3.5-5.1 [facility] Comment on above: Performed By: #### L 500.2500 #### [facility] [address] [place], [address] Sodium [Moles/Vol] 141 mmol/L Normal 136-145 [facility] Comment on above: Performed By: #### L 500.2500 #### [facility] [address] [place], [address] Urea nitrogen [Mass/Vol] 11 mg/dL Normal 7-18 [facility] Comment on above: Performed By: #### L 500.2500 #### [facility] [address] [place], [address] Internal Medicine Office Vis iton 06-11-2024 Internal Medicine Office Visit [facility] [address] [place] [address] OFFICE VISIT Date of Service: 06/11/24 MR#: [id number] Acct: [id number] Name: MAHNAZ KINSEY Rep #: [id number] : 1975 Provider: [facility] sexton Age/Sex: 49/F Location: [facility] Status: Signed Intake Vital Signs 03/12/24 09:57 [...] 3 M FU Chief Complaint: follow up Workday Director Required: No Accompanied by: Self Is patient [...] 06/11/24 06/11/24 Rx extended release (Wellbutrin XL) [facility] Medical History (Updated 06/11/24 @ 16:27 by GRACE WinslowC) Asthma Anemia History of non-ST elevation myocardial infarction (NSTEMI) (09/20/19) Essential (primary) hypertension Nicotine dependence Obesity Atherosclerosis of coronary artery of ute heart without angina pectoris Surgical History History [...] 3 current occupational status: employed current occupation: [employer] pets and animals: Yes (1) pets and [...] weight is (more content not included)... Normal [facility] Basic Panelon 09-20-2019 Calcium [Mass/Vol] 9.0 mg/dL Normal 8.5-10.1 [facility] Comment on above: Performed By: #### L P8 #### [address] [address] CO2 Blood 22 mEq/L Normal 21-32 [facility] Comment on above: Performed By: #### L P8 #### [address] [address] Creatinine [Mass/Vol] 0.83 mg/dL Normal 0.51-0.95 [facility] Comment on above: Performed By: #### L P8 #### [address] [address] Glucose [Mass/Vol] 97 mg/dL Normal 70-99 [facility] Comment on above: Performed By: #### L P8 #### [facility] [address] [address] Urea nitrogen [Mass/Vol] 27 mg/dL High 7-18 [facility] Comment on above: Performed By: #### L P8 #### [facility] [address] [address] Chloride [Moles/Vol] 109 mmol/L Normal 98-109 [facility] Comment on above: Result Comment: Test ing performed on an [place] i-STAT. Performed By: #### L P8 #### [facility] [address] [address] Potassium [Moles/Vol] 4.1 mmol/L Normal 3.5-4.9 [facility] Comment on above: Result Comment: Test ing performed on an [place] i-STAT. Performed By: #### L P8 #### [place] [address] Sodium [Moles/Vol] 140 mmol/L Normal 138-146 [facility] Comment on above: Result Comment: Test ing performed on an [place] i-STAT. Performed By: #### L P8 #### [place] [address] ECG COMPLETEon 09-20-2019 ECG COMPLETE NAME : OSMAN KINSEY PID : [id number] : 1975 Gender : Female Race : ORD : [id number] Procedure Date : Sep 19 2019 22:53:28 Edit Date : Sep 21 2019 17:15:50 Diagnosis:NORMAL SINUS RHYTHM NORMAL ECG WHEN COMPARED WITH ECG OF 19-SEP-2019 21:55, NO SIGNIFICANT CHANGE WAS FOUND Confirmed by MD LOU VINAYAK ([id number]) on 09/21/2019 5:15:46 PM Ventricular Rate : 64 BPM Atrial Rate : 64 BPM P-R Interval : 158 ms QRS Duration : 94 ms Q-T Interval : 396 ms QTC Calculation(Bazett) : 408 ms P [place] : 34 degrees R [place] : 5 degrees T [place] : 9 degrees Test Reason : Other - [facility] By : MD LOU VINAYAK Edited By : MD LOU VINAYAK Referred By : , Acquired by : Kel Chavira [facility] ED NOTEon 09-20-2019 ED NOTE HNO ID: [id number] Author: Sukh Lyle RN Service: Emergency Medicine Author Type: Registered Nurse Type: ED Notes Filed: 09/19/2019 11:49 PM Note Text: [facility] present at bedside for patient transfer. [facility] ED NOTE HNO ID: [id number] Author: Sukh Lyle RN Service: Emergency Medicine Author Type: Registered Nurse Type: ED Notes Filed: 09/19/2019 11:48 PM Note Text: Clean catch urine specimen obtained and sent. [facility] ED NOTE HNO ID: [id number] Author: Sukh Lyle RN Service: Emergency Medicine Author Type: Registered Nurse Type: ED Notes Filed: 09/19/2019 11:19 PM Note Text: Physician in at bedside at this time with patient. [facility] ED NOTE HNO ID: [id number] Author: Sukh Lyle RN Service: Emergency Medicine Author Type: Registered Nurse Type: ED Notes Filed: 09/19/2019 10:51 PM Note Text: Talked to [facility] Associate Professor Of Psychology, Nuvia @ phone number [phone]. Nuvia stated she will be contacting the hospitalist and give us a call back. [facility] ED NOTE HNO ID: [id number] Author: Sukh Lyle RN Service: Emergency Medicine Author Type: Registered Nurse Type: ED Notes Filed: 09/19/2019 10:58 PM Note Text: Respiratory in at bedside at this time performing an EKG. [facility] ED NOTE HNO ID: [id number] Author: Sukh Lyle RN Service: Emergency Medicine Author Type: Registered Nurse Type: ED Notes Filed: 09/19/2019 10:21 PM Note Text: Radiology at bedside for xray. [facility] ED NOTE HNO ID: [id number] Author: Sukh Lyle RN Service: Emergency Medicine [...] ask questions. Medication(s) include: Aspirin, Nitroquick. Normal [facility] Hemogramon 09-20-2019 Erythrocyte distribution width (RBC) [Ratio] 13.1 % Normal 11.5-15.9 [facility] Comment on above: Performed By: #### L CBC #### [place] [address] Hematocrit (Bld) [Volume fraction] 39.1 % Normal 37.0-47.0 [facility] Comment on above: Performed By: #### L CBC #### [place] [address] Hemoglobin (Bld) [Mass/Vol] 12.7 g/dL Normal 12.0-16.0 [facility] Comment on above: Performed By: #### L CBC #### [place] [address] MCH (RBC) [Entitic mass] 29.7 pg Normal 27.0-31.0 [facility] Comment on above: Performed By: #### L CBC #### [place] [address] MCHC (RBC) [Mass/Vol] 32.5 % Normal 32.0-36.0 [facility] Comment on above: Performed By: #### L CBC #### [address] [address] MCV (RBC) [Entitic vol] 91.4 fL Normal 81.0-99.0 [facility] Comment on above: Performed By: #### L CBC #### [address] [address] Platelet mean volume (Bld) [Entitic vol] 9.9 fL Normal 7.1-10.5 [facility] [facility] Comment on above: Performed By: #### L CBC #### [facility] [address] [place], [place] [address] Platelets (Bld) [#/Vol] 192 thou/cmm Normal 150-400 [facility] Comment on above: Performed By: #### L CBC #### [address] [address] RBC (Bld) [#/Vol] 4.28 mil/cmm Normal 4.20-5.40 [facility] Comment on above: Performed By: #### L CBC #### [address] [address] WBC (Bld) [#/Vol] 8.6 thou/cmm Normal 4.8-10.5 [facility] Comment on above: Performed By: #### L CBC #### [place] [address] MDRD eGFRon 09-20-2019 GFR/1.73 sq M predicted among non-blacks MDRD (S/P/Bld) [Vol rate/Area] mL/min/{1.73_m2} Normal >60mL/min/1.73 m2 [facility] Comment on above: Result Comment: If t he patient is , multiply the result by 1.210. Performed By: #### L GFR #### [place] [address] N-terminal Pro-BNPon 019 Natriuretic peptide B (Bld) [Mass/Vol] 56.9 pg/mL Normal [facility] Comment on above: Result Comment: Norm al Reference Range: Patients <75 yrs old <125pg/ml Patients >=75 yrs old <450 pg/ml Performed By: #### L PBNP #### [place] [id number] Troponin Ion 09-20-2019 Troponin I.cardiac [Mass/Vol] ng/mL Normal <=0.07 [facility] Comment on above: Performed By: #### L TRP #### [place] [id number] Urine HCG, Qual.on 9 Beta HCG ( test) Ql (U) Negative Normal Negative [facility] Comment on above: Performed By: #### L HCG2 #### [facility] [address] [place], [place] [address] Specific [place], Ur 1.020 Normal 1.005-1.030 [facility] Comment on above: Performed By: #### L HCG2 #### [facility] [address] [place], [place] [address] XR CHEST 1V FRONTALon 2018 XR CHEST [...] is recommended within 4 weeks, suspicious appearance. Maid Supervisor: RICHELLE Transcribe Date/Time: Sep 19 2019 10:29P Dictated by : ANGELA JOHNS MD This examination was interpreted and the report reviewed and electronically signed by: ANGELA JOHNS MD on Sep 19 2019 10:30PM EST ACTIONABLE Normal [facility] ECG COMPLETEon 09-19-2019 ECG COMPLETE NAME : OSMAN KINSEY PID : [id number] 1975 Gender : Female Race : ORD : [id number] Procedure Date : Sep 19 2019 21:55:58 Edit Date : Sep 21 2019 17:15:44 Diagnosis:NORMAL SINUS RHYTHM NONSPECIFIC ST-T WAVE CHANGES CANNOT RULE OUT ANTERIOR INFARCT , AGE UNDETERMINED ABNORMAL ECG WHEN COMPARED WITH ECG OF 13-MAR-2018 23:15, INVERTED T WAVES HAVE REPLACED NONSPECIFIC T WAVE ABNORMALITY IN INFERIOR LEADS Confirmed by DASHAMD GARCIA VINAYAK ([id number]) on 09/21/2019 5:15:43 PM Ventricular Rate : 66 BPM Atrial Rate : 66 BPM P-R Interval : 144 ms QRS Duration : 92 ms Q-T Interval : 396 ms QTC Calculation(Bazett) : 415 ms P [place] : 23 degrees R [place] : -1 degrees T [place] : 6 degrees Test Reason : Chest Pain Location : 150 : [place] 5 Overread By : MD LOU VINAYAK Edited By : MD LOU VINAYAK Referred By : , Acquired by : Kel Chavira Normal [facility] ED NOTEon 09-19-2019 ED NOTE HNO ID: [id number] Author: Madeleine (Rn) KINDRA Singh Service: Emergency Medicine Author Type: Registered Nurse Type: ED Notes Filed: 09/19/2019 9:45 PM Note Text: Left side chest burning, left arm aching sensation onset approx 1 hour prior to arrival while watching TV. Pt reports feeling hot and sweaty at onset of symptoms. some intermittent nausea. Normal [facility] ED PROV NOTEon 09-19-2019 ED PROV NOTE HNO ID: [id number] Author: Maxine Silverio DO Service: Emergency Medicine [...] Clinical Impression Clinical Impressions as of Sep 19 2332 Chest pain, unspecified type Pulmonary nodule, 2.9 [...] Patient is agreeable and she is requesting [facility]. Repeat EKG ordered showing NSR at rate of 64 stable from initial EKG, non-specific ST changes, no ST elevation. Time: 1115 pm I spoke with Dr. Patton, hospitalist at [place], I discussed case and results. He is accepting for observation. I discussed observation status and acceptance to [place] with the patient. I again discussed her [...] and Reviewed Rhythm: Normal sinus rhythm Rate: [place]: Normal axis Intervals: Normal NE interval QRS Complex: Normal ST Segment: Nonspecific ST-T changes QT Interval: Normal Compared with Prior: Changed (comment) (nonspecific changes leads III, avF, V3 compared to EKG from March 13, 2018) Interpretation performed by Maxine Silverio DO Disposition The patient was transferred. Transferred to [place]. Condition at disposition is stable. SIGNATURE: DO Maxine Power DO 09/19/19 2334 Normal [facility] HIV 1,2 Ab; p24 Agon 018 HIV 1,2 Ab; p24 Ag NONREACTIVE Normal Nonreactive [facility] Comment on above: Result Comment: Resu lts [...] By: #### H IV4, HEPC, HBSAG, HBSA ####[facility] [id number] [place] [address] Hep B Surface Abon 8 Hep B Surface Ab 89.0 m[IU]/mL Normal [facility] Comment on above: Result Comment: Inte rpretation:<8.0 Non-Reactive8.0-11.9 Equivocal>= 12.0 Ab Detected Performed By: #### H IV4, HEPC, HBSAG, HBSA ####[facility] [address] [place] [address] Hep B Surface Agon 8 Hep B Surface Ag NOT DETECTED Normal Not-Detected [facility] Comment on above: Performed By: #### H IV4, HEPC, HBSAG, HBSA ####[facility] [address] [place] [address] Hep C Antibodyon 04-03-2018 Hep C Antibody NOT DETECTED Normal Not-Detected [facility] Comment on above: Result Comment: Ronel ents with DETECTED Hepatitis C Ab results should have a new specimensubmitted for supplemental testing with a Hepatitis C Quantitative RNA assay(viral load), if clinically indicated. Performed By: #### H IV4, HEPC, HBSAG, HBSA ####[facility] [id number] [place] [address] Vital Signs Date Time Vital Sign Value Performing Clinician Faci lity 04-11-2025 10:48-0400 Body temperature 98.5 [degF] Dr. Manfred Alvarez MD Work Phone: [facility] 04-11-2025 10:48-0400 Diastolic blood pressure 75 mm[Hg] Dr. Manfred Alvarez MD Work Phone: [facility] 04-11-2025 10:48-0400 Heart rate 92 /min Dr. Manfred Alvarez MD Work Phone: [facility] 04-11-2025 10:48-0400 Respiratory rate 16 /min Dr. Manfred Alvarez MD Work Phone: [facility] 04-11-2025 10:48-0400 SaO2% (BldA) [Mass fraction] 95 % Dr. Manfred Alvarez MD Work Phone: [facility] 04-11-2025 10:48-0400 Systolic blood pressure 114 mm[Hg] Dr. Manfred Alvarez MD Work Phone: [facility] 04-10-2025 18:08-0400 Body height 165.[address] Manfred Alvarez MD Work Phone: [facility] 04-10-2025 18:08-0400 Body mass index (BMI) [Ratio] 30 kg/m2 Dr. Manfred Alvarez MD Work Phone: [facility] 04-10-2025 18:08-0400 Body weight [address] Manfred Alvarez MD Work Phone: [facility] 04-10-2025 18:00-0400 Diastolic blood pressure 56 mm[Hg] Dr. Manfred Alvarez MD Work Phone: [facility] 04-10-2025 18:00-0400 Heart rate 61 /min Dr. Manfred Alvarez MD Work Phone: [facility] 04-10-2025 18:00-0400 Respiratory rate 12 /min Dr. Manfred Alvarez MD Work Phone: [facility] 04-10-2025 18:00-0400 SaO2% (BldA) [Mass fraction] 98 % Dr. Manfred Alvarez MD Work Phone: [facility] 04-10-2025 18:00-0400 Systolic blood pressure 122 mm[Hg] Dr. Manfred Alvarez MD Work Phone: [facility] 04-10-2025 17:00-0400 Body temperature 98.8 [degF] Dr. Manfred Alvarez MD Work Phone: [facility] 04-10-2025 11:33-0400 Body height 165.[address] Manfred Alvarez MD Work Phone: [facility] 04-10-2025 11:33-0400 Body mass index (BMI) [Ratio] 28.3 kg/m2 Dr. Manfred Alvarez MD Work Phone: [facility] 04-10-2025 11:33-0400 Body weight 77.[address] Manfred Alvarez MD Work Phone: [facility] 04-08-2025 07:34-0400 Body height 165.[address] Manfred Alvarez MD Work Phone: [facility] 04-08-2025 07:34-0400 Body mass index (BMI) [Ratio] 30.1 kg/m2 Dr. Manfred Alvarez MD Work Phone: [facility] 04-08-2025 07:34-0400 Body temperature 97.9 [degF] Dr. Manfred Alvarez MD Work Phone: [facility] 04-08-2025 07:34-0400 Body weight 82.[address] Manfred Alvarez MD Work Phone: [facility] 04-08-2025 07:34-0400 Diastolic blood pressure 80 mm[Hg] Dr. Manfred Alvarez MD Work Phone: [facility] 04-08-2025 07:34-0400 Heart rate 70 /min Dr. Manfred Alvarez MD Work Phone: [facility] 04-08-2025 07:34-0400 Respiratory rate 16 /min Dr. Manfred Alvarez MD Work Phone: [facility] 04-08-2025 07:34-0400 SaO2% (BldA) [Mass fraction] 98 % Dr. Manfred Alvarez MD Work Phone: [facility] 04-08-2025 07:34-0400 Systolic blood pressure 124 mm[Hg] Dr. Manfred Alvarez MD Work Phone: [facility] Encounters Encounter Date Encounter Type Care Provider Facility Start: 04-29-2025 ambulatory Manfred Alvarez Facility :[facility] Start: 04-17-2025 ambulatory MANFRED ALVAREZ Facility :[id number] Start: 04-17-2025 End: 04-17-2025 ambulatory MANFRED ALVAREZ Facility:[facility] Start: 04-11-2025 Non-patient / Non-visit Dr. Remi Miller MD -[facility] Work Phone: Start: 04-11-2025 Non-patient / Non-visit Dr. Trevor newsome MD -[facility] Start: 04-10-2025 End: 04-11-2025 ambulatory Remi Miller Facility:[facility] Start: 04-10-2025 End: 04-11-2025 Evaluation and management of inpatient Dr. Remi Miller MD -[facility] Work Phone: Start: 04-10-2025 End: 04-11-[address] Manfred Alvarez MD Work Phone: [facility] Work Phone: Start: 04-08-2025 End: 04-08-[address] Manfred Alvarez MD -[facility] Work Phone: Start: 04-08-2025 End: 04-08-[address] Manfred Alvarez MD Work Phone: [facility] Work Phone: Start: 04-08-2025 End: 04-08-2025 ambulatory Manfred Greenbush Facility:[facility] Start: 03-14-2025 ambulatory JAZMINE GARCIA MD [facility] ity:[id number] Start: 12-03-2024 End: 12-03-2024 ambulatory Manfred Kim Facility:[facility] Start: 10-21-2024 End: 10-21-2024 ambulatory Manfred Greenbush Facility:[facility] Start: 07-23-2024 End: 07-23-2024 ambulatory Bianca Ferullo Facility:[facility] Start: 07-18-2024 End: 07-18-2024 ambulatory Bianca Ferullo Facility:[facility] Start: 07-16-2024 End: 07-16-2024 ambulatory Manfred Kim Facility:[facility] Start: 07-16-2024 End: 07-16-2024 ambulatory Bianca Ferullo Facility:[facility] Start: 06-25-2024 End: 06-25-2024 ambulatory Bianca Ferullo Facility:[facility] Start: 06-13-2024 End: 06-13-2024 ambulatory [facility] Facility:[facility] Start: 06-11-2024 End: 06-11-2024 ambulatory Bianca Ferullo Facility:[facility] Start: 06-11-2024 End: 06-11-2024 ambulatory [facility] Facility:[facility] Start: 01-28-2019 Patient encounter procedure [facility] Facility:[facility] Start: 04-02-2018 Emergency department patient visit UNKNOWN PROVIDER [facility] Procedures Date Procedure Procedure Detail Performing Clinician Start: 04-11-2025 Radionuclide imaging of perfusion of myocardium under exercise stress Dr. Manfred Alvarez MD Work Phone: Start: 04-11-[address] Manfred Alvarez MD Work Phone: Start: 04-11-[address] Manfred Alvarez MD Work Phone: Start: 04-10-2025 Computed tomography of abdomen and pelvis with intravenous contrast Dr. Manfred Alvarez MD Work Phone: Start: 04-10-2025 CT angiography of ch est with contrast Dr. Manfred Alvarez MD Work Phone: Start: 04-10-2025 X-ray of chest, PA a nd lateral views Dr. Manfred Alvarez MD Work Phone: Start: 04-10-[address] Manfred Alvarez MD Work Phone: Start: 04-08-[address] Manfred Alvarez MD Work Phone: Start: 04-08-2025 Vitamin D, 25-hydrox y measurement Dr. Manfred Alvarez MD Work Phone: Comment on above: Vitamin D StatusDefi ciency: <20 ng/mL (50nmol/L)Insufficiency: 20-30 ng/mL (50-75 nmol/L)Sufficiency: 30-100 ng/mL (75-250 nmol/L)Toxicity: >100 ng/mL (>250 nmol/L) Plan of Treatment Date Care Activity Detail Author Start: 04-11-2025 Patient discharge [facility] Start: 04-10-2025 End: 04-10-2025 [facility] Start: 04-10-2025 Assessment of risk o f venous thromboembolism [facility] Start: 04-10-2025 Insertion of cathete r into peripheral vein [facility] Start: 04-10-[address] and output [facility] Start: 04-10-[address] [facility] Start: 04-10-[address] [facility] Start: 04-10-2025 Providing care accor ding to standard [facility] Start: 04-10-2025 Tobacco use cessation education [facility] Start: 04-10-2025 Following clinical p athway protocol [facility] Start: 04-10-2025 Verification routine [facility] Start: 04-10-2025 Admission procedure [facility] Start: 04-10-2025 Hospital admission, emergency, from emergency room, medical nature [facility] Start: 04-10-2025 [facility] Start: 04-10-2025 [facility] Start: 04-10-2025 [facility] Start: 04-08-2025 CBC W Auto Different ial panel - Blood [facility] Start: 04-08-2025 Cobalamin (Vitamin B 12) [Mass/volume] in Serum or Plasma [facility] p[facility] Start: 04-08-2025 Comprehensive metabo lic 2000 panel - Serum or Plasma [facility] Start: 04-08-2025 Lipid 1996 panel - Serum or Plasma [facility] Start: 04-08-2025 Vitamin D, 25-hydroxy measurement [facility] Alanine aminotransfe rase [Enzymatic activity/volume] in Serum or Plasma [facility] Albumin [Mass/volume ] in Serum or Plasma [facility] Alkaline phosphatase [Enzymatic activity/volume] in Serum or Plasma [facility] Anion gap in Serum or Plasma [facility] Bilirubin, total measurement [facility] BUN/Creatinine ratio [facility] Calcium [Mass/volume ] in [address] [facility] Calcium [Mass/volume ] in Serum or Plasma [facility] Carbon dioxide, tota l [Moles/volume] in Central venous blood [facility] Cholesterol [Mass/vo lume] in Serum or Plasma [facility] Cholesterol in HDL [ Mass/volume] in Serum or Plasma [facility] Creatinine [Mass/vol ume] in Serum or Plasma [facility] Erythrocyte mean cor puscular volume determination [facility] Glucose [Mass/volume ] in Serum or Plasma [facility] Hematocrit [Volume F raction] of Blood [facility] Hemoglobin [Mass/volume] in Blood [facility] Leukocytes [#/volume] in Blood [facility] Low density lipoprot ein cholesterol measurement [facility] Magnesium measurement [facility] Mean corpuscular hem oglobin concentration determination [facility] Mean corpuscular hem oglobin determination [facility] Measurement of renal function [facility] Neutrophil count [facility] Neutrophil percent d ifferential count [facility] Patient referral [facility] Work Phone: Platelets [#/volume] in Blood [facility] Potassium measurement [facility] Red blood cell count [facility] Red cell distributio n width determination [facility] Serum chloride measurement [facility] Sodium measurement [facility] Total cholesterol:HD L ratio measurement [facility] Total protein measurement [facility] Triglycerides measurement [facility] Urea nitrogen [Mass/ volume] in Serum or Plasma [facility] VLDL cholesterol measurement [facility] Immunizations Immunization Date Immunization Notes Care Provider [facility] 12-03-2024 influenza, injectabl e, madin lani canine kidney, preservative free Dr. Manfred Alvarez MD Work Phone: [facility] 06-30-2021 Covid (Pfizer) Dr. Manfred saunders MD Work Phone: [facility] 06-08-2021 Covid (Pfizer) Dr. Manfred saunders MD Work Phone: [facility] 09-20-2019 influenza, injectabl e, quadrivalent, preservative free Dr. Manfred Alvarez MD Work Phone: [facility] 09-20-2019 Seasonal, quadrivale nt, recombinant, injectable influenza vaccine, preservative free Dr. Manfred Alvarez MD Work Phone: [facility] 09-15-2019 influenza, injectabl e, quadrivalent, preservative free Dr. Manfred Alvarez MD Work Phone: [facility] 07-16-2017 influenza, injectabl e, quadrivalent, preservative free Dr. Manfred Alvarez MD Work Phone: [facility] 02-23-2017 measles, mumps and rubella virus vaccine Dr. Manfred Alvarez MD Work Phone: [facility] 10-01-2014 influenza, injectabl e, quadrivalent, preservative free Dr. Manfred Alvarez MD Work Phone: [facility] 04-10-2013 measles, mumps and rubella virus vaccine Dr. Manfred Alvarez MD Work Phone: [facility] 04-03-2013 tetanus toxoid, redu earl diphtheria toxoid, and acellular pertussis vaccine, adsorbed Dr. Manfred Alvarez MD Work Phone: [facility] Payers Date Payer Category Payer Unknown [id number] 2024 Private Health Insurance [id number] 2008 Self-pay 1975 Unknown [id number] [id number] 59 1975 Unknown [id number] 2.16.840.1.834143.3.579.2.1 59 1975 Unknown [id number] 2.16.840.1.938051.3.579.2.1 59 1975 Unknown [id number] 2.16.840.1.740303.3.579.2.1 59 1975 Unknown [id number] 2.16.840.1.678695.3.579.2.1 59 Unknown [facility] [id number] Unknown Unknown [id number] 2.16.840.1.506207.3.579.2.4 62 Unknown [id number] 2.16.840.1.971049.3.579.2.4 62 Unknown [id number] 2.16.840.1.556950.3.579.2.4 62 Unknown [id number] 2.16.840.1.736941.3.579.2.4 62 Unknown [id number] 2.16.840.1.785278.3.579.2.4 62 Unknown [id number] 2.16.840.1.478720.3.579.2.4 62 Unknown [id number] 2.16.840.1.296147.3.579.2.4 62 Unknown [id number] 2.16.840.1.168047.3.579.2.4 62 Unknown [id number] 2.16.840.1.865684.3.579.2.4 62 Unknown [id number] 2.16.840.1.939082.3.579.2.4 62 Unknown [id number] 2.16.840.1.162760.3.579.2.4 62 Unknown [id number] 2.16.840.1.078333.3.579.2.4 62 Unknown [id number] 2.16.840.1.387900.3.579.2.4 62 Unknown [id number] 2.16.840.1.246903.3.579.2.4 62 Unknown [id number] 2.16.840.1.472975.3.579.2.4 62 Unknown [id number] 2.16.840.1.901475.3.579.2.4 62 Unknown [id number] 2.16.840.1.861090.3.579.2.4 62 Worker's Compensation Social History Date Type Detail Facility Start: 12-03-2024 End: 04-10-2025 Tobacco smoking status NHIS Ex-smoker (finding) [facility] Start: 09-20-2019 Alcohol Alcohol [facility] Start: 09-20-2019 Drugs Drugs [facility] Start: 09-20-2019 Lives Lives [facility] Start: 09-20-2019 Tobacco Use Tobacco Use [facility] Start: 1975 Sex Assigned At Female [facility] Start: 04-10-2025 Tobacco smoking status WYIS Tobacco smoking consumption unknown (finding) [facility] Functional Status Date Assessment Result Facility 04-11-2025 Functional status Ambulates [facility] Work Phone: Mental Status Date Assessment Result Facility 04-11-2025 Cognitive function Voice/Name [facility] Work Phone: Clinical Notes 09-20-2019 to 04-11-2025 Note Date & Type Note Facility 04-11-[address] [facility] 04-11-[address] [facility] 04-11-2025 Note [facility] Medical Records Department [address] [place] [id number] Discharge Summary 04/11/25 1516 MR#: [id number] Acct: [id number] Name: MAHNAZ KINSEY Rep #: [id number] : 1975 50 From: Remi Miller MD PCP: Dr. Manfred Alvarez MD Status:ADM VALEREI Location: [place] [address] Providers Date of Admission: 04/10/25 Date of Discharge: 04/11/25 Primary Care Physician: Dr. Manfred Alvarez MD Reason For Visit: CHEST PAIN, DIAPHORESIS, LIGHTHEADED Diagnosis Discharge Diagnosis (1) Chest pain: Status: Acute Code(s): R07.9 - Chest pain, unspecified Plan This 50-year-old female came to ED [...] 1. Right upper quadrant sonogram also ordered. 04/11: She had treadmill nuclear stress test done which was negative for ischemia. Serial troponins are normal. Right upper quadrant shows fatty liver. Irregular mixed hypoechoic soft tissue density within the gallbladder, radiologist impression possible tumefactive sludge. CBD measuring 8.5 mm. She does not have right upper quadrant tenderness or referred pain to right shoulder. Liver chemistry normal limit, TB 0.47, DB 0.16. Transaminases normal. ALP normal. One explanation might be epigastric pain dyspepsia as she is on semaglutide which slows down gastric emptying and absorption. I advised to follow with [place] surgical associate, Dr. Nuñez for further opinion regarding the abnormal soft tissue mass in the gallbladder CBD dilatation. Lipid profile in normal limit. TSH normal 2. Abnormal CT abdomen pelvis: CT shows slightly distended GB with mild wall thickening. Minimal intrahepatic biliary ductal dilatation. Spleen normal pancreas normal. It also shows 9.6 x 6.2 x 8.6 heterogeneous mass in the pelvis may represent large pedunculated uterine fibroid. Images reviewed and agreed with the findings I advised her to follow up with her established [employer] in about [address] findings. This is not her primary complaint what she came to ED but needs to be taken care of as an outpatient soon. This was explained to the patient. 04/11: Patient made an appointment with Dr. Camarena [employer] on 05/05 for abnormal heterogeneous mass in the uterus. 3. Hypertension: Blood pressure is controlled. Continue [...] catheter, vasopressor and DC shock if needed Discharge medication reconciliation done. Discharge follow-up instructions completed. Discharge process discussed with the patient and all questions were answered to patient's satisfaction. Follow with PCP in 1 to 2 weeks Total time spent, exact 35 minutes on discharge meds reconciliation, examination, coordination of care with nurses and ancillary staff, review of imaging and blood test and discussion with the patient on follow-up instructions. Laboratory Results 04/10/25 12:19: WBC 6.3, RBC 4.38, Hgb 13.3, Hct 40.8, MCV 93.2, MCH 30.4, MCHC 32.6, RDW Std Deviation 42.3, RDW Coeff of Jennifer 12.2, Plt Count 189, MPV 10.2, Immature Gran % (Auto) 0.200, Neut % (Auto) 62.1, Lymph % (Auto) 26.9, Gaston % (Auto) 10.3 H, Eos % (Auto) [...] Troponin T High Sens < 6, Total Protein 6.5, Albumin 4.1, Globulin 2.4, Lipase 25 04/10/25 13:51: Urine pH Cancelled, Urine Collection Time Cancelled, Urine Total Volume Cancelled, Urine Calcium Cancelled, Ur Calcium 24 Hr Cancelled 04/10/25 14:19: Troponin T Hi Sens 2 Hr < 6 04/10/25 : Ur Random Calcium Pending Clinical Impression(s) from Imaging Studies Chest X-Ray 04/10/25 12:29 IMPRESSION: No acute abnormality is seen. Abdomen/Pelvis CT 04/10/25 14:52 IMPRESSION: Slightly distended gallbladder with m (more content not included)... [facility] 04-11-2025 Hospital Discharge instructions Additional Instructions Appointment with Dr. Davis [facility] On April 17 for uterine mass Date of Discharge: 04/11/25 [facility] Work Phone: 04-11-2025 Radiology Diagnostic study note [facility] Imaging Services [address] [place] [id number] Abdomen Limited MR#: [id number] Acct: [id number] Name: MAHNAZ KINSEY Rep #: [id number] : 1975 F 50 From: Irvin Montana MD PCP: Dr. Manfred Alvarez MD Status: ADM VALERIE Study:Abdomen Limited Date of Exam: 03/17 05/09 Exam# [id number] Ordering Dr: Pooja Miller MD PROCEDURE: ABDOMEN LIMITED 04/11/2025 REASON FOR EXAM: EPIGASTRIC PAIN. COMPARISON: CT scan done earlier in the day. FINDINGS: Liver: Diffusely echogenic suggesting fatty infiltration. The liver measures 15.2 cm. Gallbladder: Sludge is seen within the gallbladder lumen. Irregular mixed hypoechoic soft tissue density within the gallbladder. This may represent tumefactive sludge. Common bile duct: Dilated measuring up to 8.5 mm. . Pancreas: Other: Visualized portions of the right kidney are unremarkable. No right upperquadrant ascites. US/Abdomen Limited IMPRESSION: Fatty infiltration of the liver. Soft tissue density seen within the gallbladder lumen as described. This may represent tumefactive sludge. Follow-up recommended. Reading Location: [id number] CC: Dr. Manfred Alvarez MD; Dr. Remi Miller MD ~ Maid Supervisor: Signed [facility] 04-10-2025 History and physi thais note Note Date/Time April 10, 2025 5:29pm [facility] Medical Records Department [address] [place] [address] H&P Exam - Hospitalist 04/10/25 1704 MR#: [id number] Acct: [id number] Name: MAHNAZ KINSEY Rep #:[id number] : 1975 50 From: Remi Sun PCP: Dr. Manfred Alvarez MD Status:ADM VALERIE Location: [place] [address] 1 HPI - General General Date of Admission: 04/10/25 Date of Service: 04/10/25 Chief Complaint: Epigastric abdominal pain, 40 minutes experienced dizziness sweating and at times nausea. HPI Narrative MAHNAZ KINSEY, is a 50 F with history of MD with elevated troponin at the age of [...] troponins are normal. ED physician talked to nurses educator and advised a stress test tomorrow. She [...] chest were discussed in assessment and plan. [facility] Medical History Asthma Anemia History of non-ST elevation myocardial infarction (NSTEMI) (09/20/19) Essential (primary) hypertension Nicotine dependence Obesity Atherosclerosis of coronary artery of ute heart without angina pectoris Home Medications ?Medication [...] 3 current occupational status: employed current occupation: [employer] pets and animals: Yes (1) pets and [...] % (Auto) 62.1, Lymph % (Auto) 26.9, Gaston % (Auto) 10.3 H, Eos % (Auto) [...] No acute abnormality is seen. Reading Location: [id number] Abdomen/Pelvis CT 04/10/25 14:52 IMPRESSION: Slightly distended gallbladder with mild thickening of the gallbladder wall. Minimal intrahepatic biliary ductal dilatation. Correlation with ultrasound recommended. 9.6 cm 6.2 cm 8.6 cm heterogeneous mass in the pelvis as described. This may represent a pedunculated uterine fibroid although a suprapubic pelvic mass can not be excluded. Correlation with ultrasound recommended. Reading Location: [id number] Chest CTA 04/10/25 14:52 IMPRESSION: No evidence of pulmonary embolism. No acute abnormality is seen. Reading Location: [id number] Assessment & Plan Assessment/Plan (1) Chest pain: [...] her to follow up with her established [employer] in about [address] [...] shock if needed Total time spent in [id number]-[id number] encounter in discussion of advanced directive 17 minutes. Laboratory Results 04/10/25 12:19: WBC 6.3, RBC 4.38, Hgb 13.3, Hct 40.8, MCV 93.2, MCH 30.4, MCHC 32.6, RDW Std Deviation 42.3, RDW Coeff of Jennifer 12.2, Plt Count 189, MPV 10.2, Immature Gran % (Auto) 0.200, Neut % (Auto) 62.1, Lymph % (Auto) 26.9, Gaston % (Auto) 10.3 H, Eos % (Auto) [...] excluded. Correlation with ultrasound recommended. Reading Location: [id number] Chest CTA 04/10/25 14:52 IMPRESSION: No evidence of pulmonary embolism. No acute abnormality is seen. Reading Location: [id number] Charges/Coding Visit Charges Inpatient E&M: 18828 Init Hosp L3 Procedures Hospitalists Procedures: 75794 Advncd Care Plan 30 Min 04/10/25 1729 <Electronically signed by Remi Miller MD> Cosigner Signature (if applicable): CC: Dr. Manfred Alvarez MD; Dr. Remi Miller MD~ Signed [facility] Work Phone: 1(738) 518-127806-26-2025 Discharge summary Author Chele Bonner [facility] Note Date/Time April 10, 2025 4:[address] [facility] Medical Records Department [address] [place] [address] Emergency Department Summary 04/10/25 MR#: [id number] Acct: [id number] Name: MAHNAZ KINSEY Rep #:[id number] : 1975 50 From: Chele Bonner DO PCP: Dr. Manfred Alvarez MD Status:REG ER Location: ED HPI [...] she is not dizzy she was lightheaded. [facility] Medical History Asthma Anemia History of non-ST elevation myocardial infarction (NSTEMI) (09/20/19) Essential (primary) hypertension Nicotine dependence Obesity Atherosclerosis of coronary artery of ute heart without angina pectoris Home Medications ?Medication [...] 3 current occupational status: employed current occupation: [employer] pets and animals: Yes (1) pets and [...] follow commands knew that she was at [facility] 2024 Skin: Warm, dry, tact no [...] that she needs to follow-up with her [employer] on this. Patient was reevaluated repeat abdominal exam was performed she has no right upper quadrant tenderness negative Vanegas sign. I reached out to on-call nurses educator Dr. Salguero and he is recommending admissionfor [...] % (Auto) 62.1 Lymph % (Auto) 26.9 Gaston % (Auto) 10.3 H Eos % (Auto) [...] No acute abnormality is seen. Reading Location: [id number] Abdomen/Pelvis CT 04/10/25 14:52 IMPRESSION: Slightly distended gallbladder with mild thickening of the gallbladder wall. Minimal intrahepatic biliary ductal dilatation. Correlation with ultrasound recommended. 9.6 cm 6.2 cm 8.6 cm heterogeneous mass in the pelvis as described. This may represent a pedunculated uterine fibroid although a suprapubic pelvic mass can not be excluded. Correlation with ultrasound recommended. Reading Location: [id number] Chest CTA 04/10/25 14:52 IMPRESSION: No evidence of pulmonary embolism. No acute abnormality is seen. Reading Location: [id number] Discharge Plan Triage Chief Complaint: Abd Pain [...] QAM Qty: 90 0RF Primary Care Provider: Manfred Alvarez Referrals: Manfred Alvarez MD [Primary Care Provider] - Print Language: Puerto Rican Disposition Disposition: Acute Care Hospital [facility] What to do if you have Problems For any increased pain, shortness of breath, bleeding, nausea or vomiting, chestpain, or any unexpected problems, contact your Primary Care Provider. Call [facility] ([phone]) or report to the closest Emergency Room. Call 911 if necessary. 04/10/25 1654 <Electronically signed by Chele Bonner DO> Cosigner Signature (if applicable): CC: Dr. Manfred Alvarez MD ~ Signed [facility] Work Phone: 1(688) 594-611906-26-2025 History and physical note [facility] Medical Records Department [address] [place] [address] H&P Exam - Hospitalist 04/10/25 1704 MR#: [id number] Acct: [id number] Name: MAHNAZ KINSEY Rep #:[id number] : 1975 50 From: Remi Sun PCP: Dr. Manfred Alvarez MD Status:ADM VALERIE Location: [place] [address] HPI - General General Date of Admission: 04/10/25 Date of Service: 04/10/25 Chief Complaint: Epigastric abdominal pain, 40 minutes experienced dizziness sweating and at times nausea. HPI Narrative MAHNAZ KINSEY, is a 50 F with history of MD with elevated troponin at the age of [...] troponins are normal. ED physician talked to nurses educator and advised a stress test tomorrow. She [...] chest were discussed in assessment and plan. [facility] Medical History Asthma Anemia History of non-ST elevation myocardial infarction (NSTEMI) (09/20/19) Essential (primary) hypertension Nicotine dependence Obesity Atherosclerosis of coronary artery of ute heart without angina pectoris Home Medications ?Medication [...] 3 current occupational status: employed current occupation: [employer] - pets and animals: Yes (1) pets [...] % (Auto) 62.1, Lymph % (Auto) 26.9, Gaston % (Auto) 10.3 H, Eos % (Auto) [...] Total Protein6.5, Albumin 4.1, Globulin 2.4, Lipase 25 04/10/25 13:51: Urine pH Cancelled, Urine Collection Time Cancelled, Urine TotalVolume Cancelled, Urine Calcium Cancelled, Ur Calcium 24 Hr Cancelled 04/10/25 14:19: Troponin T Hi Sens 2 Hr < 6 Imaging Radiology Impression Chest X-Ray 04/10/25 12:29 IMPRESSION: No acute abnormality is seen. Reading Location: [facility] Abdomen/Pelvis CT 04/10/25 14:52 IMPRESSION: Slightly distended gallbladder with mild thickening of the gallbladder wall. Minimal intrahepatic biliary ductal dilatation. Correlation with ultrasound recommended. 9.6 cm 6.2 cm 8.6 cm heterogeneous mass in the pelvis as described. This may represent a pedunculated uterine fibroid although a suprapubic pelvic mass can not be excluded. Correlation with ultrasound recommended. Reading Location: [id number] Chest CTA 04/10/25 14:52 IMPRESSION: No evidence of pulmonary embolism. No acute abnormality is seen. Reading Location: [id number] Assessment & Plan Assessment/Plan (1) Chest pain: PLAN: Plan This 50-year-old female came to ED with epigastric pain lasting for about 40 minutes mild nausea and sweating. 1. Epigastric pain/atypical angina equivalent: Patient is being admitted in PCU. 2 serial troponinsare negative. EKG shows nonspecific ST-T changes, sinus [...] her to follow up with her established [employer] in about [address] [...] shock if needed Total time spent in yeyf-fc-utra encounter in discussion of advanced directive 17 minutes. Laboratory Results 04/10/25 12:19: WBC 6.3, RBC 4.38, Hgb 13.3, Hct 40.8, MCV 93.2, MCH 30.4, MCHC 32.6, RDW Std Deviation 42.3, RDW Coeff of Jennifer 12.2, Plt Count 189, MPV 10.2, Immature Gran % (Auto) 0.200, Neut % (Auto) 62.1, Lymph % (Auto) 26.9, Gaston % (Auto) 10.3 H, Eos % (Auto) 0.0, Baso % (Auto) 0.5, Absolute Neuts (auto) 3.9, Absolute Lymphs (auto) 1.70, Nucleated RBC % 0, Sodium 139, Potassium 4.3, Chloride 107, Carbon Dioxide 20.9 L, Anion Gap 10, BUN 16, Creatinine 0.64 L, Estim Creat Clear Calc 109.37, Est GFR (MDRD) Non-Af 108, BUN/Creatinine Ratio 25.1 H, Mnsmmqp41, Calcium 10.3, Total Bilirubin 0.47, Direct Bilirubin 0.16, AST 20, ALT 10, Alkaline Bexznmjjmqw42, Troponin THigh Sens < 6, Total Protein 6.5, Albumin 4.1, Globulin 2.4, Lipase 04/10/25 13:51: [...] Location: ROB Charges/Coding Visit Charges Inpatient E&M: 55143 Init Hosp L3 Procedures Hospitalists Procedures: 18282 Advncd Care Plan 30 Min 04/10/25 7419 Cosigner Signature (if applicable): CC: Dr. Manfred Alvarez MD; Dr. Remi Miller MD~ Signed [facility]06-26-2025 Discharge summary [facility] Medical Records Department [address] [place] [address] Emergency Department Summary 04/10/25 MR#: [id number] Acct: [id number] Name: MAHNAZ KINSEY Rep #:[id number] : 1975 50 From: Chele Bonner DO PCP: Dr. Manfred Alvarez MD Status:REG ER Location: ED HPI [...] came here to be further evaluated. Patient statesthat she was having a 24-hoururine test performed as her calcium level was noted to be high and herdoctor isconcerned that she has hyperparathyroidism. Patient has numerous travel historydenies a history of blood clots. Patient in triage note stated that she was dizzy after further questioning about the dizziness she is not dizzy she was lightheaded. [facility] Medical History Asthma Anemia History of non-ST elevation myocardial infarction (NSTEMI) (09/20/19) Essential (primary) hypertension Nicotine dependence Obesity Atherosclerosis of coronary artery of ute heart without angina pectoris Home Medications ?Medication [...] 3 current occupational status: employed current occupation: [employer] - pets and animals: Yes (1) pets [...] upper and lower extremities, radial pulse +2/4 inthe bilateral extremities, no pedal edema no exam Neurological: Patient follow commands knew that she was at [facility] 2024 Skin: Warm, dry, tact no [...] that she needs to follow-up with her [employer] on this. Patient was reevaluated repeat abdominal exam was performed she has no right upper quadrant tenderness negative Vanegas sign. I reached out to on-call nurses educator Dr. Salguero and he is recommending admissionfor stress test. Patient's case will be discussed with hospitalist for admission. Discussed case with hospitalist Dr. Miller who accept patient for admission. Discussed this with thepatient and she is agreeable this plan. Patient [...] % (Auto) 62.1 Lymph % (Auto) 26.9 Gaston % (Auto) 10.3 H Eos % (Auto) [...] No acute abnormality is seen. Reading Location: [id number] Abdomen/Pelvis CT 04/10/25 14:52 IMPRESSION: Slightly distended [...] acute abnormality is seen. Reading Location: ROB Discharge Plan Triage Chief Complaint: Abd Pain [...] QAM Qty: 90 0RF Primary Care Provider: Manfred Alvarez Referrals: Manfred Alvarez MD [Primary Care Provider] - Print Language: Puerto Rican Disposition Disposition: Acute Care Hospital [facility] What to do if you have Problems For any increased pain, shortness of breath, bleeding, nausea or vomiting, chestpain, or any unexpected problems, contact your Primary Care Provider. Call [facility] ([phone]) or report tothe closest Emergency Room. Call 911 if necessary. 04/10/25 2893 Cosigner Signature (if applicable): CC: Dr. Manfred Alvarez MD ~ Signed [facility]06-26-2025 Radiology Diagnostic study note [facility] Imaging Services [address] [place], [place] [address] Abdomen/Pelvis W IV Cont ONLY MR#: [id number] Acct: [id number] Name: MAHNAZ KINSEY Rep #: [id number] : 1975 F 50 From: Irvin Montana MD PCP: Dr. Manfred Alvarez MD Status: REG ER Study:Abdomen/Pelvis W IV Cont ONLY Date of E xam: 04/10/25 Exam# [id number] Ordering Dr: Johnnie Bonner DO PROCEDURE: ABDOMEN/PELVIS [...] Correlation with ultrasound recommended. Reading Location: ROB CC: Dr. Manfred Alvarez MD; Dr. Chele Bonner DO ~ Maid Supervisor: Signed [facility]06-26-2025 Radiology Diagnostic study note [facility] Imaging Services [address] [place], [place] [id number] CTA Chest W/WO Contrast MR#: [id number] Acct: [id number] Name: MAHNAZ KINSEY Rep #: [id number] : 1975 F 50 From: Irvin Montana MD PCP: Dr. Manfred Alvarez MD Status: REG ER Study:CTA Chest W/WO Contrast Date of Exam: 04/10/25 Exam# [id number] Ordering Dr: Johnnie Bonner DO PROCEDURE: CTA [...] acute abnormality is seen. Reading Location: ROB CC: Dr. Manfred Alvarez MD; Dr. Chele Bonner DO ~ Maid Supervisor: Signed [facility]06-26-2025 Radiology Diagnostic study note [facility] Imaging Services [address] [place] [address] Chest PA and Lateral MR#: [id number] Acct: [id number] Name: MAHNAZ KINSEY Rep #: [id number] : 1975 F 50 From: Irvin Montana MD PCP: Dr. Manfred Alvarez MD Status: REG ER Study:Chest PA and Lateral Date of Exam: 04/10/25 Exam# [id number] Ordering Dr: Johnnie Bonner DO PROCEDURE: CHEST [...] No acute abnormality is seen. Reading Location: [facility] CC: Dr. Manfred Alvarez MD; Dr. Chele Bonner DO ~ Maid Supervisor: Signed [facility]06-24-2025 Evaluation note* Diagnosis Onset Date Resolution Status Admit Date Essential (primary) hypertension chronic April 08, 2025 7:21am History of non-ST elevation myocardial infarction (NSTEMI) September 20, 2019 resolved March 7:21am Moderate major depression noneactive April 08, 2025 7:21am Cobalamin deficiency noneactive April 08, 2025 7:21am Vitamin d deficiency noneactive April 08, 2025 7:21am Obesity (BMI 30-39.9) noneactive Mar 7:21am Chest pain acute April 10 5:20pm Diaphoresis acute April 10 5:20pm Lightheaded acute April 10 5:20pm Uterine mass acute April 10 025 5:20pm [facility] Work Phone: 1(831) 350-190912-06-2019 Evaluation note* Diagnosis Onset Date Resolution Status Admit Date Essential (primary) hypertension chronic April 08, 2025 7:21am History of non-ST elevation myocardial infarction (NSTEMI) September 20, 2019 resolved March 7:21am Cobalamin deficiency noneactive April 08, 2025 7:21am Anxiety noneactive April 08 7:21am Vitamin d deficiency noneactive April 08, 2025 7:21am Obesity (BMI 30-39.9) noneactive Mar 7:21am [facility] Work Phone: Discharge summary Author Remi Miller [facility] Note Date/Time April 11, 2025 3:16 pm [facility] Medical Records Department [address] [place] [address] Instructions for Home/Discharge Instructions 04/11/25 1511 MR#: [id number] Acct: [id number] Name: MAHNAZ KINSEY Rep #:[id number] : 1975 50 From: Remi Sun PCP: Dr. Manfred Alvarez MD Status:ADM VALERIE Discharge Instructions DC O2, CPAP, BIPAP needs Home O2 Discharge instructions: No Follow Up Care Test Results: Test results from this visit will be discussed in further detail at your follow- up appointment, if applicable. Discharge Plan Admission Admit Date/Time: 04/10/25 17:20 Primary Reason for Your Visit: Atypical epigastric pain Attending Provider: Remi Miller Primary Care Provider: Manfred Alvarez Instructions Additional Instructions / Restrictions: Appointment with Dr. Davis [facility] On April 17 for uterine mass Discharge Orders/Prescriptions Prescriptions: Continued cyanocobalamin (vitamin B-12) 1,000 mcg/mL solution 1,000 mcg IM QMONTH semaglutide 0.25 mg or 0.5 mg (2 mg/3 mL) pen injector 0.25 mg subcut QWEEK Patient Comments: PT INJECTS 20 UNITS Rx Instructions: for 4 weeks bupropion HCl [Wellbutrin XL] 150 mg tablet extended release 24 hr 150 mg PO QAM Qty: 90 0RF Referrals / Follow Up: Jed Nuñez MD [Med Staff - Active Staff] - Within 1 Month (abnormal US RUQ, GB slude, soft tissue density. CBD 8.5MM) Manfred Alvarez MD [Primary Care Provider] - Disposition Disposition (needs filled in before D/C Order can be placed): Home, Self Care 04/11/251515<Electronically signed by Remi Miller MD>Remi Miller MD CC: Dr. Manfred Alvarez MD ~ Signed [facility] Work Phone: Discharge summary Author Remi Miller [facility] Note Date/Time April 11, 2025 3:20 pm [facility] Medical Records Department [address] [place] [address] Discharge Summary 04/11/251515 MR#: [id number] Acct: [id number] Name: MAHNAZ KINSEY Rep #:[id number] : 1975 50 From: Remi Sun PCP: Dr. Manfred Alvarez MD Status:ADM VALERIE Location: [facility] [place] [address] Providers Date of Admission: 04/10/25 Date of Discharge: 04/11/25 Primary Care Physician: Dr. Manfred Alvarez MD Reason For Visit: CHEST PAIN, DIAPHORESIS, LIGHTHEADED Diagnosis Discharge Diagnosis (1) Chest pain: Status: Acute Code(s): R07.9 - Chest pain, unspecified Plan This 50-year-old female came to ED [...] 1. Right upper quadrant sonogram also ordered. 04/11: She had treadmill nuclear stress test done which was negative for ischemia. Serial troponins are normal. Right upper quadrant shows fatty liver. Irregular mixed hypoechoic soft tissue density within the gallbladder, radiologist impression possible tumefactive sludge. CBD measuring 8.5 mm. She does not have right upper quadrant tenderness or referred pain to right shoulder. Liver chemistry normal limit, TB 0.47, DB 0.16. Transaminases normal. ALP normal. One explanation might be epigastric pain dyspepsia as she is on semaglutide which slows down gastric emptying and absorption. I advised to follow with [place] surgical associate, Dr. Nuñez for further opinion regarding the abnormal soft tissue mass in the gallbladder CBD dilatation. Lipid profile in normal limit. TSH normal 2. Abnormal CT abdomen pelvis: CT shows slightly distended GB with mild wall thickening. Minimal intrahepatic biliary ductal dilatation. Spleen normal pancreas normal. It also shows 9.6 x 6.2 x 8.6 heterogeneous mass in the pelvismay represent large pedunculated uterine fibroid. Images reviewed and agreed with the findings I advised her to follow up with her established [employer] in about [address] findings. This is not her primary complaint whatshe came to ED but needs to be taken care of as an outpatient soon. This was explained to the patient. 04/11: Patient made an appointment with Dr. Camarena [employer] on 05/05 for abnormal heterogeneous mass in the uterus. 3. Hypertension: Blood pressure is controlled. Continue [...] catheter, vasopressor and DC shock if needed Discharge medication reconciliation done. Discharge follow-up instructions completed. Discharge process discussed with the patient and all questions wereanswered to patient's satisfaction. Follow with PCP in 1 to 2 weeks Total time spent, exact 35 minutes on discharge meds reconciliation, examination, coordination of care with nurses and ancillary staff, review of imaging and blood test and discussion with the patient on follow-up instructions. Laboratory Results 04/10/25 12:19: WBC 6.3, RBC 4.38, Hgb 13.3, Hct 40.8, MCV 93.2, MCH 30.4, MCHC 32.6, RDW Std Deviation 42.3, RDW Coeff of Jennifer 12.2, Plt Count 189, MPV 10.2, Immature Gran % (Auto) 0.200, Neut % (Auto) 62.1, Lymph % (Auto) 26.9, Gaston % (Auto) 10.3 H, Eos % (Auto) [...] acute abnormality is seen. Reading Location: ROB Medications at Discharge Home Medications cyanocobalamin (vitamin B-12) 1,000 mcg/mL injection solution 1,000 mcg IM QMONTH 02/13/24 semaglutide 0.25 mg or 0.5 mg (2 mg/3 mL) subcutaneous pen injector 0.25 mg subcut QWEEK 02/13/24 bupropion HCl 150 mg 24 hr tablet, extended release (Wellbutrin XL) 150 mg PO QAM #90 tabs 04/08/25 Physical Exam Narrative Seen and examined. Abdominal/epigastric pain has resolved. No acute issues. General: Alert, Oriented x3, Cooperative. BMI 28.4 [...] neurological deficit. Psych/Mental Status: Normal Affect, Appropriate. Weight / BMI Weight Weight: 180 lb 12.465 oz Body Mass Index (BMI) 30.0 ABG / Lab / Microbiology Data 04/11/25 04:17 04/11/25 04:17 Laboratory: Laboratory Results - last 24 hr 04/10/25 13:51: Urine pH Cancelled, Urine Collection Time Cancelled, Urine TotalVolume Cancelled, Urine Calcium Cancelled, Ur Calcium 24 Hr Cancelled 04/10/25 14:19: Magnesium 1.9 04/10/25 18:54: Troponin T Hi Sens 4Hr < 6 04/11/25 04:17: WBC 4.7, RBC 3.72 L, Hgb 11.2 L, Hct 33.7 L, MCV 90.6, MCH 30.1,MCHC 33.2, RDW Std Deviation 40.5, RDW Coeff of Jennifer 12.3, Plt Count 154, MPV 10.4, Sodium 140, Potassium 3.9, Chloride 108, Carbon Dioxide 24.2, Anion Gap 8,BUN 11, Creatinine 0.62 L, Estim Creat Clear Calc 116.09, Est GFR (MDRD) Non-Af 109, BUN/Creatinine Ratio 17.4, Glucose 82, Calcium 9.9, Triglycerides 57, Cholesterol 131, LDL Cholesterol, Calc 44, VLDL Cholesterol 11, HDL Cholesterol 76, Cholesterol/HDL Ratio 1.73, TSH 3.140 Radiography Diagnostic Testing: Radiology Impression Abdomen/Pelvis CT 04/10/25 14:52 IMPRESSION: Slightly distended [...] acute abnormality is seen. Reading Location: [facility] Abdomen Ultrasound 04/11/25 05:55 IMPRESSION: Fatty infiltration of the liver. Soft tissue density seen within the gallbladder lumen as described. This may represent tumefactive sludge. Follow-up recommended. Reading Location: [facility] D/C Instructions DC O2, CPAP, BIPAP Needs Home O2 Discharge instructions: No Meaningful Use Info Meaningful Use Meaningful Use Diagnoses (Choose all that apply): None applicable Ischemic Stroke Statin Dosing Therapy Reference: STATIN DOSE THERAPY REFERENCE: * Patients > 75 years receive moderate or high dose statin therapy. * Patients 75 years or YOUNGER should receive HIGH intensity statin dose unless contraindicated. You will be required to document reason for non-treatment if statin daily dose does not meet guidelines. HIGH DOSE STATIN THERAPY DAILY Atorvastatin > than or = to 40 mg Rosuvastatin > than or = to 20 mg Amlodipine + Atorvastatin > than or = to 2.5/40 mg Ezetimibe + Simvastatin 10/80 mg Simvastatin 80mg Discharge Plan Admission Admit Date/Time: 04/10/25 17:20 Primary Reason for Your Visit: Atypical epigastric pain Attending Provider: Remi Miller Primary Care Provider: Manfred Alvarez Instructions Additional Instructions / Restrictions: Appointment with Dr. Davis [facility] On April 17 for uterine mass Discharge Orders/Prescriptions Prescriptions: Continued cyanocobalamin (vitamin B-12) 1,000 mcg/mL solution 1,000 mcg IM QMONTH semaglutide 0.25 mg or 0.5 mg (2 mg/3 mL) pen injector 0.25 mg subcut QWEEK Patient Comments: PT INJECTS 20 UNITS Rx Instructions: for 4 weeks bupropion HCl [Wellbutrin XL] 150 mg tablet extended release 24 hr 150 mg PO QAM Qty: 90 0RF Referrals / Follow Up: Jed Nuñez MD [Med Staff - Active Staff] - Within 1 Month (abnormal US RUQ, GB slude, soft tissue density. CBD 8.5MM) Manfred Alvarez MD [Primary Care Provider] - Disposition Disposition (needs filled in before D/C Order can be placed): Home, Self Care Charges/Coding Visit Charges Inpatient E&M: 39375 Disch Hosp >30min 04/11/25 1520 <Electronically signed by Remi Miller MD> Cosigner Signature (if applicable): CC: Dr. Manfred Alvarez MD; Dr. Jed Nuñez MD; Dr. Remi Miller MD~ Signed [facility] Work Phone: History and physical note Author Remi Miller [facility] Note Date/Time April 10, 2025 5:29 pm [facility] Medical Records Department [address] [place] [address] H&P Exam - Hospitalist 04/10/25 1704 MR#: [id number] Acct: [id number] Name: MAHNAZ KINSEY Rep #:[id number] : 1975 50 From: Remi Sun PCP: Dr. Manfred Alvarez MD Status:ADM VALERIE Location: [place] [address]- HPI - General General Date of Admission: 04/10/25 Date of Service: 04/10/25 Chief Complaint: Epigastric abdominal pain, 40 minutes experienced dizziness sweating and at times nausea. HPI Narrative MAHNAZ KINSEY, is a 50 F with history of MD with elevated troponin at the age of 44 came to ED with epigastric abdominal pain with nausea dizziness and sweating. She is not short of breath. She described her epigastric pain localized without radiation. Denies GERD like symptoms/regurg or heartburn. She further said she had non- STEMI in 2019 with elevated troponins with chest [...] troponins are normal. ED physician talked to nurses educator and advised a stress test tomorrow. She [...] chest were discussed in assessment and plan. [facility] Medical History Asthma Anemia History of non-ST elevation myocardial infarction (NSTEMI) (09/20/19) Essential (primary) hypertension Nicotine dependence Obesity Atherosclerosis of coronary artery of ute heart without angina pectoris Home Medications ?Medication [...] 3 current occupational status: employed current occupation: [employer] pets and animals: Yes (1) pets and [...] % (Auto) 62.1, Lymph % (Auto) 26.9, Gaston % (Auto) 10.3 H, Eos % (Auto) [...] No acute abnormality is seen. Reading Location: [facility] Abdomen/Pelvis CT 04/10/25 14:52 IMPRESSION: Slightly distended gallbladder with mild thickening of the gallbladder wall. Minimal intrahepatic biliary ductal dilatation. Correlation with ultrasound recommended. 9.6 cm 6.2 cm 8.6 cm heterogeneous mass in the pelvis as described. This may represent a pedunculated uterine fibroid although a suprapubic pelvic mass can not be excluded. Correlation with ultrasound recommended. Reading Location: [id number] Chest CTA 04/10/25 14:52 IMPRESSION: No evidence of pulmonary embolism. No acute abnormality is seen. Reading Location: [id number] Assessment & Plan Assessment/Plan (1) Chest pain: [...] her to follow up with her established [employer] in about [address] [...] shock if needed Total time spent in [id number] encounter in discussion of advanced directive 17 minutes. Laboratory Results 04/10/25 12:19: WBC 6.3, RBC 4.38, Hgb 13.3, Hct 40.8, MCV 93.2, MCH 30.4, MCHC 32.6, RDW Std Deviation 42.3, RDW Coeff of Jennifer 12.2, Plt Count 189, MPV 10.2, Immature Gran % (Auto) 0.200, Neut % (Auto) 62.1, Lymph % (Auto) 26.9, Gaston % (Auto) 10.3 H, Eos % (Auto) [...] Location: [facility] Charges/Coding Visit Charges Inpatient E&M: 71725 Init Hosp L3 Procedures Hospitalists Procedures: 55695 Advncd Care Plan 30 Min 04/10/25 1729 <Electronically signed by Remi Miller MD> Cosigner Signature (if applicable): CC: Dr. Manfred Alvarez MD; Dr. Remi Miller MD~ Signed [facility] Work Phone: Reason for referral (narrative)No reason for referral information availableMar[facility] Work Phone: Summary Purpose Family History No Family History Records Found Relationship Condition Age at Onset Recorded Date/T nancy Not Specified Hypertension Unknown Cerebrovascular accident (CVA) Unknown mother Hyperlipidemia Unknown father Alcoholism Unknown grandfather Myocardial infarction Unknown Parkinson's disease Unknown grandmother Chronic obstructive pulmonary disease Unk nown uncle Malignant neoplasm Unknown aunt Cerebral aneurysm Unknown Advance Directives No Advanced Directives Records Found Advance Directive Response Recorded Date/ Time Do you have a Healthcare Power of Physical Sciences Professor? No April 10, 2025 1:00pm Advance Directive Response Recorded Date/ Time Do you have a Healthcare Power of Physical Sciences Professor? No April 10, 2025 6:08pm Chief Complaint and Reason for Visit Chief [...] Uterine mass April 10, 2025 5:20 pm Chief Complaint Admit Date 4 M FU April 08, 2025 7:21 am CHEST PAIN, DIAPHORESIS, LIGHTHEADED Ronan e 2024 5:20pm CHEST PAIN, DIAPHORESIS, LIGHTHEADED Ronan e 2024 1:04pm CHEST PAIN, DIAPHORESIS, LIGHTHEADED Ronan e 2024 3:16pm Additional Source Comments INFORMATION SOURCE (unrecogn ized section and content) DATE CREATED AUTHOR 04/05/2018 [facility] DATE CREATED AUTHOR AUTHOR'S GRICELDA ATION 01/28/2019 [facility] DATE CREATED AUTHOR AUTHOR'S ORGANIZ ATION 09/20/2019 [facility] DATE CREATED AUTHOR AUTHOR'S ORGANIZ ATION 09/20/2019 [facility] DATE CREATED AUTHOR AUTHOR'S ORGANIZ ATION 09/21/2019 [facility] DATE CREATED AUTHOR AUTHOR'S ORGANIZ ATION 04/24/2025 [facility] DATE CREATED AUTHOR AUTHOR'S ORGANIZ ATION 04/24/2025 [facility] Care Teams (unrecognized sec tion and content) Team Status: Active Member Role Status Dates Dr. Manfred Alvarez MD Primary Care Provider Active Team Status: Inactive Member Role Status Dates Dr. Manfred Alvarez MD Primary Care Provider Active Start: April 08, 2025 End: April 08, 2025 Dr. Manfred Alvarez MD Attending Provider Active Start: April 08, 2025 End: April 08, 2025 Dr. Manfred Alvarez MD Referring Provider Active Start: April 08, 2025 End: April 08, 2025 Team Status: Active Member Role Status Dates Dr. Manfred Alvarez MD Primary Care Provider Active Start: April 08, 2025 Dr. Manfred Alvarez MD Attending Provider Active Start: April 08, 2025 Dr. Manfred Alvarez MD Referring Provider Active Start: April 08, 2025 Team Status: Active Member Role Status Dates Dr. Manfred Alvarez MD Primary Care Provider Active Start: [...] Dates JAZMINE GARCIA Family Provider Active Dr. Manfred Alvarez MD Primary Care Provider Active Team Status: Active Member Role/Relationship Status Dates Dr. Manfred Alvarez MD Primary Care Provider Active Team Status: Inactive Member Role/Relationship Status Dates Dr. Manfred Alvarez MD Primary Care Provider Active Start: April 08, 2025 End: April 08, 2025 Dr. Manfred Alvarez MD Attending Provider Active Start: April 08, 2025 End: April 08, 2025 Dr. Manfred Alvarez MD Referring Provider Active Start: April 08, 2025 End: April 08, 2025 Team Status: Active Member Role/Relationship Status Dates Dr. Manfred Alvarez MD Primary Care Provider Active Start: April 08, 2025 Dr. Manfred Alvarez MD Attending Provider Active Start: April 08, 2025 Dr. Manfred Alvarez MD Referring Provider Active Start: April 08, 2025 Team Status: Inactive Member Role/Relationship Status Dates Dr. Manfred Alvarez MD Primary Care Provider Active Start: April 10, 2025 End: April 11, 2025 Dr. Chele Bonner DO Referring Provider Active Start: April 10, 2025 End: April 11, 2025 Dr. Chele Bonner DO Emergency Provider Active Start: April 10, 2025 End: April 11, 2025 Dr. Remi Miller MD Admit Provider Active Sta rt: April 10, 2025 End: April 11, 2025 Dr. Remi Miller MD Attending Provider Active Start: April 10, 2025 End: April 11, 2025 Dr. Remi Miller MD Other Provider Active Sta rt: April 10, 2025 Team Status: Active Member Role/Relationship Status Dates Dr. Manfred Alvarez MD Primary Care Provider Active Start: April 11, 2025 Dr. Chele Bonner DO Referring Provider Active Start: April 11, 2025 Dr. Chele Bonner DO Emergency Provider Active Start: April 11, 2025 Dr. Remi Miller MD Admit Provider Active Sta rt: April 11, 2025 Dr. Remi Miller MD Other Provider Active Sta rt: April 11, 2025 Dr. Trevor Salguero MD Attending Provider Active Start: April 11, 2025 Team Status: Active Member Role/Relationship Status Dates Dr. aMnfred Alvarez MD Primary Care Provider Active Start: April 11, 2025 Dr. Chele Bonner DO Referring Provider Active Start: April 11, 2025 Dr. Chele Bonner DO Emergency Provider Active Start: April 11, 2025 Dr. Remi Miller MD Admit Provider Active Sta rt: April 11, 2025 Dr. Remi Miller MD Attending Provider Active Start: April 11, 2025 Dr. Remi Miller MD Other Provider Active Sta rt: April 11, 2025 Team Status: Inactive Member Role/Relationship Status Dates Dr. Manfred Alvarez MD Primary Care Provider Active Start: April 08, 2025 End: April 08, 2025 Dr. Manfred Alvarez MD Attending Provider Active Start: April 08, 2025 End: April 08, 2025 Dr. Manfred Alvarez MD Referring Provider Active Start: April 08, 2025 End: April 08, 2025 Goals (unrecognized section and content) Goals may be documented in a n alternate sectionGoals may be documented in an alternate sectionGoals may be documented in an alternate sectionGoals may be documented in an [...] BE BASED ON THE PRIMARY CLINICAL RECORDS. [employer] provides no warranty or guarantee of the accuracy or completeness of information in this document.
--- OUTSIDE RECORDS SUMMARY | 2025-04-29 13:05 | XMS RPT_ITS | CCD ---
Author Organization [facility] Care Team Providers Care Phytopathologist Name Role Phone PROVIDER, UNKNOWN Unavailable Unavailable PROVIDER, UNKNOWN Unavailable Unavailable No, PCP Unavailable Unavailable MIMI DAVIS Attending Unavailable Kim CHARLTON, Dr. Lees Primary Care Provider Kim CHARLTON, Dr. Lees Attending Provider Kim CHARLTON, Dr. Lees Referring Provider Dr. Chele Bonner DO Referring Provider [phone] Chele Bonner DO Emergency Provider Paul CHARLTON, Dr. Khalil Admit Provider Paul CHARLTON, Dr. Khalil Attending Provider Paul CHARLTON, Dr. Khalil Other Provider Jose M CHARLTON, Dr. Murray Attending Provider KIM, MANFRED Primary Care Unavailable KIM, MANFRED Primary Care Unavailable KIM, MANFRED Primary Care Unavailable MIMI DAVIS MD Referring Unavailable RADHA CHARLTON, [facility] Primary Care Unavailable Ferullo, Bianca Referring Unavailable Kim, Manfred Primary Care Unavailable Marleny Duranily Attending Unavailable Gunlock, Manfred Primary Care Unavailable Remi Miller Consulting Unavailable Chele Bonner Referring Unavailable Remi Miller Admitting Unavailable Remi Miller Attending Unavailable Gunlock, Manfred Attending Unavailable Gunlock, Manfred Primary Care Unavailable Gunlock, Manfred Referring Unavailable Gunlock, Manfred Attending Unavailable Gunlock, Manfred Primary Care Unavailable Kim, Manfred Referring Unavailable Gunlock, Manfred Primary Care Unavailable Kim, Manfred Referring Unavailable Rashaun Godoy Attending Unavailable FerulloBianca Attending Unavailable Kim, Manfred Primary Care Unavailable Kim, Manfred Referring Unavailable Gunlock, Manfred Primary Care Unavailable Gunlock, Manfred Referring Unavailable SuzetteoBianca Attending Unavailable Trevor Salguero Attending Unavailable Ferullo, Bianca Referring Unavailable Gunlock, Manfred Primary Care Unavailable SuzetteoBianca Attending Unavailable SrinivasaulloBianca Attending Unavailable Ferullo, Bianca Referring Unavailable Gunlock, Manfred Primary Care Unavailable Ferullo, Bianca Referring Unavailable Kim, Manfred Primary Care Unavailable SuzetteoBianca Attending Unavailable Ferullo, Bianca Referring Unavailable Gunlock, Manfred Primary Care Unavailable Bianca Duran Attending Unavailable Remi Miller Admitting Unavailable Chele Bonner Referring Unavailable Kim, Manfred Primary Care Unavailable Remi Miller Attending Unavailable Gunlock, Manfred Attending Unavailable Kim, Manfred Primary Care Unavailable Gunlock, Manfred Referring Unavailable Ferullo, Bianca Referring Unavailable Gunlock, Manfred Primary Care Unavailable SuzetteoMarlenyBianca Attending Unavailable Gunlock, Manfred Attending Unavailable Kim, Manfred Primary Care [...] 04-23-2025 THINPREP TIS PAP SEE COMMENT Normal [facility] Comment on above: Order Comment: Pap c ollected at tiem of pelvic exam Ordered on Fin# [id number] Result Comment: THIN PREP TIS PAP Lab: O6K CLINICAL INFORMATION: None given LMP: None given prev. Pap: None given prev. Bx: None given SOURCE: None given STATEMENT OF ADEQUACY: Satisfactory for evaluation. Endocervical/transformation zone component absent. INTERPRETATION/RESULT: Cytology Results: Negative for intraepithelial lesion or malignancy. COMMENT: This Pap test has been evaluated with computer assisted technology. LOG WASHER: NATANAEL MILLS(ASCP) CT Screening Location: [place] [address]. CLIA: [id number] For questions contact Anatomic Pathology Client Services at [phone] EXPLANATORY NOTE: The Pap is a screening test for cervical cancer. It is not a diagnostic test and is subject to false negative and false positive results. It is most reliable when a satisfactory sample, regularly obtained, is submitted with relevant clinical findings and history, and when the Pap result is evaluated along with historic and current clinical information. PERFORMING SITE: [facility] [address] [address] Bay Stocker: UMESH FLORES MD, CLIA: [id number] Performed By: #### [id number] #### [facility] Laboratory Services [address] [place] [address] Digital Media Producer: Prieto Silverman MD GP HPVon 04-22-2025 GP HPV Negative Normal [facility] Comment on above: Order Comment: Order ed on Fin# [id number] Result Comment: This HPV assay is being performed via a second generation NAAT that utilizes target capture, molding process technician mediated amplification and dual kenetic assay technologies. Performed By: #### 1 [id number] #### [facility] Laboratory Services [address] [place] [id number] Digital Media Producer: Prieto Silverman MD [facility] Physician Progress No jamie 04-17-2025 [facility] Physician Progress Note MAHNAZ KINSEY :1975 Registration [...] New Pt High MDM / 60 min [id number], 04/17/2025 10:27:00 EDT, Leiomyoma AMB Schedule Surgery, 04/17/2025 10:27:00 EDT GP HPV, ROUTINE, 04/17/2025, Specimen type: Cervical, Dx: Leiomyoma THIN PREP IMAGE SEND OUT, ROUTINE, 04/17/2025, Specimen type: SUPERVISOR FERTILIZER PROCESSING Spec, collected by Dr Davis, Cervix, [id number], Dx: Leiomyoma US PELVIS TV ECHO, 04/28/2025, Routine, ENLARGED UTERUS, Ambulatory, Leiomyoma, [id number] 2. Asthma J45.909 3. Hypertension I10 4. 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 FERTILIZER PROCESSING Additional Details Menstrual History Menstrual StatusMenarcheal Regular Menstrual CyclesNo Menstrual Cycle Lengthh/o endometrial ablation SUPERVISOR FERTILIZER PROCESSING Screening Date of Last Pap Smear05/10/2021 Last Pap Result, Pt StatedNegative Last Pap Result Commenthpv neg Date of Last Mammogram, Pt Htulin3306/25/2024 Last Mammography Result, Pt StatedBenign Contraception Contraception MethodSterilization for contraception Previous Contraceptive Method IssuesUterine ablation Sterilization TypePartner vasectomy OB History History (0,0,0,0) No previous pregnancies history have been recorded Problem List/Past Medical History Ongoing Anxiety Asthma Atherosclerosis of coronary artery of [place] heart without angina pectoris BMI 36.0-36.9,adult Hx of non-ST elevation myocardial infarction (NSTEMI) Hypertension Obesity Procedure/Surgical History COLONOSCOPY: 11/20/23: JUSTIN CHARLTON, [facility] Left Heart Catheterization, left ventriculogram.: 09/20/19 Breast augmentation: 2016 In Office [employer]: 09/22/09 Gastric Bypass: 10/16/03 [place] Uterine Ablation Tonsillectomy Medications amLODIPine(amLODIPine 5 mg oral tablet) buPROPion(Wellbutrin XL 300 mg/24 hours oral tablet, extended release), 300 mg= 1 tabs, ORAL, DAILY cholecalciferol(Vitami n D3 25 mcg (1000 intl units) oral tablet), 25 mcg= 1 tabs, ORAL, DAILY cyanocobalamin(cyanoco balamin 1000 mcg/mL injectable solution) hydrochlorothiazide = HydroDIURIL(hydroCHLOR Othiazide 25 mg oral t (more content not included)... 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 Go to [email or web address] .net/patientEd Enter H610 in the search box to learn more about Learning About Hysterectomy Surgery. Current as of: September 06, 2021 Content Version: 13.3 ? [employer]. Care instructions adapted under license by your healthcare professional. If you have questions about a medical condition or this instruction, always ask your healthcare professional. [employer] disclaims any warranty or liability for your [...] you ryder (more content not included)... Normal [facility] L3600.3025on 04-12-2025 Calcium [Mass/Vol] 16.3 mg/dL Normal Not Estab. [facility] Comment on above: Result Comment: Perf ormed at: CB - [facility] [address] [id number] Project Management Engineer: Juan Sanchez PhD, Phone: [phone] Performed By: #### L 733.0208, T029.7903 #### [facility] Laboratory [address] [facility] [place], [address] Abdomen Limitedon 04-11-[address] [facility] Imaging Services [address] [place] [address] Abdomen Limited MR#: [id number] Acct: [id number] Name: MAHNAZ KINSEY Rep #: [id number] : 1975 F 50 From: Amandeep morris MD PCP: Dr. Manfred Alvarez MD Status: ADM VALERIE Study: Abdomen Limited Date of Exam: 04/11/25 Exam# [id number] Ordering Dr: Remi Miller MD PROCEDURE: ABDOMEN [...] represent tumefactive sludge. Follow-up recommended. Reading Location: [id number] CC: Dr. Manfred Alvarez MD; Dr. Remi Miller MD [employer] Media Specialist: Signed Normal [facility] Anion gap in Serum or Plasma Ordered By: Remi Miller on 04-11-2025 Anion gap [Moles/Vol] 8 mmol/L 5-15 [facility] BUN/creatinine ratioOrdered By: Remi Miller on 04-11-2025 Urea nitrogen/Creatinine [Mass ratio] 17.4 mg/mg - [facility] Basic Metabolic Profile (BMP )on 04-11-2025 BUN/CRE 17.4 RATIO Normal - [facility] Comment on above: Performed By: #### L 501.2276 #### [facility] Laboratory [address] [place], [address] Calcium [Mass/Vol] 9.9 mg/dL Normal 7.6-11.[address] [facility] Comment on above: Performed By: #### L 501.2276 #### [facility] Laboratory [address] [place], [address] Chloride [Moles/Vol] 108 mmol/L Normal 98-108 [facility] Comment on above: Performed By: #### L 501.2276 #### [facility] Laboratory [address] [place], [address] CO2 [Moles/Vol] 24.2 mmol/L Normal 21.0-32.0 [facility] Comment on above: Performed By: #### L 501.2276 #### [facility] Laboratory [address] [place], [address] Creatinine [Mass/Vol] 0.62 mg/dL Low 0.70-1.20 [facility] Comment on above: Performed By: #### L 501.2276 #### [facility] Laboratory [address] [place], [address] ECRCL 116.09 ml/min Normal 50-250 [facility] Comment on above: Performed By: #### L 501.2276 #### [facility] Laboratory [address] [place], [address] GAP 8 Normal 5-15 [facility] Comment on above: Performed By: #### L 501.2276 #### [facility] Laboratory [address] [place], [address] GFR/1.73 sq M.predicted among non-blacks MDRD (S/P/Bld) [Vol rate/Area] 109 mL/min/{1.73_m2} Normal >60 [facility] Comment on above: Result Comment: mL/m in/1.73m2 CKD-EPI Creatinine Equation (2020) Performed By: #### L 501.2276 #### [facility] Laboratory [address] [place], [address] Glucose [Mass/Vol] 82 mg/dL Normal 70-[address] [facility] Comment on above: Performed By: #### L 501.2276 #### [facility] Laboratory [address] [place], [address] Potassium [Moles/Vol] 3.9 mmol/L Normal 3.3-5.1 [facility] Comment on above: Performed By: #### L 501.2276 #### [facility] Laboratory [address] [place], [address] Sodium [Moles/Vol] 140 mmol/L Normal 133-[address] [facility] Comment on above: Performed By: #### L 501.2276 #### [facility] Laboratory [address] [place], [address] Urea nitrogen [Mass/Vol] 11 mg/dL Normal 4-19 [facility] Comment on above: Performed By: #### L 501.2276 #### [facility] Laboratory [address] [place], [address] CBC-Complete Blood Cnt No Di ffon 04-11-2025 Erythrocyte distribution width (RBC) [Ratio] 12.3 % Normal 11.6-14.6 [facility] Comment on above: Performed By: #### L 100.0500 #### [facility] Laboratory [address] [place], [address] Hematocrit (Bld) [Volume fraction] 33.7 % Low 37-47 [facility] Comment on above: Performed By: #### L 100.0500 #### [facility] Laboratory [address] [place], [address] Hemoglobin (Bld) [Mass/Vol] 11.2 g/dL Low 12.0-15.0 [facility] Comment on above: Performed By: #### L 100.0500 #### [facility] Laboratory [address] [place], [address] MCH (RBC) [Entitic mass] 30.1 pg Normal 27.0-32.0 [facility] Comment on above: Performed By: #### L 100.0500 #### [facility] Laboratory [address] [place], [address] MCHC (RBC) [Mass/Vol] 33.2 g/dL Normal 32-36 [facility] Comment on above: Performed By: #### L 100.0500 #### [facility] Laboratory [address] [place], [address] MCV (RBC) [Entitic vol] 90.6 fL Normal 81-99 [facility] Comment on above: Performed By: #### L 100.0500 #### [facility] Laboratory [address] [place], [address] Platelet mean volume (Bld) [Entitic vol] 10.4 fL Normal 6.2-12.0 [facility] Comment on above: Performed By: #### L 100.0500 #### [facility] Laboratory [address] [place], [address] Platelets (Bld) [#/Vol] 154 10*3/uL Normal 150-450 [facility] Comment on above: Performed By: #### L 100.0500 #### [facility] Laboratory [address] [place], [address] RBC (Bld) [#/Vol] 3.72 10*6/uL Low 4.2-5.4 [facility] Comment on above: Performed By: #### L 100.0500 #### [facility] Laboratory [address] [place], [address] RDW SD 40.5 fl Normal 35.1-43.9 [facility] Comment on above: Performed By: #### L 100.0500 #### [facility] Laboratory [address] [place], [address] WBC (Bld) [#/Vol] 4.7 10*3/uL Normal 4.4-11.[address] [facility] Comment on above: Performed By: #### L 100.0500 #### [facility] Laboratory [address] [place], [address] Calculated very low density lipoprotein (VLDL) cholesterol measurementOrdered By: Remi Miller on 04-11-2025 Calculated very low density lipoprotein (VLDL) cholesterol measurement 11 mg/dL 5-40 [facility] Carbon dioxide, total [Moles /volume] in Central venous bloodOrdered By: Remi Miller on 04-11-2025 CO2 [Moles/Vol] 24.2 mmol/L 21.0-32.0 [facility] Cardiovascular stress test r eportOrdered By: Trevor Salguero on 04-11-2025 Study report [facility] Cardiovascular Services [address] [place] [address] MR#: [id number] Acct: [id number] Name: MAHNAZ KINSEY Rep #: [id number] : 1975 50 From: Trevor Salguero MD [...] of 59%. This note was generated with Palyon Medicalation software. It may contain incorrectwords, spelling, and punctuation that were not noted in checking the note beforesigning. 04/11/25 1306 Date _ Trevor Salguero MD CC: Dr. Manfred Alvarez MD; Dr. Remi Miller MD; Dr. Chele Bonner, DO ~ Date Dictated: 04/11/25 1304 Date Transcribed: 04/11/25 130 [employer] Media Specialist: RAYMOND Martinez [facility] Work Phone: Chloride assayOrdered By: Pooja Miller on 04-11-2025 Chloride [Moles/Vol] 108 mmol/L 98-108 [facility] Discharge Instructionon 03-17 Discharge Instruction [facility] Medical Records Department [address] [place] [address] Instructions for Home/Discharge Instructions 04/11/25 1511 MR#: [id number] Acct: [id number] Name: MAHNAZ KINSEY Rep #: [id number] : 1975 50 From: Remi Miller MD [...] Instructions / Restrictions: Appointment with Dr. Davis [facility] On April 17 for uterine mass Discharge [...] CC: Dr. Manfred Alvarez MD Signed Normal [facility] Erythrocyte distribution wid th ratioOrdered By: Remi Miller on 04-11-2025 Erythrocyte distribution width (RBC) [Ratio] 12.3 % 11.6-14.6 [facility] Erythrocyte distribution wid th standard deviationOrdered By: Remi Miller on 04-11-2025 Erythrocyte distribution width (RBC) [Ratio] 40.5 fl 35.1-43.9 [facility] Glomerular filtration rate ( GFR) estimation/1.73 sq m using serum, plasma, or whole bOrdered By: Remi Miller on 04-11-2025 GFR/1.73 sq M.predicted among non-blacks MDRD (S/P/Bld) [Vol rate/Area] 109 mL/min/{1.73_m2} >60 [facility] Comment on above: mL/min/1.73m2 CKD-EP I Creatinine Equation (2020) Hematocrit Auto (Bld) [Volum e fraction]Ordered By: Remi Miller on 04-11-2025 Hematocrit (Bld) [Volume fraction] 33.7 % Low 37-47 [facility] Hemoglobin measurementOrdere d By: Remi Miller on 04-11-2025 Hemoglobin (Bld) [Mass/Vol] 11.2 g/dL Low 12.0-15.0 [facility] LDL calc ser/plasOrdered By: Remi Miller on 04-11-2025 Cholesterol in LDL [Mass/Vol] 44 mg/dL [facility] Comment on above: Lesqbpokjw=525-042 m g/dL & Higher Oqbg=378 mg/dL or greater Lipid Profileon 04-11-2025 CHOL:HDL 1.73 Normal [facility] Comment on above: Performed By: #### L 501.2276 #### [facility] Laboratory [address] [place], [place], [id number] ([address]) Cholesterol [Mass/Vol] 131 mg/dL Normal <=200 [facility] Comment on above: Result Comment: Chol esterol level, Desirable <200 mg/dL Borderline high cholesterol 200-239 mg/dL High cholesterol >=240 mg/dL Recommendations of the NCEP Adult Treatment Panel for the following risk-cutoff thresholds for the [place] population. Performed By: #### L 501.2276 #### [facility] Laboratory [address] [place], [place], [id number] ([address]) Cholesterol in HDL [Mass/Vol] 76 mg/dL Normal [facility] Comment on above: Result Comment: Myrna onal Cholesterol Education Program (NCEP) guidelines: <40 mg/dL: Low HDL-cholesterol (major risk factor for CHD) >= 60 mg/dL: High HDL-cholesterol (negative risk factor for CHD) HDL-cholesterol is affected by a number of factors, e.g. smoking, exercise, hormones, sex and age. Performed By: #### L 501.2276 #### [facility] Laboratory [address] [place], [address] Cholesterol in LDL [Mass/Vol] 44 mg/dL Normal [facility] Comment on above: Result Comment: Bord vppkea=485-810 mg/dL Higher Fzop=436 mg/dL or greater Performed By: #### L 501.2276 #### [facility] Laboratory [address] [place], [address] Cholesterol in VLDL [Mass/Vol] 11 mg/dL Normal 5-40 [facility] Comment on above: Performed By: #### L 501.2276 #### [facility] Laboratory [address] [place], [place], [address] Triglyceride [Mass/Vol] 57 mg/dL Normal [facility] Comment on above: Result Comment: The drugs N-Acetylcysteine and Metamizole may falsely depress this assay. Normal range: <150 mg/dL Borderline High: 150-199 mg/dL High: 200-499 mg/dL Very High: >500 mg/dL Performed By: #### L 501.2276 #### [facility] Laboratory [address] [facility] [address] [place], [place], [address] MCV (mean corpuscular volume ) determinationOrdered By: Remi Miller on 04-11-2025 MCV (RBC) [Entitic vol] 90.6 fL 81-99 [facility] Mean corpuscular hemoglobin (MCH) determinationOrdered By: Remi Miller on 04-11-2025 MCH (RBC) [Entitic mass] 30.1 pg 27.0-32.0 [facility] Mean corpuscular hemoglobin concentration (MCHC) determinationOrdered By: Remi Miller on 04-11-2025 MCHC (RBC) [Mass/Vol] 33.2 g/dL 32-36 [facility] Mean platelet volume determi nationOrdered By: Remi Miller on 04-11-2025 Platelet mean volume (Bld) [Entitic vol] 10.4 fL 6.2-12.0 [facility] Platelet countOrdered By: Pooja Miller on 04-11-2025 Platelets (Bld) [#/Vol] 154 10*3/uL 150-450 [facility] Potassium measurement (mass/ volume)Ordered By: Remi Miller on 04-11-2025 Potassium (Unsp spec) [Mass/Vol] 3.9 mmol/L 3.3-5.1 [facility] RBC Auto (Bld) [#/Vol]Ordere d By: Remi Miller on 04-11-2025 RBC (Bld) [#/Vol] 3.72 10*6/uL Low 4.2-5.4 [facility] Screening total cholesterol/ high density lipoprotein (HDL) cholesterol ratioOrdered By: Remi Miller on 04-11-2025 Cholesterol.total/Shazia sterol in HDL [Mass ratio] 1.73 {ratio} [facility] Serum creatinine measurement (mass/volume)Ordered By: Remi Miller on 04-11-2025 Creatinine [Mass/Vol] 0.62 mg/dL Low 0.70-1.20 [facility] Serum glucose measurement (m ass/volume)Ordered By: Remi Miller on 04-11-2025 Glucose [Mass/Vol] 82 mg/dL 70-[address] [facility] Serum or plasma calcium erick urement (mass/volume)Ordered By: Remi Miller on 04-11-2025 Calcium [Mass/Vol] 9.9 mg/dL 7.6-11.[address] [facility] Serum or plasma cholesterol in HDL measurement (mass/volume)Ordered By: Remi Miller on 04-11-2025 Cholesterol in HDL [Mass/Vol] 76 mg/dL >40 [facility] Comment on above: National Cholesterol Education Program (NCEP) guidelines:<40 mg/dL: Low HDL-cholesterol (major risk factor for CHD)>= 60 mg/dL: High HDL-cholesterol (negative risk factor for CHD)HDL-cholesterol is affected by a number of factors, e.g. smoking, exercise, hormones, sex and age. Serum or plasma cholesterol measurement (mass/volume)Ordered By: Remi Miller on 04-11-2025 Cholesterol [Mass/Vol] 131 mg/dL <201 [facility] Comment on above: Cholesterol level, D esirable <200 mg/dLBorderline high cholesterol 200-239 mg/dLHigh cholesterol >=240 mg/dLRecommendations of the NCEP Adult Treatment Panel for the following risk-cutoff thresholds for the [place] population. Serum or plasma urea nitroge n measurement (mass/volume)Ordered By: Remi Miller on 04-11-2025 Urea nitrogen [Mass/Vol] 11 mg/dL 4-19 [facility] Sodium levelOrdered By: Neena Miller on 04-11-2025 Sodium [Moles/Vol] 140 mmol/L 133-[address] [facility] Stress Reporton 04-11-2025 Stress Report [facility] Cardiovascular Services [address] [place] [address] MR#: [id number] Acct: [id number] Name: MAHNAZ KINSEY Rep #: [id number] : 1975 50 From: Trevor Salguero MD [...] of 59%. This note was generated with [employer] dictation software. It may contain incorrect words, spelling, and punctuation that were not noted in checking the note before signing. 04/11/251305 Date Trevor Salguero MD CC: Dr. Manfred Alvarez MD; Dr. Remi Miller MD; Dr. Chele Bonner, Date Dictated: 04/11/251303 Date Transcribed: 04/11/251303 [employer] Specialist: RAYMOND Signed Normal [facility] TSH DL <= 0.005 mIU/L QnOrde red By: Remi Miller on 04-11-2025 TSH Qn 3.140 uIU/mL 0.300-4.200 [facility] Thyroid Stim Hormone (TSH)on 04-11-2025 TSH 3.140 uIU/mL Normal 0.300-4.200 [facility] Comment on above: Performed By: #### L 501.2276 #### [facility] Laboratory [address] [place], [place] [address], [address] Triglycerides measurementOrd ered By: Remi Miller on 04-11-2025 Triglyceride [Mass/Vol] 57 mg/dL <199 [facility] Comment on above: The drugs N-Acetylcy steine and Metamizole may falsely depress this assay. Normal range: <150 mg/dLBorderline High: 150-199 mg/dLHigh: 200-499 mg/dLVery High: >500 mg/dL White blood cell (WBC) count Ordered By: Remi Miller on 04-11-2025 WBC (Bld) [#/Vol] 4.7 10*3/uL 4.4-11.[address] [facility] 24 hour urine calcium measur ement (mass/volume)Ordered By: Manfred Alvarez on 04-10-2025 Calcium (24H U) [Mass/Vol] 16.3 mg/dL Not Estab. [facility] Comment on above: Performed at: - [facility] [address] [id number] Director: Juan Sanchez PhD, Phone: [phone] Abdomen/Pelvis W IV Cont ONL Yon 04-10-2025 Abdomen/Pelvis W IV Cont ONLY [facility] Imaging Services [address] [place] [id number] Abdomen/Pelvis W IV Cont ONLY MR#: [id number] Acct: [id number] Name: MAHNAZ KINSEY Rep #: [id number] : 1975 F 50 From: Amandeep morris MD PCP: Dr. Manfred Alvarez MD Status: REG ER Study: Abdomen/Pelvis W IV Cont ONLY Date of Exam: Exam# [id number] Ordering Dr: Chele Bonner DO PROCEDURE: ABDOMEN/PELVIS [...] excluded. Correlation with ultrasound recommended. Reading Location: [id number] CC: Dr. Manfred Alvarez MD; Dr. Chele Bonner DO [employer]ist: Signed Normal [facility] Absolute lymphocyte countOrd ered By: Chele Bonner on 04-10-2025 Lymphocytes Auto (Unsp spec) [#/Vol] 1.70 10*3/uL 0.83-4.51 [facility] Absolute neutrophil countOrd ered By: Chele Bonner on 04-10-2025 Neutrophils (Bld) [#/Vol] 3.9 10*3/uL 2.0-7.7 [facility] Anion gap in Serum or Plasma Ordered By: Chele Bonner on 04-10-2025 Anion gap [Moles/Vol] 10 mmol/L 5-15 [facility] Automated lymphocyte count a s percentage of total leukocytesOrdered By: Chele Bonner on 04-10-2025 Lymphocytes/100 WBC Auto (Unsp spec) 26.9 % 19-41 [facility] BUN/creatinine ratioOrdered By: Chele Bonner on 04-10-2025 Urea nitrogen/Creatinine [Mass ratio] 25.1 mg/mg High 10-20 [facility] Basic Metabolic Profile (BMP )on 04-10-2025 BUN/CRE 25.1 RATIO High 10- [facility] Comment on above: Performed By: #### L 500.2500, L500.3400, L501.2450 #### [facility] Laboratory [address] [place], [place], [id number] Calcium [Mass/Vol] 10.3 mg/dL Normal 7.6-11.[address] [facility] Comment on above: Performed By: #### L 500.2500, L500.3400, L501.2450 #### [facility] Laboratory [address] [place], [address] Chloride [Moles/Vol] 107 mmol/L Normal 98-108 [facility] Comment on above: Performed By: #### L 500.2500, L500.3400, L501.2450 #### [facility] Laboratory [address] [place], [address] CO2 [Moles/Vol] 20.9 mmol/L Low 21.0-32.0 [facility] Comment on above: Performed By: #### L 500.2500, L500.3400, L501.2450 #### [facility] Laboratory [address] [place], [address] Creatinine [Mass/Vol] 0.64 mg/dL Low 0.70-1.20 [facility] Comment on above: Performed By: #### L 500.2500, L500.3400, L501.2450 #### [facility] Laboratory [address] [place], [address] ECRCL 109.37 ml/min Normal 50-250 [facility] Comment on above: Performed By: #### L 500.2500, L500.3400, L501.2450 #### [facility] Laboratory [address] [place], [address] GAP 10 Normal 5-15 [facility] Comment on above: Performed By: #### L 500.2500, L500.3400, L501.2450 #### [facility] Laboratory [address] [place], [address] GFR/1.73 sq M.predicted among non-blacks MDRD (S/P/Bld) [Vol rate/Area] 108 mL/min/{1.73_m2} Normal >60 [facility] Comment on above: Result Comment: mL/m in/1.73m2 CKD-EPI Creatinine Equation (2020) Performed By: #### L 500.2500, L500.3400, L501.2450 #### [facility] Laboratory [address] [place], [address] Glucose [Mass/Vol] 83 mg/dL Normal 70-[address] [facility] Comment on above: Performed By: #### L 500.2500, L500.3400, L501.2450 #### [facility] Laboratory [address] [place], [address] Potassium [Moles/Vol] 4.3 mmol/L Normal 3.3-5.1 [facility] Comment on above: Result Comment: Hemo lysis present, Results??could be affected. ?? Performed By: #### L 500.2500, L500.3400, L501.2450 #### [facility] [address] [place], [address] Sodium [Moles/Vol] 139 mmol/L Normal 133-[address] [facility] Comment on above: Performed By: #### L 500.2500, L500.3400, L501.2450 #### [facility] Laboratory [address] [place], [address] Urea nitrogen [Mass/Vol] 16 mg/dL Normal 4-19 [facility] Comment on above: Performed By: #### L 500.2500, L500.3400, L501.2450 #### [facility] Laboratory [address] [place], [address] Basophil percentageOrdered B y: Chele Bonner on 04-10-2025 Basophils/100 WBC (Bld) 0.5 % 0-1 [facility] Bilirubin directOrdered By: Chele Bonner on 04-10-2025 Bilirubin.direct [Mass/Vol] 0.16 mg/dL 0.00-0.30 [facility] Comment on above: Hemolysis present, R esults could be affected. Bilirubin, totalOrdered By: Chele Bonner on 04-10-2025 Bilirubin [Mass/Vol] 0.47 mg/dL 0.00-1.30 [facility] CBC W/Diff, Automatedon 06-2 -2024 Absolute Lymph 1.70 X10 3/uL Normal 0.83-4.51 [facility] Comment on above: Performed By: #### L 509.1000, L506.1000 #### [facility] Laboratory [address] [place], [address] Absolute Neut 3.9 X10 3/uL Normal 2.0-7.7 [facility] Comment on above: Performed By: #### L 509.1000, L506.1000 #### [facility] Laboratory [address] [place], [address] Basophils/100 WBC (Bld) 0.5 % Normal 0-1 [facility] Comment on above: Performed By: #### L 509.1000, L506.1000 #### [facility] Laboratory [address] [place], [address] Eosinophils/100 WBC (Bld) 0.0 % Normal 0-5 [facility] Comment on above: Performed By: #### L 509.1000, L506.1000 #### [facility] Laboratory [address] [place], [address] Erythrocyte distribution width (RBC) [Ratio] 12.2 % Normal 11.6-14.6 [facility] Comment on above: Performed By: #### L 509.1000, L506.1000 #### [facility] Laboratory [address] [place], [address] Hematocrit (Bld) [Volume fraction] 40.8 % Normal 37-47 [facility] Comment on above: Performed By: #### L 509.1000, L506.1000 #### [facility] Laboratory [address] [place], [address] Hemoglobin (Bld) [Mass/Vol] 13.3 g/dL Normal 12.0-15.0 [facility] Comment on above: Performed By: #### L 509.1000, L506.1000 #### [facility] Laboratory [address] [place], [address] IG% 0.200 Normal 0.0-0.9 [facility] Comment on above: Result Comment: IG% - Immature Granulocytes (promyelocytes, myelocytes and metamyelocytes) > 1% indicates that a LEFT SHIFT is Present. Performed By: #### L 509.1000, L506.1000 #### [facility] Laboratory [address] [place], [address] Lymphocytes/100 WBC (Bld) 26.9 % Normal 19-41 [facility] Comment on above: Performed By: #### L 509.1000, L506.1000 #### [facility] Laboratory [address] [place], [address] MCH (RBC) [Entitic mass] 30.4 pg Normal 27.0-32.0 [facility] Comment on above: Performed By: #### L 509.1000, L506.1000 #### [facility] Laboratory [address] [place], [address] MCHC (RBC) [Mass/Vol] 32.6 g/dL Normal 32-36 [facility] Comment on above: Performed By: #### L 509.1000, L506.1000 #### [facility] [address] [place], [address] MCV (RBC) [Entitic vol] 93.2 fL Normal 81-99 [facility] Comment on above: Performed By: #### L 509.1000, L506.1000 #### [facility] [address] [place], [address] Monocytes/100 WBC (Bld) 10.3 % High 0-10 [facility] Comment on above: Performed By: #### L 509.1000, L506.1000 #### [facility] Laboratory [address] [place], [address] Neutrophils/100 WBC (Bld) 62.1 % Normal 47-70 [facility] Comment on above: Performed By: #### L 509.1000, L506.1000 #### [facility] Laboratory [address] [place], [address] Nucleated RBC (Bld) [#/Vol] 0 10*3/uL Normal 0-5 [facility] Comment on above: Performed By: #### L 509.1000, L506.1000 #### [facility] Laboratory [address] [place], [address] Platelet mean volume (Bld) [Entitic vol] 10.2 fL Normal 6.2-12.0 [facility] Comment on above: Performed By: #### L 509.1000, L506.1000 #### [facility] Laboratory [address] [place], [address] Platelets (Bld) [#/Vol] 189 10*3/uL Normal 150-450 [facility] Comment on above: Performed By: #### L 509.1000, L506.1000 #### [facility] Laboratory [address] [place], [address] RBC (Bld) [#/Vol] 4.38 10*6/uL Normal 4.2-5.4 [facility] Comment on above: Performed By: #### L 509.1000, L506.1000 #### [facility] Laboratory [address] [place], [address] RDW SD 42.3 fl Normal 35.1-43.9 [facility] Comment on above: Performed By: #### L 509.1000, L506.1000 #### [facility] Laboratory [address] [place], [address] WBC (Bld) [#/Vol] 6.3 10*3/uL Normal 4.4-11.[address] [facility] Comment on above: Performed By: #### L 509.1000, L506.1000 #### [facility] Laboratory [address] [place], [address] CTA Chest W/WO Contraston CTA Chest W/WO Contrast [facility] Imaging Services [address] [place] [address] CTA Chest W/WO Contrast MR#: [id number] Acct: [id number] Name: MAHNAZ KINSEY Rep #: [id number] : 1975 F 50 From: Amandeep morris MD PCP: Dr. Manfred Alvarez MD Status: REG ER Study: CTA Chest W/WO Contrast Date of Exam: 04/10/25 Exam# [id number] Ordering Dr: Chele Bonner DO PROCEDURE: CTA [...] No acute abnormality is seen. Reading Location: [id number] CC: Dr. Manfred Alvarez MD; Dr. Chele Bonner DO [employer]ist: Signed Normal [facility] Calcium, Urine 24HRon 2024 24HR UR Calcium Normal 42.0-353.0 [facility] Comment on above: Result Comment: ORDE RED 24 HOUR URINE. NO 24 HOUR URINE COLLECTED. CHANGED TO RANDOM URINE CA TEST Performed By: #### L 509.1000, L506.1000 #### [facility] Laboratory [address] [place], [address] Calcium UR pH Normal [facility] Comment on above: Result Comment: ORDE RED 24 HOUR URINE. NO 24 HOUR URINE COLLECTED. CHANGED TO RANDOM URINE CA TEST Performed By: #### L 509.1000, L506.1000 #### [facility] Laboratory [address] [place], [address] UR Collect Time Normal 24.0-24.0 [facility] Comment on above: Result Comment: ORDE RED 24 HOUR URINE. NO 24 HOUR URINE COLLECTED. CHANGED TO RANDOM URINE CA TEST Performed By: #### L 509.1000, L506.1000 #### [facility] Laboratory [address] [place], [address] UR Total Volume Normal [facility] Comment on above: Result Comment: ORDE RED 24 HOUR URINE. NO 24 HOUR URINE COLLECTED. CHANGED TO RANDOM URINE CA TEST Performed By: #### L 509.1000, L506.1000 #### [facility] Laboratory [address] [place], [address] Urine Calcium Normal Not Estab. [facility] Comment on above: Result Comment: ORDE RED 24 HOUR URINE. NO 24 HOUR URINE COLLECTED. CHANGED TO RANDOM URINE CA TEST Performed By: #### L 509.1000, L506.1000 #### [facility] Laboratory [address] [place], [address] Carbon dioxide, total [Moles /volume] in Central venous bloodOrdered By: Chele Bonner on 04-10-2025 CO2 [Moles/Vol] 20.9 mmol/L Low 21.0-32.0 [facility] Chest PA and Lateralon 04-[address] Chest PA [address] L[address] [facility] Imaging Services [address] [place] [address] Chest PA and Lateral MR#: [id number] Acct: [id number] Name: MAHNAZ KINSEY Rep #: [id number] : 1975 F 50 From: Amandeep morris MD PCP: Dr. Manfred lAvarez MD Status: REG ER Study: Chest PA and Lateral Date of Exam: 04/10/25 Exam# [id number] Ordering Dr: Chele Bonner DO PROCEDURE: CHEST PA AND LATERAL [...] No acute abnormality is seen. Reading Location: [facility] CC: Dr. Manfred Alvarez MD; Dr. Chele Bonner DO [employer] Specialist: Signed Normal [facility] Chloride assayOrdered By: Joey Bonner on 04-10-2025 Chloride [Moles/Vol] 107 mmol/L 98-108 [facility] Emergency Department Summary on 04-10-2025 Emergency Department Summary [facility] Medical Records Department [address] [place] [address] Emergency Department Summary 04/10/25 MR#: [id number] Acct: [id number] Name: MAHNAZ KINSEY Rep #: [id number] : 1975 50 From: Chele Bonner DO [...] is not dizzy she was lightheaded. 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 Normal [facility] Eosinophil percentageOrdered By: Chele Bonner on 04-10-2025 Eosinophils/100 WBC (Bld) 0.0 % 0-5 [facility] Erythrocyte distribution wid th ratioOrdered By: Chele Bonner on 04-10-2025 Erythrocyte distribution width (RBC) [Ratio] 12.2 % 11.6-14.6 [facility] Erythrocyte distribution wid th standard deviationOrdered By: Chele Bonner on 04-10-2025 Erythrocyte distribution width (RBC) [Ratio] 42.3 fl 35.1-43.9 [facility] Glomerular filtration rate ( GFR) estimation/1.73 sq m using serum, plasma, or whole bOrdered By: Chele Bonner on 04-10-2025 GFR/1.73 sq M.predicted among non-blacks MDRD (S/P/Bld) [Vol rate/Area] 108 mL/min/{1.73_m2} >60 [facility] Comment on above: mL/min/1.73m2 CKD-EP I Creatinine Equation (2020) H AND P Exam - Hospitaliston 04-10-2025 H&P Exam - Hospitalist [facility] Medical Records Department [address] [place] [address] H P Exam - Hospitalist 04/10/25 1704 MR#: [id number] Acct: [id number] Name: MAHNAZ KINSEY Rep #: [id number] : 1975 50 From: Remi Miller MD PCP: Dr. Manfred Alvarez MD Status:ADM VALERIE Location: [address] - General General Date of Admission: 04/10/25 Date of Service: 04/10/25 Chief Complaint: Epigastric abdominal pain, 40 minutes experienced dizziness sweating and at times nausea. HPI Narrative MAHNAZ KINSEY, is a 50 F with history of [place] with elevated troponin at the age of [...] troponins are normal. ED physician talked to cold reduction roller and advised a stress test tomorrow. She [...] chest were discussed in assessment and plan. [facility] Medical History Asthma Anemia History of non-ST elevation myocardial infarction (NSTEMI) (09/20/19) Essential (primary) hypertension Nicotine dependence Obesity Atherosclerosis of coronary artery of [place] heart without angina pectoris Home Medications ???Medication [...] 3 current occupational status: employed current occupation: [employer] pets and animals: Yes (1) pets and [...] Vital Signs: (more content not included)... Normal [facility] Hematocrit Auto (Bld) [Volum e fraction]Ordered By: Chele Bonner on 04-10-2025 Hematocrit (Bld) [Volume fraction] 40.8 % 37-47 [facility] Hemoglobin measurementOrdere d By: Chele Bonner on 04-10-2025 Hemoglobin (Bld) [Mass/Vol] 13.3 g/dL 12.0-15.0 [facility] Immature granulocytes/100 WB C Auto (Bld)Ordered By: Chele Bonner on 04-10-2025 Immature granulocytes/100 WBC (Bld) 0.200 % 0.0-0.9 [facility] Comment on above: IG% - Immature Granu locytes (promyelocytes, myelocytes and metamyelocytes) > 1% indicates that a LEFT SHIFT is Present. L499.0042on 04-10-2025 Trop T High Sen < 6 Normal <=14 [facility] Comment on above: Performed By: #### L 509.1000, L506.1000 #### [facility] Laboratory [address] [place], [address] L499.0043on 04-10-2025 Trop T High Sen < 6 Normal <=14 [facility] Comment on above: Performed By: #### L 501.2276 #### [facility] Laboratory [address] [place], [address] Trop T High Sen Normal <=14 [facility] Comment on above: Result Comment: Canjeff elluday via OM: Ordered Performed By: #### L 501.2276 #### [facility] Laboratory [address] [place], [address] L501.4021on 04-10-2025 Trop T High Sen < 6 Normal <=14 [facility] Comment on above: Performed By: #### L 509.1000, L506.1000 #### [facility] Laboratory [address] [place], [address] Laboratory - Chemistry and C hemistry - challengeOrdered By: Chele Bonner on 04-10-2025 AST [Catalytic activity/Vol] 20 U/L <32 [facility] Comment on above: Hemolysis present, R esults could be affected. Lipaseon 04-10-2025 Lipase [Catalytic activity/Vol] 25 U/L Normal 13-75 [facility] Comment on above: Result Comment: George vieyra note: LIPASE revised reference range effective 23. New Lipase methodology. Expected to produce lower values than the previous assay method. NEW Reference Range: 13 - 75 U/L Performed By: #### L 500.2500, L500.3400, L501.2450 #### [facility] Laboratory [address] [place], [address] Lipase measurementOrdered By : Chele Bonner on 04-10-2025 Lipase [Catalytic activity/Vol] 25 U/L 13-75 [facility] Comment on above: Please note:LIPASE r evised reference range effective 23. New Lipase methodology. Expected to produce lower values than the previous assay method. NEW Reference Range: 13 - 75 U/L Liver Profileon 04-10-2025 Albumin [Mass/Vol] 4.1 g/dL Normal 3.5-5.[address] [facility] Comment on above: Performed By: #### L 500.2500, L500.3400, L501.2450 #### [facility] Laboratory [address] [place], [address] ALK PHOS 70 U/L Normal 35-104 [facility] Comment on above: Performed By: #### L 500.2500, L500.3400, L501.2450 #### [facility] Laboratory [address] [place], [address] ALT [Catalytic activity/Vol] 10 U/L Normal <=34 [facility] Comment on above: Performed By: #### L 500.2500, L500.3400, L501.2450 #### [facility] Laboratory [address] [place], [address] AST [Catalytic activity/Vol] 20 U/L Normal <=31 [facility] Comment on above: Result Comment: Hemo lysis present, Results??could be affected. ?? Performed By: #### L 500.2500, L500.3400, L501.2450 #### [facility] Laboratory [address] [place], [address] Bilirubin [Mass/Vol] 0.47 mg/dL Normal 0.00-1.30 [facility] Comment on above: Performed By: #### L 500.2500, L500.3400, L501.2450 #### [facility] Laboratory [address] [place], [address] Bilirubin.direct [Mass/Vol] 0.16 mg/dL Normal 0.00-0.30 [facility] Comment on above: Result Comment: Hemo lysis present, Results??could be affected. ?? Performed By: #### L 500.2500, L500.3400, L501.2450 #### [facility] Laboratory [address] [place], [address] Globulin (S) [Mass/Vol] 2.4 g/dL Normal 2.2-4.2 [facility] Comment on above: Performed By: #### L 500.2500, L500.3400, L501.2450 #### [facility] Laboratory [address] [place], [address] T PROT 6.5 g/dL Normal 5.9-8.4 [facility] Comment on above: Performed By: #### L 500.2500, L500.3400, L501.2450 #### [facility] Laboratory [address] [place], [address] MCV (mean corpuscular volume ) determinationOrdered By: Chele Bonner on 04-10-2025 MCV (RBC) [Entitic vol] 93.2 fL 81-99 [facility] Magnesiumon 04-10-2025 Magnesium [Mass/Vol] 1.9 mg/dL Normal 1.5-2.2 [facility] Comment on above: Performed By: #### L 501.2276 #### [facility] Laboratory [address] [place], [address] Magnesium measurement (mass/ volume)Ordered By: Remi Miller on 04-10-2025 Magnesium (Unsp spec) [Mass/Vol] 1.9 mg/dL 1.5-2.2 [facility] Mean corpuscular hemoglobin (MCH) determinationOrdered By: Chele Bonner on 04-10-2025 MCH (RBC) [Entitic mass] 30.4 pg 27.0-32.0 [facility] Mean corpuscular hemoglobin concentration (MCHC) determinationOrdered By: Chele Bonner on 04-10-2025 MCHC (RBC) [Mass/Vol] 32.6 g/dL 32-36 [facility] Mean platelet volume determi nationOrdered By: Chele Bonner on 04-10-2025 Platelet mean volume (Bld) [Entitic vol] 10.2 fL 6.2-12.0 [facility] Monocyte percentageOrdered B y: Chele Bonner on 04-10-2025 Monocytes/100 WBC (Bld) 10.3 % High 0-10 [facility] Neutrophil percentageOrdered By: Chele Bonner on 04-10-2025 Neutrophils/100 WBC (Bld) 62.1 % 47-70 [facility] Nucleated red blood cell per centageOrdered By: Chele Bonner on 04-10-2025 Nucleated RBC/100 WBC (Bld) [Ratio] 0 % 0-5 [facility] Platelet countOrdered By: Joey Bonner on 04-10-2025 Platelets (Bld) [#/Vol] 189 10*3/uL 150-450 [facility] Potassium measurement (mass/ volume)Ordered By: Chele Bonner on 04-10-2025 Potassium (Unsp spec) [Mass/Vol] 4.3 mmol/L 3.3-5.1 [facility] Comment on above: Hemolysis present, R esults could be affected. RBC Auto (Bld) [#/Vol]Ordere d By: Chele Bonner on 04-10-2025 RBC (Bld) [#/Vol] 4.38 10*6/uL 4.2-5.4 [facility] Serum creatinine measurement (mass/volume)Ordered By: Chele Bonner on 04-10-2025 Creatinine [Mass/Vol] 0.64 mg/dL Low 0.70-1.20 [facility] Serum globulin measurementOr dered By: Chele Bonner on 04-10-2025 Globulin (S) [Mass/Vol] 2.4 g/dL 2.2-4.2 [facility] Serum glucose measurement (m ass/volume)Ordered By: Chele Bonner on 04-10-2025 Glucose [Mass/Vol] 83 mg/dL 70-[address] [facility] Serum or plasma alanine roy otransferase (ALT) measurementOrdered By: Chele Bonner on 04-10-2025 ALT [Catalytic activity/Vol] 10 U/L <35 [facility] Serum or plasma albumin erick urement (mass/volume)Ordered By: Chele Bonner on 04-10-2025 Albumin [Mass/Vol] 4.1 g/dL 3.5-5.[address] [facility] Serum or plasma alkaline yolie sphatase measurementOrdered By: Chele Bonner on 04-10-2025 ALP [Catalytic activity/Vol] 70 U/L 35-104 [facility] Serum or plasma calcium erick urement (mass/volume)Ordered By: Chele Bonner on 04-10-2025 Calcium [Mass/Vol] 10.3 mg/dL 7.6-11.[address] [facility] Serum or plasma urea nitroge n measurement (mass/volume)Ordered By: Chele Bonner on 04-10-2025 Urea nitrogen [Mass/Vol] 16 mg/dL 4-19 [facility] Sodium levelOrdered By: Hortencia Bonner on 04-10-2025 Sodium [Moles/Vol] 139 mmol/L 133-[address] [facility] Total proteinOrdered By: Daisy Bonner on 04-10-2025 Protein [Mass/Vol] 6.5 g/dL 5.9-8.[address] [facility] Troponin T.cardiac [Mass/vol ume] in Serum or Plasma by High sensitivity methodOrdered By: Remi Miller on 04-10-2025 Troponin T.cardiac High sensitivity method [Mass/Vol] < 6 ng/L <14 [facility] Troponin T.cardiac [Mass/vol ume] in Serum or Plasma by High sensitivity methodOrdered By: Chele Bonner on 04-10-2025 Troponin T.cardiac High sensitivity method [Mass/Vol] < 6 ng/L <14 [facility] Troponin T.cardiac High sensitivity method [Mass/Vol] < 6 ng/L <14 [facility] White blood cell (WBC) count Ordered By: Chele Bonner on 04-10-2025 WBC (Bld) [#/Vol] 6.3 10*3/uL 4.4-11.[address] [facility] PTHINon 04-09-2025 PTH 84 pg/mL High 11-61 [facility] Comment on above: Order Comment: CAM Epperson ADD PTH TO H129 FROM 04-08-25 Performed By: #### L 500.2500 #### [facility] [address] [place], [address] Absolute lymphocyte countOrd ered By: Manfred Alvarez on 04-08-2025 Lymphocytes Auto (Unsp spec) [#/Vol] 2.51 10*3/uL 0.83-4.51 [facility] Absolute neutrophil countOrd ered By: Manfred Alvarez on 04-08-2025 Neutrophils (Bld) [#/Vol] 2.5 10*3/uL 2.0-7.7 [facility] Anion gap in Serum or Plasma Ordered By: Manfred Alvarez on 04-08-2025 Anion gap [Moles/Vol] 13 mmol/L 5-15 [facility] Automated lymphocyte count a s percentage of total leukocytesOrdered By: Manfred Alvarez on 04-08-2025 Lymphocytes/100 WBC Auto (Unsp spec) 45.7 % High 19-41 [facility] BUN/creatinine ratioOrdered By: Manfred Alvarez on 04-08-2025 Urea nitrogen/Creatinine [Mass ratio] 22.3 mg/mg High 10-20 [facility] Basophil percentageOrdered B y: Manfred Alvarez on 04-08-2025 Basophils/100 WBC (Bld) 0.4 % 0-1 [facility] Bilirubin, totalOrdered By: Manfred Alvarez on 04-08-2025 Bilirubin [Mass/Vol] 0.61 mg/dL 0.00-1.30 [facility] CBC W/Diff, Automatedon 03-17 Absolute Lymph 2.51 X10 3/uL Normal 0.83-4.51 [facility] Comment on above: Performed By: #### L 509.1000, L506.1000 #### [facility] [address] [place], [address] Absolute Neut 2.5 X10 3/uL Normal 2.0-7.7 [facility] Comment on above: Performed By: #### L 509.1000, L506.1000 #### [facility] [address] [place], [address] Basophils/100 WBC (Bld) 0.4 % Normal 0-1 [facility] Comment on above: Performed By: #### L 509.1000, L506.1000 #### [facility] [address] [place], [address] Eosinophils/100 WBC (Bld) 0.0 % Normal 0-5 [facility] Comment on above: Performed By: #### L 509.1000, L506.1000 #### [facility] [address] [place], [address] Erythrocyte distribution width (RBC) [Ratio] 12.3 % Normal 11.6-14.6 [facility] Comment on above: Performed By: #### L 509.1000, L506.1000 #### [facility] [address] [place], [address] Hematocrit (Bld) [Volume fraction] 40.2 % Normal 37-47 [facility] Comment on above: Performed By: #### L 509.1000, L506.1000 #### [facility] [address] [place], [address] Hemoglobin (Bld) [Mass/Vol] 13.4 g/dL Normal 12.0-15.0 [facility] Comment on above: Performed By: #### L 509.1000, L506.1000 #### [facility] [address] [place], [address] IG% 0.200 Normal 0.0-0.9 [facility] Comment on above: Result Comment: IG% - Immature Granulocytes (promyelocytes, myelocytes and metamyelocytes) > 1% indicates that a LEFT SHIFT is Present. Performed By: #### L 509.1000, L506.1000 #### [facility] [address] [place], [address] Lymphocytes/100 WBC (Bld) 45.7 % High 19-41 [facility] Comment on above: Performed By: #### L 509.1000, L506.1000 #### [facility] [address] [place], [address] MCH (RBC) [Entitic mass] 30.8 pg Normal 27.0-32.0 [facility] Comment on above: Performed By: #### L 509.1000, L506.1000 #### [facility] [address] [place], [address] MCHC (RBC) [Mass/Vol] 33.3 g/dL Normal 32-36 [facility] Comment on above: Performed By: #### L 509.1000, L506.1000 #### [facility] [address] [place], [address] MCV (RBC) [Entitic vol] 92.4 fL Normal 81-99 [facility] Comment on above: Performed By: #### L 509.1000, L506.1000 #### [facility] [address] [place], [address] Monocytes/100 WBC (Bld) 8.6 % Normal 0-10 [facility] Comment on above: Performed By: #### L 509.1000, L506.1000 #### [facility] [address] [place], [address] Neutrophils/100 WBC (Bld) 45.1 % Low 47-70 [facility] Comment on above: Performed By: #### L 509.1000, L506.1000 #### [facility] [address] [place], [address] Nucleated RBC (Bld) [#/Vol] 0 10*3/uL Normal 0-5 [facility] Comment on above: Performed By: #### L 509.1000, L506.1000 #### [facility] [address] [place], [address] Platelet mean volume (Bld) [Entitic vol] 10.5 fL Normal 6.2-12.0 [facility] Comment on above: Performed By: #### L 509.1000, L506.1000 #### [facility] [address] [place], [address] Platelets (Bld) [#/Vol] 219 10*3/uL Normal 150-450 [facility] Comment on above: Performed By: #### L 509.1000, L506.1000 #### [facility] [address] [place], [address] RBC (Bld) [#/Vol] 4.35 10*6/uL Normal 4.2-5.4 [facility] Comment on above: Performed By: #### L 509.1000, L506.1000 #### [facility] [address] [place], [address] RDW SD 41.9 fl Normal 35.1-43.9 [facility] Comment on above: Performed By: #### L 509.1000, L506.1000 #### [facility] [address] [place], [address] WBC (Bld) [#/Vol] 5.5 10*3/uL Normal 4.4-11.[address] [facility] Comment on above: Performed By: #### L 509.1000, L506.1000 #### [facility] [address] [place], [address] Calculated very low density lipoprotein (VLDL) cholesterol measurementOrdered By: Manfred Alvarez on 04-08-2025 Calculated very low density lipoprotein (VLDL) cholesterol measurement 13 mg/dL 5-40 [facility] Carbon dioxide, total [Moles /volume] in Central venous bloodOrdered By: Manfred Alvarez on 04-08-2025 CO2 [Moles/Vol] 24.9 mmol/L 21.0-32.0 [facility] Chloride assayOrdered By: Connor Alvarez on 04-08-2025 Chloride [Moles/Vol] 104 mmol/L 98-108 [facility] Comprehensive Metabolic Prof ilon 04-08-2025 Albumin [Mass/Vol] 4.5 g/dL Normal 3.5-5.[address] [facility] Comment on above: Performed By: #### L 509.1000, L506.1000 #### [facility] [address] [place], [address] Albumin/Globulin [Mass ratio] 1.8 {ratio} Normal 0.9-2.4 [facility] Comment on above: Performed By: #### L 509.1000, L506.1000 #### [facility] [address] [place], [address] ALK PHOS 71 U/L Normal 35-104 [facility] Comment on above: Performed By: #### L 509.1000, L506.1000 #### [facility] [address] [place], [address] ALT [Catalytic activity/Vol] 12 U/L Normal <=34 [facility] Comment on above: Performed By: #### L 509.1000, L506.1000 #### [facility] [address] [place], [address] AST [Catalytic activity/Vol] 15 U/L Normal <=31 [facility] Comment on above: Performed By: #### L 509.1000, L506.1000 #### [facility] [address] [place], [address] Bilirubin [Mass/Vol] 0.61 mg/dL Normal 0.00-1.30 [facility] Comment on above: Performed By: #### L 509.1000, L506.1000 #### [facility] [address] [place], [address] BUN/CRE 22.3 RATIO High 10-20 [facility] Comment on above: Performed By: #### L 509.1000, L506.1000 #### [facility] [address] [place], [address] Calcium [Mass/Vol] 11.1 mg/dL High 7.6-11.[address] [facility] Comment on above: Performed By: #### L 509.1000, L506.1000 #### [facility] [address] [place], [address] Chloride [Moles/Vol] 104 mmol/L Normal 98-108 [facility] Comment on above: Performed By: #### L 509.1000, L506.1000 #### [facility] [address] [place], [address] CO2 [Moles/Vol] 24.9 mmol/L Normal 21.0-32.0 [facility] Comment on above: Performed By: #### L 509.1000, L506.1000 #### [facility] [address] [place], [address] Creatinine [Mass/Vol] 0.70 mg/dL Normal 0.70-1.20 [facility] Comment on above: Performed By: #### L 509.1000, L506.1000 #### [facility] [address] [place], [address] GAP 13 Normal 5-15 [facility] Comment on above: Performed By: #### L 509.1000, L506.1000 #### [facility] [address] [place], [address] GFR/1.73 sq M.predicted among non-blacks MDRD (S/P/Bld) [Vol rate/Area] 105 mL/min/{1.73_m2} Normal >60 [facility] Comment on above: Result Comment: mL/m in/1.73m2 CKD-EPI Creatinine Equation (2020) Performed By: #### L 509.1000, L506.1000 #### [facility] [address] [place], [address] Globulin (S) [Mass/Vol] 2.5 g/dL Normal 2.2-4.2 [facility] Comment on above: Performed By: #### L 509.1000, L506.1000 #### [facility] [address] [place], [address] Glucose [Mass/Vol] 80 mg/dL Normal 70-[address] [facility] Comment on above: Performed By: #### L 509.1000, L506.1000 #### [facility] [address] [place], [address] Potassium [Moles/Vol] 3.6 mmol/L Normal 3.3-5.1 [facility] Comment on above: Performed By: #### L 509.1000, L506.1000 #### [facility] [address] [place], [address] Sodium [Moles/Vol] 142 mmol/L Normal 133-[address] [facility] Comment on above: Performed By: #### L 509.1000, L506.1000 #### [facility] [address] [place], [address] T PROT 7.0 g/dL Normal 5.9-8.4 [facility] Comment on above: Performed By: #### L 509.1000, L506.1000 #### [facility] [address] [place], [address] Urea nitrogen [Mass/Vol] 16 mg/dL Normal 4-19 [facility] Comment on above: Performed By: #### L 509.1000, L506.1000 #### [facility] [address] [place], [address] Eosinophil percentageOrdered By: Manfred Alvarez on 04-08-2025 Eosinophils/100 WBC (Bld) 0.0 % 0-5 [facility] Erythrocyte distribution wid th ratioOrdered By: Manfred Alvarez on 04-08-2025 Erythrocyte distribution width (RBC) [Ratio] 12.3 % 11.6-14.6 [facility] Erythrocyte distribution wid th standard deviationOrdered By: Manfred Alvarez on 04-08-2025 Erythrocyte distribution width (RBC) [Ratio] 41.9 fl 35.1-43.9 [facility] Glomerular filtration rate ( GFR) estimation/1.73 sq m using serum, plasma, or whole bOrdered By: Manfred Alvarez on 04-08-2025 GFR/1.73 sq M.predicted among non-blacks MDRD (S/P/Bld) [Vol rate/Area] 105 mL/min/{1.73_m2} >60 [facility] Comment on above: mL/min/1.73m2 CKD-EP I Creatinine Equation (2020) Hematocrit Auto (Bld) [Volum e fraction]Ordered By: Manfred Alvarez on 04-08-2025 Hematocrit (Bld) [Volume fraction] 40.2 % 37-47 [facility] Hemoglobin measurementOrdere d By: Manfred Alvarez on 04-08-2025 Hemoglobin (Bld) [Mass/Vol] 13.4 g/dL 12.0-15.0 [facility] Immature granulocytes/100 WB C Auto (Bld)Ordered By: Manfred Alvarez on 04-08-2025 Immature granulocytes/100 WBC (Bld) 0.200 % 0.0-0.9 [facility] Comment on above: IG% - Immature Granu locytes (promyelocytes, myelocytes and metamyelocytes) > 1% indicates that a LEFT SHIFT is Present. LDL calc ser/plasOrdered By: Manfred Alvarez on 04-08-2025 Cholesterol in LDL [Mass/Vol] 64 mg/dL [facility] Comment on above: Dyzsjyzwdr=333-006 m g/dL & Higher Daap=529 mg/dL or greater Laboratory - Chemistry and C hemistry - challengeOrdered By: Manfred Alvarez on 04-08-2025 AST [Catalytic activity/Vol] 15 U/L <32 [facility] Lipid Profileon 04-08-2025 CHOL:HDL 1.78 Normal [facility] Comment on above: Performed By: #### L 509.1000, L506.1000 #### [facility] [address] [place], [address] Cholesterol [Mass/Vol] 177 mg/dL Normal <=200 [facility] Comment on above: Result Comment: Chol esterol level, Desirable <200 mg/dL Borderline high cholesterol 200-239 mg/dL High cholesterol >=240 mg/dL Recommendations of the NCEP Adult Treatment Panel for the following risk-cutoff thresholds for the [place] population. Performed By: #### L 509.1000, L506.1000 #### [facility] [address] [place], [address] Cholesterol in HDL [Mass/Vol] 100 mg/dL Normal [facility] Comment on above: Result Comment: Myrna onal Cholesterol Education Program (NCEP) guidelines: <40 mg/dL: Low HDL-cholesterol (major risk factor for CHD) >= 60 mg/dL: High HDL-cholesterol (negative risk factor for CHD) HDL-cholesterol is affected by a number of factors, e.g. smoking, exercise, hormones, sex and age. Performed By: #### L 509.1000, L506.1000 #### [facility] [address] [place], [address] Cholesterol in LDL [Mass/Vol] 64 mg/dL Normal [facility] Comment on above: Result Comment: Bord vnvmwg=258-974 mg/dL Higher Ggdj=903 mg/dL or greater Performed By: #### L 509.1000, L506.1000 #### [facility] [address] [place], [address] Cholesterol in VLDL [Mass/Vol] 13 mg/dL Normal 5-40 [facility] Comment on above: Performed By: #### L 509.1000, L506.1000 #### [facility] [address] [place], [address] Triglyceride [Mass/Vol] 64 mg/dL Normal [facility] Comment on above: Result Comment: The drugs N-Acetylcysteine and Metamizole may falsely depress this assay. Normal range: <150 mg/dL Borderline High: 150-199 mg/dL High: 200-499 mg/dL Very High: >500 mg/dL Performed By: #### L 509.1000, L506.1000 #### [facility] [address] [place], [address] MCV (mean corpuscular volume ) determinationOrdered By: Manfred Alvarez on 04-08-2025 MCV (RBC) [Entitic vol] 92.4 fL 81-99 [facility] Mean corpuscular hemoglobin (MCH) determinationOrdered By: Manfred Alvarez on 04-08-2025 MCH (RBC) [Entitic mass] 30.8 pg 27.0-32.0 [facility] Mean corpuscular hemoglobin concentration (MCHC) determinationOrdered By: Manfred Alvarez on 04-08-2025 MCHC (RBC) [Mass/Vol] 33.3 g/dL 32-36 [facility] Mean platelet volume determi nationOrdered By: Manfred Alvarez on 04-08-2025 Platelet mean volume (Bld) [Entitic vol] 10.5 fL 6.2-12.0 [facility] Monocyte percentageOrdered B y: Manfred Alvarez on 04-08-2025 Monocytes/100 WBC (Bld) 8.6 % 0-10 [facility] Neutrophil percentageOrdered By: Manfred Alvarez on 04-08-2025 Neutrophils/100 WBC (Bld) 45.1 % Low 47-70 [facility] Nucleated red blood cell per centageOrdered By: Manfred Alvarez on 04-08-2025 Nucleated RBC/100 WBC (Bld) [Ratio] 0 % 0-5 [facility] Platelet countOrdered By: Connor Alvarez on 04-08-2025 Platelets (Bld) [#/Vol] 219 10*3/uL 150-450 [facility] Potassium measurement (mass/ volume)Ordered By: Manfred Alvarez on 04-08-2025 Potassium (Unsp spec) [Mass/Vol] 3.6 mmol/L 3.3-5.1 [facility] RBC Auto (Bld) [#/Vol]Ordere d By: Manfred Alvarez on 04-08-2025 RBC (Bld) [#/Vol] 4.35 10*6/uL 4.2-5.4 [facility] Screening total cholesterol/ high density lipoprotein (HDL) cholesterol ratioOrdered By: Manfred Alvarez on 04-08-2025 Cholesterol.total/Shazia sterol in HDL [Mass ratio] 1.78 {ratio} [facility] Serum creatinine measurement (mass/volume)Ordered By: Manfred Alvarez on 04-08-2025 Creatinine [Mass/Vol] 0.70 mg/dL 0.70-1.20 [facility] Serum globulin measurementOr dered By: Manfred Alvarez on 04-08-2025 Globulin (S) [Mass/Vol] 2.5 g/dL 2.2-4.2 [facility] Serum glucose measurement (m ass/volume)Ordered By: Manfred Alvarez on 04-08-2025 Glucose [Mass/Vol] 80 mg/dL 70-[address] [facility] Serum or plasma alanine roy otransferase (ALT) measurementOrdered By: Manfred Alvarez on 04-08-2025 ALT [Catalytic activity/Vol] 12 U/L <35 [facility] Serum or plasma albumin erick urement (mass/volume)Ordered By: Manfred Alvarez on 04-08-2025 Albumin [Mass/Vol] 4.5 g/dL 3.5-5.[address] [facility] Serum or plasma albumin/glob ulin mass ratioOrdered By: Manfred Alvarez on 04-08-2025 Albumin/Globulin [Mass ratio] 1.8 {ratio} 0.9-2.4 [facility] Serum or plasma alkaline yolie sphatase measurementOrdered By: Manfred Alvarez on 04-08-2025 ALP [Catalytic activity/Vol] 71 U/L 35-104 [facility] Serum or plasma calcium erick urement (mass/volume)Ordered By: Manfred Alvarez on 04-08-2025 Calcium [Mass/Vol] 11.1 mg/dL High 7.6-11.[address] [facility] Serum or plasma cholesterol in HDL measurement (mass/volume)Ordered By: Manfred Alvarez on 04-08-2025 Cholesterol in HDL [Mass/Vol] 100 mg/dL >40 [facility] Comment on above: National Cholesterol Education Program (NCEP) guidelines:<40 mg/dL: Low HDL-cholesterol (major risk factor for CHD)>= 60 mg/dL: High HDL-cholesterol (negative risk factor for CHD)HDL-cholesterol is affected by a number of factors, e.g. smoking, exercise, hormones, sex and age. Serum or plasma cholesterol measurement (mass/volume)Ordered By: Manfred Alvarez on 04-08-2025 Cholesterol [Mass/Vol] 177 mg/dL <201 [facility] Comment on above: Cholesterol level, D esirable <200 mg/dLBorderline high cholesterol 200-239 mg/dLHigh cholesterol >=240 mg/dLRecommendations of the NCEP Adult Treatment Panel for the following risk-cutoff thresholds for the [place] population. Serum or plasma urea nitroge n measurement (mass/volume)Ordered By: Manfred Alvarez on 04-08-2025 Urea nitrogen [Mass/Vol] 16 mg/dL 4-19 [facility] Sodium levelOrdered By: Linwood Alvarez on 04-08-2025 Sodium [Moles/Vol] 142 mmol/L 133-[address] [facility] Total proteinOrdered By: Sherman Alvarez on 04-08-2025 Protein [Mass/Vol] 7.0 g/dL 5.9-8.[address] [facility] Triglycerides measurementOrd ered By: Manfred Alvarez on 04-08-2025 Triglyceride [Mass/Vol] 64 mg/dL <199 [facility] Comment on above: The drugs N-Acetylcy steine and Metamizole may falsely depress this assay. Normal range: <150 mg/dLBorderline High: 150-199 mg/dLHigh: 200-499 mg/dLVery High: >500 mg/dL Vitamin B12on 04-08-2025 Cobalamin (Vitamin B12) [Mass/Vol] 353 pg/mL Normal 180-914 [facility] Comment on above: Performed By: #### L 500.2500 #### [facility] Laboratory [address] [place], [place], [address] Vitamin B12 ser/plasOrdered By: Manfred Alvarez on 04-08-2025 Cobalamin (Vitamin B12) [Mass/Vol] 353 pg/mL 180-914 [facility] Vitamin D,25 Hydroxyon 04-08 Vitamin D 25-OH 33.1 ng/mL Normal 30-100 [facility] Comment on above: Result Comment: Stephanie min D Status Deficiency: <20 ng/mL (50nmol/L) Insufficiency: 20-30 ng/mL (50-75 nmol/L) Sufficiency: 30-100 ng/mL (75-250 nmol/L) Toxicity: >100 ng/mL (>250 nmol/L) Performed By: #### L 500.2500 #### [facility] [address] [place], [place], [address] White blood cell (WBC) count Ordered By: Manfred Alvarez on 04-08-2025 WBC (Bld) [#/Vol] 5.5 10*3/uL 4.4-11.[address] [facility] Internal Medicine Office Vis iton 04-07-2025 Internal Medicine Office Visit [facility] [address] [place], [place] [address] OFFICE VISIT Date of Service: 04/08/25 MR#: [id number] Acct: [id number] Name: MAHNAZ KINSEY Rep #: [id number] : 1975 Provider: Dr. Manfred brady MD Age/Sex: 50/F Location[place] [facility] Status: Signed Intake Vital Signs 12/03/24 13:51 04/08/25 07:34 Height 5 ft 5 in 5 ft 5 in Weight: 181 lb BMI 30.1 BP 124/80 H Blood Pressure Location Lt brachial Position Sitting Respiration 16 Pulse 70 Pulse Source Monitor Temp 97.9 F Temp Source Temporal Pulse Oximetry (%) 98 Oxygen Delivery Method room air Intake Visit Reasons: 4 M FU Chairman Of The Board Required: No Is patient in pain?: No [...] have enough oomph unless she has to. 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 DONALD-7 BMS DONALD-7 Feeling nerv (more content not included)... Normal [facility] Internal Medicine Office Vis iton 12-02-2024 Internal Medicine Office Visit [facility] [address] [place] [address] [place] [address] OFFICE VISIT Date of Service: 12/03/24 MR#: [id number] Acct: [id number] Name: MAHNAZ KINSEY Rep #: [id number] : 1975 Provider: Dr. Manfred brady MD Age/Sex: 49/F Location[place] [facility] [place] Status: Signed Intake Vital Signs 10/20/24 13:25 [...] ON SEMAGLUTIDE Chief Complaint: fu on semaglutide Chairman Of The Board Required: No Accompanied by: Self Is patient [...] past year?: No (needs refill on b-12) [facility] Medical History Asthma Anemia History of non-ST elevation myocardial infarction (NSTEMI) (09/20/19) Essential (primary) hypertension Nicotine dependence Obesity Atherosclerosis of coronary artery of [place] heart without angina pectoris Surgical History History [...] 3 current occupational status: employed current occupation: [employer] pets and animals: Yes (1) pets and [...] or pa (more content not included)... Normal [facility] Urgent Care Visit Reporton 0 10-21-2024 Urgent Care Visit Report [facility] [address], [address] [place] [address] OFFICE VISIT Date of Service: 10/21/24 MR#: [id number] Acct: [id number] Name: MAHNAZ KINSEY Rep #: [id number] : 1975 Provider: OSBALDO Huntley Age/Sex: 49/F Location[place] [facility] Status: Signed Intake Vital Signs 07/16/24 09:53 [...] THROAT/SINUS/COUGH/FEV ER/CHILLS Chief Complaint: sore throat/sinus/cough/fev er/chills Chairman Of The Board Required: No Is patient in pain?: No [...] chills x3 days. Ran mally covid/flu test. [facility] Medical History Asthma Anemia History of non-ST elevation myocardial infarction (NSTEMI) (09/20/19) Essential (primary) hypertension Nicotine dependence Obesity Atherosclerosis of coronary artery of [place] heart without angina pectoris Surgical History History [...] 3 current occupational status: employed current occupation: [employer] - pets and animals: Yes (1) pets [...] shortness of breath or dyspnea on exertion. Yrbx-xez-bmkpcur Mucinex and Tylenol taken to assist. Several [...] both ey (more content not included)... Normal [facility] Calcium, Urine 24HRon 2023 24HR UR Calcium 184.0 mg/24 HR Normal 42.0-353.0 [facility] Comment on above: Performed By: #### L 501.2276 #### [facility] Laboratory [address] [place], [place], [address] Calcium UR pH 2 Normal [facility] Comment on above: Performed By: #### L 501.2276 #### [facility] [address] [place], [address] UR Collect Time 24.0 HR Normal 24.0-24.0 [facility] Comment on above: Performed By: #### L 501.2276 #### [facility] [address] [place], [address] UR Total Volume 1000 ml Normal [facility] Comment on above: Performed By: #### L 501.2276 #### [facility] [address] [place], [address] Urine Calcium 18.4 mg/dL Normal Not Estab. [facility] Comment on above: Performed By: #### L 501.2276 #### [facility] [address] [place], [address] Calcium, Urine 24HRon 2023 24HR UR Calcium Normal 42.0-353.0 [facility] Comment on above: Order Comment: 1700 ML TOTAL VOLUME FOR 24HOURS-SWRIGHT Result Comment: BOBY LLECTED. DROPPED OFF ON 07-23-24 Performed By: #### L 500.7000 #### [facility] [address] [place], [address] Calcium UR pH Normal [facility] Comment on above: Order Comment: 1700 ML TOTAL VOLUME FOR 24HOURS-SWRIGHT Result Comment: BOBY LLECTED. DROPPED OFF ON 07-23-24 Performed By: #### L 500.7000 #### [facility] [address] [place], [address] UR Collect Time Normal 24.0-24.0 [facility] Comment on above: Order Comment: 1700 ML TOTAL VOLUME FOR 24HOURS-SWRIGHT Result Comment: BOBY LLECTED. DROPPED OFF ON 07-23-24 Performed By: #### L 500.7000 #### [facility] [address] [place], [address] UR Total Volume Normal [facility] Comment on above: Order Comment: 1700 ML TOTAL VOLUME FOR 24HOURS-SWRIGHT Result Comment: BOBY LLECTED. DROPPED OFF ON 07-23-24 Performed By: #### L 500.7000 #### [facility] [address] [place], [address] Urine Calcium Normal Not Estab. [facility] Comment on above: Order Comment: 1700 ML TOTAL VOLUME FOR 24HOURS-SWRIGHT Result Comment: BOBY LLECTED. DROPPED OFF ON 07-23-24 Performed By: #### L 500.7000 #### [facility] [address] [place], [address] Comprehensive Metabolic Prof ilon 07-16-2024 Albumin [Mass/Vol] 3.8 g/dL Normal 3.2-5.[address] [facility] Comment on above: Performed By: #### L 500.4050 #### [facility] [address] [place], [address] Albumin/Globulin [Mass ratio] 1.3 {ratio} Normal 0.9-2.4 [facility] Comment on above: Performed By: #### L 500.4050 #### [facility] [address] [place], [address] ALK P 75 U/L Normal 45-117 [facility] Comment on above: Performed By: #### L 500.4050 #### [facility] [address] [place], [address] ALT [Catalytic activity/Vol] 15 U/L Normal 13-56 [facility] Comment on above: Performed By: #### L 500.4050 #### [facility] [address] [place], [address] AST [Catalytic activity/Vol] 9 U/L Low 15-37 [facility] Comment on above: Performed By: #### L 500.4050 #### [facility] [address] [place], [address] Bilirubin [Mass/Vol] 0.40 mg/dL Normal 0.20-1.00 [facility] Comment on above: Result Comment: For patients on eltrombopag therapy, use of Dimension Pfeifer TBIL is not recommended. Performed By: #### L 500.4050 #### [facility] [address] [place], [address] BUN/CRE 11.6 RATIO Normal 10-20 [facility] Comment on above: Performed By: #### L 500.4050 #### [facility] [address] [place], [address] CA,Total 10.6 mg/dL High 8.5-10.1 [facility] Comment on above: Performed By: #### L 500.4050 #### [facility] [address] [place], [address] Chloride [Moles/Vol] 108 mmol/L High 98-107 [facility] Comment on above: Performed By: #### L 500.4050 #### [facility] [address] [place], [address] CO2 [Moles/Vol] 26.0 mmol/L Normal 21.0-32.0 [facility] Comment on above: Performed By: #### L 500.4050 #### [facility] [address] [place], [address] Creatinine [Mass/Vol] 0.69 mg/dL Normal 0.55-1.02 [facility] Comment on above: Result Comment: The validity of the calculated GFR GFRAA in patients over 70 years has not been determined. Clinical correlation is essential. Performed By: #### L 500.4050 #### [facility] [address] [place], [address] EST GFR - AA 117 mL/min Normal >60 [facility] Comment on above: Result Comment: Afri can Burkinan GFR Calc Performed By: #### L 500.4050 #### [facility] [address] [place], [address] GAP 6 Normal 5-15 [facility] Comment on above: Performed By: #### L 500.4050 #### [facility] [address] [place], [address] GFR/1.73 sq M.predicted among non-blacks MDRD (S/P/Bld) [Vol rate/Area] 97 mL/min/{1.73_m2} Normal >60 [facility] Comment on above: Result Comment: Non- GFR Calc Performed By: #### L 500.4050 #### [facility] [address] [place], [address] Globulin (S) [Mass/Vol] 3.0 g/dL Normal 2.2-4.2 [facility] Comment on above: Performed By: #### L 500.4050 #### [facility] [address] [place], [address] Glucose [Mass/Vol] 75 mg/dL Normal 74-[address] [facility] Comment on above: Performed By: #### L 500.4050 #### [facility] [address] [place], [address] Potassium [Moles/Vol] 4.3 mmol/L Normal 3.5-5.1 [facility] Comment on above: Performed By: #### L 500.4050 #### [facility] [address] [place], [address] Sodium [Moles/Vol] 141 mmol/L Normal 136-[address] [facility] Comment on above: Performed By: #### L 500.4050 #### [facility] [address] [place], [address] T PROT 6.8 g/dL Normal 6.4-8.2 [facility] Comment on above: Performed By: #### L 500.4050 #### [facility] [address] [place], [address] Urea nitrogen [Mass/Vol] 8 mg/dL Normal 7-18 [facility] Comment on above: Performed By: #### L 500.4050 #### [facility] [address] [place], [address] Internal Medicine Office Vis iton 07-16-2024 Internal Medicine Office Visit [facility] [address] [place] [address] [place] [address] OFFICE VISIT Date of Service: 07/16/24 MR#: [id number] Acct: [id number] Name: MAHNAZ KINSEY Rep #: [id number] : 1975 Provider: UMU sexton Age/Sex: 49/F Location[place] [facility] Status: Signed Intake Vital Signs 06/11/24 09:50 [...] FU FROM LABS Chief Complaint: follow up Chairman Of The Board Required: No Accompanied by: Self Is patient [...] dependence Obesity Atherosclerosis of coronary artery of [place] heart without angina pectoris Surgical History History [...] 3 current occupational status: employed current occupation: [employer] pets and animals: Yes (1) pets and [...] were stable. She does not take any pkss-lxr-tozvrdp calcium or vitamin D supplements. She denies [...] Musc Musculoskeletal (more content not included)... Normal [facility] L501.2276on 07-16-2024 Ionized Calcium 5.50 mg/dL High 4.36-5.20 [facility] Comment on above: Performed By: #### L 501.2276 #### [facility] Laboratory [address] [place], [place], [address] SCRN MAMM (CAD)W/SHANNON BILATo n 06-25-2024 SCRN MAMM (CAD)W/SHANNON BILAT [facility] Services [address] [place] [address] SCRN MAMM (CAD)W/SHANNON BILAT MR#: [id number] Acct: [id number] Name: MAHNAZ KINSEY Rep #: [id number] : 1975 F 49 From: Amandeep morris MD PCP: Dr. Manfred Alvarez MD Status: REG CL Study: SCRN MAMM (CAD)W/SHANNON BILAT Date of Exam: 06/16 Exam# [id number] Ordering Dr: Bianca Duran [id number] MAMMOGRAPHY - BILATERAL SCREENING REASON FOR EXAM: [...] delay biopsy of a clinically suspicious abnormality. [id number] Electronically Signed: Amandeep Montana MD at 13:19 EDT , CC: [facility] Duran; Dr. Manfred Alvarez MD [employer]: Signed Normal [facility] PTHINon 06-13-2024 PTH 68.3 pg/mL Normal 18.4-80.1 [facility] Comment on above: Performed By: #### L 509.1000, L506.1000 #### [facility] [address] [place], [address] Vitamin D,25 Hydroxyon 06-13 Vitamin D 25-OH 32.0 ng/mL Normal [facility] Comment on above: Result Comment: Stephanie min D 25(OH) Status Range Deficiency <20 ng/mL (50nmol/L) Insufficiency 20 - 30 ng/mL (50 - 75 nmol/L) Sufficiency 30 - 100 ng/mL (75 - 250 nmol/L) Toxicity >100 ng/mL (>250 nmol/L) Performed By: #### L 509.1000, L506.1000 #### [facility] [address] [place], [address] Basic Metabolic Profile (BMP )on 06-11-2024 BUN/CRE 16.3 RATIO Normal 10-20 [facility] Comment on above: Performed By: #### L 500.2500 #### [facility] [address] [place], [address] CA,Total 10.7 mg/dL High 8.5-10.1 [facility] Comment on above: Performed By: #### L 500.2500 #### [facility] [address] [place], [address] Chloride [Moles/Vol] 106 mmol/L Normal 98-107 [facility] Comment on above: Performed By: #### L 500.2500 #### [facility] [address] [place], [address] CO2 [Moles/Vol] 30.0 mmol/L Normal 21.0-32.0 [facility] Comment on above: Performed By: #### L 500.2500 #### [facility] [address] [place], [address] Creatinine [Mass/Vol] 0.67 mg/dL Normal 0.55-1.02 [facility] Comment on above: Result Comment: The validity of the calculated GFR GFRAA in patients over 70 years has not been determined. Clinical correlation is essential. Performed By: #### L 500.2500 #### [facility] [address] [place], [address] EST GFR - AA 120 mL/min Normal >60 [facility] Comment on above: Result Comment: Afri can [place]kin[place] GFR Calc Performed By: #### L 500.2500 #### [facility] [address] [place], [address] GAP 5 Normal 5-15 [facility] Comment on above: Performed By: #### L 500.2500 #### [facility] [address] [place], [address] GFR/1.73 sq M.predicted among non-blacks MDRD (S/P/Bld) [Vol rate/Area] 99 mL/min/{1.73_m2} Normal >60 [facility] Comment on above: Result Comment: Non- GFR Calc Performed By: #### L 500.2500 #### [facility] [address] [place], [address] Glucose [Mass/Vol] 80 mg/dL Normal 74-[address] [facility] Comment on above: Performed By: #### L 500.2500 #### [facility] [address] [place], [address] Potassium [Moles/Vol] 4.5 mmol/L Normal 3.5-5.1 [facility] Comment on above: Performed By: #### L 500.2500 #### [facility] [address] [place], [address] Sodium [Moles/Vol] 141 mmol/L Normal 136-[address] [facility] Comment on above: Performed By: #### L 500.2500 #### [facility] [address] [place], [address] Urea nitrogen [Mass/Vol] 11 mg/dL Normal 7-18 [facility] Comment on above: Performed By: #### L 500.2500 #### [facility] [address] [place], [address] Internal Medicine Office Vis iton 06-11-2024 Internal Medicine Office Visit [facility] [address] [address] [place] [address] OFFICE VISIT Date of Service: 06/11/24 MR#: [id number] Acct: [id number] Name: MAHNAZ KINSEY Rep #: [id number] : 1975 Provider: UMU sexton Age/Sex: 49/F [place] [facility] Status: Signed Intake Vital Signs 03/12/24 09:57 [...] 3 M FU Chief Complaint: follow up Chairman Of The Board Required: No Accompanied by: Self Is patient [...] 06/11/24 06/11/24 Rx extended release (Wellbutrin XL) [facility] Medical History (Updated 06/11/24 @ 16:27 by GRACE WinslowC) Asthma Anemia History of non-ST elevation myocardial infarction (NSTEMI) (09/20/19) Essential (primary) hypertension Nicotine dependence Obesity Atherosclerosis of coronary artery of [place] heart without angina pectoris Surgical History History [...] 3 current occupational status: employed current occupation: [employer] pets and animals: Yes (1) pets and [...] weight is (more content not included)... Normal [facility] Basic Panelon 09-20-2019 Calcium [Mass/Vol] 9.0 mg/dL Normal 8.5-10.1 [facility] Comment on above: Performed By: #### L P8 #### [address] [address] CO2 Blood 22 mEq/L Normal 21-32 [facility] Comment on above: Performed By: #### L P8 #### [address] [address] Creatinine [Mass/Vol] 0.83 mg/dL Normal 0.51-0.95 [facility] Comment on above: Performed By: #### L P8 #### [address] [address] Glucose [Mass/Vol] 97 mg/dL Normal 70-99 [facility] Comment on above: Performed By: #### L P8 #### [facility] [address] [address] Urea nitrogen [Mass/Vol] 27 mg/dL High 7-18 [facility] Comment on above: Performed By: #### L P8 #### [facility] [address] [address] Chloride [Moles/Vol] 109 mmol/L Normal 98-109 [facility] Comment on above: Result Comment: Test ing performed on an [place]ute i-STAT. Performed By: #### L P8 #### [facility] [address] [address] Potassium [Moles/Vol] 4.1 mmol/L Normal 3.5-4.9 [facility] Comment on above: Result Comment: Test ing performed on an [employer]ute i-STAT. Performed By: #### L P8 #### [place] [address] Sodium [Moles/Vol] 140 mmol/L Normal 138-146 [facility] Comment on above: Result Comment: Test ing performed on an [employer]ute i-STAT. Performed By: #### L P8 #### [place] [address] ECG COMPLETEon 09-20-2019 ECG COMPLETE NAME : OSMAN KINSEY PID : [id number] : 1975 Gender : Female Race : ORD : [id number] Procedure Date : Sep 19 2019 22:53:28 Edit Date : Sep 21 2019 17:15:50 Diagnosis:NORMAL SINUS RHYTHM NORMAL ECG WHEN COMPARED WITH ECG OF 19-SEP-2019 21:55, NO SIGNIFICANT CHANGE WAS FOUND Confirmed by MD LOU VINAYAK ([id number]) on 09/21/2019 5:15:46 PM Ventricular Rate : 64 BPM Atrial Rate : 64 BPM P-R Interval : 158 ms QRS Duration : 94 ms Q-T Interval : 396 ms QTC Calculation(Bazett) : 408 ms P [place] : 34 degrees R [place] : 5 degrees T [place] : 9 degrees Test Reason : Other - Specify [facility] Overread By : MD LOU VINAYAK Edited By : MD LOU VINAYAK Referred By : , Acquired by : Kel Chavira [facility] ED NOTEon 09-20-2019 ED NOTE HNO ID: [id number] Author: Sukh Lyle RN Service: Emergency Medicine Author Type: Registered Nurse Type: ED Notes Filed: 09/19/2019 11:49 PM Note Text: [facility] present at bedside for patient transfer. [facility] ED NOTE HNO ID: [id number] Author: Sukh Lyle RN Service: Emergency Medicine Author Type: Registered Nurse Type: ED Notes Filed: 09/19/2019 11:48 PM Note Text: Clean catch urine specimen obtained and sent. [facility] ED NOTE HNO ID: [id number] Author: Sukh Lyle RN Service: Emergency Medicine Author Type: Registered Nurse Type: ED Notes Filed: 09/19/2019 11:19 PM Note Text: Physician in at bedside at this time with patient. [facility] ED NOTE HNO ID: [id number] Author: Sukh Lyle RN Service: Emergency Medicine Author Type: Registered Nurse Type: ED Notes Filed: 09/19/2019 10:51 PM Note Text: Talked to [facility] Vendor Management Consultant, Nuvia @ phone number [phone]. Nuvia stated she will be contacting the hospitalist and give us a call back. [facility] ED NOTE HNO ID: [id number] Author: Sukh Lyle RN Service: Emergency Medicine Author Type: Registered Nurse Type: ED Notes Filed: 09/19/2019 10:58 PM Note Text: Respiratory in at bedside at this time performing an EKG. [facility] ED NOTE HNO ID: [id number] Author: Sukh Lyle RN Service: Emergency Medicine Author Type: Registered Nurse Type: ED Notes Filed: 09/19/2019 10:21 PM Note Text: Radiology at bedside for xray. [facility] ED NOTE HNO ID: [id number] Author: Sukh Lyle RN Service: Emergency Medicine [...] ask questions. Medication(s) include: Aspirin, Nitroquick. Normal [facility] Hemogramon 09-20-2019 Erythrocyte distribution width (RBC) [Ratio] 13.1 % Normal 11.5-15.9 [facility] Comment on above: Performed By: #### L CBC #### [place] [address] Hematocrit (Bld) [Volume fraction] 39.1 % Normal 37.0-47.0 [facility] Comment on above: Performed By: #### L CBC #### [place] [address] Hemoglobin (Bld) [Mass/Vol] 12.7 g/dL Normal 12.0-16.0 [facility] Comment on above: Performed By: #### L CBC #### [place] [address] MCH (RBC) [Entitic mass] 29.7 pg Normal 27.0-31.0 [facility] Comment on above: Performed By: #### L CBC #### [place] [address] MCHC (RBC) [Mass/Vol] 32.5 % Normal 32.0-36.0 [facility] Comment on above: Performed By: #### L CBC #### [address] [address] MCV (RBC) [Entitic vol] 91.4 fL Normal 81.0-99.0 [facility] Comment on above: Performed By: #### L CBC #### [address] [address] Platelet mean volume (Bld) [Entitic vol] 9.9 fL Normal 7.1-10.5 [facility] Comment on above: Performed By: #### L CBC #### [facility] [address] [place], [place] [address] Platelets (Bld) [#/Vol] 192 thou/cmm Normal 150-400 [facility] Comment on above: Performed By: #### L CBC #### [address] [address] RBC (Bld) [#/Vol] 4.28 mil/cmm Normal 4.20-5.40 [facility] Comment on above: Performed By: #### L CBC #### [address] [address] WBC (Bld) [#/Vol] 8.6 thou/cmm Normal 4.8-10.5 [facility] Comment on above: Performed By: #### L CBC #### [place] [address] MDRD eGFRon 09-20-2019 GFR/1.73 sq M predicted among non-blacks MDRD (S/P/Bld) [Vol rate/Area] mL/min/{1.73_m2} Normal >60mL/min/1.73 m2 [facility] Comment on above: Result Comment: If t he patient is , multiply the result by 1.210. Performed By: #### L GFR #### [place] [address] N-terminal Pro-BNPon 019 Natriuretic peptide B (Bld) [Mass/Vol] 56.9 pg/mL Normal [facility] Comment on above: Result Comment: Norm al Reference Range: Patients <75 yrs old <125pg/ml Patients >=75 yrs old <450 pg/ml Performed By: #### L PBNP #### [place] [id number] Troponin Ion 09-20-2019 Troponin I.cardiac [Mass/Vol] ng/mL Normal <=0.07 [facility] Comment on above: Performed By: #### L TRP #### [place] [id number] Urine HCG, Qual.on 9 Beta HCG ( test) Ql (U) Negative Normal Negative [facility] Comment on above: Performed By: #### L HCG2 #### [facility] [address] [place], [place] [address] Specific [place], Ur 1.020 Normal 1.005-1.030 [facility] Comment on above: Performed By: #### L HCG2 #### [facility] [address] [place], [place] [address] XR CHEST 1V FRONTALon 2018 XR CHEST [...] is recommended within 4 weeks, suspicious appearance. [employer] Specialist: RICHELLE Transcribe Date/Time: Sep 19 2019 10:29P Dictated by : ANGELA JOHNS MD This examination was interpreted and the report reviewed and electronically signed by: ANGELA JOHNS MD on Sep 19 2019 10:30PM EST ACTIONABLE Normal [facility] ECG COMPLETEon 09-19-2019 ECG COMPLETE NAME : OSMAN KINSEY PID : [id number] 1975 Gender : Female Race : ORD : [id number] Procedure Date : Sep 19 2019 21:55:58 Edit Date : Sep 21 2019 17:15:44 Diagnosis:NORMAL SINUS RHYTHM NONSPECIFIC ST-T WAVE CHANGES CANNOT RULE OUT ANTERIOR INFARCT , AGE UNDETERMINED ABNORMAL ECG WHEN COMPARED WITH ECG OF 13-MAR-2018 23:15, INVERTED T WAVES HAVE REPLACED NONSPECIFIC T WAVE ABNORMALITY IN INFERIOR LEADS Confirmed by DASHAMD GARCIA VINAYAK ([id number]) on 09/21/2019 5:15:43 PM Ventricular Rate : 66 BPM Atrial Rate : 66 BPM P-R Interval : 144 ms QRS Duration : 92 ms Q-T Interval : 396 ms QTC Calculation(Bazett) : 415 ms P [place] : 23 degrees R [place] : -1 degrees T [place] : 6 degrees Test Reason : Chest Pain Location : 150 : [place] 5 Overread By : MD LOU VINAYAK Edited By : MD LOU VINAYAK Referred By : , Acquired by : Kel Chavira Normal [facility] ED NOTEon 09-19-2019 ED NOTE HNO ID: [id number] Author: Madeleine (Rn) KINDRA Singh Service: Emergency Medicine Author Type: Registered Nurse Type: ED Notes Filed: 09/19/2019 9:45 PM Note Text: Left side chest burning, left arm aching sensation onset approx 1 hour prior to arrival while watching TV. Pt reports feeling hot and sweaty at onset of symptoms. some intermittent nausea. Normal [facility] ED PROV NOTEon 09-19-2019 ED PROV NOTE HNO ID: [id number] Author: Maxine Silverio DO Service: Emergency Medicine [...] Patient is agreeable and she is requesting [facility]. Repeat EKG ordered showing NSR at rate of 64 stable from initial EKG, non-specific ST changes, no ST elevation. Time: 1115 pm I spoke with Dr. Patton, hospitalist at [place], I discussed case and results. He is accepting for observation. I discussed observation status and acceptance to [place] with the patient. I again discussed her [...] and Reviewed Rhythm: Normal sinus rhythm Rate: [place]: Normal axis Intervals: Normal CT interval QRS Complex: Normal ST Segment: Nonspecific ST-T changes QT Interval: Normal Compared with Prior: Changed (comment) (nonspecific changes leads III, avF, V3 compared to EKG from March 13, 2018) Interpretation performed by Maxine Silverio DO Disposition The patient was transferred. Transferred to [place]. Condition at disposition is stable. SIGNATURE: DO Maxine Power DO 09/19/19 2334 Normal [facility] HIV 1,2 Ab; p24 Agon 018 HIV 1,2 Ab; p24 Ag NONREACTIVE Normal Nonreactive [facility] [employer] Comment on above: Result Comment: Resu lts [...] By: #### H IV4, HEPC, HBSAG, HBSA ####[facility] [id number] [place] [address] Hep B Surface Abon 8 Hep B Surface Ab 89.0 m[IU]/mL Normal [facility] Comment on above: Result Comment: Inte rpretation:<8.0 Non-Reactive8.0-11.9 Equivocal>= 12.0 Ab Detected Performed By: #### H IV4, HEPC, HBSAG, HBSA ####[facility] [employer] [id number] [place] [address] Hep B Surface Agon 8 Hep B Surface Ag NOT DETECTED Normal Not-Detected [facility] [employer] [facility] Comment on above: Performed By: #### H IV4, HEPC, HBSAG, HBSA ####[employer] [id number] [place] [address] Hep C Antibodyon 04-03-2018 Hep C Antibody NOT DETECTED Normal Not-Detected [facility] Comment on above: Result Comment: Ronel ents with DETECTED Hepatitis C Ab results should have a new specimensubmitted for supplemental testing with a Hepatitis C Quantitative RNA assay(viral load), if clinically indicated. Performed By: #### H IV4, HEPC, HBSAG, HBSA ####[employer] [id number] [place] [address] Vital Signs Date Time Vital Sign Value Performing Clinician Faci lity 04-11-2025 10:48-0400 Body temperature 98.5 [degF] Dr. Manfred Alvarez MD Work Phone: [facility] 04-11-2025 10:48-0400 Diastolic blood pressure 75 mm[Hg] Dr. Manfred Alvarez MD Work Phone: [facility] 04-11-2025 10:48-0400 Heart rate 92 /min Dr. Manfred Alvarez MD Work Phone: [facility] 04-11-2025 10:48-0400 Respiratory rate 16 /min Dr. Manfred Alvarez MD Work Phone: [facility] 04-11-2025 10:48-0400 SaO2% (BldA) [Mass fraction] 95 % Dr. Manfred Alvarez MD Work Phone: [facility] 04-11-2025 10:48-0400 Systolic blood pressure 114 mm[Hg] Dr. Manfred Alvarez MD Work Phone: [facility] 04-10-2025 18:08-0400 Body height 165.[address] Manfred Alvarez MD Work Phone: [facility] 04-10-2025 18:08-0400 Body mass index (BMI) [Ratio] 30 kg/m2 Dr. Manfred Alvarez MD Work Phone: [facility] 04-10-2025 18:08-0400 Body weight [address] Manfred Alvarez MD Work Phone: [facility] 04-10-2025 18:00-0400 Diastolic blood pressure 56 mm[Hg] Dr. Manfred Alvarez MD Work Phone: [facility] 04-10-2025 18:00-0400 Heart rate 61 /min Dr. Manfred Alvarez MD Work Phone: [facility] 04-10-2025 18:00-0400 Respiratory rate 12 /min Dr. Manfred Alvarez MD Work Phone: [facility] 04-10-2025 18:00-0400 SaO2% (BldA) [Mass fraction] 98 % Dr. Manfred Alvarez MD Work Phone: [facility] 04-10-2025 18:00-0400 Systolic blood pressure 122 mm[Hg] Dr. Manfred Alvarez MD Work Phone: [facility] 04-10-2025 17:00-0400 Body temperature 98.8 [degF] Dr. Manfred Alvarez MD Work Phone: [facility] 04-10-2025 11:33-0400 Body height 165.[address] Manfred Alvarez MD Work Phone: [facility] 04-10-2025 11:33-0400 Body mass index (BMI) [Ratio] 28.3 kg/m2 Dr. Manfred Alvarez MD Work Phone: [facility] 04-10-2025 11:33-0400 Body weight 77.[address] Manfrde Alvarez MD Work Phone: [facility] 04-08-2025 07:34-0400 Body height 165.[address] Manfred Alvarez MD Work Phone: [facility] 04-08-2025 07:34-0400 Body mass index (BMI) [Ratio] 30.1 kg/m2 Dr. Manfred Alvarez MD Work Phone: [facility] 04-08-2025 07:34-0400 Body temperature 97.9 [degF] Dr. Manfred Alvarez MD Work Phone: [facility] 04-08-2025 07:34-0400 Body weight 82.[address] Manfred Alvarez MD Work Phone: [facility] 04-08-2025 07:34-0400 Diastolic blood pressure 80 mm[Hg] Dr. Manfred Alvarez MD Work Phone: [facility] 04-08-2025 07:34-0400 Heart rate 70 /min Dr. Manfred Alvarez MD Work Phone: [facility] 04-08-2025 07:34-0400 Respiratory rate 16 /min Dr. Manfred Alvarez MD Work Phone: [facility] 04-08-2025 07:34-0400 SaO2% (BldA) [Mass fraction] 98 % Dr. Manfred Alvarez MD Work Phone: [facility] 04-08-2025 07:34-0400 Systolic blood pressure 124 mm[Hg] Dr. Manfred Alvarez MD Work Phone: [facility] Encounters Encounter Date Encounter Type Care Provider Facility Start: 04-29-2025 ambulatory Manfred Alvarez Facility :[facility] Start: 04-17-2025 ambulatory MANFRED ALVAREZ Facility :[id number] Start: 04-17-2025 End: 04-17-2025 ambulatory MANFRED ALVAREZ Facility:[facility] Start: 04-11-2025 Non-patient / Non-visit Dr. Remi Miller MD -[facility] Work Phone: Start: 04-11-2025 Non-patient / Non-visit Dr. Trevor newsome MD -[facility] Start: 04-10-2025 End: 04-11-2025 ambulatory Remi Miller Facility:[facility] Start: 04-10-2025 End: 04-11-2025 Evaluation and management of inpatient Dr. Remi Miller MD -[facility] Work Phone: Start: 04-10-2025 End: 04-11-[address] Manfred Alvarez MD Work Phone: [facility] Work Phone: Start: 04-08-2025 End: 04-08-[address] Manfred Alvarez MD -[facility] Work Phone: Start: 04-08-2025 End: 04-08-[address] Manfred Alvarez MD Work Phone: [facility] Work Phone: Start: 04-08-2025 End: 04-08-2025 ambulatory Manfred Gunlock Facility:[facility] Start: 03-14-2025 ambulatory JAZMINE GARCIA MD [facility] ity:[facility] Start: 12-03-2024 End: 12-03-2024 ambulatory Manfred Kim Facility:[facility] Start: 10-21-2024 End: 10-21-2024 ambulatory Manfred Gunlock Facility:[facility] Start: 07-23-2024 End: 07-23-2024 ambulatory Bianca Ferullo Facility:[facility] Start: 07-18-2024 End: 07-18-2024 ambulatory Bianca Ferullo Facility:[facility] Start: 07-16-2024 End: 07-16-2024 ambulatory Manfred Kim Facility:[facility] Start: 07-16-2024 End: 07-16-2024 ambulatory Bianca Ferullo Facility:[facility] Start: 06-25-2024 End: 06-25-2024 ambulatory Bianca Ferullo Facility:[facility] Start: 06-13-2024 End: 06-13-2024 ambulatory [facility] Facility:[facility] Start: 06-11-2024 End: 06-11-2024 ambulatory Bianca Ferullo Facility:[facility] Start: 06-11-2024 End: 06-11-2024 ambulatory [facility] Facility:[facility] Start: 01-28-2019 Patient encounter procedure [facility] Facility:[facility] Start: 04-02-2018 Emergency department patient visit UNKNOWN PROVIDER [facility] Procedures Date Procedure Procedure Detail Performing Clinician [...] Activity Detail Author Start: 04-11-2025 Patient discharge [facility] Start: 04-10-2025 End: 04-10-2025 [facility] Start: 04-10-2025 Assessment of risk o f venous thromboembolism [facility] Start: 04-10-2025 Insertion of cathete r into peripheral vein [facility] Start: 04-10-2025 Measuring intake and output [facility] Start: 04-10-2025 Notification of physician [facility] Start: 04-10-2025 Oxygen therapy [facility] Start: 04-10-2025 Providing care accor ding to standard [facility] Start: 04-10-2025 Tobacco use cessation education [facility] Start: 04-10-2025 Following clinical p athway protocol [facility] Start: 04-10-2025 Verification routine [facility] Start: 04-10-2025 Admission procedure [facility] Start: 04-10-2025 Hospital admission, emergency, from emergency room, medical nature [facility] Start: 04-10-[address] [facility] Start: 04-10-[address] [facility] Start: 04-10-[address] [facility] Start: 04-08-2025 CBC W Auto Different ial panel - Blood [facility] Start: 04-08-2025 Cobalamin (Vitamin B 12) [Mass/volume] in Serum or Plasma [facility] Start: 04-08-2025 Comprehensive metabo lic 2000 panel - Serum or Plasma [facility] Start: 04-08-2025 Lipid 1996 panel - Serum or Plasma [facility] Start: 04-08-2025 Vitamin D, 25-hydroxy measurement [facility] Alanine aminotransfe rase [Enzymatic activity/volume] in Serum or Plasma [facility] Albumin [Mass/volume ] in Serum or Plasma [facility] Alkaline phosphatase [Enzymatic activity/volume] in Serum or Plasma [facility] Anion gap in Serum or Plasma [facility] Bilirubin, total measurement [facility] BUN/Creatinine ratio [facility] Calcium [Mass/volume ] in 24 hour Urine [facility] Calcium [Mass/volume ] in Serum or Plasma [facility] Carbon dioxide, tota l [Moles/volume] in Central venous blood [facility] Cholesterol [Mass/vo lume] in Serum or Plasma [facility] Cholesterol in HDL [ Mass/volume] in Serum or Plasma [facility] Creatinine [Mass/vol ume] in Serum or Plasma [facility] Erythrocyte mean cor puscular volume determination [facility] Glucose [Mass/volume ] in Serum or Plasma [facility] Hematocrit [Volume F raction] of Blood [facility] Hemoglobin [Mass/volume] in Blood [facility] Leukocytes [#/volume] in Blood [facility] Low density lipoprot ein cholesterol measurement [facility] Magnesium measurement [facility] Mean corpuscular hem oglobin concentration determination [facility] Mean corpuscular hem oglobin determination [facility] Measurement of renal function [facility] Neutrophil count [facility] Neutrophil percent d ifferential count [facility] Patient referral [facility] Work Phone: Platelets [#/volume] in Blood [facility] Potassium measurement [facility] Red blood cell count [facility] Red cell distributio n width determination [facility] Serum chloride measurement [facility] Sodium measurement [facility] Total cholesterol:HD L ratio measurement [facility] Total protein measurement [facility] Triglycerides measurement [facility] Urea nitrogen [Mass/ volume] in Serum or Plasma [facility] VLDL cholesterol measurement [facility] Immunizations Immunization Date Immunization Notes Care Provider [facility] 12-03-2024 influenza, injectabl e, madin lani canine kidney, preservative free Dr. Manfred Alvarez MD Work Phone: [facility] 06-30-2021 Covid (Pfizer) Dr. Manfred saunders MD Work Phone: [facility] 06-08-2021 Covid (Pfizer) Dr. Manfred saunders MD Work Phone: [facility] 09-20-2019 influenza, injectabl e, quadrivalent, preservative free Dr. Manfred Alvarez MD Work Phone: [facility] 09-20-2019 Seasonal, quadrivale nt, recombinant, injectable influenza vaccine, preservative free Dr. Manfred Alvarez MD Work Phone: [facility] 09-15-2019 influenza, injectabl e, quadrivalent, preservative free Dr. Manfred Alvarez MD Work Phone: [facility] 07-16-2017 influenza, injectabl e, quadrivalent, preservative free Dr. Manfred Alvarez MD Work Phone: [facility] 02-23-2017 measles, mumps and rubella virus vaccine Dr. Manfred Alvarez MD Work Phone: [facility] 10-01-2014 influenza, injectabl e, quadrivalent, preservative free Dr. Manfred Alvarez MD Work Phone: [facility] 04-10-2013 measles, mumps and rubella virus vaccine Dr. Manfred Alvarez MD Work Phone: [facility] 04-03-2013 tetanus toxoid, redu earl diphtheria toxoid, and acellular pertussis vaccine, adsorbed Dr. Manfred Alvarez MD Work Phone: [facility] Payers Date Payer Category Payer Unknown [id number] 2024 Private Health Insurance [id number] 2008 Self-pay 1975 Unknown [id number] 59 1975 Unknown [id number] 2.16.840.1.221581.3.579.2.1 59 1975 Unknown [id number] 2.16.840.1.410799.3.579.2.1 59 1975 Unknown [id number] 2.16.840.1.823899.3.579.2.1 59 1975 Unknown [id number] 2.16.840.1.133648.3.579.2.1 59 Unknown [facility] [id number] Unknown Unknown [id number] 2.16.840.1.672132.3.579.2.4 62 Unknown [id number] 2.16.840.1.812058.3.579.2.4 62 Unknown [id number] 2.16.840.1.380529.3.579.2.4 62 Unknown [id number] 2.16.840.1.165426.3.579.2.4 62 Unknown [id number] 2.16.840.1.641937.3.579.2.4 62 Unknown [id number] 2.16.840.1.612546.3.579.2.4 62 Unknown [id number] 2.16.840.1.065683.3.579.2.4 62 Unknown [id number] 2.16.840.1.083841.3.579.2.4 62 Unknown [id number] 2.16.840.1.876727.3.579.2.4 62 Unknown [id number] 2.16.840.1.419836.3.579.2.4 62 Unknown [id number] 2.16.840.1.877027.3.579.2.4 62 Unknown [id number] 2.16.840.1.534502.3.579.2.4 62 Unknown [id number] 2.16.840.1.853066.3.579.2.4 62 Unknown [id number] 2.16.840.1.177635.3.579.2.4 62 Unknown [id number] 2.16.840.1.595586.3.579.2.4 62 Unknown [id number] 2.16.840.1.591734.3.579.2.4 62 Unknown [id number] 2.16.840.1.122290.3.579.2.4 62 Worker's Compensation Social History Date Type Detail Facility Start: 12-03-2024 End: 04-10-2025 Tobacco smoking status NHIS Ex-smoker (finding) [facility] Start: 09-20-[address] [facility] Start: 09-20-[address] [facility] Start: 09-20-[address] [facility] Start: 09-20-2019 Tobacco Use Tobacco Use [facility] Start: 1975 Sex Assigned At Female [facility] Start: 04-10-2025 Tobacco smoking status UTIS Tobacco smoking consumption unknown (finding) [facility] Functional Status Date Assessment Result Facility 04-11-2025 Functional status Ambulates [facility] Work Phone: Mental Status Date Assessment Result Facility 04-11-2025 Cognitive function Voice/Name [facility] Work Phone: Clinical Notes 09-20-2019 to 04-11-2025 Note Date & Type Note Facility 04-11-2025 Discharge summary [facility] 04-11-2025 Discharge summary [facility] 04-11-2025 Note [facility] Medical Records Department [address] [place] [id number] Discharge Summary 04/11/25 1516 MR#: [id number] Acct: [id number] Name: MAHNAZ KINSEY Rep #: [id number] : 1975 50 From: Remi Miller MD PCP: Dr. Manfred Alvarez MD Status:ADM VALERIE Location: [place] [address] Providers Date of Admission: 04/10/25 Date of [...] and absorption. I advised to follow with [facility] associate, Dr. Nuñez for further opinion [...] her to follow up with her established [facility] in about [address] findings. This is not her primary complaint what she came to ED but needs to be taken care of as an outpatient soon. This was explained to the patient. 04/11: Patient made an appointment with Dr. Camarena [facility] on 05/05 for abnormal heterogeneous mass in [...] % (Auto) 62.1, Lymph % (Auto) 26.9, [place] % (Auto) 10.3 H, Eos % (Auto) [...] gallbladder with m (more content not included)... [facility] 04-11-2025 Hospital Discharge instructions Additional Instructions Appointment with Dr. Davis [facility] On April 17 for uterine mass Date of Discharge: 04/11/25 [facility] Work Phone: 04-11-2025 Radiology Diagnostic study note [facility] Imaging Services [address] [place] [id number] Abdomen Limited MR#: [id number] Acct: [id number] Name: MAHNAZ KINSEY Rep #: [id number] : 1975 F 50 From: Irvin Montana MD PCP: Dr. Manfred Alvarez MD Status: ADM VALERIE Study:Abdomen Limited Date of Exam: 03/17 05/09 Exam# [id number] Ordering Dr: Pooja Miller MD PROCEDURE: ABDOMEN [...] represent tumefactive sludge. Follow-up recommended. Reading Location: [id number] CC: Dr. Manfred Alvarez MD; Dr. Remi Miller MD ~ [employer] Media Specialist: Signed [facility] 04-10-2025 History and physi thais note Note Date/Time April 10, 2025 5:29pm [facility] Medical Records Department [address] [place] [address] H&P Exam - Hospitalist 04/10/25 1704 MR#: [id number] Acct: [id number] Name: MAHNAZ KINSEY Rep #:[id number] : 1975 50 From: Remi Sun PCP: Dr. Manfred Alvarez MD Status:ADM VALERIE Location: [place] [address] 1 HPI - General General Date of Admission: 04/10/25 Date of Service: 04/10/25 Chief Complaint: Epigastric abdominal pain, 40 minutes experienced dizziness sweating and at times nausea. HPI Narrative MAHNAZ KINSEY, is a 50 F with history of [place] with elevated troponin at the age of [...] troponins are normal. ED physician talked to cold reduction roller and advised a stress test tomorrow. She [...] chest were discussed in assessment and plan. [facility] Medical History Asthma Anemia History of non-ST elevation myocardial infarction (NSTEMI) (09/20/19) Essential (primary) hypertension Nicotine dependence Obesity Atherosclerosis of coronary artery of [place] heart without angina pectoris Home Medications ?Medication [...] 3 current occupational status: employed current occupation: [employer] pets and animals: Yes (1) pets and [...] % (Auto) 62.1, Lymph % (Auto) 26.9, [place] % (Auto) 10.3 H, Eos % (Auto) [...] No acute abnormality is seen. Reading Location: [id number] Abdomen/Pelvis CT 04/10/25 14:52 IMPRESSION: Slightly distended gallbladder with mild thickening of the gallbladder wall. Minimal intrahepatic biliary ductal dilatation. Correlation with ultrasound recommended. 9.6 cm 6.2 cm 8.6 cm heterogeneous mass in the pelvis as described. This may represent a pedunculated uterine fibroid although a suprapubic pelvic mass can not be excluded. Correlation with ultrasound recommended. Reading Location: [id number]-P Chest CTA 04/10/25 14:52 IMPRESSION: No evidence of pulmonary embolism. No acute abnormality is seen. Reading Location: [id number] Assessment & Plan Assessment/Plan (1) Chest pain: [...] her to follow up with her established [employer] in about [address] [...] shock if needed Total time spent in dryd-ws-wlta encounter in discussion of advanced directive 17 minutes. Laboratory Results 04/10/25 12:19: WBC 6.3, RBC 4.38, Hgb 13.3, Hct 40.8, MCV 93.2, MCH 30.4, MCHC 32.6, RDW Std Deviation 42.3, RDW Coeff of Jennifer 12.2, Plt Count 189, MPV 10.2, Immature Gran % (Auto) 0.200, Neut % (Auto) 62.1, Lymph % (Auto) 26.9, [place] % (Auto) 10.3 H, Eos % (Auto) [...] excluded. Correlation with ultrasound recommended. Reading Location: [id number]-X Chest CTA 04/10/25 14:52 IMPRESSION: No evidence of pulmonary embolism. No acute abnormality is seen. Reading Location: [id number]-R Charges/Coding Visit Charges Inpatient E&M: 19072 Init Hosp L3 Procedures Hospitalists Procedures: 66240 Advncd Care Plan 30 Min 04/10/25 1729 <Electronically signed by Remi Miller MD> Cosigner Signature (if applicable): CC: Dr. Manfred Alvarez MD; Dr. Remi Miller MD~ Signed [facility] Work Phone: 1(568) 657-895106-26-2025 Discharge summary Author Chele Bonner [facility] Note Date/Time April 10, 2025 4:54 pm [facility] Medical Records Department [address] [place] [address] Emergency Department Summary 04/10/25 MR#: [id number] Acct: [id number] Name: MAHNAZ KINSEY Rep #:[id number] : 1975 50 From: Chele Bonner DO [...] is not dizzy she was lightheaded. [facility] Medical History Asthma Anemia History of non-ST elevation myocardial infarction (NSTEMI) (09/20/19) Essential (primary) hypertension Nicotine dependence Obesity Atherosclerosis of coronary artery of [place] heart without angina pectoris Home Medications ?Medication [...] 3 current occupational status: employed current occupation: [employer] pets and animals: Yes (1) pets and [...] follow commands knew that she was at [facility] 2024 Skin: Warm, dry, tact no [...] that she needs to follow-up with her [employer] on this. Patient was reevaluated repeat abdominal exam was performed she has no right upper quadrant tenderness negative Vanegas sign. I reached out to on-call cold reduction roller Dr. Salguero and he is recommending admissionfor [...] % (Auto) 62.1 Lymph % (Auto) 26.9 [place] % (Auto) 10.3 H Eos % (Auto) [...] No acute abnormality is seen. Reading Location: [id number]-E Abdomen/Pelvis CT 04/10/25 14:52 IMPRESSION: Slightly distended gallbladder with mild thickening of the gallbladder wall. Minimal intrahepatic biliary ductal dilatation. Correlation with ultrasound recommended. 9.6 cm 6.2 cm 8.6 cm heterogeneous mass in the pelvis as described. This may represent a pedunculated uterine fibroid although a suprapubic pelvic mass can not be excluded. Correlation with ultrasound recommended. Reading Location: [id number]-S Chest CTA 04/10/25 14:52 IMPRESSION: No evidence of pulmonary embolism. No acute abnormality is seen. Reading Location: [id number] Discharge Plan Triage Chief Complaint: Abd Pain [...] MD [Primary Care Provider] - Print Language: Mauritanian Disposition Disposition: Acute Care Hospital [facility] What to do if you have Problems For any increased pain, shortness of breath, bleeding, nausea or vomiting, chestpain, or any unexpected problems, contact your Primary Care Provider. Call For Your Imagination Registry ([phone]) or report to the closest Emergency Room. Call 911 if necessary. 04/10/25 1654 <Electronically signed by Chele Bonner DO> Cosigner Signature (if applicable): CC: Dr. Manfred Alvarez MD ~ Signed [facility] Work Phone: [phone]) 689-861706-26-2025 History and physical note [facility] Medical Records Department [address] [place] [address] H&P Exam - Hospitalist 04/10/25 1704 MR#: [id number] Acct: [id number] Name: MAHNAZ KINSEY Rep #:[id number] : 1975 50 From: Remi Sun PCP: Dr. Manfred Alvarez MD Status:ADM VALERIE Location: [place] [address] HPI - General General Date of Admission: 04/10/25 Date of Service: 04/10/25 Chief Complaint: Epigastric abdominal pain, 40 minutes experienced dizziness sweating and at times nausea. HPI Narrative MAHNAZ KINSEY, is a 50 F with history of [place] with elevated troponin at the age of [...] troponins are normal. ED physician talked to cold reduction roller and advised a stress test tomorrow. She [...] chest were discussed in assessment and plan. [facility] Medical History Asthma Anemia History of non-ST elevation myocardial infarction (NSTEMI) (09/20/19) Essential (primary) hypertension Nicotine dependence Obesity Atherosclerosis of coronary artery of [place] heart without angina pectoris Home Medications ?Medication [...] 3 current occupational status: employed current occupation: [employer] - pets and animals: Yes (1) pets [...] % (Auto) 62.1, Lymph % (Auto) 26.9, [place] % (Auto) 10.3 H, Eos % (Auto) [...] No acute abnormality is seen. Reading Location: [facility] Abdomen/Pelvis CT 04/10/25 14:52 IMPRESSION: Slightly distended gallbladder with mild thickening of the gallbladder wall. Minimal intrahepatic biliary ductal dilatation. Correlation with ultrasound recommended. 9.6 cm 6.2 cm 8.6 cm heterogeneous mass in the pelvis as described. This may represent a pedunculated uterine fibroid although a suprapubic pelvic mass can not be excluded. Correlation with ultrasound recommended. Reading Location: [id number] Chest CTA 04/10/25 14:52 IMPRESSION: No evidence of pulmonary embolism. No acute abnormality is seen. Reading Location: [id number] Assessment & Plan Assessment/Plan (1) Chest pain: [...] her to follow up with her established [employer] [employer] [facility] in about [address] [...] shock if needed Total time spent in zvyt-vu-qqfm encounter in discussion of advanced directive 17 minutes. Laboratory Results 04/10/25 12:19: WBC 6.3, RBC 4.38, Hgb 13.3, Hct 40.8, MCV 93.2, MCH 30.4, MCHC 32.6, RDW Std Deviation 42.3, RDW Coeff of Jennifer 12.2, Plt Count 189, MPV 10.2, Immature Gran % (Auto) 0.200, Neut % (Auto) 62.1, Lymph % (Auto) 26.9, [place] % (Auto) 10.3 H, Eos % (Auto) 0.0, Baso % (Auto) 0.5, Absolute Neuts (auto) 3.9, Absolute Lymphs (auto) 1.70, Nucleated RBC % 0, Sodium 139, Potassium 4.3, Chloride 107, Carbon Dioxide 20.9 L, Anion Gap 10, BUN 16, Creatinine 0.64 L, Estim Creat Clear Calc 109.37, Est GFR (MDRD) Non-Af 108, BUN/Creatinine Ratio 25.1 H, Lrxhock71, Calcium 10.3, Total Bilirubin 0.47, Direct Bilirubin 0.16, AST 20, ALT 10, Alkaline Fipqaknfmwl73, Troponin THigh Sens < 6, Total Protein [...] Location: ROB Charges/Coding Visit Charges Inpatient E&M: 88069 Init Hosp L3 Procedures Hospitalists Procedures: 85356 Advncd Care Plan 30 Min 04/10/25 9479 Cosigner Signature (if applicable): CC: Dr. Manfred Alvarez MD; Dr. Remi Miller MD~ Signed [facility]06-26-2025 Discharge summary [facility] System Medical Records Department [address] [place] [address] Emergency Department Summary 04/10/25 MR#: [id number] Acct: [id number] Name: MAHNAZ KINSEY Rep #:[id number] : 1975 50 From: Chele Bonner DO [...] is not dizzy she was lightheaded. [facility] Medical History Asthma Anemia History of non-ST elevation myocardial infarction (NSTEMI) (09/20/19) Essential (primary) hypertension Nicotine dependence Obesity Atherosclerosis of coronary artery of [place] heart without angina pectoris Home Medications ?Medication [...] 3 current occupational status: employed current occupation: [employer] - pets and animals: Yes (1) pets [...] follow commands knew that she was at [facility] 2024 Skin: Warm, dry, tact no [...] that she needs to follow-up with her [employer] [employer] [facility] on this. Patient was reevaluated repeat abdominal exam was performed she has no right upper quadrant tenderness negative Vanegas sign. I reached out to on-call cold reduction roller Dr. Salguero and he is recommending admissionfor [...] % (Auto) 62.1 Lymph % (Auto) 26.9 [place] % (Auto) 10.3 H Eos % (Auto) [...] No acute abnormality is seen. Reading Location: [id number] Abdomen/Pelvis CT 04/10/25 14:52 IMPRESSION: Slightly distended [...] MD [Primary Care Provider] - Print Language: Mauritanian Disposition Disposition: Acute Care Hospital [facility] What to do if you have Problems For any increased pain, shortness of breath, bleeding, nausea or vomiting, chestpain, or any unexpected problems, contact your Primary Care Provider. Call For Your Imagination Registry ([phone]) or report tothe closest Emergency Room. Call 911 if necessary. 04/10/25 0513 Cosigner Signature (if applicable): CC: Dr. Manfred Alvarez MD ~ Signed [facility]06-26-2025 Radiology Diagnostic study note [facility] Imaging Services [address] [place], [place] [address] Abdomen/Pelvis W IV Cont ONLY MR#: [id number] Acct: [id number] Name: MAHNAZ KINSEY Rep #: [id number] : 1975 F 50 From: Irvin Montana MD PCP: Dr. Manfred Alvarez MD Status: REG ER Study:Abdomen/Pelvis W IV Cont ONLY Date of E xam: 04/10/25 Exam# [id number] Ordering Dr: Johnnie Bonner DO PROCEDURE: ABDOMEN/PELVIS [...] Alvarez MD; Dr. Chele Bonner DO ~ [employer] Media Specialist: Signed [facility]06-26-2025 Radiology Diagnostic study note [facility] Imaging Services [address] [place], [place] [id number] CTA Chest W/WO Contrast MR#: [id number] Acct: [id number] Name: MAHNAZ KINSEY Rep #: [id number] : 1975 F 50 From: Irvin Montana MD PCP: Dr. Manfred Alvarez MD Status: REG ER Study:CTA Chest W/WO Contrast Date of Exam: 04/10/25 Exam# [id number] Ordering Dr: Johnnie Bonner DO PROCEDURE: CTA [...] Alvarez MD; Dr. Chele Bonner DO ~ [employer] Media Specialist: Signed [facility]06-26-2025 Radiology Diagnostic study note [facility] Imaging Services [address] [place] [address] Chest PA and Lateral MR#: [id number] Acct: [id number] Name: MAHNAZ KINSEY Rep #: [id number] : 1975 F 50 From: Irvin Montana MD PCP: Dr. Manfred Alvarez MD Status: REG ER Study:Chest PA and Lateral Date of Exam: 04/10/25 Exam# [id number] Ordering Dr: Johnnie Bonner DO PROCEDURE: CHEST [...] No acute abnormality is seen. Reading Location: [facility] CC: Dr. Manfred Alvarez MD; Dr. Chele Bonner DO ~ [employer] Media Specialist: Signed [facility]06-24-2025 Evaluation note* Diagnosis Onset Date Resolution Status [...] Uterine mass acute April 10 025 5:20pm [facility] Work Phone: 1(630) 686-957112-06-2019 Evaluation note* Diagnosis Onset Date Resolution Status Admit Date Essential (primary) hypertension chronic April 08, 2025 7:21am History of non-ST elevation myocardial infarction (NSTEMI) September 20, 2019 resolved March 7:21am Cobalamin deficiency noneactive April 08, 2025 7:21am Anxiety noneactive April 08 7:21am Vitamin d deficiency noneactive April 08, 2025 7:21am Obesity (BMI 30-39.9) noneactive Mar 7:21am [facility] Work Phone: Discharge summary Author Remi Miller [facility] Note Date/Time April 11, 2025 3:16 pm [facility] System Medical Records Department [address] [place] [address] Instructions for Home/Discharge Instructions 04/11/25 1511 MR#: [id number] Acct: [id number] Name: MAHNAZ KINSEY Rep #:[id number] : 1975 50 From: Remi Sun PCP: [...] Instructions / Restrictions: Appointment with Dr. Davis [facility] On April 17 for uterine mass Discharge [...] CC: Dr. Manfred Alvarez MD ~ Signed [facility] Work Phone: Discharge summary Author Remi Miller [facility] Note Date/Time April 11, 2025 3:20 pm [facility] Medical Records Department [address] [place] [address] Discharge Summary 04/11/251515 MR#: [id number] Acct: [id number] Name: MAHNAZ KINSEY Rep #:[id number] : 1975 50 From: Remi Sun PCP: Dr. Manfred Alvarez MD Status:ADM VALERIE Location: [facility] [place] [address] Providers Date of Admission: 04/10/25 Date of [...] and absorption. I advised to follow with [facility] surgical associate, Dr. Nuñez for further opinion [...] her to follow up with her established [employer] in about [address] findings. This is not her primary complaint whatshe came to ED but needs to be taken care of as an outpatient soon. This was explained to the patient. 04/11: Patient made an appointment with Dr. Camarena [facility] on 05/05 for abnormal heterogeneous mass in [...] % (Auto) 62.1, Lymph % (Auto) 26.9, [place] % (Auto) 10.3 H, Eos % (Auto) [...] Instructions / Restrictions: Appointment with Dr. Davis [facility] On April 17 for uterine mass Discharge [...] Self Care Charges/Coding Visit Charges Inpatient E&M: 95977 Disch Hosp >30min 04/11/25 1520 <Electronically signed by Remi Miller MD> Cosigner Signature (if applicable): CC: Dr. Manfred Alvarez MD; Dr. Jed Nuñez MD; Dr. Remi Miller MD~ Signed [facility] Work Phone: History and physical note Author Remi Miller [facility] Note Date/Time April 10, 2025 5:29 pm [facility] Medical Records Department [address] [place] [address] H&P Exam - Hospitalist 04/10/25 1704 MR#: [id number] Acct: [id number] Name: MAHNAZ KINSEY Rep #:[id number] : 1975 50 From: Remi Sun PCP: Dr. Manfred Alvarez MD Status:ADM VALERIE Location: [place] [address]- HPI - General General Date of Admission: 04/10/25 Date of Service: 04/10/25 Chief Complaint: Epigastric abdominal pain, 40 minutes experienced dizziness sweating and at times nausea. HPI Narrative MAHNAZ KINSEY, is a 50 F with history of [place] with elevated troponin at the age of [...] troponins are normal. ED physician talked to cold reduction roller and advised a stress test tomorrow. She [...] chest were discussed in assessment and plan. [facility] Medical History Asthma Anemia History of non-ST elevation myocardial infarction (NSTEMI) (09/20/19) Essential (primary) hypertension Nicotine dependence Obesity Atherosclerosis of coronary artery of [place] heart without angina pectoris Home Medications ?Medication [...] 3 current occupational status: employed current occupation: [employer] pets and animals: Yes (1) pets and [...] % (Auto) 62.1, Lymph % (Auto) 26.9, [place] % (Auto) 10.3 H, Eos % (Auto) [...] No acute abnormality is seen. Reading Location: [facility] Abdomen/Pelvis CT 04/10/25 14:52 IMPRESSION: Slightly distended gallbladder with mild thickening of the gallbladder wall. Minimal intrahepatic biliary ductal dilatation. Correlation with ultrasound recommended. 9.6 cm 6.2 cm 8.6 cm heterogeneous mass in the pelvis as described. This may represent a pedunculated uterine fibroid although a suprapubic pelvic mass can not be excluded. Correlation with ultrasound recommended. Reading Location: [id number] Chest CTA 04/10/25 14:52 IMPRESSION: No evidence of pulmonary embolism. No acute abnormality is seen. Reading Location: [id number] Assessment & Plan Assessment/Plan (1) Chest pain: [...] her to follow up with her established [employer] in about [address] [...] shock if needed Total time spent in hmxu-dm-gitt encounter in discussion of advanced directive 17 minutes. Laboratory Results 04/10/25 12:19: WBC 6.3, RBC 4.38, Hgb 13.3, Hct 40.8, MCV 93.2, MCH 30.4, MCHC 32.6, RDW Std Deviation 42.3, RDW Coeff of Jennifer 12.2, Plt Count 189, MPV 10.2, Immature Gran % (Auto) 0.200, Neut % (Auto) 62.1, Lymph % (Auto) 26.9, [place] % (Auto) 10.3 H, Eos % (Auto) [...] No acute abnormality is seen. Reading Location: RBO Charges/Coding Visit Charges Inpatient E&M: 62783 Init Hosp L3 Procedures Hospitalists Procedures: 46944 Advncd Care Plan 30 Min 04/10/25 1729 <Electronically signed by Remi Miller MD> Cosigner Signature (if applicable): CC: Dr. Manfred Alvarez MD; Dr. Remi Miller MD~ Signed [facility] Work Phone: Reason for referral (narrative)No reason for referral information [facility]Ind[facility] Work Phone: Summary Purpose Family [...] Do you have a Healthcare Power of Health Information Technologist? No April 10, 2025 1:00pm Advance Directive Response Recorded Date/ Time Do you have a Healthcare Power of Health Information Technologist? No April 10, 2025 6:08pm Chief Complaint [...] section and content) DATE CREATED AUTHOR 04/05/2018 [facility] [employer] [facility] DATE CREATED AUTHOR AUTHOR'S GRICELDA ATION 01/28/2019 [facility] DATE CREATED AUTHOR AUTHOR'S ORGANIZ ATION 09/20/2019 [facility] DATE CREATED AUTHOR AUTHOR'S ORGANIZ ATION 09/20/2019 [facility] DATE CREATED AUTHOR AUTHOR'S ORGANIZ ATION 09/21/2019 [facility] DATE CREATED AUTHOR AUTHOR'S ORGANIZ ATION 04/24/2025 [facility] DATE CREATED AUTHOR AUTHOR'S ORGANIZ ATION [facility] Care Teams (unrecognized sec tion and content) [...] Provider Active Start: April 11, 2025 Dr. Chlee Bonner DO Referring Provider Active Start: April [...] BE BASED ON THE PRIMARY CLINICAL RECORDS. [employer] provides no warranty or guarantee of the accuracy or completeness of information in this document.
== END | disposition home or self-care (01) ==
LOC: OPBD 09:19
PROVIDERS: PCP Internal Medicine; Referring Provider Internal Medicine; Visit Provider Internal Medicine
DX: E21.0 Primary hyperparathyroidism (principal)
CPT/HCPCS: 77080

== ENCOUNTER → 2025-09-09 | Outpatient (CLI) | payer OTHER, SELFPAY ==
--- NOTE | 2025-09-09 12:30 | BI_ITS ---
EXAM: SCRN MAMM (CAD) Wo/SHANNON BILAT DATE: 09/09/2025 CLINICAL HISTORY: FA, Age 50 Y/o, SCREENING Patient has bilateral breast implants. TECHNIQUE: Procedure Code: DEEPTI Modality: MG Procedure: SCORN MAMM (CAD) Wo/SHANNON BILAT Pushback Dharmesh CC and pushback Dharmesh MLOS views of the right and left breasts were also performed. COMPARISON: Prior exam(s) dated June 25, 2024. FINDINGS: TISSUE DENSITY: The breasts are heterogeneously dense, which may obscure small masses. Bilateral Breast Mammographic Findings: No significant masses, calcifications or other abnormalities are identified. Both breast implants appear to be intact. A stable 7 mm partially obscured isodense mass is seen in the inferior aspect of the right breast. BI/SCRN MAMM (CAD)W/SHANNON BILAT IMPRESSION: Benign screening mammogram OVERALL FINAL ASSESSMENT BI-RADS 2: BENIGN RECOMMENDATION: Routine annual follow-up in 1 Year Additional Recommendation none A letter with findings and recommendations will be mailed to the patient. Reading Location: [id number]
== END | disposition home or self-care (01) ==
LOC: OPBI 12:14
PROVIDERS: PCP Internal Medicine; Referring Provider Internal Medicine; Visit Provider Internal Medicine
DX: Z12.31 Encounter for screening mammogram for malignant neoplasm of breast (principal)
CPT/HCPCS: 77063; 77067